=== PATIENT | male | born 1945 | race Caucasian/White ===

== ENCOUNTER 2023-04-03 08:21 | Outpatient (OUT) | payer OTHER, SELFPAY ==
--- NOTE | 2023-04-03 | PCN_ITS ---
CARDIAC STRESS TEST Requesting Physician:? Procedure Date:? 04/03/2023 Mr. Doyle performed an exercise stress test on Bubba protocol.? The resting heart rate was 62 beats per minute with a resting blood pressure of 188/82 mm/Hg, with a maximum heart rate achieved of 127 beats per minute, with a maximum blood pressure achieved of 206/88 mm/Hg.? He exercised up to 4 minutes and 1 second, reaching only stage 1, achieving 4.6 METS.? He did achieve 90% of the expected heart rate for his age.? Baseline showed evidence of sinus bradycardia with underlying right bundle branch block.? With increasing heart rate, no evidence of AV block was seen.? On recovery, patient did have a PVC, but no arrhythmias were noted. At 4 minutes into exercise at stage 2, very subtle [address] depression was noted on the inferolateral leads. IMPRESSION:? 1.? EKG portion suggestive of some early ST segment depression noted in the inferolateral leads concerning for ischemia. 2.? No evidence of any exercise induced VT or arrhythmia, except for PVC.? 3.? No evidence of chronotropic incompetence. MTDD
--- NOTE | 2023-04-03 08:30 | NM_ITS ---
Patient: IGNACIO AUGUSTINE Exam Date: 04/03/2023 : 1945 Gender:M Ordering : OVIDIO TOSCANO Admission #: [id number] Family : KAMI LANZA [facility] Order #: [id number] CLICK HERE TO VIEW EXAM RADIOLOGY REPORT PROCEDURE: NM TAYLOR PERF SPECT REST STR COMPARISON: None. INDICATIONS: CHEST PAIN TECHNIQUE: Exam Description: Stress/Rest one day protocol gated SPECT Rest Imagin.3 mCi Tc-99m Cardiolite IV on 04/03/2023 Stress Imaging 29.8 mCi Tc-99m Cardiolite IV on 04/03/2023 Exercise Protocol: Bubba Heart Rate (bpm): Rest: 52 Max: 127 PMHR: 90 Blood Pressure: Rest: 188/82 Max: 206/88 Exercise Time: Minutes: 4 Seconds: 01 Stage Reached: Stage: 2 Mets 4.6 Symptoms: Rest and peak stress ECG findings were abnormal and the exercise portion of the study was abnormal per attending physician Dr. Toscano due to blood pressure. For more details please see separate cardiac stress test report. FINDINGS: QUALITY OF STUDY: Good. PERFUSION DEFECT: LOCATION: Basal inferior. Mid-inferior. Apical inferior. SIZE: Medium (3-4 segments). SEVERITY: Moderate. TYPE: Persistent. WALL MOTION: Normal. LV SIZE: Normal. 63 mL. TID / TCD: None; 0.9 LVEF: Normal. Calculated EF 69%. SUMMARY: Myocardial perfusion imaging study has ABNORMAL findings. CONCLUSION: 1. 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 2. No reversible ischemia 3. Abnormal exercise test secondary to blood pressure Dictated by: Mohan Campo MD on 04/04/2023 at 12:58 Approved by: Mohan Campo MD on 04/04/2023 at 12:59
== END 2023-04-03 08:22 | disposition home or self-care (01) ==
PROVIDERS: PCP Nurse Practitioner Family; Visit Provider Internal Medicine Cardiovascular Disease
DX: R07.9 Chest pain, unspecified (principal)
CPT/HCPCS: 78452; 93017; A9500

== ENCOUNTER 2023-12-20 08:46 | Outpatient (OUT) | payer MEDICARE, SELFPAY ==
[2023-12-20 09:23] LABS: Basophils Absolute Auto 0.1 10^3/uL (0.0-0.1); Basophils Percent Auto 0.8 % (0.2-2.0); Eosinophils Absolute Auto 0.6 10^3/uL (0.0-0.7); Eosinophils Percent Auto 8.2 % (0.9-7.0); Hematocrit 40.3 % (42.0-54.0); Hemoglobin 13.3 g/dL (14.0-18.0); Immature Granulocytes Abs Auto 0.01 10^3/uL (0.00-0.03); Immature Granulocytes Pct Auto 0.1 % (0.0-0.5); Lymphocytes Absolute Auto 3.1 10^3/uL (1.2-3.8); Lymphocytes Percent Auto 39.9 % (20.5-60.0); Mean Corpuscular Hemoglobin 31.6 pg (25.9-34.0); Mean Corpuscular Volume 95.7 fL (80.0-94.0); Mean Platelet Volume 8.9 fL (9.5-13.5); Monocytes Absolute Auto 0.6 10^3/uL (0.3-0.8); Monocytes Percent Auto 7.2 % (1.7-12.0); Neutrophils Absolute Auto 3.4 10^3/uL (1.4-6.5); Neutrophils Percent Auto 43.8 % (43.0-75.0); Platelet Count 231 10^3/uL (150-450); Red Blood Count 4.21 10^6/uL (4.70-6.10); Red Cell Distribution Width 12.5 % (11.0-15.0); White Blood Count 7.8 10^3/uL (4.0-11.0)
[2023-12-20 09:51] LABS: Estimated Average Glucose 123 mg/dL; Glycohemoglobin A1C 5.9 % (4.5-6.2)
[2023-12-20 12:43] LABS: Alanine Aminotransferase 20 U/L (16-63); Albumin Globulin Ratio 1.2; Albumin Level 3.7 g/dL (3.4-5.0); Alkaline Phosphatase 68 U/L (46-116); Anion Gap 9.7; Aspartate Amino Transferase 19 U/L (15-37); BUN Creatinine Ratio 15.6; Bilirubin Total 0.5 mg/dL (0.2-1.0); Calcium 9.2 mg/dL (8.5-10.1); Carbon Dioxide 29.8 mmol/L (21.0-32.0); Chloride 104 mmol/L (98-107); Chol HDL Ratio 3.6; Cholesterol 189 mg/dL (<=200); Estimated GFR (African America >60 (>=60); Estimated GFR (Non-African Ame 54 (>=60); Glucose 110 mg/dL (74-106); HDL Cholesterol 52 mg/dL (40-60); LDL Cholesterol Calculated 118.4 mg/dL; Potassium 4.5 mmol/L (3.5-5.1); Sodium 139 mmol/L (136-145); Total Protein 6.7 g/dL (6.4-8.2); Triglycerides 93 mg/dL (<=150); VLDL CHOLESTEROL 18.6 mg/dL
[2023-12-21 04:08] LABS: PSA, Free 2.58 ng/mL; Prostate Specific Ag 11.5 ng/mL (0.0-4.0)
[2023-12-21 10:10] LABS: Insulin 5.9 uIU/mL (2.6-24.9)
== END 2023-12-20 08:47 | disposition home or self-care (01) ==
LOC: LAB 08:50
PROVIDERS: PCP Nurse Practitioner Family; Visit Provider Nurse Practitioner Family
DX: I10 Essential (primary) hypertension (principal)
CPT/HCPCS: 36415; 80053; 80061; 83036; 83525; 84153; 84154; 85025

== ENCOUNTER 2024-01-15 11:10 | Outpatient (OUT) | payer MEDICARE, SELFPAY ==
[2024-01-15 12:02] LABS: Bilirubin Urine NEGATIVE (NEGATIVE); Blood Urine MODERATE (NEGATIVE); Clarity Urine CLEAR (CLEAR); Color Urine YELLOW (YELLOW); Glucose Urine UA NEGATIVE (NEGATIVE); Ketones Urine NEGATIVE (NEGATIVE); Leukocyte Esterase Urine NEGATIVE (NEGATIVE); Nitrite Urine NEGATIVE (NEGATIVE); Protein Urine NEGATIVE (NEG/TRACE); Urobilinogen Urine 0.2 EU/dL (0.2-1.0)
[2024-01-15 12:13] LABS: Bacteria Urine NONE SEEN #/HPF (NONE SEEN); WBC Urine NONE SEEN #/HPF (NONE SEEN)
[2024-01-15 12:14] LABS: Mucus Urine NONE SEEN (NONE SEEN); Squamous Epithelial Cell Urine FEW #/LPF (NONE/RARE)
== END 2024-01-15 11:11 | disposition home or self-care (01) ==
LOC: LAB 11:12
PROVIDERS: PCP Nurse Practitioner Family; Visit Provider Nurse Practitioner Family
DX: D64.9 Anemia, unspecified (principal)
CPT/HCPCS: 36415; 81001; 83540

== ENCOUNTER 2024-01-16 14:01 | Outpatient (REF) | payer MEDICARE, SELFPAY ==
[2024-01-16 16:06] LABS: Internal Control Within Normal Limits; Occult Blood Negative
== END 2024-01-16 14:02 | disposition home or self-care (01) ==
LOC: LAB 14:01
PROVIDERS: PCP Nurse Practitioner Family; Visit Provider Nurse Practitioner Family
DX: D64.9 Anemia, unspecified (principal)
CPT/HCPCS: G0328

== ENCOUNTER 2024-03-12 10:10 | Outpatient (OUT) | payer MEDICARE, SELFPAY ==
--- NOTE | 2024-03-12 10:15 | ECG_ITS ---
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
--- NOTE | 2024-03-12 10:15 | XR_ITS ---
[address] [address] Patient Name: IGNACIO AUGUSTINE MRN: [id number] date: 1945 Sex: M Assigned Patient Location: [facility] Current Patient Location: Accession/Order Number: [id number] Exam Date: 03/12/2024 10:58 Report Date: 03/13/2024 07:45 At the request of: MERLYN SPARKS Procedure: XR chest 2V PROCEDURE: XR chest 2V DATE: 03/12/2024 9:58 AM CDT COMPARISONS: None. CLINICAL INDICATION: 78 years Male Preop exam FINDINGS: The cardiomediastinal silhouette and pulmonary vasculature are within normal limits. The lungs are clear. There is no evidence of pleural effusion or pneumothorax. XR/XR chest 2V IMPRESSION: Chest radiograph is within normal limits. Electronically authenticated by: ALEJANDRA RENEE Date: 03/13/2024 07:45
--- OUTSIDE RECORDS SUMMARY | 2024-03-12 10:29 | XMS_ITS | CCD ---
Author Organization [facility] Care Team Providers Care Customer Associate Name Role Phone KAMI LANZA Primary Care Physician [phone] KAMI LANZA Primary Care Unavailable HALEIGH ., DR SNELL Admitting Unavailable HALEIGH ., DR SNELL Attending Unavailable HALEIGH ., DR SNELL Consulting Unavailable LIBERTAD ., DR ABRAMS Consulting Unavailable NALINI CHIRINOS Consulting Unavailable MICHAEL PRADO Consulting Unavailable KAMI LANZA Admitting Unavailable KAMI LANZA Attending Unavailable KAMI LANZA Primary Care Unavailable KAMI LANZA Consulting Unavailable Ale Green Attending Unavailable ABBE HSU Attending Unavailable CYNDI CHAN Attending Unavailable CYNDI CHAN Attending Unavailable Allergies Allergy Classification Reported Allergen(s) Allergy Type Date of Onset Reaction(s) Facility (4 sources) Penicillins; 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: [penicillins] Drug allergy 3 Pharyngeal swelling (finding) [facility] (1 source) Penicillin Drug Allergy [facility] Medications Current Medications Medication Drug Class(es) Dates Sig (Normalized) Sig (Original) amLODIPine 5 mg oral tablet (1 source) Dihydropyridine Calcium Channel Elana Start: 03-17-2020 amLODIPine 5 mg Tab Refills(s) 0 Start Date: 03/17/20 Status: Ordered apixaban 5 mg oral tablet (1 source) Factor Xa Inhibitor Start: 02-27-2024 Eliquis 5 mg oral tablet 10 mg = 2 tab(s), Refills(s) 0 Start Date: 02/27/24 Status: Ordered aspirin 81 mg chewable tablet (1 source) Platelet Aggregation Inhibitor, Nonsteroidal Anti-inflammatory Drug Start: 08-27-2019 take 1 tablet by mouth once daily aspirin 81 mg Chew Tab 81 mg = 1 tab(s), Oral, Daily, # 30 tab(s), Refills(s) 0 Start Date: 08/27/19 Status: Ordered atorvastatin 40 mg oral tablet (1 source) HMG-CoA Reductase Inhibitor Start: 10-28-2020 take 1 tablet by mouth once daily atorvastatin 40 mg Tab 40 mg = 1 tab(s), Oral, Daily, Refills(s) 0 Start Date: 10/28/20 Status: Ordered ciprofloxacin 500 mg oral tablet (1 source) Quinolone Antimicrobial Start: 02-27-2024 End: 03-01-2024 take 1 tablet by mouth every twelve hours Cipro 500 mg Tab 500 mg = 1 tab(s), Oral, q12hr, Start day prior to procedure., X 3 day(s), # 6 tab(s), Refills(s) 0, Pharmacy: [facility]/pharmacy #[id number], 170, cm, 02/27/24 11:19:00 EDT, Height/Length Dosing, 64, kg, 02/27/24 11:19:00 EDT, Weight Dosing Start Date: 02/27/24 Stop Date: 03/01/24 Status: Ordered DilTIAZem (Eqv-Cardizem CD) 120 mg/24 hours oral capsule, extended release (1 source) Start: 02-27-2024 DilTIAZem (Eqv-Cardizem CD) 120 mg/24 hours oral capsule, extended release 120 mg = 1 cap(s), Refills(s) 0 Start Date: 02/27/24 Status: Ordered Garlic preparation (2 sources) Non-Standardized Food Allergenic Extract Start: 08-27-2019 take 1000 mg by mouth once daily garlic 1,000 mg, Oral, Daily, Refill(s) 0 Start Date: 08/27/19 Status: Ordered losartan potassium 100 mg oral tablet (1 source) Angiotensin 2 Receptor Elana Start: 02-27-2024 losartan 100 mg Tab 100 mg = 1 tab(s), Refills(s) 0 Start Date: 02/27/24 Status: Ordered Misc Medication (1 source) Start: 08-27-2019 Misc Medication Start Date: 08/27/19 Status: Ordered Multi Vitamin+ (1 source) Start: 08-27-2019 Multi Vitamin+ Oral, Daily, Refill(s) 0 Start Date: 08/27/19 Status: Ordered Multivitamin preparation (1 source) Start: 02-27-2024 multivitamin Refill(s) 0 Start Date: 02/27/24 Status: Ordered terazosin 5 mg oral capsule (2 sources) alpha-Adrenergic Elana Start: 08-27-2019 take 1 capsule by mouth once daily at bedtime terazosin 5 mg Cap 5 mg = 1 cap(s), Oral, Once a day (at bedtime), # 90 cap(s), Refills(s) 0 Start Date: 08/27/19 Status: Ordered Problems Problem Classification Problem Date Documented Date Episodic/Chronic Aortic; peripheral; and visceral artery aneurysms (2 sources) Abdominal aortic aneurysm 09-10-2019 Chronic Calculus of urinary tract (2 sources) History of calculus of kidney 12-18-2019 Episodic Cancer of prostate (3 sources) Malignant tumor of prostate; 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: [Malignant neoplasm of prostate] Onset: 02-27-2024 02-25-2020 Chronic Cancer of prostate (1 source) Personal history of malignant neoplasm of prostate; 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: [PERSONAL HX MALIG NEOPLASM PROSTATE] Onset: 10-26-2022 Episodic Cardiac dysrhythmias (3 sources) Unspecified atrial fibrillation; 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: [Atrial fibrillation] Onset: 10-26-2022 Chronic Cardiac dysrhythmias (3 sources) Palpitations; 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: [PALPITATIONS] Onset: 10-24-2022 Episodic Diseases of white blood cells (1 source) Elevated white blood cell count, unspecified; 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: [ELEVATED WHITE BLOOD CELL COUNT UNS] Onset: 10-26-2022 Chronic Disorders of lipid metabolism (1 source) Hyperlipidemia, unspecified; 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: [HYPERLIPIDEMIA UNSPECIFIED] Onset: 10-26-2022 Chronic Diverticulosis and diverticulitis (2 sources) Diverticulosis of sigmoid colon 03-30-2020 Chronic Essential hypertension (7 sources) Essential (primary) hypertension; 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: [Hypertensive disorder] Onset: 10-16-2022 Chronic Genitourinary symptoms and ill-defined conditions (13 sources) Radu hematuria; 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: [Incomplete emptying of bladder] Onset: 02-27-2024 10-16-2019 Episodic Hyperplasia of prostate (3 sources) Benign prostatic hypertrophy with outflow obstruction; 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: [Benign prostatic hyperplasia without lower urinary tract symptoms] Onset: 10-26-2022 02-25-2020 Chronic Other aftercare (1 source) retirement (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; 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: [USP 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 ASPIRIN] Onset: 10-26-2022 Episodic Other aftercare (1 source) Other [place] [facility] (current) drug therapy; 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: [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 DRUG THERAPY] Onset: 10-26-2022 Episodic Other aftercare (1 source) Long-term current use of anticoagulant; 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: [retirement (current) use of anticoagulants] Onset: 02-27-2024 Episodic Other and unspecified benign neoplasm (2 sources) Pseudopolyposis of colon 03-30-2020 Episodic Other lower respiratory disease (1 source) Other nonspecific abnormal finding of lung field; 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: [OTH NONSPECIFIC ABN FIND LNG FIELD] Onset: 10-26-2022 Episodic Other lower respiratory disease (1 source) Shortness of breath; 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: [SHORTNESS OF BREATH] Onset: 10-26-2022 Episodic Other screening for suspected conditions (not mental disorders or infectious disease) (6 sources) Magnetic resonance imaging of abdomen abnormal; 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: [Raised prostate specific antigen] Onset: 10-23-2022 03-30-2020 Episodic Peripheral and visceral atherosclerosis (1 source) Atherosclerosis of aorta; 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: [Atherosclerosis of aorta] Onset: 06-01-2022 Chronic Screening and history of mental health and substance abuse codes (2 sources) Ex-smoker 12-18-2019 Episodic Substance-related disorders (1 source) Nicotine dependence, chewing tobacco, uncomplicated; 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: [NICOTINE DEPEND CHEW TOBACCO UNCOMP] Onset: 10-26-2022 Chronic Unclassified (2 sources) Drug therapy finding 02-25-2020 Unclassified (1 source) ALCOHOL USE UNSPEC UNCOMPLICATED; 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: [ALCOHOL USE UNSPEC UNCOMPLICATED] Onset: 10-26-2022 Unclassified (1 source) CONTACT W/AND (SUSP) EXPOS COVID-19; 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: [CONTACT W/AND (SUSP) EXPOS COVID-19] Onset: 10-26-2022 Results Test Name Value Interpretation Reference Range Facility Office Visiton 02-26-2024 Follow-up visit [id number] Nick Doyle 1945 M Date Provider Department Center 02/26/2024 [facility] Family History Problem Relation Age of Onset Heart attack Father Heart attack Brother Family Status - Relation Status Age at Father Brother Level of Service:17881 [facility] OFFICE/OUTPATIENT ESTABLISHED MOD MDM 30 MIN Reason for Visit and Comments: Atrial Fibrillation [80] Hypertension [792293] Normal [facility] Office Visiton 08-07-2023 Follow-up visit [id number] Nick Doyle 1945 M Date Provider Department Center 08/07/2023 CYNDI ANTHONY Family History Problem Relation Age of Onset Heart attack Father Heart attack Brother Family Status - Relation Status Age at Father Brother Level of Service:40475 [place] OFFICE/OUTPATIENT ESTABLISHED LOW MDM 20 MIN Normal [facility] Office Visiton 05-07-2023 Follow-up visit [id number] Nick Doyle 1945 M Date Provider Department Center 05/07/2023 CYNDI ANTHONY Family History Problem Relation Age of Onset Heart attack Father Heart attack Brother Family Status - Relation Status Age at Father Brother Level of Service:60808 [place] OFFICE/OUTPATIENT ESTABLISHED LOW MDM 20-29 MIN Normal [facility] BNPon 10-24-2022 Natriuretic peptide B (Bld) [Mass/Vol] 368.0 pg/mL Normal <=1,800.0 [facility] Comment on above: Performed By: #### H STROPN, BMP, BNP #### [facility] [address] [place] [address] Dr. Alo Johnson CBC AUTO DIFFon 10-24-2022 BASO # 0.0 103/ul Normal 0.0-0.1 [facility] Comment on above: Performed By: #### C BC #### [facility] [address] [place] [address] Dr. Alo Johnson Basophils/100 WBC (Bld) 0.3 % Normal 0.2-2.0 [facility] Comment on above: Performed By: #### C BC #### [facility] [address] [place] [address] Dr. Alo Johnson EO # 0.7 103/ul Normal 0.0-0.7 [facility] Comment on above: Performed By: #### C BC #### [facility] [address] [address] [address] Alo Johnson Eosinophils/100 WBC (Bld) 6.3 % Normal 0.9-7.0 [facility] Comment on above: Performed By: #### C BC #### [facility] [address] [address] [address] Alo Johnson Erythrocyte distribution width (RBC) [Ratio] 12.4 % Normal 11.0-15.0 [facility] Comment on above: Performed By: #### C BC #### [facility] [address] [place] [address] Dr. Alo Johnson Hematocrit (Bld) [Volume fraction] 42.7 % Normal 42.0-54.0 [facility] Comment on above: Performed By: #### C BC #### [facility] [address] [place] [address] Dr. Alo Johnson Hemoglobin (Bld) [Mass/Vol] 14.5 g/dL Normal 14.0-18.0 [facility] Comment on above: Performed By: #### C BC #### [facility] [address] [place] [address] Dr. Alo Johnson IG # 0.03 10e3/ul Normal 0.00-0.03 [facility] Comment on above: Performed By: #### C BC #### [facility] [address] [place] [address] Dr. Alo Johnson IG % 0.3 % Normal 0.0-0.5 [facility] Comment on above: Performed By: #### C BC #### [facility] [address] [place] [address] Dr. Alo Johnson LYMPH # 4.8 103/ul Critically high 1.2-3.8 [facility] Comment on above: Performed By: #### C BC #### [facility] [address] [place] [address] Dr. Alo Johnson Lymphocytes/100 WBC (Bld) 41.8 % Normal 20.5-60.0 [facility] Comment on above: Performed By: #### C BC #### [facility] [address] [place] [address] Dr. Alo Johnson MANUAL DIFF REQ NO Normal [facility] Comment on above: Performed By: #### C BC #### [facility] [address] [place] [address] Dr. Alo Johnson MCH (RBC) [Entitic mass] 32.6 pg Normal 25.9-34.0 [facility] Comment on above: Performed By: #### C BC #### [facility] [address] [place] [address] Dr. Alo Johnson MCHC (RBC) [Mass/Vol] 34.0 g/dL Normal 29.9-35.2 [facility] Comment on above: Performed By: #### C BC #### [facility] [address] [place] [address] Dr. Alo Johnson MCV (RBC) [Entitic vol] 96.0 fL Critically high 80.0-94.0 [facility] Comment on above: Performed By: #### C BC #### [facility] [address] [place] [address] Dr. Alo Johnson MONO # 0.8 103/ul Normal 0.3-0.8 [facility] Comment on above: Performed By: #### C BC #### [facility] [address] [place] [address] Dr. Alo Johnson Monocytes/100 WBC (Bld) 7.1 % Normal 1.7-12.0 [facility] Comment on above: Performed By: #### C BC #### [facility] [address] [place] [address] Dr. Alo Johnson NEUT # 5.1 103/ul Normal 1.4-6.5 [facility] Comment on above: Performed By: #### C BC #### [facility] [address] [place] [address] Dr. Alo Johnson Neutrophils/100 WBC (Bld) 44.2 % Normal 43.0-75.0 [facility] Comment on above: Performed By: #### C BC #### [facility] [address] [place] [address] Dr. Alo Johnson Platelet mean volume (Bld) [Entitic vol] 8.7 fL Critically low 9.5-13.5 [facility] Comment on above: Performed By: #### C BC #### [facility] [address] [place] [address] Dr. Alo Johnson PLT 236 103/ul Normal 150-450 [facility] Comment on above: Performed By: #### C BC #### [facility] [address] [place] [address] Dr. Alo Johnson RBC 4.45 106/ul Critically low 4.70-6.10 [facility] Comment on above: Performed By: #### C BC #### [facility] [address] [place] [address] Dr. Alo Johnson WBC 11.5 103/ul Critically high 4.0-11.0 [facility] Comment on above: Performed By: #### C BC #### [facility] [address] [place] [address] Dr. Alo Johnson CULTURE BLOODon 10-24-2022 Microscopic examination of blood, culture Culture Observations: NO GROWTH AT 5 DAYS. Isolate 1 BC_BA_NA Normal [facility] Comment on above: Performed By: #### I NSULIN #### [facility] [address] [place] [address] Dr. Alo Johnson Microscopic examination of blood, culture Culture Observations: NO GROWTH AT 5 DAYS. Isolate 1 BC_BA_NA Normal [facility] Comment on above: Performed By: #### I NSULIN #### [facility] [address] [place] [address] Dr. Alo Johnson [facility]05 SARS-CoV-2 (COVID-19) RNA ANGELICA+probe Ql (Unsp spec) Not detected Normal NOT DETECTED [facility] Comment on above: Result Comment: When diagnostic testing is negative, the possibility of a false negative should be considered in the context of a patient's recent exposures and the presence of clinical signs and symptoms consistent with SARS-CoV-2. This test is not yet approved or cleared by the [place] FDA. When there are no FDA-approved or cleared tests available, and other criteria are met, FDA can make tests available under an emergency access mechanism called an Emergency Use Authorization (EUA). The EUA for this test is supported by the [place] of Health and Human Service's declaration that circumstances exist to justify the emergency use of in vitro diagnostics for the detection and/or diagnosis of the virus that causes COVID-19. This EUA will remain in effect for the duration of the COVID-19 declaration justifying emergency of IVDs, unless it is terminated or revoked by the FDA (after which the test may no longer be used). Performed By: #### I NSULIN #### [facility] [address] [place] [address] Dr. Alo Johnson ECHOCARDIO M/2D COMPLETEon 0 10-24-2022 ECHOCARDIO M/2D COMPLETE Patient: NICK DOYLE Exam Date: 10/24/2022 : 1945 Gender:M Ordering : MICHAEL PRADO Admission #: [id number] Family : DR ALIS RICARDO . Order #: [id number] CLICK HERE TO VIEW EXAM ECHOCARDIOGRAM REPORT PROCEDURE: CARDIO PULMONARY ECHOCARDIO M/2D COMP INDICATIONS: Chest pain, Shortness of breath COMPARISON: None. DESCRIPTION: COMPLETE ECHOCARDIOGRAM Real-time transthoracic echocardiography with 2D, M-mode, spectral and color flow Doppler performed. QUALITY: Technical quality was good. LEFT VENTRICLE: Normal chamber size. Borderline left ventricular hypertrophy. LV EF: Global left ventricular systolic function is normal. Visual estimation of left ventricular ejection fraction is 60-65% DIASTOLIC: Diastolic function is indeterminate. ATRIAL SEPTUM: Inadequately seen. LEFT ATRIUM: Normal chamber size. RIGHT ATRIUM: Normal chamber size. RIGHT VENTRICLE: Normal chamber size. Normal right ventricular systolic function. TRICUSPID VALVE: Normal mobility and thickness. No stenosis with mild regurgitation. Mild pulmonary hypertension. RVSP 36mmHg MITRAL VALVE: Normal mobility and thickness. No mitral valve prolapse. No evidence of mitral valve stenosis. Moderate mitral annular calcification. Mild mitral regurgitation. AORTIC VALVE: Normal trileaflet appearance. No visible sclerosis. Normal leaflet mobility. No evidence of aortic valve stenosis. Trivial aortic regurgitation. AORTIC ROOT: Normal diameter and appearance. PULMONIC VALVE: Normal thickness and mobility. No stenosis. Trivial regurgitation. PERICARDIUM: No evidence of pericardial effusion. IVC: Collapses with inspirations. Normal size. CONCLUSION: Global left ventricular systolic function is normal; visually estimated ejection fraction is 60 to 65%. No wall motion abnormalities. Diastolic function is indeterminate. Normal right ventricular size and function. Mild tricuspid regurgitation. Mildly elevated right-sided pressures. Mild mitral regurgitation. Adult Echocardiography Procedure Report Left Ventricle LVEDD (3.7 - 5.6 cm): 4.49 cm LVESD (2.2 - 4.0 cm): 2.70 cm LVIVS thickness (0.6 - 1.2 cm): 0.99 cm LVPW thickness (0.5 - 1.0 cm): 1.10 cm e': 0.07 m/s E - e': 13.39 LVOT Max Gradient: 4.59 mm[Hg] Peak Velocity (LVOT): 1.07 m/s Mean Velocity (LVOT): 0.72 m/s LVOT Diameter 1.90 cm Left Ventricular Ejection Fraction: 70.59 %, 70.59 % Left Atrium LA Volume Index (2D A2C): 48.18 ml, 48.18 ml Left Atrium Systolic Dimension: 3.15 cm Mitral Valve MV E to A Ratio: 0.87 Mitral Valve A-Wave Peak Velocity: 1.09 m/s Mitral Valve E-Wave Peak Velocity: 0.95 m/s Right Ventricle RV Internal Diastolic Dimension: 2.95 cm Aorta AO Root Diam: 2.95 cm Ascending Ao Diam: 3.08 cm Aortic Valve AoV Area (Peak Gianfranco): 2.45 cm2, 2.45 cm2 AoV Area (VTI): 2.56 cm2, 2.56 cm2 Peak Velocity(Antegrade Flow): 1.24 m/s Peak Gradient(Antegrade Flow): 6.18 mm[Hg] Mean Velocity(Antegrade Flow): 0.80 m/s Mean Gradient(Antegrade Flow): 3.02 mm[Hg] Velocity Time Integral: 29.12 cm Tricuspid Valve Peak Velocity (Regurgitant Flow): 2.88 m/s, 2.88 m/s, 2.83 m/s Peak Velocity: 0.48 m/s Pulmonic Valve Mean Gradient: 2.52 mm[Hg], 2.24 mm[Hg] Mean Velocity: 0.76 m/s, 0.71 m/s Peak Velocity: 0.99 m/s, 0.99 m/s Peak Gradient: 3.88 mm[Hg], 3.88 mm[Hg] Right Atrium Right Atrium Systolic Pressure: 34.43 ml, 34.43 ml Dictated by: Marcellus Mei M.D. on 10/24/2022 at 15:29 Approved by: Marcellus Mei M.D. on 10/24/2022 at 15:33 Normal [facility] ETHANOL (BLD ALC)on 10-25-19 23 ALC NOTE NOTE: 80 mg/dl is th e legal limit for a blood alcohol level Normal [facility] Comment on above: Performed By: #### I NSULIN #### [facility] [address] [place] [address] Dr. Alo Johnson Ethanol [Mass/Vol] mg/dL Normal [facility] Comment on above: Performed By: #### I NSULIN #### [facility] [address] [place] [address] Dr. Alo Johnson LACTATE/LACTIC ACIDon 2022 Lactate [Moles/Vol] 1.3 mmol/L Normal 0.4-2.0 [facility] Comment on above: Performed By: #### L ACT #### [facility] [address] [place] [address] Dr. Alo Johnson PROF CHEM 8 (BAS METB)on Anion gap [Moles/Vol] 14.9 mmol/L Normal [facility] Comment on above: Performed By: #### H STROPN, BMP, BNP #### [facility] [address] [place] [address] Dr. Alo Johnson Calcium [Mass/Vol] 10.0 mg/dL Normal 8.5-10.1 [facility] Comment on above: Performed By: #### H STROPN, BMP, BNP #### [facility] [address] [place] [address] Dr. Alo Johnson Chloride [Moles/Vol] 103 mmol/L Normal 98-107 [facility] Comment on above: Performed By: #### H STROPN, BMP, BNP #### [facility] [address] [address] [address] Alo Johnson CO2 [Moles/Vol] 26.2 mmol/L Normal 21.0-32.0 [facility] Comment on above: Performed By: #### H STROPN, BMP, BNP #### [facility] [address] [address] [address] Alo Johnson Creatinine [Mass/Vol] 1.10 mg/dL Normal 0.70-1.30 [facility] Comment on above: Performed By: #### H STROPN, BMP, BNP #### [facility] [address] [address] [address] Alo Johnson EGFR-AF UGANDAN >60 Normal >=60 [facility] Comment on above: Performed By: #### H STROPN, BMP, BNP #### [facility] [address] [address] [address] Alo Johnson EGFR-NON AF UGANDAN >60 Normal >=60 [facility] Comment on above: Performed By: #### H STROPN, BMP, BNP #### [facility] [address] [address] [address] Alo Johnson Glucose [Mass/Vol] 135 mg/dL Critically high 74-106 [facility] Comment on above: Performed By: #### H STROPN, BMP, BNP #### [facility] [address] [address] [address] Alo Johnson Potassium [Moles/Vol] 4.1 mmol/L Normal 3.5-5.1 [facility] Comment on above: Performed By: #### H STROPN, BMP, BNP #### [facility] [address] [address] [address] Alo Johnson Sodium [Moles/Vol] 140 mmol/L Normal 136-145 [facility] Comment on above: Performed By: #### H STROPN, BMP, BNP #### [facility] [address] [address] [address] Alo Johnson Urea nitrogen [Mass/Vol] 21.0 mg/dL Critically high 7.0-18.0 [facility] Comment on above: Performed By: #### H STROPN, BMP, BNP #### [facility] [address] [place], [place] [address] Dr. Alo Johnson Urea nitrogen/Creatinine [Mass ratio] 19.1 mg/mg Normal [facility] Comment on above: Performed By: #### H STROPN, BMP, BNP #### [facility] [address] [address] [address] Alo Johnson TROPONIN, HIGH SENSITIVITYon 10-24-2022 HSTROP 35.8 pg/mL Normal 4.0-76.1 [facility] Comment on above: Result Comment: CUT- OFF POINTS HAVE BEEN ESTABLISHED BASED ON THE FOURTH UNIVERSAL DEFINITIONS OF MYOCARDIAL INFARCTION. THE UPPER REFERENCE LIMIT (URL) OF TROPONIN, DEFINED THE 99TH PERCENTILE OF cTnI DISTRIBUTION IN A REFERENCE POPULATION, HAS BEEN CONFIRMED THE DECISION THRESHOLD FOR [place] DIAGNOSIS. Performed By: #### A 1C #### [facility] [address] [address] [address] Alo Johnson HSTROP 14.1 pg/mL Normal 4.0-76.1 [facility] Comment on above: Result Comment: CUT- OFF POINTS HAVE BEEN ESTABLISHED BASED ON THE FOURTH UNIVERSAL DEFINITIONS OF MYOCARDIAL INFARCTION. THE UPPER REFERENCE LIMIT (URL) OF TROPONIN, DEFINED THE 99TH PERCENTILE OF cTnI DISTRIBUTION IN A REFERENCE POPULATION, HAS BEEN CONFIRMED THE DECISION THRESHOLD FOR [place] DIAGNOSIS. Performed By: #### H STROPN, BMP, BNP #### [facility] [address] [id number] Alo Johnson TSHon 10-24-2022 TSH 3.366 uIU/mL Normal 0.358-3.740 [facility] Comment on above: Performed By: #### I NSULIN #### [facility] [address] [address] [address] Alo Johnson XR CHEST 1 Von 10-24-2022 XR CHEST 1 V CXR HISTORY: Chest heaviness. COMPARISON: None. TECHNIQUE: 1 view chest submitted for review. FINDINGS: Interstitial opacities in the lower lobes bilaterally. The lungs are adequately expanded without effusion. The cardiac silhouette measures within normal. Pulmonary vascularity is unremarkable. Osseous structures do not demonstrate any acute abnormality allowing for the changes of a one view chest. IMPRESSION: Interstitial opacities in the lower lobes bilaterally. Please correlate for pneumonia versus atelectasis. Electronically authenticated by: NALINI CHIRINOS Date: 2022-10-24 01:01 Normal [facility] INSULINon 10-17-2022 Insulin 9.5 uIU/mL Normal 2.6-24.9 [facility] Comment on above: Performed By: #### I NSULIN #### [facility] [address] [address] [address] Alo Johnson PSA, FREE AND TOTAL RATIOon 10-17-2022 % Free PSA 21.9 % Normal [facility] Comment on above: Result Comment: The table below lists the probability of prostate cancer for men with non-suspicious ISSAC results and total PSA between 4 and 10 ng/mL, by patient age (Daniel et al, LESA 1998, 279:1542). % Free PSA 50-64 yr 65-75 yr 0.00-10.00% 56% 55% 10.01-15.00% 24% 35% 15.01-20.00% 17% 23% 20.01-25.00% 10% 20% >25.00% 5% 9% Please note: Daniel et al did not make specific recommendations regarding the use of percent free PSA for any other population of men. Performed By: #### I NSULIN #### [facility] [address] [address] [address] Alo Johnson Prostate specific Ag [Mass/Vol] 10.6 ng/mL Critically high 0.0-4.0 [facility] Comment on above: Result Comment: [employer] PAULINO methodology. . According to the [employer], Serum PSA should decrease and remain at undetectable levels after radical prostatectomy. The AUA defines biochemical recurrence as an initial PSA value 0.2 ng/mL or greater followed by a subsequent confirmatory PSA value 0.2 ng/mL or greater. Values obtained with different assay methods or kits cannot be used interchangeably. Results cannot be interpreted as absolute evidence of the presence or absence of malignant disease. Performed By: #### I NSULIN #### [facility] [address] [address] [address] Alo Johnson PSA, Free 2.32 ng/mL Normal N/A [facility] Comment on above: Result Comment: [employer] PAULINO methodology. Performed By: #### I NSULIN #### [facility] [address] [place] [address] Dr. Alo Johnson CBC AUTO DIFFon 10-16-2022 BASO # 0.0 103/ul Normal 0.0-0.1 [facility] Comment on above: Performed By: #### I NSULIN #### [facility] [address] [place] [address] Dr. Alo Johnson Basophils/100 WBC (Bld) 0.4 % Normal 0.2-2.0 [facility] Comment on above: Performed By: #### I NSULIN #### [facility] [address] [place] [address] Dr. Alo Johnson EO # 0.6 103/ul Normal 0.0-0.7 [facility] Comment on above: Performed By: #### I NSULIN #### [facility] [address] [place] [address] Dr. Alo Johnson Eosinophils/100 WBC (Bld) 5.8 % Normal 0.9-7.0 [facility] Comment on above: Performed By: #### I NSULIN #### [facility] [address] [place] [address] Dr. Alo Johnson Erythrocyte distribution width (RBC) [Ratio] 12.6 % Normal 11.0-15.0 [facility] Comment on above: Performed By: #### I NSULIN #### [facility] [address] [place] [address] Dr. Alo Johnson Hematocrit (Bld) [Volume fraction] 42.8 % Normal 42.0-54.0 [facility] Comment on above: Performed By: #### I NSULIN #### [facility] [address] [place] [address] Dr. Alo Johnson Hemoglobin (Bld) [Mass/Vol] 15.1 g/dL Normal 14.0-18.0 [facility] Comment on above: Performed By: #### I NSULIN #### [facility] [address] [address] [address] Alo Johnson IG # 0.02 10e3/ul Normal 0.00-0.03 [facility] Comment on above: Performed By: #### I NSULIN #### [facility] [address] [place] [address] Dr. Alo Johnson IG % 0.2 % Normal 0.0-0.5 [facility] Comment on above: Performed By: #### I NSULIN #### [facility] [address] [place] [address] Dr. Alo Johnson LYMPH # 3.4 103/ul Normal 1.2-3.8 [facility] Comment on above: Performed By: #### I NSULIN #### [facility] [address] [place] [address] Dr. Alo Johnson Lymphocytes/100 WBC (Bld) 36.5 % Normal 20.5-60.0 [facility] Comment on above: Performed By: #### I NSULIN #### [facility] [address] [place] [address] Dr. Alo Johnson MANUAL DIFF REQ NO Normal [facility] Comment on above: Performed By: #### I NSULIN #### [facility] [address] [place] [address] Dr. Alo Johnson MCH (RBC) [Entitic mass] 33.3 pg Normal 25.9-34.0 [facility] Comment on above: Performed By: #### I NSULIN #### [facility] [address] [place] [address] Dr. Alo Johnson MCHC (RBC) [Mass/Vol] 35.3 g/dL Critically high 29.9-35.2 [facility] Comment on above: Performed By: #### I NSULIN #### [facility] [address] [place] [address] Dr. Alo Johnson MCV (RBC) [Entitic vol] 94.3 fL Critically high 80.0-94.0 [facility] Comment on above: Performed By: #### I NSULIN #### [facility] [address] [address] [address] Alo Johnson MONO # 0.6 103/ul Normal 0.3-0.8 [facility] Comment on above: Performed By: #### I NSULIN #### [facility] [address] [place] [address] Dr. Alo Johnson Monocytes/100 WBC (Bld) 5.9 % Normal 1.7-12.0 [facility] Comment on above: Performed By: #### I NSULIN #### [facility] [address] [place] [address] Dr. Alo Johnson NEUT # 4.8 103/ul Normal 1.4-6.5 [facility] Comment on above: Performed By: #### I NSULIN #### [facility] [address] [place] [address] Dr. Alo Johnson Neutrophils/100 WBC (Bld) 51.2 % Normal 43.0-75.0 [facility] Comment on above: Performed By: #### I NSULIN #### [facility] [address] [place] [address] Dr. Alo Johnson Platelet mean volume (Bld) [Entitic vol] 9.0 fL Critically low 9.5-13.5 [facility] Comment on above: Performed By: #### I NSULIN #### [facility] [address] [place] [address] Dr. Alo Johnson PLT 240 103/ul Normal 150-450 [facility] Comment on above: Performed By: #### I NSULIN #### [facility] [address] [place] [address] Dr. Alo Johnson RBC 4.54 106/ul Critically low 4.70-6.10 [facility] Comment on above: Performed By: #### I NSULIN #### [facility] [address] [place] [address] Dr. Alo Johnson WBC 9.4 103/ul Normal 4.0-11.0 [facility] Comment on above: Performed By: #### I NSULIN #### [facility] [address] [place] [address] Dr. Alo Johnson GLYCOHEMOGLOBIN A1Con 2022 ADA RECOMMENDATION SEE BELOW Normal [facility] Comment on above: Result Comment: ADA RECOMMENDED LIMIT 4.0 - 6.0 ADA THERAPEUTIC TARGET < 7.0 ACTION SUGGESTED > 7.0 Performed By: #### A 1C #### [facility] [address] [address] [address] Alo Johnson Glucose [Mass/Vol] 111 mg/dL Normal [facility] Comment on above: Performed By: #### A 1C #### [facility] [address] [address] [address] Aol Johnson HbA1c (Bld) [Mass fraction] 5.5 % Normal 4.5-6.2 [facility] Comment on above: Performed By: #### A 1C #### [facility] [address] [place] [address] Dr. Alo Johnson LIPID PROFILEon 10-16-2022 CHOL-HDL RATIO NORM SEE BELOW Normal [facility] Comment on above: Result Comment: 3.3 - 4.4 LOW RISK 4.4 - 7.1 AVERAGE RISK 7.1 - 11.0 MODERATE RISK >11.0 HIGH RISK Performed By: #### C MP, LIPID, URIC #### [facility] [address] [place] [address] Dr. Alo Johnosn Cholesterol [Mass/Vol] 229 mg/dL Critically high <=200 [facility] Comment on above: Performed By: #### C MP, LIPID, URIC #### [facility] [address] [place] [address] Dr. Alo Johnson Cholesterol in HDL [Mass/Vol] 48 mg/dL Normal 40-60 [facility] Comment on above: Performed By: #### C MP, LIPID, URIC #### [facility] [address] [place] [address] Dr. Alo Johnson Cholesterol in LDL [Mass/Vol] 152.8 mg/dL Normal [facility] Comment on above: Performed By: #### C MP, LIPID, URIC #### [facility] [address] [place] [address] Dr. Alo Johnson Cholesterol.total/Ch olesterol in HDL [Mass ratio] 4.8 {ratio} Normal [facility] Comment on above: Performed By: #### C MP, LIPID, URIC #### [facility] [address] [address] [address] Alo Johnson HDL NORMAL > or = 60 mg/dl - LO W CARDIOVASCULAR RISK <40 mg/dl - HIGH CARDIOVASCULAR RISK Normal [facility] Comment on above: Performed By: #### C MP, LIPID, URIC #### [facility] [address] [address] [address] Alo Johnson LDL CALC NORMAL SEE BELOW Normal [facility] Comment on above: Result Comment: <100 mg/dl OPTIMAL 100 - 129 mg/dl NEAR OR ABOVE OPTIMAL 130 - 159 mg/dl BORDERLINE HIGH 160 - 189 mg/dl HIGH >190 mg/dl VERY HIGH Performed By: #### C MP, LIPID, URIC #### [facility] [address] [address] [address] Alo Johnson Triglyceride [Mass/Vol] 141 mg/dL Normal <=150 [facility] Comment on above: Performed By: #### C MP, LIPID, URIC #### [facility] [address] [address] [address] Alo Johnson VLDL CALC 28.2 mg/dL Normal [facility] Comment on above: Performed By: #### C MP, LIPID, URIC #### [facility] [address] [address] [address] Alo Johnson PROF 14(COMP METB)on 023 Albumin [Mass/Vol] 4.0 g/dL Normal 3.4-5.0 [facility] Comment on above: Performed By: #### C MP, LIPID, URIC #### [facility] [address] [address] [address] Alo Johnson Albumin/Globulin [Mass ratio] 1.4 {ratio} Normal [facility] Comment on above: Performed By: #### C MP, LIPID, URIC #### [facility] [address] [address] [address] Alo Johnson ALP [Catalytic activity/Vol] 63 U/L Normal 46-116 [facility] Comment on above: Performed By: #### C MP, LIPID, URIC #### [facility] [address] [place] [address] Dr. Alo Johnson ALT [Catalytic activity/Vol] 21 U/L Normal 16-63 [facility] Comment on above: Performed By: #### C MP, LIPID, URIC #### [facility] [address] [place] [address] Dr. Alo Johnson Anion gap [Moles/Vol] 13.6 mmol/L Normal [facility] Comment on above: Performed By: #### C MP, LIPID, URIC #### [facility] [address] [place] [address] Dr. Alo Johnson AST [Catalytic activity/Vol] 22 U/L Normal 15-37 [facility] Comment on above: Performed By: #### C MP, LIPID, URIC #### [facility] [address] [place] [address] Dr. Alo Johnson Bilirubin [Mass/Vol] 0.7 mg/dL Normal 0.2-1.0 [facility] Comment on above: Performed By: #### C MP, LIPID, URIC #### [facility] [address] [place] [address] Dr. Alo Johnson Calcium [Mass/Vol] 9.4 mg/dL Normal 8.5-10.1 [facility] Comment on above: Performed By: #### C MP, LIPID, URIC #### [facility] [address] [place] [address] Dr. Alo Johnson Chloride [Moles/Vol] 104 mmol/L Normal 98-107 [facility] Comment on above: Performed By: #### C MP, LIPID, URIC #### [facility] [address] [place] [address] Dr. Alo Johnson CO2 [Moles/Vol] 25.4 mmol/L Normal 21.0-32.0 [facility] Comment on above: Performed By: #### C MP, LIPID, URIC #### [facility] [address] [place] [address] Dr. Alo Johnson Creatinine [Mass/Vol] 1.08 mg/dL Normal 0.70-1.30 [facility] Comment on above: Performed By: #### C MP, LIPID, URIC #### [facility] [address] [address] [address] Alo Johnson EGFR-AF UGANDAN >60 Normal >=60 [facility] Comment on above: Performed By: #### C MP, LIPID, URIC #### [facility] [address] [address] [address] Alo Johnson EGFR-NON AF UGANDAN >60 Normal >=60 [facility] Comment on above: Performed By: #### C MP, LIPID, URIC #### [facility] [address] [place] [address] Dr. Alo Johnson Globulin (S) [Mass/Vol] 2.9 g/dL Normal [facility] Comment on above: Performed By: #### C MP, LIPID, URIC #### [facility] [address] [address] [address] Alo Johnson Glucose [Mass/Vol] 106 mg/dL Normal 74-106 [facility] Comment on above: Performed By: #### C MP, LIPID, URIC #### [facility] [address] [address] [address] Alo Johnson Potassium [Moles/Vol] 4.0 mmol/L Normal 3.5-5.1 [facility] Comment on above: Performed By: #### C MP, LIPID, URIC #### [facility] [address] [place] [address] Dr. Alo Johnson Protein [Mass/Vol] 6.9 g/dL Normal 6.4-8.2 [facility] Comment on above: Performed By: #### C MP, LIPID, URIC #### [facility] [address] [address] [address] Alo Johnson Sodium [Moles/Vol] 139 mmol/L Normal 136-145 [facility] Comment on above: Performed By: #### C MP, LIPID, URIC #### [facility] [address] [address] [address] Alo Johnson Urea nitrogen [Mass/Vol] 16.0 mg/dL Normal 7.0-18.0 [facility] Comment on above: Performed By: #### C MP, LIPID, URIC #### [facility] [address] [place], [place] [address] Dr. Alo Johnson Urea nitrogen/Creatinine [Mass ratio] 14.8 mg/mg Normal [facility] Comment on above: Performed By: #### C MP, LIPID, URIC #### [facility] [address] [place], [place] [address] Dr. Alo Johnson URIC ACID SERUMon 10-16-2022 Urate [Mass/Vol] 6.5 mg/dL Normal 3.5-7.2 [facility] Comment on above: Performed By: #### C MP, LIPID, URIC #### [facility] [address] [place], [place] [address] Dr. Alo Johnson Vital Signs Date Time Vital Sign Value Performing Clinician Faci lity 02-27-2024 10:55-0400 Blood Pressure Location Ale Lue [facility] 02-27-2024 10:55-0400 Body temperature 98.6 [degF] Ale Lue [facility] 02-27-2024 10:55-0400 Diastolic blood pressure 65 mm[Hg] Ale Lue [facility] 02-27-2024 10:55-0400 Heart rate 56 /min Ale Lue [facility] 02-27-2024 10:55-0400 Respiratory rate 16 /min Ale Lue [facility] 02-27-2024 10:55-0400 Systolic blood pressure 127 mm[Hg] Ale Lue [facility] 06-01-2022 15:00-0400 Diastolic blood pressure 64 mm[Hg] Vianca Foxan [facility] 06-01-2022 15:00-0400 Mean blood pressure 99 mm[Hg] Vianca Cui [facility] 06-01-2022 15:00-0400 Systolic blood pressure 169 mm[Hg] Vianca See [facility] 06-01-2022 14:30-0400 Blood Pressure Location Vianca Cui [facility] 06-01-2022 14:30-0400 Diastolic blood pressure 70 mm[Hg] Vianca Foxan [facility] 06-01-2022 14:30-0400 Heart rate 86 /min Vianca Foxan [facility] 06-01-2022 14:30-0400 SaO2% (BldA) [Mass fraction] 97 % Vianca Cui [facility] 06-01-2022 14:30-0400 Systolic blood pressure 148 mm[Hg] Vianca Cui [facility] Encounters Encounter Date Encounter Type Care Provider Facility Start: 02-27-2024 ambulatory Ale Green Facility:[facility] Start: 02-27-2024 End: 02-27-2024 Patient encounter procedure Ale Green [facility] Start: 02-26-2024 End: 02-26-2024 ambulatory [facility] Start: 08-07-2023 End: 08-07-2023 ambulatory [facility] Start: 05-07-2023 End: 05-07-2023 ambulatory [facility] Start: 10-24-2022 End: 10-24-2022 ambulatory KAMI LANZA Facility:[facility] Start: 10-16-2022 End: 10-17-2022 ambulatory KAMI LANZA Facility:[facility] Start: 06-01-2022 End: 06-01-2022 Patient encounter procedure Vianca Cui [facility] Procedures Date Procedure Procedure Detail Performing Clinician Start: 10-16-2022 PSA screening KAMI LLOYD Comment on above: Performed By: #### I NSULIN #### [facility] [address] [place] [address] Dr. Alo Johnson Start: 03-24-2020 Colonoscopy Vianca helms Start: 06-30-2014 Transrectal biopsy o f prostate using ultrasound guidance Vianca Cui Comment on above: and Cysto Start: 08-06-1979 Repair of ankle Vianca Cui Comment on above: due to fx Decompression of med ghanshyam nerve Vianca Cui Tonsillectomy Vianca Cui Comment on above: as a child Payers Date Payer Category Payer Private Health Insurance [id number] 2020 Unknown [id number] 1945 Unknown [id number] 1945 Unknown [id number] 1945 Unknown [id number] Social History Date Type Detail Facility Start: 10-28-2020 End: 02-27-2024 Tobacco smoking status Ex-smoker (finding) [facility] Comment on above: pt quit smoking in 1 986 Sex Assigned At Male [facility] Functional Status Date Assessment Result Facility 02-27-2024 Functional Status N/A [facility] 06-01-2022 Functional Status No [facility] Clinical Notes 05-07-2023 to 02-27-2024 Note Date & Type Note Facility 02-27-2024 Hospital Discharge instructions Patient Education 02/27/2024 12:02:57 Transrectal Ultrasound-Guided Prostate Biopsy, Care After Transrectal Ultrasound-Guided Prostate Biopsy, Care After The following information offers guidance on how to care for yourself after your procedure. Your health care provider may also give you more specific instructions. If you have problems or questions, contact your health care provider. What can I expect after the procedure? After the procedure, it is common to have: Pain and discomfort near your rectum, especially while sitting. [place]-colored urine due to small amounts of blood in your urine. A burning feeling while urinating. Blood in your stool (feces) or bleeding from your rectum. Blood in your semen. Follow these instructions at home: Medicines Take jhcp-ren-xxxycaj and prescription medicines only as told by your health care provider. If you were given a sedative during your procedure, it can affect you for several hours. Do not drive or operate machinery until your health care provider says that it is safe. If you were prescribed an antibiotic medicine, take it as told by your health care provider. Do not stop using the antibiotic even if you start to feel better. Activity Return to your normal activities as told by your health care provider. Ask your health care provider what activities are safe for you. Ask your health care provider when it is okay for you to resume sexual activity. You may have to avoid lifting. Ask your health care provider how much you can safely lift. General instructions Drink enough fluid to keep your urine pale yellow. Watch your urine, stool, and semen for new or increased bleeding. Keep all follow-up visits. This is important. Contact a health care provider if: You have any of the following: ?Blood clots in your urine or stool. ?Blood in your urine more than 2 weeks after the procedure. ?Blood in your semen more than 2 months after the procedure. ?New or increased bleeding in your urine, stool, or semen. ?Severe pain in your abdomen. Your urine smells bad or unusual. You have trouble urinating. Your lower abdomen feels firm. You have problems getting an erection. You have nausea or you vomit. Get help right away if: You have a fever or chills. This could be a sign of infection. You have bright red urine. You have severe pain that does not get better with medicine. You cannot urinate. Summary After this procedure, it is common to have pain and discomfort around your rectum, especially while sitting. You may have blood in your urine and stool after the procedure. It is common to have blood in your semen after this procedure. Get help right away if you have a fever or chills. This could be a sign of infection. This information is not intended to replace advice given to you by your health care provider. Make sure you discuss any questions you have with your health care provider. Document Revised: 01/16/2022 Document Reviewed: 01/16/2022 [employer] Patient Education 2022 [employer]. 02/27/2024 12:02:56 Transrectal Ultrasound-Guided Prostate Biopsy Transrectal Ultrasound-Guided Prostate Biopsy A transrectal ultrasound-guided prostate biopsy is a procedure to remove samples of prostate tissue for testing. The prostate is a walnut-sized gland that is located below the bladder and in front of the rectum. During this procedure, a small device (probe) is lubricated and put inside the rectum. The probe sends out sound waves that make a picture of the prostate and surrounding tissues (transrectal ultrasound). The images are used to help guide the process of removing the samples. The samples are taken to a lab to be checked for prostate cancer. This procedure is usually done to evaluate the prostate gland of men who have raised (elevated) levels of prostate-specific antigen (PSA), which can be a sign of prostate cancer or prostate enlargement related to aging (benign prostatic hyperplasia, or BPH). Tell a health care provider about: Any allergies you have. All medicines you are taking, including vitamins, herbs, eye drops, creams, and tzej-cgy-ckwwleq medicines. Any problems you or family members have had with anesthetic medicines. Any bleeding problems you have. Any surgeries you have had. Any medical conditions you have. Any prostate infections you have had. What are the risks? Generally, this is a safe procedure. However, problems may occur, including: Prostate infection. Bleeding from the rectum. Blood in the urine. Allergic reactions to medicines. Damage to surrounding structures such as blood vessels, organs, or muscles. Difficulty passing urine. Nerve damage. This is usually temporary. What happens before the procedure? Medicines Ask your health care provider about: Changing or stopping your regular medicines. This is especially important if you are taking diabetes medicines or blood thinners. Taking medicines such as aspirin and ibuprofen. These medicines can thin your blood. Do not take these medicines unless your health care provider tells you to take them. Taking bhgf-sta-ninccda medicines, vitamins, herbs, and supplements. General instructions Follow instructions from your health care provider about eating and drinking. In most instances, you will not need to stop eating and drinking completely before the procedure. You will be given an enema. During an enema, a liquid is injected into your rectum to clear out waste. You may have a blood or urine sample taken. Ask your health care provider what steps will be taken to help prevent infection. These steps may include: ?Washing skin with a germ-killing soap. ?Taking antibiotic medicine. If you will be going home right after the procedure, plan to have a responsible adult: ?Take you home from the hospital or clinic. You will not be allowed to drive. ?Care for you for the time you are told. What happens during the procedure? An IV will be inserted into one of your veins. You will be given one or both of the following: ?A medicine to help you relax (sedative). ?A medicine to numb the area (local anesthetic). You will be placed on your left side, and your knees will be bent toward your chest. A probe with lubricated gel will be placed into your rectum, and images will be taken of your prostate and surrounding structures. Numbing medicine will be injected into your prostate. A biopsy needle will be inserted through your rectum or perineum and guided to your prostate using the ultrasound images. Prostate tissue samples will be removed, and the needle and probe will then be removed. The biopsy samples will be sent to a lab to be tested. The procedure may vary among health care providers and hospitals. What happens after the procedure? Your blood pressure, heart rate, breathing rate, and blood oxygen level will be monitored until you leave the hospital or clinic. You may have some discomfort in the rectal area. You will be given pain medicine as needed. If you were given a sedative during the procedure, it can affect you for several hours. Do not drive or operate machinery until your health care provider says that it is safe. It is up to you to get the results of your procedure. Ask your health care provider, or the department that is doing the procedure, when your results will be ready. Keep all follow-up visits. This is important. Summary A transrectal ultrasound-guided biopsy removes samples of tissue from your prostate using ultrasound-guided sound waves to help guide the process. This procedure is usually done to evaluate the prostate gland of men who have raised (elevated) levels of prostate-specific antigen (PSA), which can be a sign of prostate cancer or prostate enlargement related to aging. After your procedure, you may feel some discomfort in the rectal area. Plan to have a responsible adult take you home from the hospital or clinic, and follow up with your health care provider for your results. This information is not intended to replace advice given to you by your health care provider. Make sure you discuss any questions you have with your health care provider. Document Revised: 01/16/2022 Document Reviewed: 01/16/2022 [employer] Patient Education 2022 [employer]. 02/27/2024 11:47:00 Prostate Cancer Prostate Cancer The prostate is a small gland that produces fluid that makes up semen (seminal fluid). It is located below the bladder in men, in front of the rectum. Prostate cancer is the abnormal growth of cells in the prostate gland. What are the causes? The exact cause of this condition is not known. What increases the risk? You are more likely to develop this condition if: You are 65 years of age or older. You have a family history of prostate cancer. You have a family history of breast and ovarian cancer. You have genes that are passed from parent to child (inherited), such as BRCA1 and BRCA2. You have Black syndrome. men and men of descent are diagnosed with prostate cancer at higher rates than other men. The reasons for this are not well understood and are likely due to a combination of genetic and environmental factors. What are the signs or symptoms? Symptoms of this condition include: Problems with urination. This may include: ?A weak or interrupted flow of urine. ?Trouble starting or stopping urination. ?Trouble emptying the bladder all the way. ?The need to urinate more often, especially at night. Blood in urine or semen. Persistent pain or discomfort in the lower back, lower abdomen, or hips. Trouble getting an erection. Weakness or numbness in the legs or feet. How is this diagnosed? This condition can be diagnosed with: A digital rectal exam. For this exam, a health care provider inserts a gloved finger into the rectum to feel the prostate gland. A blood test called a prostate-specific antigen (PSA) test. A procedure in which a sample of tissue is taken from the prostate and checked under a microscope (prostate biopsy). An imaging test called transrectal ultrasonography. Once the condition is diagnosed, tests will be done to determine how far the cancer has spread. This is called staging the cancer. Staging may involve imaging tests, such as a bone scan, CT scan, PET scan, or MRI. Stages of prostate cancer The stages of prostate cancer are as follows: Stage 1 (I). At this stage, the cancer is found in the prostate only. The cancer is not visible on imaging tests, and it is usually found by accident, such as during prostate surgery. Stage 2 (II). At this stage, the cancer is more advanced than it is in stage 1, but the cancer has not spread outside the prostate. Stage 3 (III). At this stage, the cancer has spread beyond the outer layer of the prostate to nearby tissues. The cancer may be found in the seminal vesicles, which are near the bladder and the prostate. Stage 4 (IV). At this stage, the cancer has spread to other parts of the body, such as the lymph nodes, bones, bladder, rectum, liver, or lungs. Prostate cancer grading Prostate cancer is also graded according to how the cancer cells look under a microscope. This is called the Lenny score and the total score can range from 6 10, indicating how likely it is that the cancer will spread (metastasize) to other parts of the body. The higher the score, the greater the likelihood that the cancer will spread. [place] 6 or lower: This indicates that the cancer cells look similar to normal prostate cells (well differentiated). [place] 7: This indicates that the cancer cells look somewhat similar to normal prostate cells (moderately differentiated). [place] 8, 9, or 10: This indicates that the cancer cells look very different than normal prostate cells (poorly differentiated). How is this treated? Treatment for this condition depends on several factors, including the stage of the cancer, your age, personal preferences, and your overall health. Talk with your health care provider about treatment options that are recommended for you. Common treatments include: Observation for early stage prostate cancer (active surveillance). This involves having exams, blood tests, and in some cases, more biopsies. For some men, this is the only treatment needed. Surgery. Types of surgeries include: ?Open surgery (radical prostatectomy). In this surgery, a larger incision is made to remove the prostate. ?A laparoscopic radical prostatectomy. This is a surgery to remove the prostate and lymph nodes through several small incisions. It is often referred to as a minimally invasive surgery. ?A robotic radical prostatectomy. This is laparoscopic surgery to remove the prostate and lymph nodes with the help of robotic arms that are controlled by the surgeon. ?Cryoablation. This is surgery to freeze and destroy cancer cells. Radiation treatment. Types of radiation treatment include: ?External beam radiation. This type aims beams of radiation from outside the body at the prostate to destroy cancerous cells. ?Brachytherapy. This type uses radioactive needles, seeds, wires, or tubes that are implanted into the prostate gland. Like external beam radiation, brachytherapy destroys cancerous cells. An advantage is that this type of radiation limits the damage to surrounding tissue and has fewer side effects. Chemotherapy. This treatment kills cancer cells or stops them from multiplying. It kills both cancer cells and normal cells. Targeted therapy. This treatment uses medicines to kill cancer cells without damaging normal cells. Hormone treatment. This treatment involves taking medicines that act on testosterone, one of the male hormones, by: ?Stopping your body from producing testosterone. ?Blocking testosterone from reaching cancer cells. Follow these instructions at home: Lifestyle Do not use any products that contain nicotine or tobacco. These products include cigarettes, chewing tobacco, and vaping devices, such as e-cigarettes. If you need help quitting, ask your health care provider. Eat a healthy diet. To do this: ?Eat foods that are high in fiber. These include beans, whole grains, and fresh fruits and vegetables. ?Limit foods that are high in fat and sugar. These include fried or sweet foods. Treatment for prostate cancer may affect sexual function. If you have a partner, continue to have intimate moments. This may include touching, holding, hugging, and caressing your partner. Get plenty of sleep. Consider joining a support group for men who have prostate cancer. Meeting with a support group may help you learn to manage the stress of having cancer. General instructions Take lpoo-ehn-nudshnv and prescription medicines only as told by your health care provider. If you have to go to the hospital, notify your cancer specialist (oncologist). Keep all follow-up visits. This is important. Where to find more information [place] [employer]: www.cancer.org [place] [employer]: www.cancer.net [place] [employer] [place]: www.cancer.gov Contact a health care provider if: You have new or increasing trouble urinating. You have new or increasing blood in your urine. You have new or increasing pain in your hips, back, or chest. Get help right away if: You have weakness or numbness in your legs. You cannot control urination or your bowel movements (incontinence). You have chills or a fever. Summary The prostate is a small gland that is involved in the production of semen. It is located below a man's bladder, in front of the rectum. Prostate cancer is the abnormal growth of cells in the prostate gland. Treatment for this condition depends on the stage of the cancer, your age, personal preferences, and your overall health. Talk with your health care provider about treatment options that are recommended for you. Consider joining a support group for men who have prostate cancer. Meeting with a support group may help you learn to manage the stress of having cancer. This information is not intended to replace advice given to you by your health care provider. Make sure you discuss any questions you have with your health care provider. Document Revised: 10/19/2021 Document Reviewed: 10/19/2021 [employer] Patient Education 2022 [employer]. Follow Up Care 02/08/2024 12:41:54 With:Peter AMOR, RADHA Hagan, URO Address: When: Unknown [facility] 02-27-2024 Note Patient Education Oncology Transrectal Ultrasound-Guided Prostate Biopsy, Care After The following information offers guidance on how to care for yourself after your procedure. Your health care provider may also give you more specific instructions. If you have problems or questions, contact your health care provider. What can I expect after the procedure? After the procedure, it is common to have: ? Pain and discomfort near your rectum, especially while sitting. ? [place]-colored urine due to small amounts of blood in your urine. ? A burning feeling while urinating. ? Blood in your stool (feces) or bleeding from your rectum. ? Blood in your semen. Follow these instructions at home: Medicines ? Take yrbz-hxe-ufsccaa and prescription medicines only as told by your health care provider. ? If you were given a sedative during your procedure, it can affect you for several hours. Do not drive or operate machinery until your health care provider says that it is safe. ? If you were prescribed an antibiotic medicine, take it as told by your health care provider. Do not stop using the antibiotic even if you start to feel better. Activity ? Return to your normal activities as told by your health care provider. Ask your health care provider what activities are safe for you. ? Ask your health care provider when it is okay for you to resume sexual activity. ? You may have to avoid lifting. Ask your health care provider how much you can safely lift. General instructions ? Drink enough fluid to keep your urine pale yellow. ? Watch your urine, stool, and semen for new or increased bleeding. ? Keep all follow-up visits. This is important. Contact a health care provider if: ? You have any of the following: ? Blood clots in your urine or stool. ? Blood in your urine more than 2 weeks after the procedure. ? Blood in your semen more than 2 months after the procedure. ? New or increased bleeding in your urine, stool, or semen. ? Severe pain in your abdomen. ? Your urine smells bad or unusual. ? You have trouble urinating. ? Your lower abdomen feels firm. ? You have problems getting an erection. ? You have nausea or you vomit. Get help right away if: ? You have a fever or chills. This could be a sign of infection. ? You have bright red urine. ? You have severe pain that does not get better with medicine. ? You cannot urinate. Summary ? After this procedure, it is common to have pain and discomfort around your rectum, especially while sitting. ? You may have blood in your urine and stool after the procedure. ? It is common to have blood in your semen after this procedure. ? Get help right away if you have a fever or chills. This could be a sign of infection. This information is not intended to replace advice given to you by your health care provider. Make sure you discuss any questions you have with your health care provider. Document Revised: 01/16/2022 Document Reviewed: 01/16/2022 [employer] Patient Education ? 2022 [employer]. Transrectal Ultrasound-Guided Prostate Biopsy A transrectal ultrasound-guided prostate biopsy is a procedure to remove samples of prostate tissue for testing. The prostate is a walnut-sized gland that is located below the bladder and in front of the rectum. During this procedure, a small device (probe) is lubricated and put inside the rectum. The probe sends out sound waves that make a picture of the prostate and surrounding tissues (transrectal ultrasound). The images are used to help guide the process of removing the samples. The samples are taken to a lab to be checked for prostate cancer. This procedure is usually done to evaluate the prostate gland of men who have raised (elevated) levels of prostate-specific antigen (PSA), which can be a sign of prostate cancer or prostate enlargement related to aging (benign prostatic hyperplasia, or BPH). Tell a health care provider about: ? Any allergies you have. ? All medicines you are taking, including vitamins, herbs, eye drops, creams, and wycu-prk-wqumgrl medicines. ? Any problems you or family members have had with anesthetic medicines. ? Any bleeding problems you have. ? Any surgeries you have had. ? Any medical conditions you have. ? Any prostate infections you have had. What are the risks? Generally, this is a safe procedure. However, problems may occur, including: ? Prostate infection. ? Bleeding from the rectum. ? Blood in the urine. ? Allergic reactions to medicines. ? Damage to surrounding structures such as blood vessels, organs, or muscles. ? Difficulty passing urine. ? Nerve damage. This is usually temporary. What happens before the procedure? Medicines Ask your health care provider about: ? Changing or stopping your regular medicines. This is especially important if you are taking diabetes medicines or blood thinners. ? Taking medici (more content not included)... [facility] 02-26-2024 Note Cardi[facility] SUBJECTIVE Chief Complaint Patient presents with Atrial Fibrillation Hypertension Nick Doyle is a 78 y.o. male here for follow-up. His Chandrika accompanied him today. HPI PMHx: PAF, HTN 02/26/24 BP at home running 120-130s/80s. He is feeling well. Denies c/o CP, dyspnea, orthopnea, PND, LE edema, dizziness/LH, palpitations, syncope. 08/07/22: He is here for 3-month follow-up regarding A-fib states he has had no complaints of palpitations, chest pain or pressure, shortness of breath, MICHAEL, lightheadedness, palpitations he would like to remain conservative in management and for now would like to watch and wait to see if his A-fib will return 05/07/23: Patient here for 6-month follow-up He had a recent stress test done 04/03/23 which showed no reversible ischemia but he did have a fixed defect inferior wall RCA distribution Echocardiogram 10/24/2022 shows borderline LVH Discussed with patient with these findings likely we are limited to amiodarone for antiarrhythmic Discussed with patient and family they would like to wait on ablation and any consideration for antiarrhythmic medication. I provided them educational links regarding A-fib and ablation 01/[address] warren HPI: Nick Doyle is a 78 y.o. year old with past medical history of HTN Was recently admitted with complaints of palpitations and chest discomfort. patient reported that his symptoms which woke him from the middle of the night and since it did not subside she he was taken to the hospital. he was found to be in A-fib with rapid ventricular rate. cyst since then he has had work-up done which revealed a normal echocardiogram and subsequently referred for further evaluation. 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 EKG 10/24/2022 shows sinus rhythm with right bundle branch block and poor R wave progression 10/23/2022 shows what appears to be atrial flutter/atrial fibrillation with rapid ventricular rate with underlying right bundle branch block Patient Active Problem List Diagnosis Atrial fibrillation (CMS/HCC) Hypertension Coronary artery disease of [place] artery of [place] heart with stable angina pectoris (CMS/HCC) Past Medical History: Diagnosis Date Abnormal ECG Arrhythmia Atrial fibrillation (CMS/HCC) Hypertension Family History Problem Relation Name Age of Onset Heart attack Father Heart attack Brother Social History Tobacco Use Smoking status: Former Types: Cigarettes Smokeless tobacco: Current Substance Use Topics Alcohol use: Yes Comment: occasional Allergies Allergen Reactions Penicillins ROS HENT: Positive for hearing loss. Hematologic/Lymphatic: Bruises/bleeds easily. Neurological: Positive for light-headedness (when standing after bending over). All other systems reviewed and are negative. OBJECTIVE Visit Vitals BP 128/60 (BP Location: Right arm, Patient Position: Sitting) Pulse 67 Ht 1.676 m (5' 6 ) Wt 62.6 kg (138 lb) SpO2 97% BMI 22.27 kg/m??? Smoking Status Former BSA 1.71 m??? Medications: Current Outpatient Medications: dilTIAZem CD (Cardizem CD) 120 mg 24 hr capsule, TAKE 1 CAPSULE BY MOUTH ONCE A DAY*HOLD IF SYSTOLIC BLOOD PRESSURE IS <100,HEARTRATE<55, Disp: , Rfl: Eliquis 5 mg tablet, Take 5 mg by mouth in the morning and at bedtime., Disp: , Rfl: losartan (Cozaar) 100 mg tablet, Take 100 mg by mouth in the morning., Disp: , Rfl: terazosin (Hytrin) 5 mg capsule, TAKE 1 CAPSULE BY MOUTH EVERYDAY AT BEDTIME, Disp: , Rfl: garlic tablet, Take 1,000 mg by mouth in the morning., Disp: , Rfl: ginseng 100 mg capsule, Take 100 mg by mouth in the morning., Disp: , Rfl: multivitamin tablet, Take 1 tablet by mouth in the morning., Disp: , Rfl: Physical Exam Constitutional: Appearance: Normal appearance. He is normal weight. HENT: Head: Normocephalic and atraumatic. Right Ear: External ear normal. Left Ear: External ear normal. Eyes: Extraocular Movements: Extraocular movements intact. Pupils: Pupils are equal, round, and reactive to light. Neck: Vascular: No carotid bruit. Cardiovascular: Rate and Rhythm: Normal rate and regular rhythm. Pulses: Normal pulses. Heart sounds: Normal heart sounds. Pulmonary: Effort: Pulmonary effort is normal. Breath sounds: Normal breath sounds. Abdominal: General: Bowel sounds are normal. Palpations: Abdomen is soft. Musculoskeletal: General: Normal range of motion. Cervical back: Neck supple. Right lower leg: No edema. Left lower leg: No edema. Skin: General: Skin is warm and dry. Neurological: General: No focal deficit present. Mental Status: He is alert and oriented to person, place, and time. Psychiatric: Mood and Affect: Mood normal. Behavior: Behavior normal. Thought Content: Thought content normal. Judgment: Judgment normal. Labs: 12/20/2023 (more content not included)... [facility] 02-26-2024 Note Patient here for 6 m o follow up PAF, CAD, and hypertension. He had routine labs w/ lipid panel in December 2023. He denies chest pain, SOB, palpitations, and bleeding on Eliquis. Doing very well. Review of Systems HENT: Positive for hearing loss. Hematologic/Lymphatic: Bruises/bleeds easily. Neurological: Positive for light-headedness (when standing after bending over). All other systems reviewed and are negative. [facility] 08-07-2023 Note Patient here for 3 m o follow up afib and hypertension. Aspirin was stopped at last apt in May 2023. Denies chest pain, SOB, palpitations, and bleeding on Eliquis. Review of Systems Hematologic/Lymphatic: Bruises/bleeds easily. Neurological: Positive for light-headedness. All other systems reviewed and are negative. [facility] 08-07-2023 Note [facility] Consult Note Reason for visit: Afib 08/07/22: He is here for 3-month follow-up regarding A-fib states he has had no complaints of palpitations, chest pain or pressure, shortness of breath, MICHAEL, lightheadedness, palpitations he would like to remain conservative in management and for now would like to watch and wait to see if his A-fib will return 05/07/23: Patient here for 6-month follow-up He had a recent stress test done 04/03/23 which showed no reversible ischemia but he did have a fixed defect inferior wall RCA distribution Echocardiogram 10/24/2022 shows borderline LVH Discussed with patient with these findings likely we are limited to amiodarone for antiarrhythmic Discussed with patient and family they would like to wait on ablation and any consideration for antiarrhythmic medication. I provided them educational links regarding A-fib and ablation 01/[address] warren HPI: Nick Doyle is a 78 y.o. year old with past medical history of HTN Was recently admitted with complaints of palpitations and chest discomfort. patient reported that his symptoms which woke him from the middle of the night and since it did not subside she he was taken to the hospital. he was found to be in A-fib with rapid ventricular rate. cyst since then he has had work-up done which revealed a normal echocardiogram and subsequently referred for further evaluation. 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 EKG 10/24/2022 shows sinus rhythm with right bundle branch block and poor R wave progression 10/23/2022 shows what appears to be atrial flutter/atrial fibrillation with rapid ventricular rate with underlying right bundle branch block Echocardiogram performed on 10/24/2022 shows normal LV with normal atrial and right atrial chamber size with mild MR and no other significant valvular abnormalities PMH: Past Medical History: Diagnosis Date Abnormal ECG Arrhythmia Atrial fibrillation (CMS/HCC) Hypertension PSH: Past Surgical History: Procedure Laterality Date ANKLE SURGERY TONSILLECTOMY SH: Social Determinants of Health Tobacco Use: High Risk (05/07/2023) Patient History Smoking Tobacco Use: Former Smokeless Tobacco Use: Current Passive Exposure: Not on file Alcohol Use: Not on file Financial Resource Strain: Not on file Food Insecurity: Not on file Transportation Needs: Not on file Physical Activity: Not on file Stress: Not on file Social Connections: Not on file Intimate Partner Violence: Not on file Depression: Not on file Housing Stability: Not on file Allergies: Allergies Allergen Reactions Penicillins Weight: 66.2kg Visit Vitals BP 140/72 (BP Location: Left arm, Patient Position: Sitting) Pulse 69 Ht 1.676 m (5' 6 ) Wt 66.2 kg (146 lb) SpO2 97% BMI 23.57 kg/m??? Smoking Status Former BSA 1.76 m??? Meds: Current Outpatient Medications on File Prior to Visit Medication Sig Dispense Refill dilTIAZem CD (Cardizem CD) 120 mg 24 hr capsule TAKE 1 CAPSULE BY MOUTH ONCE A DAY*HOLD IF SYSTOLIC BLOOD PRESSURE IS <100,HEARTRATE<55 Eliquis 5 mg tablet Take 5 mg by mouth in the morning and at bedtime. losartan (Cozaar) 100 mg tablet Take 100 mg by mouth in the morning. terazosin (Hytrin) 5 mg capsule TAKE 1 CAPSULE BY MOUTH EVERYDAY AT BEDTIME aspirin 81 mg EC tablet Take 81 mg by mouth in the morning. diclofenac (Voltaren) 75 mg EC tablet Take 75 mg by mouth in the morning and at bedtime. No current facility-administered medications on file prior to visit. ROS: Review of Systems Hematologic/Lymphatic: Bruises/bleeds easily. Neurological: Positive for light-headedness. All other systems reviewed and are negative. Physical Exam: Constitutional General Appearance: well-nourished, well-developed, appears stated age Level of Distress: comfortable Psychiatric Mental Status: alert, normal affect Orientation: oriented to time, place, and person Insight: good judgement Eyes Lids and Conjunctivae: non-injected, no xanthelasma ENMT Ears: no lesions on external ear Nose: no lesions on external nose Oropharynx: no cyanosis, no pallor Neck Neck: supple, trachea midline Carotid Arteries: bilateral normal upstroke, no bruits Jugular Veins: normal jugular venous pressure Thyroid: not enlarged Lungs Respiratory Effort: unlabored Chest Exam: normal curvature, no thoracic deformity Auscultation: clear, no wheezing, no rales, no rhonchi Cardiovascular Rate And Rhythm: regular Heart Sounds: normal S1, normal s2, no gallop Systolic Murmur: not heard Diastolic Murmur: not heard Extremities: no cyanosis, no edema, no peripheral signs of emboli Peripheral Pulses Radial Pulse: normal Abdomen Inspection and Palpation: soft, non distended, no bruit, non tender Musculoskeletal Inspection: no joint swelling Neurologic Gait: normal gait Skin Inspection a (more content not included)... [facility] 05-07-2023 Note Patient here for 3 m o follow up PAF and hypertension. Had stress test 04/03/2023. Denies chest pain, SOB, palpitations, and bleeding on Eliquis. Review of Systems Hematologic/Lymphatic: Bruises/bleeds easily. Neurological: Positive for light-headedness. All other systems reviewed and are negative. [facility] 05-07-2023 Note [facility] Consult Note Reason for visit: Afib 05/07/23: Patient here for 6-month follow-up He had a recent stress test done 04/03/23 which showed no reversible ischemia but he did have a fixed defect inferior wall RCA distribution Echocardiogram 10/24/2022 shows borderline LVH Discussed with patient with these findings likely we are limited to amiodarone for antiarrhythmic Discussed with patient and family they would like to wait on ablation and any consideration for antiarrhythmic medication. I provided them educational links regarding A-fib and ablation 01/[address] warren HPI: Nick Doyle is a 78 y.o. year old with past medical history of HTN Was recently admitted with complaints of palpitations and chest discomfort. patient reported that his symptoms which woke him from the middle of the night and since it did not subside she he was taken to the hospital. he was found to be in A-fib with rapid ventricular rate. cyst since then he has had work-up done which revealed a normal echocardiogram and subsequently referred for further evaluation. 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 EKG 10/24/2022 shows sinus rhythm with right bundle branch block and poor R wave progression 10/23/2022 shows what appears to be atrial flutter/atrial fibrillation with rapid ventricular rate with underlying right bundle branch block Echocardiogram performed on 10/24/2022 shows normal LV with normal atrial and right atrial chamber size with mild MR and no other significant valvular abnormalities PMH: Past Medical History: Diagnosis Date Abnormal ECG Arrhythmia Atrial fibrillation (CMS/HCC) Hypertension PSH: Past Surgical History: Procedure Laterality Date ANKLE SURGERY TONSILLECTOMY SH: Social Determinants of Health Tobacco Use: High Risk (05/07/2023) Patient History Smoking Tobacco Use: Former Smokeless Tobacco Use: Current Passive Exposure: Not on file Alcohol Use: Not on file Financial Resource Strain: Not on file Food Insecurity: Not on file Transportation Needs: Not on file Physical Activity: Not on file Stress: Not on file Social Connections: Not on file Intimate Partner Violence: Not on file Depression: Not on file Housing Stability: Not on file Allergies: Allergies Allergen Reactions Penicillins Weight: 64.4kg Visit Vitals BP 149/66 (BP Location: Right arm, Patient Position: Sitting) Pulse 66 Ht 1.676 m (5' 6 ) Wt 64.4 kg (142 lb) SpO2 96% BMI 22.92 kg/m??? Smoking Status Former BSA 1.73 m??? Meds: Current Outpatient Medications on File Prior to Visit Medication Sig Dispense Refill aspirin 81 mg EC tablet Take 81 mg by mouth in the morning. diclofenac (Voltaren) 75 mg EC tablet Take 75 mg by mouth in the morning and at bedtime. dilTIAZem CD (Cardizem CD) 120 mg 24 hr capsule TAKE 1 CAPSULE BY MOUTH ONCE A DAY*HOLD IF SYSTOLIC BLOOD PRESSURE IS <100,HEARTRATE<55 Eliquis 5 mg tablet Take 5 mg by mouth in the morning and at bedtime. losartan (Cozaar) 100 mg tablet Take 100 mg by mouth in the morning. terazosin (Hytrin) 5 mg capsule TAKE 1 CAPSULE BY MOUTH EVERYDAY AT BEDTIME [DISCONTINUED] amLODIPine (Norvasc) 5 mg tablet Take 5 mg by mouth in the morning. No current facility-administered medications on file prior to visit. ROS: Review of Systems Hematologic/Lymphatic: Bruises/bleeds easily. Neurological: Positive for light-headedness. All other systems reviewed and are negative. Physical Exam: Constitutional General Appearance: well-nourished, well-developed, appears stated age Level of Distress: comfortable Psychiatric Mental Status: alert, normal affect Orientation: oriented to time, place, and person Insight: good judgement Eyes Lids and Conjunctivae: non-injected, no xanthelasma ENMT Ears: no lesions on external ear Nose: no lesions on external nose Oropharynx: no cyanosis, no pallor Neck Neck: supple, trachea midline Carotid Arteries: bilateral normal upstroke, no bruits Jugular Veins: normal jugular venous pressure Thyroid: not enlarged Lungs Respiratory Effort: unlabored Chest Exam: normal curvature, no thoracic deformity Auscultation: clear, no wheezing, no rales, no rhonchi Cardiovascular Rate And Rhythm: regular Heart Sounds: normal S1, normal s2, no gallop Systolic Murmur: not heard Diastolic Murmur: not heard Extremities: no cyanosis, no edema, no peripheral signs of emboli Peripheral Pulses Radial Pulse: normal Abdomen Inspection and Palpation: soft, non distended, no bruit, non tender Musculoskeletal Inspection: no joint swelling Neurologic Gait: normal gait Skin Inspection and Palpation: warm and dry Nails: no clubbing Labs: @LABRESULTS@ No results found for: CHOLESTEROL TOTAL, HDL, LDL CALC, LDL DIRECT, TRIGLYCERIDES, TSH, T3 TOTAL, T4 TOTAL, THYROID PEROXIDASE AB, BNP, BNP, BNP EKG: No re (more content not included)... [facility] Evaluation + Plan note No data available for this section [facility] Hospital Discharge instructions No data available for this section [facility] Progress note No data available for this section [facility] Summary Purpose Family History No Family History Records FoundNo Family History Records Found No data available for this section No Family History Records Found Advance Directives No Advanced Directives Records FoundNo Advanced Directives Records FoundNo Advanced Directives Records Found Additional Source Comments Patient Care team informatio n (unrecognized section and content) Personnel Name: KAMI LANZA CNP Address: Address: [address] [place] [address]- Personnel Name: KAMI LANZA CNP Address: Address: [address] [facility] [address]- (unrecognized sect ion and content) No Status Records FoundNo Status Records FoundNo Status Records Found INFORMATION SOURCE (unrecogn ized section and content) DATE CREATED AUTHOR 10/29/2022 [facility] DATE CREATED AUTHOR AUTHOR'S ORGANIZ ATION 02/27/2024 [facility] DATE CREATED AUTHOR AUTHOR'S ORGANIZ ATION 02/29/2024 [facility] FOR RECORDS PERTAINING TO PATIENTS WHO ARE OR HAVE BEEN ENROLLED IN A CHEMICAL DEPENDENCY/SUBSTANCEABUSE PROGRAM, SOME INFORMATION MAY BE OMITTED. This clinical summary was aggregated from multiple sources. Caution should be exercised in using it in the provision of clinical care. This summary normalizes information from multiple sources, and as a consequence, information in this document may materially change the coding, format and clinical context of patient data. In addition, data may be omitted in some cases. CLINICAL DECISIONS SHOULD BE BASED ON THE PRIMARY CLINICAL RECORDS. [facility] [employer] [facility]. provides no warranty or guarantee of the accuracy or completeness of information in this document.
[2024-03-12 11:04] LABS: Basophils Percent Auto 0.5 % (0.2-2.0); Eosinophils Absolute Auto 0.4 10^3/uL (0.0-0.7); Hematocrit 40.2 % (42.0-54.0); Hemoglobin 13.4 g/dL (14.0-18.0); Immature Granulocytes Abs Auto 0.01 10^3/uL (0.00-0.03); Immature Granulocytes Pct Auto 0.1 % (0.0-0.5); Lymphocytes Absolute Auto 2.3 10^3/uL (1.2-3.8); Lymphocytes Percent Auto 30.6 % (20.5-60.0); Mean Corpuscular HGB Conc 33.3 g/dL (29.9-35.2); Mean Corpuscular Hemoglobin 32.3 pg (25.9-34.0); Mean Corpuscular Volume 96.9 fL (80.0-94.0); Mean Platelet Volume 8.8 fL (9.5-13.5); Monocytes Absolute Auto 0.5 10^3/uL (0.3-0.8); Monocytes Percent Auto 7.3 % (1.7-12.0); Neutrophils Absolute Auto 4.1 10^3/uL (1.4-6.5); Neutrophils Percent Auto 55.5 % (43.0-75.0); Platelet Count 206 10^3/uL (150-450); Red Blood Count 4.15 10^6/uL (4.70-6.10); Red Cell Distribution Width 12.2 % (11.0-15.0); White Blood Count 7.4 10^3/uL (4.0-11.0)
[2024-03-12 11:13] LABS: Anion Gap 9.9; BUN Creatinine Ratio 16.4; Calcium 8.9 mg/dL (8.5-10.1); Chloride 105 mmol/L (98-107); Estimated GFR (African America >60 (>=60); Estimated GFR (Non-African Ame 57 (>=60); Glucose 147 mg/dL (74-106); Potassium 3.9 mmol/L (3.5-5.1); Sodium 140 mmol/L (136-145)
[2024-03-12 11:24] LABS: INR 1.04; Partial Thromboplastin Time 29.4 sec (22.3-36.2)
== END 2024-03-12 10:11 | disposition home or self-care (01) ==
PROVIDERS: PCP Nurse Practitioner Family; Visit Provider Urology
DX: Z01.810 Encounter for preprocedural cardiovascular examination (principal); Z01.812 Encounter for preprocedural laboratory examination; C61 Malignant neoplasm of prostate
CPT/HCPCS: 71046; 80048; 85025; 85610; 85730; 93005

== ENCOUNTER 2024-03-26 11:15 | Day surgery (SDC) | payer MEDICARE, SELFPAY ==
[2024-03-12 10:50] VITALS: BP 152/61; PULSE 62; TEMP 36.4; O2SAT 96; BMI 22.3
[2024-03-26 11:25] VITALS: BP 168/76; PULSE 68; TEMP 36.2; O2SAT 98; BMI 21.8
--- OUTSIDE RECORDS SUMMARY | 2024-03-26 11:39 | XMS_ITS | CCD ---
Author Organization [facility] Care Team Providers Care Stem Maker Name Role Phone TATIANA LANZA Primary Care Physician TATIANA LANZA Primary Care Unavailable HALEIGH ., DR SNELL Admitting Unavailable HALEIGH ., DR SNELL Attending Unavailable HALEIGH ., DR SNELL Consulting Unavailable HAY ., DR ABRAMS Consulting Unavailable NALINI CHIRINOS Consulting Unavailable MICHAEL PRADO Consulting Unavailable TATIANA LANZA Admitting Unavailable TATIANA LANZA Attending Unavailable TATIANA LNAZA Primary Care Unavailable TATIANA LANZA Consulting Unavailable Ale Green Attending Unavailable ABBE HSU Attending Unavailable CYNDI CHAN Attending Unavailable CYNDI CHAN Attending Unavailable MD Ale Green Attending Provider SCARLET Lanza Primary Care Provider [phone] Tatiana Lanza Primary Care Unavailable Ale Green Attending Unavailable Ale Green Admitting Unavailable Allergies Allergy Classification Reported Allergen(s) Allergy Type Date of Onset Reaction(s) Facility (4 sources) Penicillins; 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: [penicillins] Drug allergy 3 Pharyngeal swelling (finding) [facility] (1 source) Penicillin Drug Allergy [facility] Medications Current Medications Medication Drug Class(es) [...] day(s), # 6 tab(s), Refills(s) 0, Pharmacy: [facility]/pharmacy #[id number], 170, cm, 02/27/24 11:19:00 EDT, [...] of kidney 12-18-2019 Episodic Cancer of prostate (4 sources) Malignant tumor of prostate; 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: [Malignant [...] 10-26-2022 02-25-2020 Chronic Other aftercare (1 source) long term care administrator (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; 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: [CUSTODIAL 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 ASPIRIN] Onset: 10-26-2022 Episodic Other aftercare (1 source) Other intermodal dispatcher (current) drug therapy; 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: [OTH CUSTODIAL CURRENT DRUG THERAPY] Onset: 10-26-2022 Episodic Other aftercare (1 source) Long-term current use of anticoagulant; 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: [long term care administrator (current) use of anticoagulants] Onset: 02-27-2024 Episodic [...] Test Name Value Interpretation Reference Range Facility ISTAT Courtney CREjennifer 03-11-2024 ISTAT GFR 50.810 Normal [facility] Comment on above: Result Comment: PERF ORMED BY: [place] [address] PATHOLOGIST SPINNING LATHE OPERATOR HYDRAULIC ENA CASTRO M.D. Performed By: #### I SCRE #### [address] MR prostate wo/w conon 03-11 MR prostate wo/w con [facility] Main [place] [address] [place] [address] MRI Report Signed Patient: Nick Doyle MR#: [id number] : 1945 Acct:[id number] Age/Sex: 78 / M ADM Date: 03/11/24 Loc: MR Room: Type: [facility] Attending Dr: Ale Green MD Copies to: Ale Green MD Ordering Provider: Ale Green MD Date of Service: 03/11/24 MR/MR prostate wo/w con: C61 EXAMINATION: MR prostate wo/w con HISTORY: Elevated PSA. COMPARISON: NONE TECHNIQUE: Multiparametric imaging of the prostate gland was performed with IV contrast. FINDINGS: Prostate Dimensions: 5.8 x 5.2 x 7.5 cm Prostate Volume: 118 mL. Peripheral Zone: Heterogenous inT2 signal suggestive of prior prostatitis. No suspicious T2 or ADC map abnormality is identified to suggest prostate malignancy. Central/Transitional Zone: BPH changes. Seminal Vesicles: Unremarkable Neurovascular bundles: Unremarkable. Lymphadenopathy: Prominent left perirectal lymph node measuring 5 mm in short axis. Bladder: No focal lesion. Bowel: Diverticulosis. Peritoneal Cavity: Trace free fluid. Bones: No suspicious bony lesion. MR/MR prostate wo/w con IMPRESSION: No MRI evidence of clinically significant prostate cancer. Next BPH changes. Prominent left-sided perirectal lymph node. Finding is nonspecific. Correlation with colonoscopy is suggested. Impression dictated by: Stuart Diaz Jr., D.O.03/11/2024 11:34 AM Dictation Location: [place] [address] Transcribed By: [facility] 03/11/24 1134 Dictated By: Stuart Diaz Jr, DO 03/11/24 1126 Signed By: 03/11/24 1134 Normal [facility] No Panel InformationOrdered By: Ale Green on 03-11-2024 Bedside Estimated GFR (eGFR) 50.810 [facility] Whole blood creatinine measu rementOrdered By: Ale Green on 03-11-2024 Creatinine [Mass/Vol] 1.4 mg/dL High 0.6-1.3 [facility] Comment on above: ER/ESD physician is notified/shown all ISTAT results.Critical values may be confirmed by laboratory testing ifdeemed necessary by ER attending doctor. Result Comment: ER/E SD physician is notified/shown all ISTAT results. Critical values may be confirmed by laboratory testing if deemed necessary by ER attending doctor. Performed By: #### I SCRE #### [facility] [address] [place] [address] Office Visiton 02-26-2024 Follow-up visit [id number] Nick Doyle 1945 [facility] Provider Department Center 02/26/2024 ABBE CONTRERAS [facility] Family History Problem Relation Age of Onset Heart attack Father Heart attack Brother Family Status - Relation Status Age at Father Brother Level of Service:22352 NE OFFICE/OUTPATIENT ESTABLISHED MOD MDM 30 MIN Reason for Visit and Comments: Atrial Fibrillation [80] Hypertension [563505] Normal [facility] Office Visiton 08-07-2023 Follow-up visit [id number] Nick Doyle 1945 M [facility] Provider Department Center 08/07/2023 CYNDI ANTHONY Family History Problem Relation Age of Onset Heart attack Father Heart attack Brother Family Status - Relation Status Age at Father Brother Level of Service:88723 NE OFFICE/OUTPATIENT ESTABLISHED LOW MDM 20 MIN Normal [facility] Office Visiton 05-07-2023 Follow-up visit [id number] Nick Doyle 1945 Date Provider Department Center 05/07/2023 CYNDI ANTHONY Hos Family History Problem Relation Age of Onset Heart attack Father Heart attack Brother Family Status - Relation Status Age at Father Brother Level of Service:43619 NE OFFICE/OUTPATIENT ESTABLISHED LOW MDM 20-29 MIN Normal [facility] BNPon 10-24-2022 Natriuretic peptide B (Bld) [Mass/Vol] 368.0 pg/mL Normal <=1,800.0 [facility] Comment on above: Performed By: #### H STROPN, BMP, BNP #### [facility] [address] [place] [address] Dr. Alo Johnson CBC AUTO DIFFon 10-24-2022 BASO # 0.0 103/ul Normal 0.0-0.1 [facility] Comment on above: Performed By: #### C BC #### [facility] [address] [place] [address] Dr. Alo Johnson Basophils/100 WBC (Bld) 0.3 % Normal 0.2-2.0 [facility] Comment on above: Performed By: #### C BC #### [facility] [address] [place] [address] Dr. Alo Johnson EO # 0.7 103/ul Normal 0.0-0.7 [facility] Comment on above: Performed By: #### C BC #### [facility] [address] [address] [address] Alo Johnson Eosinophils/100 WBC (Bld) 6.3 % Normal 0.9-7.0 [facility] Comment on above: Performed By: #### C BC #### [facility] [address] [place] [address] Dr. Alo Johnson Erythrocyte distribution width (RBC) [Ratio] 12.4 % Normal 11.0-15.0 [facility] Comment on above: Performed By: #### C BC #### [facility] [address] [place] [address] Dr. Alo Johnson Hematocrit (Bld) [Volume fraction] 42.7 % Normal 42.0-54.0 [facility] Comment on above: Performed By: #### C BC #### [facility] [address] [place] [address] Dr. Alo Johnson Hemoglobin (Bld) [Mass/Vol] 14.5 g/dL Normal 14.0-18.0 [facility] Comment on above: Performed By: #### C BC #### [facility] [address] [place] [address] Dr. Alo Johnson IG # 0.03 10e3/ul Normal 0.00-0.03 [facility] Comment on above: Performed By: #### C BC #### [facility] [address] [place] [address] Dr. Alo Jhonson IG % 0.3 % Normal 0.0-0.5 [facility] Comment on above: Performed By: #### C BC #### [facility] [address] [place] [address] Dr. Alo Johnson LYMPH # 4.8 103/ul Critically high 1.2-3.8 [facility] Comment on above: Performed By: #### C BC #### [facility] [address] [place] [address] Dr. Alo Johnson Lymphocytes/100 WBC (Bld) 41.8 % Normal 20.5-60.0 [facility] Comment on above: Performed By: #### C BC #### [facility] [address] [place] [address] Dr. Alo Johnson MANUAL DIFF REQ NO Normal [facility] Comment on above: Performed By: #### C BC #### [facility] [address] [place] [address] Dr. Alo Johnson MCH (RBC) [Entitic mass] 32.6 pg Normal 25.9-34.0 [facility] Comment on above: Performed By: #### C BC #### [facility] [address] [place] [address] Dr. Alo Johnson MCHC (RBC) [Mass/Vol] 34.0 g/dL Normal 29.9-35.2 [facility] Comment on above: Performed By: #### C BC #### [facility] [address] [place] [address] Dr. Alo Johnson MCV (RBC) [Entitic vol] 96.0 fL Critically high 80.0-94.0 [facility] Comment on above: Performed By: #### C BC #### [facility] [address] [address] [address] Alo Johnson MONO # 0.8 103/ul Normal 0.3-0.8 [facility] Comment on above: Performed By: #### C BC #### [facility] [address] [address] [address] Alo Johnson Monocytes/100 WBC (Bld) 7.1 % Normal 1.7-12.0 [facility] Comment on above: Performed By: #### C BC #### [facility] [address] [address] [address] Alo Johnson NEUT # 5.1 103/ul Normal 1.4-6.5 [facility] Comment on above: Performed By: #### C BC #### [facility] [address] [address] [address] Alo Johnson Neutrophils/100 WBC (Bld) 44.2 % Normal 43.0-75.0 [facility] Comment on above: Performed By: #### C BC #### [facility] [address] [address] [address] Alo Johnson Platelet mean volume (Bld) [Entitic vol] 8.7 fL Critically low 9.5-13.5 [facility] Comment on above: Performed By: #### C BC #### [facility] [address] [address] [address] Alo Johnson PLT 236 103/ul Normal 150-450 [facility] Comment on above: Performed By: #### C BC #### [facility] [address] [address] [address] Alo Johnson RBC 4.45 106/ul Critically low 4.70-6.10 [facility] Comment on above: Performed By: #### C BC #### [facility] [address] [address] [address] Alo Johnson WBC 11.5 103/ul Critically high 4.0-11.0 [facility] Comment on above: Performed By: #### C BC #### [facility] [address] [address] [address] Alo Johnson CULTURE BLOODon 10-24-2022 Microscopic examination of blood, culture Culture Observations: NO GROWTH AT 5 DAYS. Isolate 1 BC_BA_NA Normal [facility] Comment on above: Performed By: #### I NSULIN #### [facility] [address] [place] [address] Dr. Alo Johnson Microscopic examination of blood, culture Culture Observations: NO GROWTH AT 5 DAYS. Isolate 1 BC_BA_NA Normal [facility] Comment on above: Performed By: #### I NSULIN #### [facility] [address] [place] [address] Dr. Alo Johnson Covid-19 PCR ([facility])on 10-05 SARS-CoV-2 (COVID-19) RNA ANGELICA+probe Ql (Unsp spec) Not detected Normal NOT DETECTED [facility] Comment on above: Result Comment: When diagnostic [...] for this test is supported by the [place] of [employer] and Human Service's declaration that [...] used). Performed By: #### I NSULIN #### [facility] [address] [place] [address] Dr. Alo Johnson ECHOCARDIO M/2D COMPLETEon 0 10-24-2022 ECHOCARDIO M/2D COMPLETE Patient: NICK DOYLE Exam Date: 10/24/2022 : 1945 Gender:M Ordering : MICHAEL PRADO Admission #: [id number] Family : DR ALIS RICARDO . Order #: [id number] CLICK HERE TO VIEW EXAM ECHOCARDIOGRAM REPORT [...] Mei M.D. on 10/24/2022 at 15:33 Normal [facility] ETHANOL (D ALC)on 10-25-19 23 ALC NOTE NOTE: 80 mg/dl is the legal limit for a blood alcohol level Normal [facility] Comment on above: Performed By: #### I NSULIN #### [facility] [address] [place] [address] Dr. Alo Johnson Ethanol [Mass/Vol] mg/dL Normal [facility] Comment on above: Performed By: #### I NSULIN #### [facility] [address] [address] [address] Alo Johnson LACTATE/LACTIC ACIDon 2022 Lactate [Moles/Vol] 1.3 mmol/L Normal 0.4-2.0 [facility] Comment on above: Performed By: #### L ACT #### [facility] [address] [place] [address] Dr. Alo Johnson PROF CHEM 8 (BAS METB)on Anion gap [Moles/Vol] 14.9 mmol/L Normal [facility] Comment on above: Performed By: #### H STROPN, BMP, BNP #### [facility] [address] [place] [address] Dr. Alo Johnson Calcium [Mass/Vol] 10.0 mg/dL Normal 8.5-10.1 [facility] Comment on above: Performed By: #### H STROPN, BMP, BNP #### [facility] [address] [place] [address] Dr. Alo Johnson Chloride [Moles/Vol] 103 mmol/L Normal 98-107 [facility] Comment on above: Performed By: #### H STROPN, BMP, BNP #### [facility] [address] [place] [address] Dr. Alo Johnson CO2 [Moles/Vol] 26.2 mmol/L Normal 21.0-32.0 [facility] Comment on above: Performed By: #### H STROPN, BMP, BNP #### [facility] [address] [place] [address] Dr. Alo Johnson Creatinine [Mass/Vol] 1.10 mg/dL Normal 0.70-1.30 [facility] Comment on above: Performed By: #### H STROPN, BMP, BNP #### [facility] [address] [place] [address] Dr. Alo Johnson EGFR-AF ETHIOPIAN >60 Normal >=60 [facility] Comment on above: Performed By: #### H STROPN, BMP, BNP #### [facility] [address] [place] [address] Dr. Alo Johnson EGFR-NON AF ETHIOPIAN >60 Normal >=60 [facility] Comment on above: Performed By: #### H STROPN, BMP, BNP #### [facility] [address] [address] [address] Alo Johnson Glucose [Mass/Vol] 135 mg/dL Critically high 74-106 [facility] Comment on above: Performed By: #### H STROPN, BMP, BNP #### [facility] [address] [place] [address] Dr. Alo Johnson Potassium [Moles/Vol] 4.1 mmol/L Normal 3.5-5.1 [facility] Comment on above: Performed By: #### H STROPN, BMP, BNP #### [facility] [address] [place] [address] Dr. Alo Johnson Sodium [Moles/Vol] 140 mmol/L Normal 136-145 [facility] Comment on above: Performed By: #### H STROPN, BMP, BNP #### [facility] [address] [place] [address] Dr. Alo Johnson Urea nitrogen [Mass/Vol] 21.0 mg/dL Critically high 7.0-18.0 [facility] Comment on above: Performed By: #### H STROPN, BMP, BNP #### [facility] [address] [place] [address] Dr. Alo Johnson Urea nitrogen/Creatinine [Mass ratio] 19.1 mg/mg Normal [facility] Comment on above: Performed By: #### H STROPN, BMP, BNP #### [facility] [address] [place] [address] Dr. Alo Johnson TROPONIN, HIGH SENSITIVITYon 10-24-2022 HSTROP 35.8 pg/mL Normal 4.0-76.1 [facility] Comment on above: Result Comment: CUT- OFF POINTS HAVE BEEN ESTABLISHED BASED ON THE FOURTH UNIVERSAL DEFINITIONS OF MYOCARDIAL INFARCTION. THE UPPER REFERENCE LIMIT (URL) OF TROPONIN, DEFINED THE 99TH PERCENTILE OF cTnI DISTRIBUTION IN A REFERENCE POPULATION, HAS BEEN CONFIRMED THE DECISION THRESHOLD FOR DC DIAGNOSIS. Performed By: #### A 1C #### [facility] [address] [place] [address] Dr. Alo Johnson HSTROP 14.1 pg/mL Normal 4.0-76.1 [facility] Comment on above: Result Comment: CUT- OFF POINTS HAVE BEEN ESTABLISHED BASED ON THE FOURTH UNIVERSAL DEFINITIONS OF MYOCARDIAL INFARCTION. THE UPPER REFERENCE LIMIT (URL) OF TROPONIN, DEFINED THE 99TH PERCENTILE OF cTnI DISTRIBUTION IN A REFERENCE POPULATION, HAS BEEN CONFIRMED THE DECISION THRESHOLD FOR DC DIAGNOSIS. Performed By: #### H STROPN, BMP, BNP #### [facility] [address] [address] [address] Alo Johnson TSHon 10-24-2022 TSH 3.366 uIU/mL Normal 0.358-3.740 [facility] Comment on above: Performed By: #### I NSULIN #### [facility] [address] [address] [address] Alo Johnson XR CHEST 1 Von [...] NALINI CHIRINOS Date: 2022-10-24 01:01 Normal [facility] INSULINon 10-17-2022 Insulin 9.5 uIU/mL Normal 2.6-24.9 [facility] Comment on above: Performed By: #### I NSULIN #### [facility] [address] [address] [address] Alo Johnson PSA, FREE AND TOTAL RATIOon 10-17-2022 % Free PSA 21.9 % Normal [facility] Comment on above: Result Comment: The table [...] men. Performed By: #### I NSULIN #### [facility] [address] [place] [address] Dr. Alo Johnson Prostate specific Ag [Mass/Vol] 10.6 ng/mL Critically high 0.0-4.0 [facility] Comment on above: Result Comment: [employer] MOHAMUDIA methodology. . According to the [place] [employer], Serum PSA should decrease and [...] disease. Performed By: #### I NSULIN #### [facility] [address] [place] [address] Dr. Alo Johnson PSA, Free 2.32 ng/mL Normal N/A [facility] Comment on above: Result Comment: [employer] PAULINO methodology. Performed By: #### I NSULIN #### [facility] [address] [place] [address] Dr. Alo Johnson CBC AUTO DIFFon 10-16-2022 BASO # 0.0 103/ul Normal 0.0-0.1 [facility] Comment on above: Performed By: #### I NSULIN #### [facility] [address] [place] [address] Dr. Alo Johnson Basophils/100 WBC (Bld) 0.4 % Normal 0.2-2.0 [facility] Comment on above: Performed By: #### I NSULIN #### [facility] [address] [place] [address] Dr. Alo Johnson EO # 0.6 103/ul Normal 0.0-0.7 [facility] Comment on above: Performed By: #### I NSULIN #### [facility] [address] [place] [address] Dr. Alo Johnson Eosinophils/100 WBC (Bld) 5.8 % Normal 0.9-7.0 [facility] Comment on above: Performed By: #### I NSULIN #### [facility] [address] [place] [address] Dr. Alo Johnson Erythrocyte distribution width (RBC) [Ratio] 12.6 % Normal 11.0-15.0 [facility] Comment on above: Performed By: #### I NSULIN #### [facility] [address] [place] [address] Dr. Alo Johnson Hematocrit (Bld) [Volume fraction] 42.8 % Normal 42.0-54.0 [facility] Comment on above: Performed By: #### I NSULIN #### [facility] [address] [place] [address] Dr. Alo Johnson Hemoglobin (Bld) [Mass/Vol] 15.1 g/dL Normal 14.0-18.0 [facility] Comment on above: Performed By: #### I NSULIN #### [facility] [address] [place] [address] Dr. Alo Johnson IG # 0.02 10e3/ul Normal 0.00-0.03 [facility] Comment on above: Performed By: #### I NSULIN #### [facility] [address] [place] [address] Dr. Alo Johnson IG % 0.2 % Normal 0.0-0.5 [facility] Comment on above: Performed By: #### I NSULIN #### [facility] [address] [place] [address] Dr. Alo Johnson LYMPH # 3.4 103/ul Normal 1.2-3.8 [facility] Comment on above: Performed By: #### I NSULIN #### [facility] [address] [place] [address] Dr. Alo Johnson Lymphocytes/100 WBC (Bld) 36.5 % Normal 20.5-60.0 [facility] Comment on above: Performed By: #### I NSULIN #### [facility] [address] [address] [address] Alo Johnson MANUAL DIFF REQ NO Normal [facility] Comment on above: Performed By: #### I NSULIN #### [facility] [address] [address] [address] Alo Johnson MCH (RBC) [Entitic mass] 33.3 pg Normal 25.9-34.0 [facility] Comment on above: Performed By: #### I NSULIN #### [facility] [address] [address] [address] Alo Johnson MCHC (RBC) [Mass/Vol] 35.3 g/dL Critically high 29.9-35.2 [facility] Comment on above: Performed By: #### I NSULIN #### [facility] [address] [place] [address] Dr. Alo Johnson MCV (RBC) [Entitic vol] 94.3 fL Critically high 80.0-94.0 [facility] Comment on above: Performed By: #### I NSULIN #### [facility] [address] [place] [address] Dr. Alo Johnson MONO # 0.6 103/ul Normal 0.3-0.8 [facility] Comment on above: Performed By: #### I NSULIN #### [facility] [address] [place] [address] Dr. Alo Johnson Monocytes/100 WBC (Bld) 5.9 % Normal 1.7-12.0 [facility] Comment on above: Performed By: #### I NSULIN #### [facility] [address] [place] [address] Dr. Alo Johnson NEUT # 4.8 103/ul Normal 1.4-6.5 [facility] Comment on above: Performed By: #### I NSULIN #### [facility] [address] [place] [address] Dr. Alo Johnson Neutrophils/100 WBC (Bld) 51.2 % Normal 43.0-75.0 [facility] Comment on above: Performed By: #### I NSULIN #### [facility] [address] [address] [address] Alo Johnson Platelet mean volume (Bld) [Entitic vol] 9.0 fL Critically low 9.5-13.5 [facility] Comment on above: Performed By: #### I NSULIN #### [facility] [address] [address] [address] Alo Johnson PLT 240 103/ul Normal 150-450 [facility] Comment on above: Performed By: #### I NSULIN #### [facility] [address] [address] [address] Alo Johnson RBC 4.54 106/ul Critically low 4.70-6.10 [facility] Comment on above: Performed By: #### I NSULIN #### [facility] [address] [address] [address] Alo Johnson WBC 9.4 103/ul Normal 4.0-11.0 [facility] Comment on above: Performed By: #### I NSULIN #### [facility] [address] [address] [address] Alo Johnson GLYCOHEMOGLOBIN A1Con 2022 ADA RECOMMENDATION SEE BELOW Normal [facility] Comment on above: Result Comment: ADA RECOMMENDED LIMIT 4.0 - 6.0 ADA THERAPEUTIC TARGET < 7.0 ACTION SUGGESTED > 7.0 Performed By: #### A 1C #### [facility] [address] [address] [address] Alo Johnson Glucose [Mass/Vol] 111 mg/dL Normal [facility] Comment on above: Performed By: #### A 1C #### [facility] [address] [address] [address] Alo Johnson HbA1c (Bld) [Mass fraction] 5.5 % Normal 4.5-6.2 [facility] Comment on above: Performed By: #### A 1C #### [facility] [address] [address] [address] Alo Johnson LIPID PROFILEon 10-16-2022 CHOL-HDL RATIO NORM SEE BELOW Normal [facility] Comment on above: Result Comment: 3.3 - 4.4 LOW RISK 4.4 - 7.1 AVERAGE RISK 7.1 - 11.0 MODERATE RISK >11.0 HIGH RISK Performed By: #### C MP, LIPID, URIC #### [facility] [address] [address] [address] Alo Johnson Cholesterol [Mass/Vol] 229 mg/dL Critically high <=200 [facility] Comment on above: Performed By: #### C MP, LIPID, URIC #### [facility] [address] [address] [address] Alo Johnson Cholesterol in HDL [Mass/Vol] 48 mg/dL Normal 40-60 [facility] Comment on above: Performed By: #### C MP, LIPID, URIC #### [facility] [address] [address] [address] Alo Johnson Cholesterol in LDL [Mass/Vol] 152.8 mg/dL Normal [facility] Comment on above: Performed By: #### C MP, LIPID, URIC #### [facility] [address] [address] [address] Alo Johnson Cholesterol.total/Chol esterol in HDL [Mass ratio] 4.8 {ratio} Normal [facility] Comment on above: Performed By: #### C MP, LIPID, URIC #### [facility] [address] [address] [address] Alo Johnson HDL NORMAL > or = 60 mg/dl - LOW CARDIOVASCULAR RISK <40 mg/dl - HIGH CARDIOVASCULAR RISK Normal [facility] Comment on above: Performed By: #### C MP, LIPID, URIC #### [facility] [address] [address] [address] Alo Johnson LDL CALC NORMAL SEE BELOW Normal [facility] Comment on above: Result Comment: <100 mg/dl OPTIMAL 100 - 129 mg/dl NEAR OR ABOVE OPTIMAL 130 - 159 mg/dl BORDERLINE HIGH 160 - 189 mg/dl HIGH >190 mg/dl VERY HIGH Performed By: #### C MP, LIPID, URIC #### [facility] [address] [address] [address] Alo Johnson Triglyceride [Mass/Vol] 141 mg/dL Normal <=150 [facility] Comment on above: Performed By: #### C MP, LIPID, URIC #### [facility] [address] [address] [address] Alo Johnson VLDL CALC 28.2 mg/dL Normal [facility] Comment on above: Performed By: #### C MP, LIPID, URIC #### [facility] [address] [place] [address] Dr. Alo Johnson PROF 14(COMP METB)on 023 Albumin [Mass/Vol] 4.0 g/dL Normal 3.4-5.0 [facility] Comment on above: Performed By: #### C MP, LIPID, URIC #### [facility] [address] [place] [address] Dr. Alo Johnson Albumin/Globulin [Mass ratio] 1.4 {ratio} Normal [facility] Comment on above: Performed By: #### C MP, LIPID, URIC #### [facility] [address] [place] [address] Dr. Alo Johnson ALP [Catalytic activity/Vol] 63 U/L Normal 46-116 [facility] Comment on above: Performed By: #### C MP, LIPID, URIC #### [facility] [address] [place] [address] Dr. Alo Johnson ALT [Catalytic activity/Vol] 21 U/L Normal 16-63 [facility] Comment on above: Performed By: #### C MP, LIPID, URIC #### [facility] [address] [place] [address] Dr. Alo Johnson Anion gap [Moles/Vol] 13.6 mmol/L Normal [facility] Comment on above: Performed By: #### C MP, LIPID, URIC #### [facility] [address] [place] [address] Dr. Alo Johnson AST [Catalytic activity/Vol] 22 U/L Normal 15-37 [facility] Comment on above: Performed By: #### C MP, LIPID, URIC #### [facility] [address] [address] [address] Alo Johnson Bilirubin [Mass/Vol] 0.7 mg/dL Normal 0.2-1.0 [facility] Comment on above: Performed By: #### C MP, LIPID, URIC #### [facility] [address] [place] [address] Dr. Alo Johnson Calcium [Mass/Vol] 9.4 mg/dL Normal 8.5-10.1 [facility] Comment on above: Performed By: #### C MP, LIPID, URIC #### [facility] [address] [place] [address] Dr. Alo Johnson Chloride [Moles/Vol] 104 mmol/L Normal 98-107 [facility] Comment on above: Performed By: #### C MP, LIPID, URIC #### [facility] [address] [place] [address] Dr. Alo Johnson CO2 [Moles/Vol] 25.4 mmol/L Normal 21.0-32.0 [facility] Comment on above: Performed By: #### C MP, LIPID, URIC #### [facility] [address] [place] [address] Dr. Alo Johnson Creatinine [Mass/Vol] 1.08 mg/dL Normal 0.70-1.30 [facility] Comment on above: Performed By: #### C MP, LIPID, URIC #### [facility] [address] [place] [address] Dr. Alo Johnson EGFR-AF ETHIOPIAN >60 Normal >=60 [facility] Comment on above: Performed By: #### C MP, LIPID, URIC #### [facility] [address] [place] [address] Dr. Alo Johnson EGFR-NON AF ETHIOPIAN >60 Normal >=60 [facility] Comment on above: Performed By: #### C MP, LIPID, URIC #### [facility] [address] [place] [address] Dr. Alo Johnson Globulin (S) [Mass/Vol] 2.9 g/dL Normal [facility] Comment on above: Performed By: #### C MP, LIPID, URIC #### [facility] [address] [address] [address] Alo Johnson Glucose [Mass/Vol] 106 mg/dL Normal 74-106 [facility] Comment on above: Performed By: #### C MP, LIPID, URIC #### [facility] [address] [address] [address] Alo Johnson Potassium [Moles/Vol] 4.0 mmol/L Normal 3.5-5.1 [facility] Comment on above: Performed By: #### C MP, LIPID, URIC #### [facility] [address] [address] [address] Alo Johnson Protein [Mass/Vol] 6.9 g/dL Normal 6.4-8.2 [facility] Comment on above: Performed By: #### C MP, LIPID, URIC #### [facility] [address] [place] [address] Dr. Alo Johnson Sodium [Moles/Vol] 139 mmol/L Normal 136-145 [facility] Comment on above: Performed By: #### C MP, LIPID, URIC #### [facility] [address] [address] [address] Alo Johnson Urea nitrogen [Mass/Vol] 16.0 mg/dL Normal 7.0-18.0 [facility] Comment on above: Performed By: #### C MP, LIPID, URIC #### [facility] [address] [address] [address] Alo Johnson Urea nitrogen/Creatinine [Mass ratio] 14.8 mg/mg Normal [facility] Comment on above: Performed By: #### C MP, LIPID, URIC #### [facility] [address] [address] [address] Alo Johnson URIC ACID SERUMon 10-16-2022 Urate [Mass/Vol] 6.5 mg/dL Normal 3.5-7.2 [facility] Comment on above: Performed By: #### C MP, LIPID, URIC #### [facility] [address] [place] [address] Dr. Alo Johnson Vital Signs Date Time Vital Sign Value Performing Clinician Faci lity 02-27-2024 10:55-0400 Blood Pressure Location Ael Lue [facility] 02-27-2024 10:55-0400 Body temperature 98.6 [degF] Ale Lue [facility] 02-27-2024 10:55-0400 Diastolic blood pressure 65 mm[Hg] Ale Lue [facility] 02-27-2024 10:55-0400 Heart rate 56 /min Ale Lue [facility] 02-27-2024 10:55-0400 Respiratory rate 16 /min Ale Lue [facility] 02-27-2024 10:55-0400 Systolic blood pressure 127 mm[Hg] Ale Lue [facility] 06-01-2022 15:00-0400 Diastolic blood pressure 64 mm[Hg] Vianca See [facility] 06-01-2022 15:00-0400 Mean blood pressure 99 mm[Hg] Vainca See [facility] 06-01-2022 15:00-0400 Systolic blood pressure 169 mm[Hg] Mohamed See [facility] 06-01-2022 14:30-0400 Blood Pressure Location Mohamed See [facility] 06-01-2022 14:30-0400 Diastolic blood pressure 70 mm[Hg] Mohhiram See [facility] 06-01-2022 14:30-0400 Heart rate 86 /min Vianca Cui [facility] 06-01-2022 14:30-0400 SaO2% (BldA) [Mass fraction] 97 % Vianca Cui [facility] 06-01-2022 14:30-0400 Systolic blood pressure 148 mm[Hg] Vianca Cui [facility] Encounters Encounter Date Encounter Type Care Provider Facility Start: 03-11-2024 End: 03-11-2024 Patient encounter procedure [employer]-C Tatiana Lanza Work Phone: [facility] Work Phone: Start: 03-11-2024 End: 03-11-2024 ambulatory [employer]-C Tatiana Lanza Work Phone: [facility] Work Phone: Start: 02-27-2024 ambulatory Ale Green Facility:[facility] Start: 02-27-2024 End: 02-27-2024 Patient encounter procedure [facility] Green [facility] Start: 02-26-2024 End: 02-26-2024 ambulatory [facility] Start: 08-07-2023 End: 08-07-2023 ambulatory [facility] Start: 05-07-2023 End: 05-07-2023 ambulatory [facility] Start: 10-24-2022 End: 10-24-2022 ambulatory TATIANA LANZA Facility:[facility] Start: 10-16-2022 End: 10-17-2022 ambulatory TATIANA LANZA Facility:[facility] Start: 06-01-2022 End: 06-01-2022 Patient encounter procedure Marcelinohiram LeanneAmbreen Cui [facility] Procedures Date Procedure Procedure Detail Performing Clinician Start: 03-11-2024 MR prostate wo/w con [employer] -[employer] Tatiana Lanza Work Phone: Start: 10-16-2022 PSA screening TATIANA LLOYD Comment on above: Performed By: #### I COURT #### [facility] [address] [address] [address] Alo Johnson Start: 03-24-2020 Colonoscopy Vianca helms Start: 06-30-2014 Transrectal biopsy o f prostate using ultrasound guidance Vianca Cui Comment on above: and Cysto Start: 08-06-1979 Repair of ankle Vianca Cui Comment on above: due to fx Decompression of med ghanshyam nerve Vianca Cui Tonsillectomy Vianca Cui Comment on above: as a child Payers Date Payer Category Payer Self-pay [id number] 2023 Private Health Insurance [id number] 2020 Unknown [id number] 1945 Unknown [id number] 1945 Unknown [id number] 1945 Unknown [id number] Medicare Medicare [id number] Private Health Insurance [facility] [id number] Unknown [id number] Social History Date Type Detail Facility Start: 10-28-2020 End: 02-27-2024 Tobacco smoking status Ex-smoker (finding) [facility] Comment on above: pt quit smoking in 1 986 Sex Assigned At Male [facility] Start: 1945 Sex Assigned At Male Leanne [facility] Functional Status Date Assessment Result Facility 02-27-2024 Functional Status N/A [facility] 06-01-[address] [facility] Clinical Notes 05-07-2023 to 02-27-2024 Note Date [...] discomfort near your rectum, especially while sitting. [place]-colored urine due to small amounts of blood in your urine. A burning feeling while urinating. Blood in your stool (feces) or bleeding from your rectum. Blood in your semen. Follow these instructions at home: Medicines Take loxc-koh-mjwxwpc and prescription medicines only as told by [...] provider. Document Revised: 01/16/2022 Document Reviewed: 01/16/2022 [employer] Patient Education 2022 [employer]. 02/27/2024 12:02:56 Transrectal Ultrasound-Guided Prostate Biopsy Transrectal [...] including vitamins, herbs, eye drops, creams, and clbh-hpn-xacbrlq medicines. Any problems you or family members [...] provider tells you to take them. Taking bage-sdj-unayfmw medicines, vitamins, herbs, and supplements. General instructions [...] provider. Document Revised: 01/16/2022 Document Reviewed: 01/16/2022 [employer] Patient Education 2022 [employer]. 02/27/2024 11:47:00 Prostate Cancer Prostate Cancer The [...] under a microscope. This is called the [place] score and the total score can range from 6 10, indicating how likely it is that the cancer will spread (metastasize) to other parts of the body. The higher the score, the greater the likelihood that the cancer will spread. Lenny 6 or lower: This indicates that the cancer cells look similar to normal prostate cells (well differentiated). Lenny 7: This indicates that the cancer cells look somewhat similar to normal prostate cells (moderately differentiated). [place] 8, 9, or 10: This indicates that [...] stress of having cancer. General instructions Take xnfu-kph-voatpla and prescription medicines only as told by your health care provider. If you have to go to the hospital, notify your cancer specialist (oncologist). Keep all follow-up visits. This is important. Where to find more information [place] [employer]: www.cancer.org [place] [employer] On[employer]: www.cancer.net National Cancer [place]: www.cancer.gov Contact a health care provider if: [...] provider. Document Revised: 10/19/2021 Document Reviewed: 10/19/2021 [employer] Patient Education 2022 [employer]plays. Follow Up Care 02/08/2024 12:41:54 With:Peter AMOR, RADHA Hagan, URO Address: When: Unknown [facility] 02-27-2024 Note Patient Education Oncology Transrectal Ultrasound-Guided [...] near your rectum, especially while sitting. ? [place]-colored urine due to small amounts of blood in your urine. ? A burning feeling while urinating. ? Blood in your stool (feces) or bleeding from your rectum. ? Blood in your semen. Follow these instructions at home: Medicines ? Take txbg-dog-vnkjvdc and prescription medicines only as told by [...] provider. Document Revised: 01/16/2022 Document Reviewed: 01/16/2022 [employer] Patient Education ? 2022 [employer] Displays. Transrectal Ultrasound-Guided Prostate Biopsy A transrectal ultrasound-guided [...] including vitamins, herbs, eye drops, creams, and hzfd-xif-wclimuy medicines. ? Any problems you or family [...] ? Taking medici (more content not included)... 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 EKG 10/24/2022 shows sinus rhythm with right bundle branch block and poor R wave progression 10/23/2022 shows what appears to be atrial flutter/atrial fibrillation with rapid ventricular rate with underlying right bundle branch block Patient Active Problem List Diagnosis Atrial fibrillation (CMS/HCC) Hypertension Coronary artery disease of [place] artery of [place] heart with stable angina pectoris (CMS/HCC) Past [...] normal. Labs: 12/20/2023 (more content not included)... [facility] 02-26-2024 Note Patient here for 6 [...] All other systems reviewed and are negative. [facility] 08-07-2023 Note Patient here for 3 m o follow up afib and hypertension. Aspirin was stopped at last apt in May 2023. Denies chest pain, SOB, palpitations, and bleeding on Eliquis. Review of Systems Hematologic/Lymphatic: Bruises/bleeds easily. Neurological: Positive for light-headedness. All other systems reviewed and are negative. 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 [facility] 05-07-2023 Note Patient here for 3 m o follow up PAF and hypertension. Had stress test 04/03/2023. Denies chest pain, SOB, palpitations, and bleeding on Eliquis. Review of Systems Hematologic/Lymphatic: Bruises/bleeds easily. Neurological: Positive for light-headedness. All other systems reviewed and are negative. 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 EKG 10/24/2022 shows sinus [...] EKG: No re (more content not included)... [facility] Evaluation + Plan note No data available for this section [facility] Evaluation note No assessment inform ation available [facility] Work Phone: Hospital Discharge instructions No data available for this section [facility] Progress note No data available for this section [facility] Summary Purpose Family History No Family History Records FoundNo Family History Records Found No data available for this section No Family History Records FoundNo Family History Records Found Advance Directives No Advanced Directives Records Found Advance Directive Response Recorded Date/ Time Advance Directives No March 03 2:02pm Chief Complaint and Reason for Visit Chief Complaint c61 Additional Source Comments Patient Care team informatio n (unrecognized section and content) Team Status: Active Member Role Status Dates SCARLET Grant Primary Care Provider Active Team Status: Inactive Member Role Status Dates Ale Green MD Attending Provider Active Start : March 11, 2024 End: March 11, 2024 SCARLET Grant Primary Care Provider Active Start: March 11, 2024 End: March 11, 2024 (unrecognized sect ion and content) No Status Records FoundNo Status Records FoundNo Status Records FoundNo Status Records Found INFORMATION SOURCE (unrecogn ized section and content) DATE CREATED AUTHOR 10/29/2022 [facility] DATE CREATED AUTHOR AUTHOR'S ORGANIZ ATION 02/27/2024 [facility] DATE CREATED AUTHOR AUTHOR'S ORGANIZ ATION 02/29/2024 [facility] DATE CREATED AUTHOR AUTHOR'S ORGANIZ ATION 03/18/2024 [facility] Goals (unrecognized section and content) Goals may be documented in a n alternate section FOR RECORDS PERTAINING TO PATIENTS WHO ARE [...] BE BASED ON THE PRIMARY CLINICAL RECORDS. [facility] [employer] [facility]. provides no warranty or guarantee of the accuracy or completeness of information in this document.
[2024-03-26] MEDS: LACTATED RINGER'S SOLUTION 1,000 ML 50 ML IV (11:50)
--- NOTE | 2024-03-26 12:38 | US_ITS ---
The [address] [address] Patient Name: IGNACIO AUGUSTINE MRN: [id number] date: 1945 Sex: M Assigned Patient Location: [facility] Current Patient Location: Accession/Order Number: [id number] Exam Date: 03/26/2024 12:40 Report Date: 03/28/2024 04:22 At the request of: MERLYN GREEN Procedure: US prostate EXAMINATION: US prostate HISTORY: surgery COMPARISON: No relevant comparison available. TECHNIQUE: Ultrasound exam for the prostate with an endorectal transducer was performed utilizing real-time and color duplex Doppler sonography. FINDINGS: Heterogeneous prostate with ultrasound-guided biopsy consisting of 12 samples of right side of prostate and 12 samples of left side of prostate. US/US prostate IMPRESSION: Prostate biopsy performed by Dr. Green under ultrasound guidance. Electronically authenticated by: JASON DRAKE Date: 03/28/2024 04:22
[2024-03-26] MEDS: GENTAMICIN SULFATE 80 MG in 0.9 % SODIUM CHLORIDE 100 ML 204 MG IV (12:47)
[2024-03-26] MEDS: LIDOCAINE 2% JELLY 10 ML UR (12:51)
[2024-03-26 13:11] VITALS: BP 123/61; PULSE 54; TEMP 36.4; O2SAT 94
--- NOTE | 2024-03-26 13:19 | P.URON_ITS ---
Urology Surgery Operative Note Operative Note Procedure Date: 03/26/24 Time Out Performed: yes Pre-op Diagnosis: Prostate cancer Post-op Diagnosis: same as pre-op Procedures performed: 1. Transrectal ultrasound guided prostate biopsy 2. Nerve block of prostate Anesthesia: MAC (Dr. Hewitt) Primary Surgeon: Ale Green Complications: none Estimated blood loss (mL): 1 Findings: Scattered prostate calcifications, small cyst in the right transition zone. Small hypoechoic areas within left transition zone, biopsied. ISSAC left lobe higher than right, no discrete firm nodules Specimens: 1. Left base lateral (2 cores) 2. Left base medial (2 cores) 3. Left mid lateral (2 cores) 4. Left mid medial (2 cores) 5. Left apex lateral (2 cores) 6. Left apex medial (2 cores) 7. Right base lateral (2 cores) 8. Right base medial (2 cores) 9. Right mid lateral (2 cores) 10. Right mid medial (2 cores) 11. Right apex lateral (2 cores) 12. Right apex medial (2 cores) Indications for Procedures: 78 year old healthy male with history of low grade prostate cancer, Grade group 1 in 3/12 cores on active surveillance since 09/2019 who has yet to undergo a confirmatory prostate biopsy. PSA 11.5 on 12/2023. MRI prostate 03/11/24 negative, volume 118 ml. After discussion of risks/benefits, patient elects to undergo confirmatory biopsy via transrectal approach to ensure no significant disease progression. Risks were discussed including but not limited to bleeding, pain, infection, damage to surrounding structures, sepsis, urinary retention and need for additional procedures. Detailed description of Procedure: After informed consent was obtained, the patient was brought to the operating suite and remained on the stretcher in supine position. Sequential compression devices were placed on bilateral lower extremities. He received the appropriate dose of preoperative PO and IV antibiotics and MAC was induced. He was positioned in the left lateral decubitus position. An operative timeout was performed confirming the patient's identity, procedure and safety checks. Lidocaine gel was inserted per rectum. A digital rectal exam was performed noting severely enlarged prostate, left higher than right without firm nodules. A well lubricated transrectal ultrasound probe was inserted into the rectum and the prostate was aligned. The gland was visualized fully in axial and sagittal views to allow for identification of anatomy and location of the urethra. Periprostatic local anesthetic of lidocaine 1% was delivered between the prost ate and SVs. Starting with the left lateral base, two biopsies were obtained in a systematic fashion from 12 regions of the prostate including the medial and lateral aspects of the base, mid and apex. The ultrasound probe was removed. The patient was awakened from anesthesia and sent to PACU in stable condition. Plan: Void prior to discharge home. Follow up in 1-2 weeks for pathology review. Other Provider present: No Post Operative care instructions: see discharge instructions
[2024-03-26 13:26] VITALS: BP 144/70; PULSE 50; O2SAT 98
[2024-03-26] MEDS: LIDOCAINE HCL 1% 200 MG/20 ML MDV 10 ML INJ (13:27)
[2024-03-26 13:40] VITALS: BP 159/76; PULSE 48; O2SAT 97
--- NOTE | 2024-03-26 13:41 | PC.NURSE ---
frustrated he has the urge to urinate but can't go as of yet.
[2024-03-26 13:56] VITALS: BP 171/72; PULSE 65; O2SAT 95
--- NOTE | 2024-03-26 13:59 | PC.NURSE ---
patient urinated blood tinged urine 100 cc states pressure feeling in bladder is better.
== END 2024-03-26 14:09 | disposition home or self-care (01) ==
PROVIDERS: PCP Nurse Practitioner Family; Visit Provider Urology
PROC: (CPT 55700; principal; 2024-03-26 12:30)
DX: C61 Malignant neoplasm of prostate (principal); I71.40 Abdominal aortic aneurysm, without rupture, unspecified; Z79.01 Long term (current) use of anticoagulants; R31.21 Asymptomatic microscopic hematuria; I25.10 Atherosclerotic heart disease of native coronary artery without angina pectoris; R97.20 Elevated prostate specific antigen [PSA]; Z87.891 Personal history of nicotine dependence; I10 Essential (primary) hypertension; I48.91 Unspecified atrial fibrillation; N40.1 Benign prostatic hyperplasia with lower urinary tract symptoms
CPT/HCPCS: 55700; 36415; 76872; 88305; 88344; J1580; J2704; J3010

== ENCOUNTER 2024-04-30 13:37 | Outpatient (OUT) | payer MEDICARE, SELFPAY ==
--- OUTSIDE RECORDS SUMMARY | 2024-04-30 13:46 | XMS_ITS | CCD ---
Author Organization [facility] Care Team Providers Care Glaze Grinder Name Role Phone TATIANA LANZA Primary Care Physician TATIANA LANZA Primary Care Unavailable HALEIGH ., DR SNELL Admitting Unavailable HALEIGH ., DR SNELL Attending Unavailable HALEIGH ., DR SNELL Consulting Unavailable HAY ., DR ABRAMS Consulting Unavailable NALINI CHIRINOS Consulting Unavailable MICHAEL PRADO Consulting Unavailable TATIANA LANZA Admitting Unavailable TATIANA LANZA Attending Unavailable TATIANA LANZA Primary Care Unavailable TATIANA LANZA Consulting Unavailable ABBE HSU Attending Unavailable CYNDI CHAN Attending Unavailable CYNDI CHAN Attending Unavailable MD Ale Green Attending Provider SCARLET Lanza Primary Care Provider Tatiana Lanza Primary Care Unavailable Ale Green Admitting Unavailable Ale Green Attending Unavailable Tatiana Lanza Primary Care Unavailable Ale Green Admitting Unavailable Ale Green Attending Unavailable Ale Green Attending Unavailable Ale Green Attending Unavailable Ale Green Attending Unavailable Allergies Allergy Classification Reported Allergen(s) Allergy Type Date of Onset Reaction(s) Facility (6 sources) Penicillins; 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: [penicillins] Drug allergy 3 Pharyngeal swelling (finding) [facility] (1 source) Penicillin Drug Allergy [facility] Repository Medications Current Medications Medication Drug Class(es) Dates Sig (Normalized) Sig (Original) amLODIPine 5 mg oral tablet (1 source) Dihydropyridine Calcium Channel Elana Start: 03-17-2020 amLODIPine 5 mg Tab Refills(s) 0 Start Date: 03/17/20 Status: Ordered apixaban 5 mg oral tablet (3 sources) Factor Xa Inhibitor Start: 02-27-2024 Eliquis 5 [...] day(s), # 6 tab(s), Refills(s) 0, Pharmacy: [facility]/pharmacy #[id number], 170, cm, 02/27/24 11:19:00 EDT, Height/Length Dosing, 64, kg, 02/27/24 11:19:00 EDT, Weight Dosing Start Date: 02/27/24 Stop Date: 03/01/24 Status: Ordered DilTIAZem (Eqv-Cardizem CD) 120 mg/24 hours oral capsule, extended release (3 sources) Start: 02-27-2024 DilTIAZem (Eqv-Cardizem CD) 120 mg/24 hours oral capsule, extended release 120 mg = 1 cap(s), Refills(s) 0 Start Date: 02/27/24 Status: Ordered Garlic preparation (4 sources) Non-Standardized Food Allergenic Extract Start: 08-27-2019 take 1000 mg by mouth once daily garlic 1,000 mg, Oral, Daily, Refill(s) 0 Start Date: 08/27/19 Status: Ordered losartan potassium 100 mg oral tablet (3 sources) Angiotensin 2 Receptor Elana Start: 02-27-2024 losartan 100 mg Tab 100 mg = 1 tab(s), Refills(s) 0 Start Date: 02/27/24 Status: Ordered Misc Medication (1 source) Start: 08-27-2019 Misc Medication Start Date: 08/27/19 Status: Ordered Multi Vitamin+ (1 source) Start: 08-27-2019 Multi Vitamin+ Oral, Daily, Refill(s) 0 Start Date: 08/27/19 Status: Ordered Multivitamin preparation (3 sources) Start: 02-27-2024 multivitamin Refill(s) 0 Start Date: 02/27/24 Status: Ordered terazosin 5 mg oral capsule (4 sources) alpha-Adrenergic Elana Start: 08-27-2019 take 1 capsule by mouth once daily at bedtime terazosin 5 mg Cap 5 mg = 1 cap(s), Oral, Once a day (at bedtime), # 90 cap(s), Refills(s) 0 Start Date: 08/27/19 Status: Ordered Problems Problem Classification Problem Date Documented Date Episodic/Chronic Aortic; peripheral; and visceral artery aneurysms (4 sources) Abdominal aortic aneurysm 09-10-2019 Chronic Calculus of urinary tract (4 sources) History of calculus of kidney 12-18-2019 Episodic Cancer of prostate (7 sources) Malignant tumor of prostate; 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: [Malignant [...] UNSPECIFIED] Onset: 10-26-2022 Chronic Diverticulosis and diverticulitis (4 sources) Diverticulosis of sigmoid colon 03-30-2020 Chronic Essential hypertension (7 sources) Essential (primary) hypertension; 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: [Hypertensive disorder] Onset: 10-16-2022 Chronic Genitourinary symptoms and ill-defined conditions (20 sources) Radu hematuria; 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: [Incomplete emptying of bladder] Onset: 02-27-2024 10-16-2019 Episodic Hyperplasia of prostate (5 sources) Benign prostatic hypertrophy with outflow obstruction; 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: [Benign prostatic hyperplasia without lower urinary tract symptoms] Onset: 10-26-2022 02-25-2020 Chronic Other aftercare (1 source) terminologist (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; 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: [PRICING COORDINATOR 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 ASPIRIN] Onset: 10-26-2022 Episodic Other aftercare (1 source) Other termite technician (current) drug therapy; 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: [OTH [facility] CURRENT DRUG THERAPY] Onset: 10-26-2022 Episodic Other aftercare (2 sources) Long-term current use of anticoagulant; 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: [custodial (current) use of anticoagulants] Onset: 02-27-2024 Episodic Other and unspecified benign neoplasm (4 sources) Pseudopolyposis of colon 03-30-2020 Episodic Other lower respiratory disease (1 source) Other nonspecific abnormal finding of lung field; 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: [OTH NONSPECIFIC ABN FIND LNG FIELD] Onset: 10-26-2022 Episodic Other lower respiratory disease (1 source) Shortness of breath; 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: [SHORTNESS OF BREATH] Onset: 10-26-2022 Episodic Other screening for suspected conditions (not mental disorders or infectious disease) (10 sources) Magnetic resonance imaging of abdomen abnormal; 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: [Raised prostate specific antigen] Onset: 10-23-2022 03-30-2020 Episodic Peripheral and visceral atherosclerosis (1 source) Atherosclerosis of aorta; 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: [Atherosclerosis of aorta] Onset: 06-01-2022 Chronic Screening and history of mental health and substance abuse codes (4 sources) Ex-smoker 12-18-2019 Episodic Substance-related disorders (1 source) Nicotine dependence, chewing tobacco, uncomplicated; 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: [NICOTINE DEPEND CHEW TOBACCO UNCOMP] Onset: 10-26-2022 Chronic Unclassified (4 sources) Drug therapy finding 02-25-2020 Unclassified (1 source) ALCOHOL USE UNSPEC UNCOMPLICATED; 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: [ALCOHOL USE UNSPEC UNCOMPLICATED] Onset: 10-26-2022 Unclassified (1 source) CONTACT W/AND (SUSP) EXPOS COVID-19; 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: [CONTACT W/AND (SUSP) EXPOS COVID-19] Onset: 10-26-2022 Unclassified (1 source) Asymptomatic microscopic hematuria 04-10-2024 Results Test Name Value Interpretation Reference Range Facility Ambulatory Visit Summaryon 0 04-10-2024 Ambulatory Visit Summary Ambulatory Visit Summary NICK DOYLE :1945 Visit Date:04/10/2024 Ambulatory Visit Instructions Your Diagnosis Prostate cancer Asymptomatic microscopic hematuria Anticoagulated Your Care Team Attending Physician - Ale Green MD Primary Care Physician - TATIANA LANZA CNP This Is Your Medications List Contact prescribing physician if questions or concerns apixaban (Eliquis 5 mg oral tablet) diltiazem (DilTIAZem (Eqv-Cardizem CD) 120 mg/24 hours oral capsule, extended release) garlic losartan (losartan 100 mg Tab) multivitamin terazosin (terazosin 5 mg Cap) Procedures Performed Colonoscopy (03/24/2020), Transrectal biopsy of prostate using ultrasound (US) guidance (06/30/2014), Repair of ankle (08/06/1979), Carpal tunnel release, Tonsillectomy. Discharge Vitals Heart Rate (Peripheral) 76 Blood Pressure 130/62 Height 170 cm Height 67 in Weight 64 kg Weight 140.8 lb BMI 22.15 What to do next You Need to Schedule the Following Appointments Follow Up with Peter AMOR, Ale [place], URL, URO When: Where: Medications What How Much When Instructions Unchanged apixaban (Eliquis 5 mg oral tablet) 2 Tablets Contact prescribing physician if questions or concerns Unchanged diltiazem (DilTIAZem (Eqv-Cardizem CD) 120 mg/ 24 hours oral capsule, extended release) 1 Capsules Contact prescribing physician if questions or concerns Unchanged garlic 1,000 Milligram By Mouth Every day Contact prescribing physician if questions or concerns Unchanged losartan (losartan 100 mg Tab) 1 Tablets Contact prescribing physician if questions or concerns Unchanged multivitamin Contact prescribing physician if questions or concerns Unchanged terazosin (terazosin 5 mg Cap) 1 Capsules By Mouth Once a day (at bedtime) Contact prescribing physician if questions or concerns Allergies penicillins (Swelling of throat) Problems Ongoing - Any problem that you are currently receiving treatment for. AAA (abdominal aortic aneurysm) Abnormal MRI of abdomen Anticoagulated Asymptomatic microscopic hematuria BPH with urinary obstruction Elevated PSA Former smoker Frequent urination Gross hematuria Hematuria, microscopic History of kidney stones Incomplete bladder emptying Inflammatory polyps of colon Nocturia Prostate cancer Sigmoid diverticulosis Urinary urgency Patient Survey You may receive a survey via text or e-mail asking about your office visit. Please share your experience with us by completing your survey. We appreciate your feedback and thank you for choosing us for your care. Education Materials Prostate Cancer The prostate is a small [...] more likely to develop this condition if: ? You are 65 years of age or older. ? You have a family history of prostate cancer. ? You have a family history of breast and ovarian cancer. ? You have genes that are passed from parent to child (inherited), such as BRCA1 and BRCA2. ? You have Black syndrome. men and men of descent are diagnosed with prostate cancer at higher rates than other men. The reasons for this are not well understood and are likely due to a combination of genetic and environmental factors. What are the signs or symptoms? Symptoms of this condition include: ? Problems with urination. This may include: ? A weak or interrupted flow of urine. ? Trouble starting or stopping urination. ? Trouble emptying the bladder all the way. ? The need to urinate more often, especially at night. ? Blood in urine or semen. ? Persistent pain or discomfort in the lower back, lower abdomen, or hips. ? Trouble getting an erection. ? Weakness or numbness in the legs or feet. How is this diagnosed? This condition can be diagnosed with: ? A digital rectal exam. For this exam, a health care provider inserts a gloved finger into the rectum to feel the prostate gland. ? A blood test called a prostate-specific antigen (PSA) test. ? A procedure in which a sample of tissue is taken from the prostate and checked under a microscope (prostate biopsy). ? An imaging test called transrectal ultrasonography. Once the condition is diagnosed, tests will be done to determine how far the cancer has spread. This is called staging the cancer. Staging may involve imaging tests, such as a bone scan, CT scan, PET scan, or MRI. Stages of prostate cancer The stages of prostate cancer are as follows: ? Stage 1 (I). At this stage, the cancer is found in the prostate only. The cancer is not visible on imaging tests, and it is us (more content not included)... Normal [facility] Reminderson 04-10-2024 Reminders Reminders - From: Johanna Salcido To: KIMBERLY Green; Sent: 04/10/2024 15:48:39 EDT Show up: 07/10/2024 14:48:00 EST Subject: Appointment Due Date/Time: 07/10/2024 14:48:00 EST Reminder Message If we have not heard from pt, his daughter or by July pt needs called to schedule follow up regarding prostate cancer. Pt is going to [place] and should be back after . Normal [facility] Urology Office/Clinic Noteon 04-10-2024 Urology Office/Clinic Note Urology Office/Clinic Note Chief Complaint path HPI Staff PO TRUS/bx done 03/26/24, here to review path report. Last seen IO 02/27/24. Dx: prostate cancer, AMH, anticoagulated. Last PSA 12/20/23 - 11.5 & 22.4% Negative prostate MRI done 03/11/24. Dysuria: no Incomplete bladder emptying: no Hematuria: no Frequency: q1.5-2 hrs Urgency: no Nocturia: 1x Stream: Leaking: not often Post void dripping:no Wearing pads/ Depends: will wear a depends if he goes out Urge incontinence: no Stress incontinence:no Incontinence without Sensory Awareness:no Abdominal pain: no Flank pain:no Sexual complaints: no History of Present Illness Tests reviewed: reviewed UA, MRI, and path. I have reviewed the previous health record information and history for this patient from Dr. Green. I have reviewed and verified the staff HPI to be accurate for this encounter. There have been no associated fever, chills, flank pain, or blood in the urine. Denies any urinary infections since last encounter. Review of Systems PHQ Score Initial Depression Screen Score: 0 SCORE ROS - Provider Constitutional: denies weight loss, denies hot flashes. Eyes: denies eye problems. Gastrointestinal: denies nausea, denies vomiting. Cardiovascular: denies chest pain or angina. Integumentary: no dryness Musculoskeletal: denies musculoskeletal symptoms. ENMT: denies otolaryngeal symptoms. Respiratory: no shortness of breath. Heme/Lymph: denies easy bleeding tendency, denies easy bruising tendency. Psychiatric: no confusion, no anxiety. Genitourinary: See HPI. Physical Exam Vitals & Measurements HR: 76(Peripheral) BP: 130/62 HT: 67 in HT: 170 cm WT: 64 kg WT: 140.8 lb BMI: 22.15 General Appearance: alert, no distress, well nourished, well developed male. Assessment/Plan 79 year old here to review path from recent prostate biopsy -upstaged to unfavorable intermediate risk prostate cancer while on active surveillance [place], does wear hearing aids. Pt is accompanied by his today who also serves as historian. ABBE 18 Portions of this record may have been created with voice recognition artificial intelligence software, specifically [employer], [employer] and or Snyppit. Substitutions may have occurred due to the inherent limitations of voice recognition and artificial intelligence software. 1. Prostate cancer (C61: Malignant neoplasm of prostate) PSA: 04/27/15 - 5.49 05/15/16 - 6.00 & 22% 06/07/17 - 6.83 & 23% 03/05/19 - 9.72 12/18/19 - 10.61 02/15/21 - 10.16 10/16/22 - 10.6 & 21.9% 12/20/23 - 11.5 & 22.4% PSAD 0.1 IPSS 4 (4) Last seen by Dr. James 02/25/2020. Active surveillance at that time however pt was unaware of this. Pt was apparently unaware that he has prostate ca. TRUS/bx 2013 - negative. Genomic test 09/30/19, insufficient carcinoma present TRUS/bx 09/30/19 - G6 (3 + 3) x 3 cores. Highest percentage of core involvement is 7%. All left-sided. Biopsy follow up, 10/16/19, pt decided to be on ACTIVE SURVELLIENCE Phone visit 01/01/20 - MRI of prostate done MRI 02/10/20 - 11 x 0.8 cm left posterior pelvic nodule. Prostate volume 99cc. No evidence of clinically significant disease. Follow up for MRI 02/25/[address] James - Axumin scan ordered, pt never obtained Pt called our office 02/05/24 requesting to be seen by a urologist for rising PSA. Pt never followed up with oncology. (See EMR message for further information). Pt states she does not remember her ever having a PET scan and they were never advised to f/u with an oncologist. MRI of prostate 03/11/24 [facility] - prostate volume 118 mL. Prominent left perirectal lymph node measuring 5 mm in short axis. Finding is nonspecific. Correlation with colonoscopy is suggested. No MRI evidence of clinically significant prostate cancer. BPH changes. S/p TRUS/bx 03/26/24. ISSAC ~severely enlarged prostate, left higher than right without firm nodules. ~Denies complications after surgery. 79 year-old gentleman here to discuss his prostate biopsy results on 03/26/24. He has cT1c disease, Lenny 7 (4+3), Grade group 3 prostate cancer in 2/24 cores, initial PSA of 11.5. I explained the D'Thomas criteria for risk stratification of prostate cancer which indicates that he has upstaged to unfavorable intermediate risk disease. I educated him on the national comprehensive cancer network guidelines on the treatment of prostate cancer which indicates his options include: Watchful waiting, active surveillance, surgery, and radiation therapy. I discussed the advantages of each of his options at length. Active surveillance involves monitoring the disease with the intention of curative intervention in the future if more concerning findings are seen. This involves PSAs every 6-12 months, rectal exams every 12 months, confirmatory prostate biopsy within 1-2 years of diagnosis if MRI used (6-12 months if no MRI prostate) and MP MRI pros (more content not included)... Normal [facility] Comment on above: Result Comment: Elec tronically Signed By: Ale Green MD\.br\Date and Time Signed: 04/10/24 16:54 EDT\.br\Electronically Co-Signed By: Johanna Salcido\.br\Date and Time Co-Signed: 04/10/24 15:46 EDT ISTAT XRay CREon 03-11-2024 ISTAT GFR 50.810 Normal [facility] Comment on above: Result Comment: PERF ORMED BY: [place] [address] PATHOLOGIST SERVICE STATION CASHIER ENA CASTRO M.D. Performed By: #### I SCRE #### [address] MR prostate wo/w conon 03-11 MR prostate wo/w con [facility] [place] [address] [place] [address] MRI Report Signed Patient: Nick Doyle MR#: [id number] : 1945 Acct:[id number] Age/Sex: 78 / M ADM Date: 03/11/24 Loc: MR Room: Type: [facility] Attending Dr: Ale Green MD Copies to: [...] Diaz Jr., D.O.03/11/2024 11:34 AM Dictation Location: [place] [address] Transcribed By: [facility] 03/11/24 1134 Dictated By: Stuart Diaz Jr, DO 03/11/24 1126 Signed By: 03/11/24 1134 Normal The Count Includes [facility] No Panel InformationOrdered By: Ale Green on 03-11-2024 Bedside Estimated GFR (eGFR) 50.810 [facility] Whole blood creatinine measu rementOrdered By: Ale Peter on 03-11-2024 Creatinine [Mass/Vol] 1.4 mg/dL High 0.6-1.3 Fir [facility] Comment on above: ER/ESD physician is notified/shown all ISTAT results.Critical values may be confirmed by laboratory testing ifdeemed necessary by ER attending doctor. Result Comment: ER/E SD physician is notified/shown all ISTAT results. Critical values may be confirmed by laboratory testing if deemed necessary by ER attending doctor. Performed By: #### I SCRE #### [address] Urology Office/Clinic Noteon 02-27-2024 Urology Office/Clinic Note Urology Office/Clinic Note Chief Complaint elevated PSA - prostate cancer HPI Staff 78 yo male here to re-establish care for prostate cancer & rising PSA. Last seen by Dr. James 02/25/2020. Active surveillance at that time. TRUS/bx 09/30/19. MRI of prostate 02/10/20 - 11 x 0.8 cm left posterior pelvic nodule. Follow up to MRI 02/25/[address] James - recommended colonoscopy and nuclear med scan ordered. PET scan denied 03/25/20, resent 05/25/20 but there are results to show that imaging was ever done. Pt called our office 02/05/24 requesting to be seen by a urologist for rising PSA. Pt never followed up with oncology. (See EMR message for further information). Pt states she does not remember her ever having a PET scan and they were never advised to f/u with an oncologist. PSA: 04/27/15 - 5.49 05/15/16 - 6.00 & 22% 06/07/17 - 6.83 & 23% 03/05/19 - 9.72 12/18/19 - 10.61 02/15/21 - 10.16 10/16/22 - 10.6 & 21.9% 12/20/23 - 11.5 & 22.4% Dysuria: no Incomplete bladder emptying: less than 1 in 5x per IPSS Hematuria: no Frequency: not at all Urgency: not at all Nocturia: 1x Stream: no straining but has intermittency less than 1 in 5x Leaking: rare Post void dripping: no Wearing pads/ Depends: sometimes he will wear a depends if they have to go away Urge incontinence: no Stress incontinence: no Incontinence without Sensory Awareness: no Abdominal pain: no Flank pain: no Sexual complaints: History of Present Illness Tests reviewed: reviewed UA, path reports, MRI, external labs and records I have reviewed the previous health record information and history for this patient from Dr. James and external providers I have reviewed and verified the staff HPI to be accurate for this encounter. Review of Systems PHQ Score Initial Depression Screen Score: 0 SCORE ROS - Provider Constitutional: denies weight loss, denies hot flashes. Eyes: denies eye problems. Gastrointestinal: denies nausea, denies vomiting. Cardiovascular: denies chest pain or angina. Integumentary: no dryness Musculoskeletal: denies musculoskeletal symptoms. ENMT: denies otolaryngeal symptoms. Respiratory: no shortness of breath. Heme/Lymph: denies easy bleeding tendency, denies easy bruising tendency. Psychiatric: no confusion, no anxiety. Genitourinary: See HPI. Physical Exam Vitals & Measurements T: 37 ?C(Temporal Artery) HR: 56(Peripheral) RR: 16 BP: 127/65 HT: 67 in HT: 170 cm WT: 64 kg WT: 140.8 lb BMI: 22.15 General Appearance: alert, no distress, well nourished, well developed male. Assessment/Plan Nick is a 78 year old re-establishing pt, here due to prostate ca. Pt is hard of hearing, does wear hearing aids. Pt is accompanied by his today who also serves as historian 1. Prostate cancer (C61: Malignant neoplasm of prostate) PSA: 04/27/15 - 5.49 05/15/16 - 6.00 & 22% 06/07/17 - 6.83 & 23% 03/05/19 - 9.72 12/18/19 - 10.61 02/15/21 - 10.16 10/16/22 - 10.6 & 21.9% 12/20/23 - 11.5 & 22.4% Last seen by Dr. James 02/25/2020. Active surveillance at that time however pt was unaware of this TRUS/bx 2013 - negative. Genomic test 09/30/19, insufficient carcinoma present TRUS/bx 09/30/19 - G6 (3 + 3) x 3 cores. Highest percentage of core involvement is 7%. All left-sided. Biopsy follow up, 10/16/19, pt decided to be on ACTIVE SURVELLIENCE Phone visit 01/01/20 - MRI of prostate done MRI 02/10/20 - 11 x 0.8 cm left posterior pelvic nodule. Prostate volume 99cc. No evidence of clinically significant disease. Follow up for MRI 02/25/[address] James - Axumin scan ordered, pt never obtained Pt called our office 02/05/24 requesting to be seen by a urologist for rising PSA. Pt never followed up with oncology. (See EMR message for further information). Pt states she does not remember her ever having a PET scan and they were never advised to f/u with an oncologist. IPSS 4. No urinary complaints. Good stream. Feels he empties completely. Pt was apparently unaware that he has prostate ca. Discussed pt's history, diagnosis and recommendation for re-staging if he desires to undergo treatment if clinically significant prostate cancer were to be found. Life expectancy discussed, pt healthy. Risk of progression since diagnosis discussed. Pt elects to proceed with MRI prostate and confirmatory biopsy. We discussed risks of MRI fusion prostate biopsy approaches including transrectal and transperineal. Risks of the procedure were discussed to include but not be limited to bleeding, pain, infection (higher, including sepsis with transrectal approach), difficulties with urination, injury to the urethra, prostate or bladder or surrounding tissues, injury from positioning on the table, swelling and bruising of the skin, and need for further procedures. Pt elects to proceed with TRUS bx with local anesthetic. -Schedule MRI of prostate at [facility]. -Will schedule TRUS (more content not included)... Normal [facility] Comment on above: Result Comment: Elec tronically Signed By: Ale Green MD\.br\Date and Time Signed: 02/27/24 16:48 EDT\.br\Electronically Co-Signed By: Papa Mazariegos\.br\Date and Time Co-Signed: 02/27/24 12:05 EDT Office Visiton 02-26-2024 Follow-up visit [id number] Nick Doyle 1945 M Date Provider Department Center 02/26/2024 [facility] Family History Problem Relation Age of Onset Heart attack Father Heart attack Brother Family Status - Relation Status Age at Father Brother Level of Service:13540 MS OFFICE/OUTPATIENT ESTABLISHED MOD MDM 30 MIN Reason for Visit and Comments: Atrial Fibrillation [80] Hypertension [[id number]] Normal [facility] Office Visiton 08-07-2023 Follow-up visit [id number] Nick Doyle 1945 M Date Provider Department Center 08/07/2023 CYNDI ANTHONY Family History Problem Relation Age of Onset Heart attack Father Heart attack Brother Family Status - Relation Status Age at Father Brother Level of Service:37531 MS OFFICE/OUTPATIENT ESTABLISHED LOW MDM 20 MIN Normal [facility] Office Visiton 05-07-2023 Follow-up visit [id number] Nick Doyle 1945 M Date Provider Department Center 05/07/2023 CYNDI ANTHONY Family History Problem Relation Age of Onset Heart attack Father Heart attack Brother Family Status - Relation Status Age at Father Brother Level of Service:09597 [place] OFFICE/OUTPATIENT ESTABLISHED LOW MDM 20-29 MIN Normal [facility] BNPon 10-24-2022 Natriuretic peptide B (Bld) [Mass/Vol] 368.0 pg/mL Normal <=1,800.0 [facility] Comment on above: Performed By: #### H STROPN, BMP, BNP #### [facility] [address] [address] [address] Alo Johnson CBC AUTO DIFFon 10-24-2022 BASO # 0.0 103/ul Normal 0.0-0.1 [facility] Comment on above: Performed By: #### C BC #### [facility] [address] [address] [address] Alo Johnson Basophils/100 WBC (Bld) 0.3 % Normal 0.2-2.0 [facility] Comment on above: Performed By: #### C BC #### [facility] [address] [place] [address] Dr. Alo Johnson EO # 0.7 103/ul Normal 0.0-0.7 [facility] Comment on above: Performed By: #### C BC #### [facility] [address] [place] [address] Dr. Alo Johnson Eosinophils/100 WBC (Bld) 6.3 % Normal 0.9-7.0 [facility] Comment on above: Performed By: #### C BC #### [facility] [address] [place] [address] Dr. Alo Johnson Erythrocyte distribution width (RBC) [Ratio] 12.4 % Normal 11.0-15.0 [facility] Comment on above: Performed By: #### C BC #### [facility] [address] [place] [address] Dr. Alo Johnson Hematocrit (Bld) [Volume fraction] 42.7 % Normal 42.0-54.0 [facility] Comment on above: Performed By: #### C BC #### [facility] [address] [place] [address] Dr. Alo Johnson Hemoglobin (Bld) [Mass/Vol] 14.5 g/dL Normal 14.0-18.0 [facility] Comment on above: Performed By: #### C BC #### [facility] [address] [place] [address] Dr. Alo Johnson IG # 0.03 10e3/ul Normal 0.00-0.03 [facility] Comment on above: Performed By: #### C BC #### [facility] [address] [place] [address] Dr. Alo Johnson IG % 0.3 % Normal 0.0-0.5 [facility] Comment on above: Performed By: #### C BC #### [facility] [address] [place] [address] Dr. Alo Johnson LYMPH # 4.8 103/ul Critically high 1.2-3.8 [place] Comment on above: Performed By: #### C BC #### [facility] [address] [place] [address] Dr. Alo Johnson Lymphocytes/100 WBC (Bld) 41.8 % Normal 20.5-60.0 [facility] Comment on above: Performed By: #### C BC #### [facility] [address] [place] [address] Dr. Alo Johnson MANUAL DIFF REQ NO Normal [place] Comment on above: Performed By: #### C BC #### [facility] [address] [place] [address] Dr. Alo Johnson MCH (RBC) [Entitic mass] 32.6 pg Normal 25.9-34.0 [facility] Comment on above: Performed By: #### C BC #### [facility] [address] [place] [address] Dr. Alo Johnson MCHC (RBC) [Mass/Vol] 34.0 g/dL Normal 29.9-35.2 [facility] Comment on above: Performed By: #### C BC #### [facility] [address] [place] [address] Dr. Alo Johnson MCV (RBC) [Entitic vol] 96.0 fL Critically high 80.0-94.0 [facility] Comment on above: Performed By: #### C BC #### [facility] [address] [place] [address] Dr. Alo Johnson MONO # 0.8 103/ul Normal 0.3-0.8 [facility] Comment on above: Performed By: #### C BC #### [facility] [address] [place] [address] Dr. Alo Johnson Monocytes/100 WBC (Bld) 7.1 % Normal 1.7-12.0 [facility] Comment on above: Performed By: #### C BC #### [facility] [address] [place] [address] Dr. Alo Johnson NEUT # 5.1 103/ul Normal 1.4-6.5 [facility] Comment on above: Performed By: #### C BC #### [facility] [address] [address] [address] Alo Johnson Neutrophils/100 WBC (Bld) 44.2 % Normal 43.0-75.0 [facility] Comment on above: Performed By: #### C BC #### [facility] [address] [address] [address] Alo Johnson Platelet mean volume (Bld) [Entitic vol] 8.7 fL Critically low 9.5-13.5 [facility] Comment on above: Performed By: #### C BC #### [facility] [address] [address] [address] Alo Johnson PLT 236 103/ul Normal 150-450 [facility] Comment on above: Performed By: #### C BC #### [facility] [address] [place] [address] Dr. Alo Johnson RBC 4.45 106/ul Critically low 4.70-6.10 [place] Comment on above: Performed By: #### C BC #### [facility] [address] [address] [address] Alo Johnson WBC 11.5 103/ul Critically high 4.0-11.0 [facility] Comment on above: Performed By: #### C BC #### [facility] [address] [place] [address] Dr. Alo Johnson CULTURE BLOODon 10-24-2022 Microscopic examination of blood, culture Culture Observations: NO GROWTH AT 5 DAYS. Isolate 1 BC_BA_NA Normal [facility] Comment on above: Performed By: #### I NSULIN #### [facility] [address] [address] [address] Alo Johnson Microscopic examination of blood, culture Culture Observations: NO GROWTH AT 5 DAYS. Isolate 1 BC_BA_NA Normal [facility] Comment on above: Performed By: #### I NSULIN #### [facility] [address] [address] [address] Alo Johnson Covid-19 PCR ([facility])on 10-05 SARS-CoV-2 (COVID-19) RNA ANGELICA+probe Ql (Unsp spec) Not detected Normal NOT DETECTED [facility] Comment on above: Result Comment: [...] for this test is supported by the [employer] of [employer] and Human Service's declaration that [...] used). Performed By: #### I NSULIN #### [facility] [address] [address] [address] Alo Johnson ECHOCARDIO M/2D COMPLETEon 0 10-24-2022 ECHOCARDIO M/2D COMPLETE Patient: NICK DOYLE Exam Date: 10/24/2022 : 1945 Gender:M Ordering : MICHAEL PRADO Admission #: [id number] Family : DR ALIS RICARDO . Order #: [id number] CLICK HERE TO VIEW EXAM ECHOCARDIOGRAM REPORT [...] Mei M.D. on 10/24/2022 at 15:33 Normal [facility] ETHANOL (D ALC)on 10-25-19 23 ALC NOTE NOTE: 80 mg/dl is the legal limit for a blood alcohol level Normal [facility] Comment on above: Performed By: #### I NSULIN #### [facility] [address] [place] [address] Dr. Alo Johnson Ethanol [Mass/Vol] mg/dL Normal [facility] Comment on above: Performed By: #### I NSULIN #### [facility] [address] [place] [address] Dr. Alo Johnson LACTATE/LACTIC ACIDon 2022 Lactate [Moles/Vol] 1.3 mmol/L Normal 0.4-2.0 [facility] Comment on above: Performed By: #### L ACT #### [facility] [address] [address] [address] Alo Johnson PROF CHEM 8 (BAS METB)on Anion gap [Moles/Vol] 14.9 mmol/L Normal [facility] Comment on above: Performed By: #### H STROPN, BMP, BNP #### [facility] [address] [place] [address] Dr. Alo Johnson Calcium [Mass/Vol] 10.0 mg/dL Normal 8.5-10.1 [facility] Comment on above: Performed By: #### H STROPN, BMP, BNP #### [facility] [address] [address] [address] Alo Johnson Chloride [Moles/Vol] 103 mmol/L Normal 98-107 [facility] Comment on above: Performed By: #### H STROPN, BMP, BNP #### [facility] [address] [address] [address] Alo Johnson CO2 [Moles/Vol] 26.2 mmol/L Normal 21.0-32.0 [facility] Comment on above: Performed By: #### H STROPN, BMP, BNP #### [facility] [address] [place] [address] Dr. Alo Johnson Creatinine [Mass/Vol] 1.10 mg/dL Normal 0.70-1.30 [facility] Comment on above: Performed By: #### H STROPN, BMP, BNP #### [facility] [address] [place] [address] Dr. Alo Johnson EGFR-AF SWEDISH >60 Normal >=60 [facility] Comment on above: Performed By: #### H STROPN, BMP, BNP #### [facility] [address] [place] [address] Dr. Alo Johnson EGFR-NON AF SWEDISH >60 Normal >=60 [facility] Comment on above: Performed By: #### H STROPN, BMP, BNP #### [facility] [address] [place] [address] Dr. Alo Johnson Glucose [Mass/Vol] 135 mg/dL Critically high 74-106 [facility] Comment on above: Performed By: #### H STROPN, BMP, BNP #### [facility] [address] [place] [address] Dr. Alo Johnson Potassium [Moles/Vol] 4.1 mmol/L Normal 3.5-5.1 [facility] Comment on above: Performed By: #### H STROPN, BMP, BNP #### [facility] [address] [place] [address] Dr. Alo Johnson Sodium [Moles/Vol] 140 mmol/L Normal 136-145 [facility] Comment on above: Performed By: #### H STROPN, BMP, BNP #### [facility] [address] [address] [address] Alo Johnson Urea nitrogen [Mass/Vol] 21.0 mg/dL Critically high 7.0-18.0 [facility] Comment on above: Performed By: #### H STROPN, BMP, BNP #### [facility] [address] [address] [address] Alo Johnson Urea nitrogen/Creatinine [Mass ratio] 19.1 mg/mg Normal [facility] Comment on above: Performed By: #### H STROPN, BMP, BNP #### [facility] [address] [place] [address] Dr. Alo Johnson TROPONIN, HIGH SENSITIVITYon 10-24-2022 HSTROP 35.8 pg/mL Normal 4.0-76.1 [facility] Comment on above: Result Comment: CUT- OFF POINTS HAVE BEEN ESTABLISHED BASED ON THE FOURTH UNIVERSAL DEFINITIONS OF MYOCARDIAL INFARCTION. THE UPPER REFERENCE LIMIT (URL) OF TROPONIN, DEFINED THE 99TH PERCENTILE OF cTnI DISTRIBUTION IN A REFERENCE POPULATION, HAS BEEN CONFIRMED THE DECISION THRESHOLD FOR TX DIAGNOSIS. Performed By: #### A 1C #### [facility] [address] [place] [address] Dr. Alo Johnson HSTROP 14.1 pg/mL Normal 4.0-76.1 [facility] Comment on above: Result Comment: CUT- OFF POINTS HAVE BEEN ESTABLISHED BASED ON THE FOURTH UNIVERSAL DEFINITIONS OF MYOCARDIAL INFARCTION. THE UPPER REFERENCE LIMIT (URL) OF TROPONIN, DEFINED THE 99TH PERCENTILE OF cTnI DISTRIBUTION IN A REFERENCE POPULATION, HAS BEEN CONFIRMED THE DECISION THRESHOLD FOR TX DIAGNOSIS. Performed By: #### H STROPN, BMP, BNP #### [facility] [address] [place] [address] Dr. Alo Johnson TSHon 10-24-2022 TSH 3.366 uIU/mL Normal 0.358-3.740 [facility] Comment on above: Performed By: #### I NSULIN #### [facility] [address] [place], [place] [address] Dr. Alo Johnson XR CHEST 1 Von [...] NALINI CHIRINOS Date: 2022-10-24 01:01 Normal [facility] INSULINon 10-17-2022 Insulin 9.5 uIU/mL Normal 2.6-24.9 [facility] Comment on above: Performed By: #### I NSULIN #### [facility] [address] [place] [address] Dr. Alo Johnson PSA, FREE AND TOTAL RATIOon 10-17-2022 % Free PSA 21.9 % Normal [facility] Comment on above: Result Comment: The table [...] men. Performed By: #### I NSULIN #### [facility] [address] [address] [address] Alo Johnson Prostate specific Ag [Mass/Vol] 10.6 ng/mL Critically high 0.0-4.0 [facility] Comment on above: Result Comment: [employer] ECLIA methodology. . According to the [employer] [employer], Serum PSA should decrease and [...] disease. Performed By: #### I NSULIN #### [facility] [address] [place] [address] Dr. Alo Johnson PSA, Free 2.32 ng/mL Normal N/A [facility] Comment on above: Result Comment: [employer] ECLIA methodology. Performed By: #### I NSULIN #### [facility] [address] [place] [address] Dr. Alo Johnson CBC AUTO DIFFon 10-16-2022 BASO # 0.0 103/ul Normal 0.0-0.1 [facility] Comment on above: Performed By: #### I NSULIN #### [facility] [address] [place] [address] Dr. Alo Johnson Basophils/100 WBC (Bld) 0.4 % Normal 0.2-2.0 [facility] Comment on above: Performed By: #### I NSULIN #### [facility] [address] [place] [address] Dr. Alo Johnson EO # 0.6 103/ul Normal 0.0-0.7 [facility] Comment on above: Performed By: #### I NSULIN #### [facility] [address] [place] [address] Dr. Alo Johnson Eosinophils/100 WBC (Bld) 5.8 % Normal 0.9-7.0 [facility] Comment on above: Performed By: #### I NSULIN #### [facility] [address] [place] [address] Dr. Alo Johnson Erythrocyte distribution width (RBC) [Ratio] 12.6 % Normal 11.0-15.0 [facility] Comment on above: Performed By: #### I NSULIN #### [facility] [address] [place] [address] Dr. Alo Johnson Hematocrit (Bld) [Volume fraction] 42.8 % Normal 42.0-54.0 [facility] Comment on above: Performed By: #### I NSULIN #### [facility] [address] [address] [address] Alo Johnson Hemoglobin (Bld) [Mass/Vol] 15.1 g/dL Normal 14.0-18.0 [facility] Comment on above: Performed By: #### I NSULIN #### [facility] [address] [address] [address] Alo Johnson IG # 0.02 10e3/ul Normal 0.00-0.03 [facility] Comment on above: Performed By: #### I NSULIN #### [facility] [address] [address] [address] Alo Johnson IG % 0.2 % Normal 0.0-0.5 [facility] Comment on above: Performed By: #### I NSULIN #### [facility] [address] [address] [address] Alo Johnson LYMPH # 3.4 103/ul Normal 1.2-3.8 [facility] Comment on above: Performed By: #### I NSULIN #### [facility] [address] [address] [address] Alo Johnson Lymphocytes/100 WBC (Bld) 36.5 % Normal 20.5-60.0 [facility] Comment on above: Performed By: #### I NSULIN #### [facility] [address] [address] [address] Alo Johnson MANUAL DIFF REQ NO Normal [place] Comment on above: Performed By: #### I NSULIN #### [facility] [address] [address] [address] Alo Johnson MCH (RBC) [Entitic mass] 33.3 pg Normal 25.9-34.0 [facility] Comment on above: Performed By: #### I NSULIN #### [facility] [address] [address] [address] Alo Johnson MCHC (RBC) [Mass/Vol] 35.3 g/dL Critically high 29.9-35.2 [facility] Comment on above: Performed By: #### I NSULIN #### [facility] [address] [address] [address] Alo Johnson MCV (RBC) [Entitic vol] 94.3 fL Critically high 80.0-94.0 [facility] Comment on above: Performed By: #### I NSULIN #### [facility] [address] [address] [address] Alo Johnson MONO # 0.6 103/ul Normal 0.3-0.8 [facility] Comment on above: Performed By: #### I NSULIN #### [facility] [address] [address] [address] Alo Johnson Monocytes/100 WBC (Bld) 5.9 % Normal 1.7-12.0 [facility] Comment on above: Performed By: #### I NSULIN #### [facility] [address] [address] [address] Alo Johnson NEUT # 4.8 103/ul Normal 1.4-6.5 [facility] Comment on above: Performed By: #### I NSULIN #### [facility] [address] [address] [address] Alo Johnson Neutrophils/100 WBC (Bld) 51.2 % Normal 43.0-75.0 [facility] Comment on above: Performed By: #### I NSULIN #### [facility] [address] [address] [address] Alo Johnson Platelet mean volume (Bld) [Entitic vol] 9.0 fL Critically low 9.5-13.5 [facility] Comment on above: Performed By: #### I NSULIN #### [facility] [address] [address] [address] Alo Johnson PLT 240 103/ul Normal 150-450 [facility] Comment on above: Performed By: #### I NSULIN #### [facility] [address] [address] [address] Alo Johnson RBC 4.54 106/ul Critically low 4.70-6.10 [place] Comment on above: Performed By: #### I NSULIN #### [facility] [address] [address] [address] Alo Johnson WBC 9.4 103/ul Normal 4.0-11.0 [facility] Comment on above: Performed By: #### I NSULIN #### [facility] [address] [address] [address] Alo Johnson GLYCOHEMOGLOBIN A1Con 2022 ADA RECOMMENDATION SEE BELOW Normal [facility] Comment on above: Result Comment: ADA RECOMMENDED LIMIT 4.0 - 6.0 ADA THERAPEUTIC TARGET < 7.0 ACTION SUGGESTED > 7.0 Performed By: #### A 1C #### [facility] [address] [place] [address] Dr. Alo Johnson Glucose [Mass/Vol] 111 mg/dL Normal [facility] Comment on above: Performed By: #### A 1C #### [facility] [address] [place] [address] Dr. Alo Johnson HbA1c (Bld) [Mass fraction] 5.5 % Normal 4.5-6.2 [facility] Comment on above: Performed By: #### A 1C #### [facility] [address] [place] [address] Dr. Alo Johnson LIPID PROFILEon 10-16-2022 CHOL-HDL RATIO NORM SEE BELOW Normal [facility] Comment on above: Result Comment: 3.3 - 4.4 LOW RISK 4.4 - 7.1 AVERAGE RISK 7.1 - 11.0 MODERATE RISK >11.0 HIGH RISK Performed By: #### C MP, LIPID, URIC #### [facility] [address] [place] [address] Dr. Alo Johnson Cholesterol [Mass/Vol] 229 mg/dL Critically high <=200 [facility] Comment on above: Performed By: #### C MP, LIPID, URIC #### [facility] [address] [place] [address] Dr. Alo Johnson Cholesterol in HDL [Mass/Vol] 48 mg/dL Normal 40-60 [facility] Comment on above: Performed By: #### C MP, LIPID, URIC #### [facility] [address] [address] [address] Alo Johnson Cholesterol in LDL [Mass/Vol] 152.8 mg/dL Normal [facility] Comment on above: Performed By: #### C MP, LIPID, URIC #### [facility] [address] [address] [address] Alo Johnson Cholesterol.total/Chol esterol in HDL [Mass ratio] 4.8 {ratio} Normal [facility] Comment on above: Performed By: #### C MP, LIPID, URIC #### [facility] [address] [address] [address] Alo Johnson HDL NORMAL > or = 60 mg/dl - LOW CARDIOVASCULAR RISK <40 mg/dl - HIGH CARDIOVASCULAR RISK Normal [facility] Comment on above: Performed By: #### C MP, LIPID, URIC #### [facility] [address] [address] [address] Alo Johnson LDL CALC NORMAL SEE BELOW Normal [place] Comment on above: Result Comment: <100 mg/dl OPTIMAL 100 - 129 mg/dl NEAR OR ABOVE OPTIMAL 130 - 159 mg/dl BORDERLINE HIGH 160 - 189 mg/dl HIGH >190 mg/dl VERY HIGH Performed By: #### C MP, LIPID, URIC #### [facility] [address] [address] [address] Alo Johnson Triglyceride [Mass/Vol] 141 mg/dL Normal <=150 [facility] Comment on above: Performed By: #### C MP, LIPID, URIC #### [facility] [address] [address] [address] Alo Johnson VLDL CALC 28.2 mg/dL Normal [facility] Comment on above: Performed By: #### C MP, LIPID, URIC #### [facility] [address] [address] [address] Alo Johnson PROF 14(COMP METB)on 023 Albumin [Mass/Vol] 4.0 g/dL Normal 3.4-5.0 [facility] Comment on above: Performed By: #### C MP, LIPID, URIC #### [facility] [address] [address] [address] Alo Johnson Albumin/Globulin [Mass ratio] 1.4 {ratio} Normal [facility] Comment on above: Performed By: #### C MP, LIPID, URIC #### [facility] [address] [address] [address] Alo Johnson ALP [Catalytic activity/Vol] 63 U/L Normal 46-116 [facility] Comment on above: Performed By: #### C MP, LIPID, URIC #### [facility] [address] [address] [address] Alo Johnson ALT [Catalytic activity/Vol] 21 U/L Normal 16-63 [facility] Comment on above: Performed By: #### C MP, LIPID, URIC #### [facility] [address] [address] [address] Alo Johnson Anion gap [Moles/Vol] 13.6 mmol/L Normal [facility] Comment on above: Performed By: #### C MP, LIPID, URIC #### [facility] [address] [address] [address] Alo Johnson AST [Catalytic activity/Vol] 22 U/L Normal 15-37 [facility] Comment on above: Performed By: #### C MP, LIPID, URIC #### [facility] [address] [address] [address] Alo Johnson Bilirubin [Mass/Vol] 0.7 mg/dL Normal 0.2-1.0 [facility] Comment on above: Performed By: #### C MP, LIPID, URIC #### [facility] [address] [address] [address] Alo Johnson Calcium [Mass/Vol] 9.4 mg/dL Normal 8.5-10.1 [facility] Comment on above: Performed By: #### C MP, LIPID, URIC #### [facility] [address] [address] [address] Alo Johnson Chloride [Moles/Vol] 104 mmol/L Normal 98-107 [facility] Comment on above: Performed By: #### C MP, LIPID, URIC #### [facility] [address] [address] [address] Alo Johnson CO2 [Moles/Vol] 25.4 mmol/L Normal 21.0-32.0 [facility] Comment on above: Performed By: #### C MP, LIPID, URIC #### [facility] [address] [address] [address] Alo Johnson Creatinine [Mass/Vol] 1.08 mg/dL Normal 0.70-1.30 [facility] Comment on above: Performed By: #### C MP, LIPID, URIC #### [facility] [address] [address] [address] Alo Johnson EGFR-AF SWEDISH >60 Normal >=60 [facility] Comment on above: Performed By: #### C MP, LIPID, URIC #### [facility] [address] [place] [address] Dr. Alo Johnson EGFR-NON AF SWEDISH >60 Normal >=60 [facility] Comment on above: Performed By: #### C MP, LIPID, URIC #### [facility] [address] [address] [address] Alo Johnson Globulin (S) [Mass/Vol] 2.9 g/dL Normal [facility] Comment on above: Performed By: #### C MP, LIPID, URIC #### [facility] [address] [address] [address] Alo Johnson Glucose [Mass/Vol] 106 mg/dL Normal 74-106 [facility] Comment on above: Performed By: #### C MP, LIPID, URIC #### [facility] [address] [address] [address] Alo Johnson Potassium [Moles/Vol] 4.0 mmol/L Normal 3.5-5.1 [facility] Comment on above: Performed By: #### C MP, LIPID, URIC #### [facility] [address] [address] [address] Alo Johnson Protein [Mass/Vol] 6.9 g/dL Normal 6.4-8.2 [facility] Comment on above: Performed By: #### C MP, LIPID, URIC #### [facility] [address] [address] [address] Alo Johnson Sodium [Moles/Vol] 139 mmol/L Normal 136-145 [facility] Comment on above: Performed By: #### C MP, LIPID, URIC #### [facility] [address] [address] [address] Alo Johnson Urea nitrogen [Mass/Vol] 16.0 mg/dL Normal 7.0-18.0 [facility] [facility] Comment on above: Performed By: #### C MP, LIPID, URIC #### [facility] [address] [address] [address] Alo Johnson Urea nitrogen/Creatinine [Mass ratio] 14.8 mg/mg Normal [facility] Comment on above: Performed By: #### C MP, LIPID, URIC #### [facility] [address] [address] [address] Alo Johnson URIC ACID SERUMon 10-16-2022 Urate [Mass/Vol] 6.5 mg/dL Normal 3.5-7.2 [facility] Comment on above: Performed By: #### C MP, LIPID, URIC #### [facility] [id number] Alo Johnson Vital Signs Date Time Vital Sign Value Performing Clinician Luis Migueli kobi 04-10-2024 15:15-0400 Blood Pressure Location Alepadmini Green [facility] 04-10-2024 15:15-0400 Diastolic blood pressure 62 mm[Hg] Ale Lue [facility] 04-10-2024 15:15-0400 Heart rate 76 /min Ale Lue [facility] 04-10-2024 15:15-0400 Systolic blood pressure 130 mm[Hg] Ale Lue [facility] 02-27-2024 10:55-0400 Blood Pressure Location Ale Lue [facility] 02-27-2024 10:55-0400 Body temperature 98.6 [degF] Ale Lue [facility] 02-27-2024 10:55-0400 Diastolic blood pressure 65 mm[Hg] Ale Lue [facility] 02-27-2024 10:55-0400 Heart rate 56 /min Ale Lue [facility] 02-27-2024 10:55-0400 Respiratory rate 16 /min Ale Lue [facility] 02-27-2024 10:55-0400 Systolic blood pressure 127 mm[Hg] Ale Lue [facility] 06-01-2022 15:00-0400 Diastolic blood pressure 64 mm[Hg] Mohamed See [facility] 06-01-2022 15:00-0400 Mean blood pressure 99 mm[Hg] Mohamed See [facility] 06-01-2022 15:00-0400 Systolic blood pressure 169 mm[Hg] Mohamed See [facility] 06-01-2022 14:30-0400 Blood Pressure Location Mohamed See [facility] 06-01-2022 14:30-0400 Diastolic blood pressure 70 mm[Hg] Mohamed See [facility] 06-01-2022 14:30-0400 Heart rate 86 /min Mohamed See [facility] 06-01-2022 14:30-0400 SaO2% (BldA) [Mass fraction] 97 % Vianca Cui [facility] 06-01-2022 14:30-0400 Systolic blood pressure 148 mm[Hg] Vianca Cui [facility] Encounters Encounter Date Encounter Type Care Provider Facility Start: 04-10-2024 End: 04-10-2024 ambulatory Ale Green Facility:[facility] Start: 04-10-2024 End: 04-10-2024 Patient encounter procedure Ale Green [facility] Start: 03-26-2024 End: 03-26-2024 ambulatory SO[facility]AYER-C Tatiana Lanza Work Phone: [facility] Work Phone: Start: 03-26-2024 End: 03-26-2024 Departed Referred SOLE LAYER-C Tatiana Lanza Work Phone: [facility] Start: 03-26-2024 End: 03-26-2024 ambulatory Ale Green Facility:[facility] Start: 03-26-2024 End: 03-26-2024 Off-Site Ale Green [facility] Start: 03-11-2024 End: 03-11-2024 Patient encounter procedure SOLE LAYER-C Tatiana Lanza Work Phone: [facility] [place] Work Phone: Start: 03-11-2024 End: 03-11-2024 ambulatory SOLE LAYER-C Tatiana Lanza Work Phone: [facility] Work Phone: Start: 02-27-2024 End: 02-27-2024 ambulatory Ale Green Facility:[facility] Start: 02-27-2024 End: 02-27-2024 Patient encounter procedure Ale Green [facility] Start: 02-26-2024 End: 02-26-2024 ambulatory [facility] Start: 08-07-2023 End: 08-07-2023 ambulatory [facility] Start: 05-07-2023 End: 05-07-2023 ambulatory [facility] Start: 10-24-2022 End: 10-24-2022 ambulatory TATIANA LANZA Facility: Start: 10-16-2022 End: 10-17-2022 ambulatory TATIANA LANZA Facility:[facility] Start: 06-01-2022 End: 06-01-2022 Patient encounter procedure Vianca Cui [facility] Procedures Date Procedure Procedure Detail Performing Clinician Start: 03-11-2024 MR prostate wo/w con SOLE LAYER -C Tatiana Lanza Work Phone: Start: 10-16-2022 PSA screening TATIANA LLOYD Comment on above: Performed By: #### I NSULIN #### [facility] [address] [place] [address] Dr. Alo Johnson Start: 03-24-2020 Colonoscopy Vianca Os scooter Start: 06-30-2014 Transrectal biopsy o f prostate using ultrasound guidance Vianca Cui Comment on above: and Cysto Start: 08-06-1979 Repair of ankle Vianca Cui Comment on above: due to fx Decompression of med ghanshyam nerve Vianca Cui Tonsillectomy Vianca Cui Comment on above: as a child Payers Date Payer Category Payer Self-pay [id number] 2023 Medicare [id number] 2020 Unknown [id number] 1945 Unknown [id number] 1945 Unknown [id number] 1945 Unknown [id number] 1945 Unknown [id number] 1945 Unknown [id number] Medicare Medicare [id number] Private Health Insurance [facility] [id number] Unknown [id number] Unknown [id number] Social History Date Type Detail Facility Start: 10-28-2020 End: 04-10-2024 Tobacco smoking status Ex-smoker (finding) [facility] Comment on above: pt quit smoking in 1 986 Sex Assigned At Male [facility] Start: 1945 Sex Assigned At Male [facility] Tobacco smoking status Never [facility] Comment on above: pt quit smoking in 1 986 Functional Status Date Assessment Result Facility 04-10-2024 Functional Status N/A [facility] 02-27-2024 Functional Status N/A [facility] 06-01-2022 Functional Status No [facility] Clinical Notes 05-07-2023 to 04-10-2024 Note Date & Type Note Facility 04-10-2024 Hospital Discharge instructions Patient Education 04/10/2024 15:41:35 Prostate Cancer Prostate Cancer The prostate is [...] under a microscope. This is called the Welcome score and the total score can range from 6 10, indicating how likely it is that the cancer will spread (metastasize) to other parts of the body. The higher the score, the greater the likelihood that the cancer will spread. Welcome 6 or lower: This indicates that the cancer cells look similar to normal prostate cells (well differentiated). Welcome 7: This indicates that the cancer cells look somewhat similar to normal prostate cells (moderately differentiated). Welcome 8, 9, or 10: This indicates that [...] stress of having cancer. General instructions Take kedw-ger-qpnphgm and prescription medicines only as told by your health care provider. If you have to go to the hospital, notify your cancer specialist (oncologist). Keep all follow-up visits. This is important. Where to find more information [place] [employer]: www.cancer.org [place] [employer] Clinical Oncology: www.cancer.net National Cancer [place]: www.cancer.gov Contact a health care provider if: [...] provider. Document Revised: 10/19/2021 Document Reviewed: 10/19/2021 [employer] Patient Education 2023 [employer]. Follow Up Care 03/31/2024 09:20:27 With:Peter AMOR, RADHA Hagan, URO Address: When: Unknown [facility] 04-10-2024 Note Patient Education Oncology Prostate Cancer The prostate is a small [...] more likely to develop this condition if: ? You are 65 years of age or older. ? You have a family history of prostate cancer. ? You have a family history of breast and ovarian cancer. ? You have genes that are passed from parent to child (inherited), such as BRCA1 and BRCA2. ? You have Black syndrome. men and men of descent are diagnosed with prostate cancer at higher rates than other men. The reasons for this are not well understood and are likely due to a combination of genetic and environmental factors. What are the signs or symptoms? Symptoms of this condition include: ? Problems with urination. This may include: ? A weak or interrupted flow of urine. ? Trouble starting or stopping urination. ? Trouble emptying the bladder all the way. ? The need to urinate more often, especially at night. ? Blood in urine or semen. ? Persistent pain or discomfort in the lower back, lower abdomen, or hips. ? Trouble getting an erection. ? Weakness or numbness in the legs or feet. How is this diagnosed? This condition can be diagnosed with: ? A digital rectal exam. For this exam, a health care provider inserts a gloved finger into the rectum to feel the prostate gland. ? A blood test called a prostate-specific antigen (PSA) test. ? A procedure in which a sample of tissue is taken from the prostate and checked under a microscope (prostate biopsy). ? An imaging test called transrectal ultrasonography. Once the condition is diagnosed, tests will be done to determine how far the cancer has spread. This is called staging the cancer. Staging may involve imaging tests, such as a bone scan, CT scan, PET scan, or MRI. Stages of prostate cancer The stages of prostate cancer are as follows: ? Stage 1 (I). At this stage, the cancer is found in the prostate only. The cancer is not visible on imaging tests, and it is usually found by accident, such as during prostate surgery. ? Stage 2 (II). At this stage, the cancer is more advanced than it is in stage 1, but the cancer has not spread outside the prostate. ? Stage 3 (III). At this stage, the cancer has spread beyond the outer layer of the prostate to nearby tissues. The cancer may be found in the seminal vesicles, which are near the bladder and the prostate. ? Stage 4 (IV). At this stage, the cancer has spread to other parts of the body, such as the lymph nodes, bones, bladder, rectum, liver, or lungs. Prostate cancer grading Prostate cancer is also graded according to how the cancer cells look under a microscope. This is called the Lenny score and the total score can range from 6?10, indicating how likely it is that the cancer will spread (metastasize) to other parts of the body. The higher the score, the greater the likelihood that the cancer will spread. ? Welcome 6 or lower: This indicates that the cancer cells look similar to normal prostate cells (well differentiated). ? Lenny 7: This indicates that the cancer cells look somewhat similar to normal prostate cells (moderately differentiated). ? Welcome 8, 9, or 10: This indicates that the cancer cells look very different than normal prostate cells (poorly differentiated). How is this treated? Treatment for this condition depends on several factors, including the stage of the cancer, your age, personal preferences, and your overall health. Talk with your health care provider about treatment options that are recommended for you. Common treatments include: ? Observation for early stage prostate cancer (active surveillance). This involves having exams, blood tests, and in some cases, more biopsies. For some men, this is the only treatment needed. ? Surgery. Types of surgeries include: ? Open surgery (radical prostatectomy). In this surgery, a larger incision is made to remove the prostate. ? A laparoscopic radical prostatectomy. This is a surgery to remove the prostate and lymph nodes through several small incisions. It is often referred to as a minimally invasive surgery. ? A robotic radical prostatectomy. This is laparoscopic surgery to remove the prostate and lymph nodes with the help of robotic arms that are controlled by the surgeon. ? Cryoablation. This is surgery to freeze and destroy cancer cells. ? Radiation treatment. Types of radiation treatment include: ? External beam radiation. This type aims beams of radiation from outside the body at the prostate to destroy cancerous cells. ? Brachytherapy. This type uses radioactive needles, seeds, wires, or tubes that are implanted into the prostate gla (more content not included)... [facility] 02-27-2024 Hospital Discharge instructions Patient Education 02/27/2024 [...] discomfort near your rectum, especially while sitting. [place]-colored urine due to small amounts of blood in your urine. A burning feeling while urinating. Blood in your stool (feces) or bleeding from your rectum. Blood in your semen. Follow these instructions at home: Medicines Take ftvq-ohp-ronvzpi and prescription medicines only as told by [...] provider. Document Revised: 01/16/2022 Document Reviewed: 01/16/2022 [employer] Patient Education 2022 [employer]. 02/27/2024 12:02:56 Transrectal Ultrasound-Guided Prostate Biopsy Transrectal [...] including vitamins, herbs, eye drops, creams, and hnrx-hil-aajvpnf medicines. Any problems you or family members [...] provider tells you to take them. Taking nfwy-oky-zupgysj medicines, vitamins, herbs, and supplements. General instructions [...] provider. Document Revised: 01/16/2022 Document Reviewed: 01/16/2022 [employer] Patient Education 2022 [employer]. 02/27/2024 11:47:00 Prostate Cancer Prostate Cancer The [...] under a microscope. This is called the Welcome score and the total score can range from 6 10, indicating how likely it is that the cancer will spread (metastasize) to other parts of the body. The higher the score, the greater the likelihood that the cancer will spread. Lenny 6 or lower: This indicates that the cancer cells look similar to normal prostate cells (well differentiated). Welcome 7: This indicates that the cancer cells look somewhat similar to normal prostate cells (moderately differentiated). Welcome 8, 9, or 10: This indicates that [...] stress of having cancer. General instructions Take nuzm-agz-vcjhevh and prescription medicines only as told by your health care provider. If you have to go to the hospital, notify your cancer specialist (oncologist). Keep all follow-up visits. This is important. Where to find more information [place] [employer]: www.cancer.org [place] [employer] of Clinical Oncology: www.cancer.net National Cancer [place]: www.cancer.gov Contact a health care provider if: [...] provider. Document Revised: 10/19/2021 Document Reviewed: 10/19/2021 [employer] Patient Education 2022 [employer]. Follow Up Care 02/08/2024 12:41:54 With:Peter AMOR, RADHA Hagan, URO Address: When: Unknown [facility] 02-27-2024 Note Patient Education Oncology Transrectal Ultrasound-Guided [...] near your rectum, especially while sitting. ? [place]-colored urine due to small amounts of blood in your urine. ? A burning feeling while urinating. ? Blood in your stool (feces) or bleeding from your rectum. ? Blood in your semen. Follow these instructions at home: Medicines ? Take uqzc-uju-ubaqbbp and prescription medicines only as told by [...] provider. Document Revised: 01/16/2022 Document Reviewed: 01/16/2022 [employer] Patient Education ? 2022 [employer]. Transrectal Ultrasound-Guided Prostate Biopsy A transrectal ultrasound-guided [...] including vitamins, herbs, eye drops, creams, and kfve-zvz-ybkbtgi medicines. ? Any problems you or family [...] ? Taking medici (more content not included)... 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 EKG 10/24/2022 shows sinus rhythm with right bundle branch block and poor R wave progression 10/23/2022 shows what appears to be atrial flutter/atrial fibrillation with rapid ventricular rate with underlying right bundle branch block Patient Active Problem List Diagnosis Atrial fibrillation (CMS/HCC) Hypertension Coronary artery disease of [place] artery of [place] heart with stable angina pectoris (CMS/HCC) Past [...] normal. Labs: 12/20/2023 (more content not included)... [facility] 02-26-2024 Note Patient here for 6 [...] All other systems reviewed and are negative. [facility] 08-07-2023 Note Patient here for 3 m o follow up afib and hypertension. Aspirin was stopped at last apt in May 2023. Denies chest pain, SOB, palpitations, and bleeding on Eliquis. Review of Systems Hematologic/Lymphatic: Bruises/bleeds easily. Neurological: Positive for light-headedness. All other systems reviewed and are negative. 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 [facility] 05-07-2023 Note Patient here for 3 m o follow up PAF and hypertension. Had stress test 04/03/2023. Denies chest pain, SOB, palpitations, and bleeding on Eliquis. Review of Systems Hematologic/Lymphatic: Bruises/bleeds easily. Neurological: Positive for light-headedness. All other systems reviewed and are negative. 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 EKG 10/24/2022 shows sinus [...] EKG: No re (more content not included)... [facility] Evaluation + Plan note No data available for this section [facility] Evaluation note No assessment inform ation available [facility] Work Phone: Hospital Discharge instructions No data available for this section [facility] Progress note No data available for this section [facility] Summary Purpose Family History No Family History Records Found No data available for this section No Family History Records Found No data available for this section No Family History Records FoundNo Family History Records Found No data available for this section Advance Directives Advance Directive Response Recorded Date/ Time Advance Directives No March 03 2:02pm Chief Complaint and Reason for Visit Chief Complaint c61 Chief Complaint c61 Unknown Additional Source Comments Patient Care team informatio n (unrecognized section and content) Personnel Name: TATIANA LANZA CNP Address: Address: [facility] [facility], [address] Team Status: Active Member Role Status Dates SCARLET Grant Primary Care Provider Active Team Status: Inactive Member Role Status Dates Ale Green MD Attending Provider Active Start : March 11, 2024 End: March 11, 2024 SCARLET Grant Primary Care Provider Active Start: March 11, 2024 End: March 11, 2024 Team Status: Inactive Member Role Status Dates SCARLET Grant Primary Care Provider Active Start: March 26, 2024 End: March 26, 2024 Ale Green MD Attending Provider Active Start : March 26, 2024 End: March 26, 2024 (unrecognized sect ion and content) No Status Records FoundNo Status Records FoundNo Status Records FoundNo Status Records Found INFORMATION SOURCE (unrecogn ized section and content) DATE CREATED AUTHOR 10/29/2022 [facility] DATE CREATED AUTHOR AUTHOR'S ORGANIZ ATION 02/29/2024 [facility] DATE CREATED AUTHOR AUTHOR'S ORGANIZ ATION 03/29/2024 [facility] DATE CREATED AUTHOR AUTHOR'S ORGANIZ ATION 04/11/2024 [facility] Goals (unrecognized section and content) Goals may [...] BE BASED ON THE PRIMARY CLINICAL RECORDS. [employer] provides no warranty or guarantee of the accuracy or completeness of information in this document.
[2024-04-30 14:15] LABS: Basophils Absolute Auto 0.1 10^3/uL (0.0-0.1); Basophils Percent Auto 0.6 % (0.2-2.0); Eosinophils Absolute Auto 0.6 10^3/uL (0.0-0.7); Eosinophils Percent Auto 5.6 % (0.9-7.0); Hematocrit 41.8 % (42.0-54.0); Hemoglobin 14.2 g/dL (14.0-18.0); Immature Granulocytes Abs Auto 0.03 10^3/uL (0.00-0.03); Immature Granulocytes Pct Auto 0.3 % (0.0-0.5); Lymphocytes Absolute Auto 3.6 10^3/uL (1.2-3.8); Lymphocytes Percent Auto 36.4 % (20.5-60.0); Mean Corpuscular Hemoglobin 32.2 pg (25.9-34.0); Mean Corpuscular Volume 94.8 fL (80.0-94.0); Mean Platelet Volume 8.8 fL (9.5-13.5); Monocytes Absolute Auto 0.7 10^3/uL (0.3-0.8); Monocytes Percent Auto 7.2 % (1.7-12.0); Neutrophils Percent Auto 49.9 % (43.0-75.0); Platelet Count 214 10^3/uL (150-450); Red Blood Count 4.41 10^6/uL (4.70-6.10); Red Cell Distribution Width 12.2 % (11.0-15.0); White Blood Count 9.9 10^3/uL (4.0-11.0)
[2024-04-30 14:44] LABS: Alanine Aminotransferase 16 U/L (16-63); Albumin Globulin Ratio 1.3; Albumin Level 3.8 g/dL (3.4-5.0); Alkaline Phosphatase 68 U/L (46-116); Aspartate Amino Transferase 14 U/L (15-37); BUN Creatinine Ratio 13.9; Bilirubin Total 0.5 mg/dL (0.2-1.0); Carbon Dioxide 30.5 mmol/L (21.0-32.0); Chloride 101 mmol/L (98-107); Estimated GFR (African America >60 (>=60); Estimated GFR (Non-African Ame 57 (>=60); Free T3 2.31 pg/mL (2.18-3.98); Globulin 2.9 g/dL; Glucose 93 mg/dL (74-106); Potassium 4.5 mmol/L (3.5-5.1); Sodium 135 mmol/L (136-145); Thyroid Stimulating Hormone 2.852 uIU/mL (0.358-3.740); Total Protein 6.7 g/dL (6.4-8.2)
== END 2024-04-30 13:38 | disposition home or self-care (01) ==
LOC: LAB 13:42
PROVIDERS: PCP Nurse Practitioner Family; Visit Provider Nurse Practitioner Family
DX: R42 Dizziness and giddiness (principal)
CPT/HCPCS: 36415; 80053; 83540; 84436; 84443; 84481; 85025

== ENCOUNTER 2024-05-01 12:50 | Outpatient (RCR) | payer MEDICARE, SELFPAY | END 2024-05-08 08:37 | disposition home or self-care (01) | LOC: PT 12:50 | PROVIDERS: PCP Nurse Practitioner Family; Visit Provider Nurse Practitioner Family | DX: R42 Dizziness and giddiness (principal) | CPT/HCPCS: 95992; 97110; 97161 ==

== ENCOUNTER 2024-05-26 11:52 | Outpatient (OUT) | payer MEDICARE, SELFPAY ==
--- OUTSIDE RECORDS SUMMARY | 2024-05-26 12:00 | XMS_ITS | CCD ---
Author Organization [facility] Care Team Providers Care Hinging Machine Operator Name Role Phone TATIANA LANZA Primary Care Physician TATIANA LANZA Primary Care Unavailable HALEIGH ., DR SNELL Admitting Unavailable HOFaisal ., DR SNELL Attending Unavailable HALEIGH ., [...] Provider SCARLET Lanza Primary Care Provider 1( [phone] Ale Green. Attending Unavailable Ale Green. Attending Unavailable Ale Green. Attending Unavailable Ale Green Admitting Unavailable Tatiana Lanza Primary Care Unavailable Ale Green Attending Unavailable Ale Green Attending Unavailable lAe Green Admitting Unavailable Tatiana Lanza Primary Care Unavailable Ale Green Admitting Unavailable Tatiana Lanza Primary Care Unavailable Ale Green Attending Unavailable Allergies Allergy Classification Reported Allergen(s) Allergy Type Date of Onset Reaction(s) Facility (6 sources) Penicillins; 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: [penicillins] Drug allergy 3 Pharyngeal swelling (finding) [facility] (1 source) Penicillin Drug Allergy [facility] Repository Medications Current Medications Medication [...] day(s), # 6 tab(s), Refills(s) 0, Pharmacy: [facility]/pharmacy #[id number], 170, cm, 02/27/24 11:19:00 EDT, [...] 10-26-2022 02-25-2020 Chronic Other aftercare (1 source) oysterman (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; 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: [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 ASPIRIN] Onset: 10-26-2022 Episodic Other aftercare (1 source) Other longterm (current) drug therapy; 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: [OTH 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 CURRENT DRUG THERAPY] Onset: 10-26-2022 Episodic Other aftercare (2 sources) Long-term current use of anticoagulant; 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: [oysterman (current) use of anticoagulants] Onset: 02-27-2024 Episodic [...] Test Name Value Interpretation Reference Range Facility PET psma initial tx sb-mton 05-12-2024 PET psma initial tx sb-mt [facility] Main [place] [address] [place] [address] Nuclear Medicine Report Signed Patient: Nick Doyle MR#: [id number] : 1945 Acct:[id number] Age/Sex: 79 / M ADM Date: 05/12/24 Loc: Room: Type: [facility] [address] Attending Dr: Ale Green MD Copies to: Stuart Diaz Jr, DO Kathy M Lue, MD Ordering Provider: Ale Green MD Date of Service: 05/12/24 PET/PET psma initial tx sb-mt: C61 PET/CT FUSION IMAGING PSMA (POSLUMA) CLINICAL INFORMATION: Prostate cancer. COMPARISON : Prostate MRI 03/11/2024 TECHNIQUE: Noncontrasted CT scan from the base of the skull to the upper thigh followed by PET imaging. Multiplanar PET/CT fusion images. The F-18 POSLUMA amount : 8.59mCi. FINDINGS: Neck: No abnormal activity. Chest:No abnormal activity. Abdomen/pelvis: No abnormal activity is identified within the abdomen. A focal areas of abnormal activity are identified within the prostate gland consistent with the history. No abnormal lymph nodes are noted. Soft tissue/bones: No abnormal activity is noted. CT findings: No pneumothorax. No pericardial or pleural effusions. No free air or free fluid. PET/PET psma initial tx sb-mt IMPRESSION: Abnormal activity involving the prostate gland consistent with the history. No evidence of local or distant metastatic disease. Impression dictated by: Stuart Diaz Jr., D.O.05/12/2024 3:00 PM Dictation [facility] Transcribed By: [facility] 05/12/24 1500 Dictated By: Stuart Diaz Jr, DO 05/12/24 1447 Signed By: 05/12/24 1500 Normal [facility] Ambulatory Visit Summaryon 0 04-10-2024 Ambulatory Visit Summary Ambulatory Visit Summary NICK DOYLE :1945 Visit Date:04/10/2024 Ambulatory Visit Instructions Your Diagnosis Prostate cancer Asymptomatic microscopic hematuria Anticoagulated Your Care Team Attending Physician - Peter AMOR, Ale Patterson Primary Care Physician - TATIANA LANZA CNP [...] is us (more content not included)... Normal [facility] Reminderson 04-10-2024 Reminders Reminders - From: Johanna Salcido To: KIMBERLY Green; Sent: 04/10/2024 15:48:39 EDT Show up: 07/10/2024 14:48:00 EST Subject: Appointment Due Date/Time: 07/10/2024 14:48:00 EST Reminder Message If we have not heard from pt, his daughter or by July pt needs called to schedule follow up regarding prostate cancer. Pt is going to [place] and should be back after . Normal [facility] Urology Office/Clinic Noteon 04-10-2024 Urology Office/Clinic [...] risk prostate cancer while on active surveillance VENETIE, does wear hearing aids. Pt is accompanied by his today who also serves as historian. ABBE 18 Portions of this record may have been created with voice recognition artificial intelligence software, specifically [employer] and or [employer]. Substitutions may have occurred due to the [...] with an oncologist. MRI of prostate 03/11/24 [facility] - prostate volume 118 mL. Prominent left [...] results on 03/26/24. He has cT1c disease, Woodleaf 7 (4+3), Grade group 3 prostate cancer [...] MRI pros (more content not included)... Normal [facility] Comment on above: Result Comment: Elec tronically Signed By: Ale Green MD\.br\Date and Time Signed: 04/10/24 16:54 EDT\.br\Electronically Co-Signed By: Johanna Salcido\.br\Date and Time Co-Signed: 04/10/24 15:46 EDT Jonathan 03-26-2024 L Specimen: [id number] Received: 03/28/24 Status: OLIMPIA [facility] Num: [id number] Spec Type: Surgical Subm Dr: Ale Green MD Tissues: A Prostate - Needle Biopsy (LEFT BASE LATERAL) B Prostate - Needle Biopsy (LEFT BASE MEDIAL) C Prostate - Needle Biopsy (LEFT MID LATERAL) D Prostate - Needle Biopsy (LEFT MID MEDIAL) E Prostate - Needle Biopsy (LEFT LATERAL APEX) F Prostate - Needle Biopsy (LEFT APEX MEDIAL) G Prostate - Needle Biopsy (RIGHT BASE LATERAL) H Prostate - Needle Biopsy (RIGHT BASE MEDIAL) I Prostate - Needle Biopsy (RIGHT MID LATERAL) J Prostate - Needle Biopsy (RIGHT MID MEDIAL) K Prostate - Needle Biopsy (RIGHT LATERAL APEX) L Prostate - Needle Biopsy (RIGHT APEX MEDIAL) Procedures: HE/24, Gross/Micro L4/12, PIN Cocktail/6 Age/ Patient Sex Location Account Attending Physician Nick Doyle 78/M LABELL [id number] Ale Green MD SPEC NUM: [id number] RECD: 03/28/24 STATUS: OLIMPIA MANZANARES NUM: [id number] DOMINIC: 03/26/[address] [facility] [address]: Ale Green MD ENTERED: 03/28/24 [facility] DR: Margarita Aguilar SPEC TYPE: Surgical DEPT: ANGELITA COUCH ENTERED BY: [id number] RECV BY: [id number] ORDERED: HE/24, Gross/Micro L4/12, PIN Cocktail/6 ORDERED: HE/24, Gross/Micro L4/12, PIN Cocktail/6, USS/18 Pathological Diagnosis Prostate Case Summary Result Summary Cores Involved Lenny Group Woodleaf Score Perineural Invasion (PNI) Extraprostatic Extension (EPE) Malignant at least 2 of 26 G3 4+3 not identified not identified Positive Core Summary Woodleaf Group Number of Cores Specimen: [id number] Received: 03/28/24 Status: OLIMPIA [facility] Num: [id number] Spec Type: Surgical Subm Dr: Ale Green MD Tissues: A Prostate - Needle Biopsy (LEFT BASE LATERAL) B Prostate - Needle Biopsy (LEFT BASE MEDIAL) C Prostate - Needle Biopsy (LEFT MID LATERAL) D Prostate - Needle Biopsy (LEFT MID MEDIAL) E Prostate - Needle Biopsy (LEFT LATERAL APEX) F Prostate - Needle Biopsy (LEFT APEX MEDIAL) G Prostate - Needle Biopsy (RIGHT BASE LATERAL) H Prostate - Needle Biopsy (RIGHT BASE MEDIAL) I Prostate - Needle Biopsy (RIGHT MID LATERAL) J Prostate - Needle Biopsy (RIGHT MID MEDIAL) K Prostate - Needle Biopsy (RIGHT LATERAL APEX) L Prostate - Needle Biopsy (RIGHT APEX MEDIAL) Procedures: /, Gross/Micro L4/12, PIN /6 Patient: Nick Doyle [id number] (Continued) Specimen: [id number] Received: 03/28/24 (Continued) Pathological Diagnosis (Continued) Signed (signature on file) Jack Johnson MD 04/03/242005 Specimen: [id number] Received: 03/28/24 Status: OLIMPIA [facility] Num: [id number] Spec Type: Surgical Subm Dr: Ale Green MD Tissues: A Prostate - Needle Biopsy (LEFT BASE LATERAL) B Prostate - Needle Biopsy (LEFT BASE MEDIAL) C Prostate - Needle Biopsy (LEFT MID LATERAL) D Prostate - Needle Biopsy (LEFT MID MEDIAL) E Prostate - Needle Biopsy (LEFT LATERAL APEX) F Prostate - Needle Biopsy (LEFT APEX MEDIAL) G Prostate - Needle Biopsy (RIGHT BASE LATERAL) H Prostate - Needle Biopsy (RIGHT BASE MEDIAL) I Prostate - Needle Biopsy (RIGHT MID LATERAL) J Prostate - Needle Biopsy (RIGHT MID MEDIAL) K Prostate - Needle Biopsy (RIGHT LATERAL APEX) L Prostate - Needle Biopsy (RIGHT APEX MEDIAL) Procedures: , Gross/Micro L4, PIN / Patient: Vivek,Nick Johns [id number] (Continued) Specimen: [id number] Received: 03/28/24 (Continued) Pathological Diagnosis (Continued) I 0 of II of III of IV 0 of V 0 A, prostate biopsy, left base lateral -Benign prostatic tissue with moderate atrophic change B, prostate biopsy, left base medial -Benign prostate tissue with severe atrophic change without viable tumor noticeable C, prostate biopsy, left mid lateral -Benign prostate tissue with patchy and overall moderate atrophic change, and minor associated chronic inflammation D, prostate biopsy, left mid medial -Benign prostate tissue with partial atrophy pattern E, prostate biopsy, left apex lateral -Prostate adenocarcinoma in 1 of 2 cores, occupying 2 mm and 7% of both cores combined -Woodleaf score 4+3=7, pattern 4 is 60%, prognostic grade group is G3, perineural invasion Specimen: [id number] (more content not included)... Normal [facility] ISTAT XRay CREon 03-11-2024 ISTAT GFR 50.810 Normal [facility] Comment on above: Result Comment: PERF ORMED BY: [place] [address] PATHOLOGIST TISSUE INSERTER ENA CASTRO M.D. Performed By: #### I SCRE #### [address] MR prostate wo/w conon 03-11 MR prostate wo/w con [facility] Main [place] [address] [place] [address] MRI Report Signed Patient: Nick Doyle MR#: [id number] : 1945 Acct:[id number] Age/Sex: 78 / M ADM Date: 03/11/24 Loc: Room: Type: [facility] Attending Dr: Ale Green MD Copies to: [...] suggested. Impression dictated by: Stuart Diaz Jr., DAmbreenOAmbreen03/11/2024 11:34 AM Dictation Location: [facility] Transcribed By: [facility] 03/11/24 1134 Dictated By: Stuart Diaz Jr, DO 03/11/24 1126 Signed By: 03/11/24 1134 Normal [facility] No Panel InformationOrdered By: Ale Green on 03-11-2024 Bedside Estimated GFR (eGFR) 50.810 [facility] Whole blood creatinine measu rementOrdered By: Ale Green on 03-11-2024 Creatinine [Mass/Vol] 1.4 mg/dL High 0.6-1.3 [place] Comment on above: ER/ESD physician is notified/shown all ISTAT results.Critical values may be confirmed by laboratory testing ifdeemed necessary by ER attending doctor. Result Comment: ER/E SD physician is notified/shown all ISTAT results. Critical values may be confirmed by laboratory testing if deemed necessary by ER attending doctor. Performed By: #### I SCRE #### [facility] [address] [place] [address] Urology Office/Clinic Noteon 02-27-2024 Urology Office/Clinic Note [...] local anesthetic. -Schedule MRI of prostate at [facility]. -Will schedule TRUS (more content not included)... Normal [facility] Comment on above: Result Comment: Elec tronically Signed By: Ale Green MD\.br\Date and Time Signed: 02/27/24 16:48 EDT\.br\Electronically Co-Signed By: Papa Mazariegos\.br\Date and Time Co-Signed: 02/27/24 12:05 EDT Office Visiton 02-26-2024 Follow-up visit [id number] Nick Doyle 1945 M Date Provider Department Center 02/26/2024 ABBE CONTRERAS Family History Problem Relation Age of Onset Heart attack Father Heart attack Brother Family Status - Relation Status Age at Father Brother Level of Service:07262 [place] OFFICE/OUTPATIENT ESTABLISHED MOD MDM 30 MIN Reason for Visit and Comments: Atrial Fibrillation [80] Hypertension [103364] Normal [facility] Office Visiton 08-07-2023 Follow-up visit [id number] Nick Doyle 1945 M Date Provider Department Center 08/07/2023 CYNDI ANTHONY Family History Problem Relation Age of Onset Heart attack Father Heart attack Brother Family Status - Relation Status Age at Father Brother Level of Service:46210 [place] OFFICE/OUTPATIENT ESTABLISHED LOW MDM 20 MIN Normal [facility] Office Visiton 05-07-2023 Follow-up visit [id number] Nick Doyle 1945 M Date Provider Department Center 05/07/2023 CYNDI ANTHONY Family History Problem Relation Age of Onset Heart attack Father Heart attack Brother Family Status - Relation Status Age at Father Brother Level of Service:83216 [place] OFFICE/OUTPATIENT ESTABLISHED LOW MDM 20-29 MIN Normal [facility] BNPon 10-24-2022 Natriuretic peptide B (Bld) [Mass/Vol] 368.0 pg/mL Normal <=1,800.0 [facility] Comment on above: Performed By: #### H STROPN, BMP, BNP #### [facility] [address] [place] [address] Dr. Alo Johnson CBC AUTO DIFFon 10-24-2022 BASO # 0.0 103/ul Normal 0.0-0.1 [facility] Comment on above: Performed By: #### C BC #### [facility] [address] [place] [address] Dr. Alo Johnson Basophils/100 WBC (Bld) 0.3 % Normal 0.2-2.0 [facility] Comment on above: Performed By: #### C BC #### [facility] [address] [place] [address] Dr. Alo Johnson EO # 0.7 103/ul Normal 0.0-0.7 [facility] Comment on above: Performed By: #### C BC #### [facility] [address] [place] [address] Dr. Alo Johnson Eosinophils/100 WBC (Bld) 6.3 % Normal 0.9-7.0 [facility] Comment on above: Performed By: #### C BC #### [facility] [address] [place] [address] Dr. Alo Johnson Erythrocyte distribution width (RBC) [Ratio] 12.4 % Normal 11.0-15.0 [facility] Comment on above: Performed By: #### C BC #### [facility] [address] [place] [address] Dr. Alo Johnson Hematocrit (Bld) [Volume fraction] 42.7 % Normal 42.0-54.0 [facility] Comment on above: Performed By: #### C BC #### [facility] [address] [place] [address] Dr. Alo Johnson Hemoglobin (Bld) [Mass/Vol] 14.5 g/dL Normal 14.0-18.0 [facility] Comment on above: Performed By: #### C BC #### [facility] [address] [place] [address] Dr. Alo Johnson IG # 0.03 10e3/ul Normal 0.00-0.03 [facility] Comment on above: Performed By: #### C BC #### [facility] [address] [place] [address] Dr. Alo Johnson IG % 0.3 % Normal 0.0-0.5 [facility] Comment on above: Performed By: #### C BC #### [facility] [address] [place] [address] Dr. Alo Johnson LYMPH # 4.8 103/ul Critically high 1.2-3.8 [facility] Comment on above: Performed By: #### C BC #### [facility] [address] [place] [address] Dr. Alo Johnson Lymphocytes/100 WBC (Bld) 41.8 % Normal 20.5-60.0 [facility] Comment on above: Performed By: #### C BC #### [facility] [address] [place] [address] Dr. Alo Johnson MANUAL DIFF REQ NO Normal [facility] Comment on above: Performed By: #### C BC #### [facility] [address] [place] [address] Dr. Alo Johnson MCH (RBC) [Entitic mass] 32.6 pg Normal 25.9-34.0 [facility] Comment on above: Performed By: #### C BC #### [facility] [address] [place] [address] Dr. Alo Johnson MCHC (RBC) [Mass/Vol] 34.0 g/dL Normal 29.9-35.2 [facility] Comment on above: Performed By: #### C BC #### [facility] [address] [place] [address] Dr. Alo Johnson MCV (RBC) [Entitic vol] 96.0 fL Critically high 80.0-94.0 [facility] Comment on above: Performed By: #### C BC #### [facility] [address] [address] [address] Alo Johnson MONO # 0.8 103/ul Normal 0.3-0.8 [facility] Comment on above: Performed By: #### C BC #### [facility] [address] [address] [address] Alo Johnson Monocytes/100 WBC (Bld) 7.1 % Normal 1.7-12.0 [facility] Comment on above: Performed By: #### C BC #### [facility] [address] [address] [address] Alo Johnson NEUT # 5.1 103/ul Normal 1.4-6.5 [facility] Comment on above: Performed By: #### C BC #### [facility] [address] [place] [address] Dr. Alo Johnson Neutrophils/100 WBC (Bld) 44.2 % Normal 43.0-75.0 [facility] Comment on above: Performed By: #### C BC #### [facility] [address] [place] [address] Dr. Alo Johnson Platelet mean volume (Bld) [Entitic vol] 8.7 fL Critically low 9.5-13.5 [facility] Comment on above: Performed By: #### C BC #### [facility] [address] [place] [address] Dr. Alo Johnson PLT 236 103/ul Normal 150-450 [facility] Comment on above: Performed By: #### C BC #### [facility] [address] [place] [address] Dr. Alo Johnson RBC 4.45 106/ul Critically low 4.70-6.10 [facility] Comment on above: Performed By: #### C BC #### [facility] [address] [place] [address] Dr. Alo Johnson WBC 11.5 103/ul Critically high 4.0-11.0 [facility] Comment on above: Performed By: #### C BC #### [facility] [address] [place] [address] Dr. Alo Johnson CULTURE BLOODon 10-24-2022 Microscopic examination of blood, culture Culture Observations: NO GROWTH AT 5 DAYS. Isolate 1 BC_BA_NA Normal [facility] Comment on above: Performed By: #### I NSULIN #### [facility] [address] [address] [address] Alo Johnson Microscopic examination of blood, culture Culture Observations: NO GROWTH AT 5 DAYS. Isolate 1 BC_BA_NA Normal [facility] Comment on above: Performed By: #### I NSULIN #### [facility] [address] [address] [address] Alo Johnson Covid-19 PCR ([facility])on 10-05 SARS-CoV-2 (COVID-19) RNA ANGELICA+probe Ql (Unsp spec) Not detected Normal NOT DETECTED [facility] Comment on above: Result Comment: [...] for this test is supported by the [place] of Health and Human Service's declaration that [...] used). Performed By: #### I NSULIN #### [facility] [address] [address] [address] Alo Johnson ECHOCARDIO M/2D COMPLETEon 0 10-24-2022 ECHOCARDIO M/2D COMPLETE Patient: NICK DOYLE Exam Date: 10/24/2022 : 1945 Gender:M Ordering : MICHAEL PRADO Admission #: [id number] Family : DR ALIS RICARDO . Order #: [id number] CLICK HERE TO VIEW EXAM ECHOCARDIOGRAM REPORT [...] Mei M.D. on 10/24/2022 at 15:33 Normal [facility] ETHANOL (D ALC)on 10-25-19 23 ALC NOTE NOTE: 80 mg/dl is the legal limit for a blood alcohol level Normal [facility] Comment on above: Performed By: #### I NSULIN #### [facility] [address] [place] [address] Dr. Alo Johnson Ethanol [Mass/Vol] mg/dL Normal [facility] Comment on above: Performed By: #### I NSULIN #### [facility] [address] [place] [address] Dr. Alo Johnson LACTATE/LACTIC ACIDon 2022 Lactate [Moles/Vol] 1.3 mmol/L Normal 0.4-2.0 [facility] Comment on above: Performed By: #### L ACT #### [facility] [address] [address] [address] Alo Johnson PROF CHEM 8 (BAS METB)on Anion gap [Moles/Vol] 14.9 mmol/L Normal [facility] Comment on above: Performed By: #### H STROPN, BMP, BNP #### [facility] [address] [place] [address] Dr. Alo Johnson Calcium [Mass/Vol] 10.0 mg/dL Normal 8.5-10.1 [facility] Comment on above: Performed By: #### H STROPN, BMP, BNP #### [facility] [address] [place] [address] Dr. Alo Johnson Chloride [Moles/Vol] 103 mmol/L Normal 98-107 [facility] Comment on above: Performed By: #### H STROPN, BMP, BNP #### [facility] [address] [place] [address] Dr. Alo Johnson CO2 [Moles/Vol] 26.2 mmol/L Normal 21.0-32.0 [facility] Comment on above: Performed By: #### H STROPN, BMP, BNP #### [facility] [address] [place] [address] Dr. Alo Johnson Creatinine [Mass/Vol] 1.10 mg/dL Normal 0.70-1.30 [facility] Comment on above: Performed By: #### H STROPN, BMP, BNP #### [facility] [address] [place] [address] Dr. Alo Johnson EGFR-AF PUERTO RICAN >60 Normal >=60 [facility] Comment on above: Performed By: #### H STROPN, BMP, BNP #### [facility] [address] [place] [address] Dr. Alo Johnson EGFR-NON AF PUERTO RICAN >60 Normal >=60 [facility] Comment on above: Performed By: #### H STROPN, BMP, BNP #### [facility] [address] [address] [address] Alo Johnson Glucose [Mass/Vol] 135 mg/dL Critically high 74-106 [facility] Comment on above: Performed By: #### H STROPN, BMP, BNP #### [facility] [address] [address] [address] Alo Johnson Potassium [Moles/Vol] 4.1 mmol/L Normal 3.5-5.1 [facility] Comment on above: Performed By: #### H STROPN, BMP, BNP #### [facility] [address] [address] [address] Alo Johnson Sodium [Moles/Vol] 140 mmol/L Normal 136-145 [facility] Comment on above: Performed By: #### H STROPN, BMP, BNP #### [facility] [address] [place] [address] Dr. Alo Johnson Urea nitrogen [Mass/Vol] 21.0 mg/dL Critically high 7.0-18.0 [facility] Comment on above: Performed By: #### H STROPN, BMP, BNP #### [facility] [address] [place] [address] Dr. Alo Johnson Urea nitrogen/Creatinine [Mass ratio] 19.1 mg/mg Normal [facility] Comment on above: Performed By: #### H STROPN, BMP, BNP #### [facility] [address] [place] [address] Dr. Alo Johnson TROPONIN, HIGH SENSITIVITYon 10-24-2022 HSTROP 35.8 pg/mL Normal 4.0-76.1 [facility] Comment on above: Result Comment: CUT- OFF POINTS HAVE BEEN ESTABLISHED BASED ON THE FOURTH UNIVERSAL DEFINITIONS OF MYOCARDIAL INFARCTION. THE UPPER REFERENCE LIMIT (URL) OF TROPONIN, DEFINED THE 99TH PERCENTILE OF cTnI DISTRIBUTION IN A REFERENCE POPULATION, HAS BEEN CONFIRMED THE DECISION THRESHOLD FOR VA DIAGNOSIS. Performed By: #### A 1C #### [facility] [address] [place] [address] Dr. Alo Johnson HSTROP 14.1 pg/mL Normal 4.0-76.1 [facility] Comment on above: Result Comment: CUT- OFF POINTS HAVE BEEN ESTABLISHED BASED ON THE FOURTH UNIVERSAL DEFINITIONS OF MYOCARDIAL INFARCTION. THE UPPER REFERENCE LIMIT (URL) OF TROPONIN, DEFINED THE 99TH PERCENTILE OF cTnI DISTRIBUTION IN A REFERENCE POPULATION, HAS BEEN CONFIRMED THE DECISION THRESHOLD FOR VA DIAGNOSIS. Performed By: #### H STROPN, BMP, BNP #### [facility] [address] [place], [place] [address] Dr. Alo Johnson TSHon 10-24-2022 TSH 3.366 uIU/mL Normal 0.358-3.740 [facility] Comment on above: Performed By: #### I NSULIN #### [facility] [address] [address] [address] Alo Johnson XR CHEST 1 Von [...] NALINI CHIRINOS Date: 2022-10-24 01:01 Normal [facility] INSULINon 10-17-2022 Insulin 9.5 uIU/mL Normal 2.6-24.9 [facility] Comment on above: Performed By: #### I NSULIN #### [facility] [address] [address] [address] Alo Johnson PSA, FREE AND TOTAL RATIOon 10-17-2022 % Free PSA 21.9 % Normal [facility] Comment on above: Result Comment: The table [...] men. Performed By: #### I NSULIN #### [facility] [address] [place] [address] Dr. Alo Johnson Prostate specific Ag [Mass/Vol] 10.6 ng/mL Critically high 0.0-4.0 [facility] Comment on above: Result Comment: [employer] PAULINO methodology. . According to the [employer], Serum PSA should decrease and [...] disease. Performed By: #### I NSULIN #### [facility] [address] [place] [address] Dr. Alo Johnson PSA, Free 2.32 ng/mL Normal N/A [facility] Comment on above: Result Comment: [employer] PAULINO methodology. Performed By: #### I NSULIN #### [facility] [address] [place] [address] Dr. Alo Johnson CBC AUTO DIFFon 10-16-2022 BASO # 0.0 103/ul Normal 0.0-0.1 [facility] Comment on above: Performed By: #### I NSULIN #### [facility] [address] [place] [address] Dr. Alo Johnson Basophils/100 WBC (Bld) 0.4 % Normal 0.2-2.0 [facility] Comment on above: Performed By: #### I NSULIN #### [facility] [address] [place] [address] Dr. Alo Johnson EO # 0.6 103/ul Normal 0.0-0.7 [facility] Comment on above: Performed By: #### I NSULIN #### [facility] [address] [place] [address] Dr. Alo Johnson Eosinophils/100 WBC (Bld) 5.8 % Normal 0.9-7.0 [facility] Comment on above: Performed By: #### I NSULIN #### [facility] [address] [place] [address] Dr. Alo Johnson Erythrocyte distribution width (RBC) [Ratio] 12.6 % Normal 11.0-15.0 [facility] Comment on above: Performed By: #### I NSULIN #### [facility] [address] [place] [address] Dr. Alo Johnson Hematocrit (Bld) [Volume fraction] 42.8 % Normal 42.0-54.0 [facility] Comment on above: Performed By: #### I NSULIN #### [facility] [address] [place] [address] Dr. Alo Johnson Hemoglobin (Bld) [Mass/Vol] 15.1 g/dL Normal 14.0-18.0 [facility] Comment on above: Performed By: #### I NSULIN #### [facility] [address] [place] [address] Dr. Alo Johnson IG # 0.02 10e3/ul Normal 0.00-0.03 [facility] Comment on above: Performed By: #### I NSULIN #### [facility] [address] [place] [address] Dr. Alo Johnson IG % 0.2 % Normal 0.0-0.5 [facility] Comment on above: Performed By: #### I NSULIN #### [facility] [address] [place] [address] Dr. Alo Johnson LYMPH # 3.4 103/ul Normal 1.2-3.8 [facility] Comment on above: Performed By: #### I NSULIN #### [facility] [address] [place] [address] Dr. Alo Johnson Lymphocytes/100 WBC (Bld) 36.5 % Normal 20.5-60.0 [facility] Comment on above: Performed By: #### I NSULIN #### [facility] [address] [address] [address] Alo Johnson MANUAL DIFF REQ NO Normal [facility] Comment on above: Performed By: #### I NSULIN #### [facility] [address] [address] [address] Alo Johnson MCH (RBC) [Entitic mass] 33.3 pg Normal 25.9-34.0 [facility] Comment on above: Performed By: #### I NSULIN #### [facility] [address] [place] [address] Dr. Alo Johnson MCHC (RBC) [Mass/Vol] 35.3 g/dL Critically high 29.9-35.2 [facility] Comment on above: Performed By: #### I NSULIN #### [facility] [address] [place] [address] Dr. Alo Johnson MCV (RBC) [Entitic vol] 94.3 fL Critically high 80.0-94.0 [facility] Comment on above: Performed By: #### I NSULIN #### [facility] [address] [place] [address] Dr. Alo Johnson MONO # 0.6 103/ul Normal 0.3-0.8 [facility] Comment on above: Performed By: #### I NSULIN #### [facility] [address] [place] [address] Dr. Alo Johnson Monocytes/100 WBC (Bld) 5.9 % Normal 1.7-12.0 [facility] Comment on above: Performed By: #### I NSULIN #### [facility] [address] [place] [address] Dr. Alo Johnson NEUT # 4.8 103/ul Normal 1.4-6.5 [facility] Comment on above: Performed By: #### I NSULIN #### [facility] [address] [place] [address] Dr. Alo Johnson Neutrophils/100 WBC (Bld) 51.2 % Normal 43.0-75.0 [facility] Comment on above: Performed By: #### I NSULIN #### [facility] [address] [address] [address] Alo Johnson Platelet mean volume (Bld) [Entitic vol] 9.0 fL Critically low 9.5-13.5 [facility] Comment on above: Performed By: #### I NSULIN #### [facility] [address] [address] [address] Alo Johnson PLT 240 103/ul Normal 150-450 [facility] Comment on above: Performed By: #### I NSULIN #### [facility] [address] [address] [address] Alo Johnson RBC 4.54 106/ul Critically low 4.70-6.10 [facility] Comment on above: Performed By: #### I NSULIN #### [facility] [address] [place] [address] Dr. Alo Johnson WBC 9.4 103/ul Normal 4.0-11.0 [facility] Comment on above: Performed By: #### I NSULIN #### [facility] [address] [address] [address] Alo Johnson GLYCOHEMOGLOBIN A1Con 2022 ADA RECOMMENDATION SEE BELOW Normal [facility] Comment on above: Result Comment: ADA RECOMMENDED LIMIT 4.0 - 6.0 ADA THERAPEUTIC TARGET < 7.0 ACTION SUGGESTED > 7.0 Performed By: #### A 1C #### [facility] [address] [address] [address] Alo Johnson Glucose [Mass/Vol] 111 mg/dL Normal [facility] Comment on above: Performed By: #### A 1C #### [facility] [address] [address] [address] Alo Johnson HbA1c (Bld) [Mass fraction] 5.5 % Normal 4.5-6.2 [facility] Comment on above: Performed By: #### A 1C #### [facility] [address] [place] [address] Dr. Alo Johnson LIPID PROFILEon 10-16-2022 CHOL-HDL RATIO NORM SEE BELOW Normal [facility] Comment on above: Result Comment: 3.3 - 4.4 LOW RISK 4.4 - 7.1 AVERAGE RISK 7.1 - 11.0 MODERATE RISK >11.0 HIGH RISK Performed By: #### C MP, LIPID, URIC #### [facility] [address] [address] [address] Alo Johnson Cholesterol [Mass/Vol] 229 mg/dL Critically high <=200 [facility] Comment on above: Performed By: #### C MP, LIPID, URIC #### [facility] [address] [address] [address] Alo Johnson Cholesterol in HDL [Mass/Vol] 48 mg/dL Normal 40-60 [facility] Comment on above: Performed By: #### C MP, LIPID, URIC #### [facility] [address] [address] [address] Alo Johnson Cholesterol in LDL [Mass/Vol] 152.8 mg/dL Normal [facility] Comment on above: Performed By: #### C MP, LIPID, URIC #### [facility] [address] [place] [address] Dr. Alo Johnson Cholesterol.total/Chol esterol in HDL [Mass ratio] 4.8 {ratio} Normal [facility] Comment on above: Performed By: #### C MP, LIPID, URIC #### [facility] [address] [place] [address] Dr. Alo Johnson HDL NORMAL > or = 60 mg/dl - LOW CARDIOVASCULAR RISK <40 mg/dl - HIGH CARDIOVASCULAR RISK Normal [facility] Comment on above: Performed By: #### C MP, LIPID, URIC #### [facility] [address] [place] [address] Dr. Alo Johnson LDL CALC NORMAL SEE BELOW Normal [facility] Comment on above: Result Comment: <100 mg/dl OPTIMAL 100 - 129 mg/dl NEAR OR ABOVE OPTIMAL 130 - 159 mg/dl BORDERLINE HIGH 160 - 189 mg/dl HIGH >190 mg/dl VERY HIGH Performed By: #### C MP, LIPID, URIC #### [facility] [address] [address] [address] Alo Johnson Triglyceride [Mass/Vol] 141 mg/dL Normal <=150 [facility] Comment on above: Performed By: #### C MP, LIPID, URIC #### [facility] [address] [place] [address] Dr. Alo Johnson VLDL CALC 28.2 mg/dL Normal [facility] Comment on above: Performed By: #### C MP, LIPID, URIC #### [facility] [address] [place] [address] Dr. Alo Johnson PROF 14(COMP METB)on 023 Albumin [Mass/Vol] 4.0 g/dL Normal 3.4-5.0 [facility] Comment on above: Performed By: #### C MP, LIPID, URIC #### [facility] [address] [place] [address] Dr. Alo Johnson Albumin/Globulin [Mass ratio] 1.4 {ratio} Normal [facility] Comment on above: Performed By: #### C MP, LIPID, URIC #### [facility] [address] [place] [address] Dr. Alo Johnson ALP [Catalytic activity/Vol] 63 U/L Normal 46-116 [facility] Comment on above: Performed By: #### C MP, LIPID, URIC #### [facility] [address] [place] [address] Dr. Alo Johnson ALT [Catalytic activity/Vol] 21 U/L Normal 16-63 [facility] Comment on above: Performed By: #### C MP, LIPID, URIC #### [facility] [address] [place] [address] Dr. Alo Johnson Anion gap [Moles/Vol] 13.6 mmol/L Normal [facility] Comment on above: Performed By: #### C MP, LIPID, URIC #### [facility] [address] [place] [address] Dr. Alo Johnson AST [Catalytic activity/Vol] 22 U/L Normal 15-37 [facility] Comment on above: Performed By: #### C MP, LIPID, URIC #### [facility] [address] [place] [address] Dr. Alo Johnson Bilirubin [Mass/Vol] 0.7 mg/dL Normal 0.2-1.0 [facility] Comment on above: Performed By: #### C MP, LIPID, URIC #### [facility] [address] [place] [address] Dr. Alo Johsnon Calcium [Mass/Vol] 9.4 mg/dL Normal 8.5-10.1 [facility] Comment on above: Performed By: #### C MP, LIPID, URIC #### [facility] [address] [place] [address] Dr. Alo Johnson Chloride [Moles/Vol] 104 mmol/L Normal 98-107 [facility] Comment on above: Performed By: #### C MP, LIPID, URIC #### [facility] [address] [place] [address] Dr. Alo Johnson CO2 [Moles/Vol] 25.4 mmol/L Normal 21.0-32.0 [facility] Comment on above: Performed By: #### C MP, LIPID, URIC #### [facility] [address] [place] [address] Dr. Alo Johnson Creatinine [Mass/Vol] 1.08 mg/dL Normal 0.70-1.30 [facility] Comment on above: Performed By: #### C MP, LIPID, URIC #### [facility] [address] [place] [address] Dr. Alo Johnson EGFR-AF PUERTO RICAN >60 Normal >=60 [facility] Comment on above: Performed By: #### C MP, LIPID, URIC #### [facility] [address] [place] [address] Dr. Alo Johnson EGFR-NON AF PUERTO RICAN >60 Normal >=60 [facility] Comment on above: Performed By: #### C MP, LIPID, URIC #### [facility] [address] [place] [address] Dr. Alo Johnson Globulin (S) [Mass/Vol] 2.9 g/dL Normal [facility] Comment on above: Performed By: #### C MP, LIPID, URIC #### [facility] [address] [place] [address] Dr. Alo Johnson Glucose [Mass/Vol] 106 mg/dL Normal 74-106 [facility] Comment on above: Performed By: #### C MP, LIPID, URIC #### [facility] [address] [place] [address] Dr. Alo Johnson Potassium [Moles/Vol] 4.0 mmol/L Normal 3.5-5.1 [facility] Comment on above: Performed By: #### C MP, LIPID, URIC #### [facility] [address] [place] [address] Dr. Alo Johnson Protein [Mass/Vol] 6.9 g/dL Normal 6.4-8.2 [facility] Comment on above: Performed By: #### C MP, LIPID, URIC #### [facility] [address] [place] [address] Dr. Alo Johnson Sodium [Moles/Vol] 139 mmol/L Normal 136-145 [facility] Comment on above: Performed By: #### C MP, LIPID, URIC #### [facility] [address] [place] [address] Dr. Alo Johnson Urea nitrogen [Mass/Vol] 16.0 mg/dL Normal 7.0-18.0 [facility] Comment on above: Performed By: #### C MP, LIPID, URIC #### [facility] [address] [place] [address] Dr. Alo Johnson Urea nitrogen/Creatinine [Mass ratio] 14.8 mg/mg Normal [facility] Comment on above: Performed By: #### C MP, LIPID, URIC #### [facility] [address] [place] [address] Dr. Alo Johnson URIC ACID SERUMon 10-16-2022 Urate [Mass/Vol] 6.5 mg/dL Normal 3.5-7.2 [facility] Comment on above: Performed By: #### C MP, LIPID, URIC #### [facility] [address] [place] [address] Dr. Alo Johnson Vital Signs Date Time Vital Sign Value Performing Clinician Luis Migueli lity 04-10-2024 15:15-0400 Blood Pressure Location Ale Lue [facility] 04-10-2024 15:15-0400 Diastolic blood pressure 62 mm[Hg] Ale Lue [facility] 04-10-2024 15:15-0400 Heart rate 76 /min Ale Lue [facility] 04-10-2024 15:15-0400 Systolic blood pressure 130 mm[Hg] Ale Lue [facility] 02-27-2024 10:55-0400 Blood Pressure Location Ale Lue [facility] 02-27-2024 10:55-0400 Body temperature 98.6 [degF] Ale Lue [facility] 02-27-2024 10:55-0400 Diastolic blood pressure 65 mm[Hg] Ale Lue [facility] 02-27-2024 10:55-0400 Heart rate 56 /min Ale Lue [facility] 02-27-2024 10:55-0400 Respiratory rate 16 /min Ale Lue [facility] 02-27-2024 10:55-0400 Systolic blood pressure 127 mm[Hg] Ale Lue [facility] 06-01-2022 15:00-0400 Diastolic blood pressure 64 mm[Hg] Vianca Cui [facility] 06-01-2022 15:00-0400 Mean blood pressure 99 mm[Hg] Vianca Cui [facility] 06-01-2022 15:00-0400 Systolic blood pressure 169 mm[Hg] Vianca Cui [facility] 06-01-2022 14:30-0400 Blood Pressure Location Vianca Cui [facility] 06-01-2022 14:30-0400 Diastolic blood pressure 70 mm[Hg] Vianca Cui [facility] 06-01-2022 14:30-0400 Heart rate 86 /min Vianca Cui [facility] 06-01-2022 14:30-0400 SaO2% (BldA) [Mass fraction] 97 % Vianca Cui [facility] 06-01-2022 14:30-0400 Systolic blood pressure 148 mm[Hg] Vianca Cui [facility] Encounters Encounter Date Encounter Type Care Provider Facility Start: 05-12-2024 End: 05-12-2024 Patient encounter procedure RISK PROFESSIONAL-C Tatiana Lanza Work Phone: [facility] Work Phone: Start: 05-12-2024 End: 05-12-2024 ambulatory Ale M Lue Facility:[facility] Start: 04-10-2024 End: 04-10-2024 ambulatory Ale M. Lue Facility:[facility] Start: 04-10-2024 End: 04-10-2024 Patient encounter procedure Ale M. Lue [facility] Start: 03-26-2024 End: 03-26-2024 ambulatory RISK PROFESSIONAL-C Tatiana Lanza Work Phone: [facility] Work Phone: Start: 03-26-2024 End: 03-26-2024 Departed Referred RISK PROFESSIONAL-C Tatiana Lanza Work Phone: [facility] Start: 03-26-2024 End: 03-26-2024 ambulatory Ale Green Facility:[facility] Start: 03-26-2024 End: 03-26-2024 Off-Site Ale Green [facility] Start: 03-12-2024 Non-patient / Non-visit RISK PROFESSIONAL-C Jenny Lanza Work Phone: [facility] Work Phone: Start: 03-11-2024 End: 03-11-2024 Patient encounter procedure RISK PROFESSIONAL-C Tatiana Lanza Work Phone: [facility] [place] Work Phone: Start: 03-11-2024 End: 03-11-2024 ambulatory RISK PROFESSIONAL-C Tatiana Lanza Work Phone: [facility] Work Phone: Start: 02-27-2024 End: 02-27-2024 ambulatory Ale Green Facility:[facility] Start: 02-27-2024 End: 02-27-2024 Patient encounter procedure Ale Green [facility] Start: 02-26-2024 End: 02-26-2024 ambulatory [facility] Start: 08-07-2023 End: 08-07-2023 ambulatory [facility] Start: 05-07-2023 End: 05-07-2023 ambulatory [facility] Start: 10-24-2022 End: 10-24-2022 ambulatory TATIANA LANZA Facility:[facility] Start: 10-16-2022 End: 10-17-2022 ambulatory TATIANA LANZA Facility:[facility] Start: 06-01-2022 End: 06-01-2022 Patient encounter procedure Vianca Cui [facility] Procedures Date Procedure Procedure Detail Performing Clinician Start: 05-12-2024 Positron emission tomography RISK PROFESSIONAL-C Tatiana Lanza Work Phone: Start: 03-11-2024 MR prostate wo/w con RISK PROFESSIONAL -C Tatiana Lanza Work Phone: Start: 10-16-2022 PSA screening TATIANA LLOYD Comment on above: Performed By: #### I NSULIN #### [facility] [address] [place] [address] Dr. Alo Johnson Start: 03-24-2020 Colonoscopy Vianca helms Start: 06-30-2014 Transrectal biopsy o f prostate using ultrasound guidance Vianca Cui Comment on above: and Cysto Start: 08-06-1979 Repair of ankle Vianca Cui Comment on above: due to fx Decompression of med ghanshyam nerve Vianca Cui Tonsillectomy Vianca Cui Comment on above: as a child Payers Date Payer Category Payer Self-pay [id number] 2023 Medicare [id number] 2020 Unknown [id number] 1945 Unknown [id number] 1945 Unknown [id number] 1945 Unknown [id number] 1945 Unknown [id number] 1945 Unknown [id number] Medicare Medicare [id number] Private Health Insurance [facility] [id number] Unknown [id number] Unknown [id number] Unknown [id number] Social History Date Type Detail Facility Start: 10-28-2020 End: 04-10-2024 Tobacco smoking status Ex-smoker (finding) [facility] Comment on above: pt quit smoking in 1 986 Sex Assigned At Male [facility] Start: 1945 Sex Assigned At Male [facility] Tobacco smoking status Never [facility] Comment on above: pt quit smoking in 1 986 Functional Status Date Assessment Result Facility 04-10-2024 Functional Status N/A [facility] 02-27-2024 Functional Status N/A [facility] 06-01-2022 Functional Status No [facility] Clinical Notes 05-07-2023 to 04-10-2024 Note Date [...] under a microscope. This is called the Woodleaf score and the total score can range from 6 10, indicating how likely it is that the cancer will spread (metastasize) to other parts of the body. The higher the score, the greater the likelihood that the cancer will spread. Lenny 6 or lower: This indicates that the cancer cells look similar to normal prostate cells (well differentiated). Woodleaf 7: This indicates that the cancer cells look somewhat similar to normal prostate cells (moderately differentiated). Lenny 8, 9, or 10: This indicates that [...] stress of having cancer. General instructions Take aqqt-ptt-iawsiwn and prescription medicines only as told by your health care provider. If you have to go to the hospital, notify your cancer specialist (oncologist). Keep all follow-up visits. This is important. Where to find more information [employer]: www.cancer.org [place] [employer]: www.cancer.net National [employer] H[employer]: www.cancer.gov Contact a health care provider if: [...] provider. Document Revised: 10/19/2021 Document Reviewed: 10/19/2021 Elsevier Patient Education 2023 [employer]. Follow Up Care 03/31/2024 09:20:27 With:Peter AMOR, RADHA Hagan, URO Address: When: Unknown [facility] 04-10-2024 Note Patient Education Oncology Prostate Cancer [...] likelihood that the cancer will spread. ? Woodleaf 6 or lower: This indicates that the cancer cells look similar to normal prostate cells (well differentiated). ? Woodleaf 7: This indicates that the cancer cells look somewhat similar to normal prostate cells (moderately differentiated). ? Woodleaf 8, 9, or 10: This indicates that [...] the prostate gla (more content not included)... [facility] 02-27-2024 Hospital Discharge instructions Patient Education [...] discomfort near your rectum, especially while sitting. [place]-colored urine due to small amounts of blood in your urine. A burning feeling while urinating. Blood in your stool (feces) or bleeding from your rectum. Blood in your semen. Follow these instructions at home: Medicines Take mjqg-jau-ssegjaw and prescription medicines only as told by [...] provider. Document Revised: 01/16/2022 Document Reviewed: 01/16/2022 [employer] Patient Education 2022 [employer] [employer]. 02/27/2024 12:02:56 Transrectal Ultrasound-Guided Prostate Biopsy Transrectal [...] including vitamins, herbs, eye drops, creams, and lxzf-uqa-rquwsyi medicines. Any problems you or family members [...] provider tells you to take them. Taking helr-pck-wglpcgu medicines, vitamins, herbs, and supplements. General instructions [...] provider. Document Revised: 01/16/2022 Document Reviewed: 01/16/2022 [employer] Patient Education 2022 [employer]. 02/27/2024 11:47:00 Prostate Cancer Prostate Cancer The [...] under a microscope. This is called the Woodleaf score and the total score can range from 6 10, indicating how likely it is that the cancer will spread (metastasize) to other parts of the body. The higher the score, the greater the likelihood that the cancer will spread. Woodleaf 6 or lower: This indicates that the cancer cells look similar to normal prostate cells (well differentiated). Lenny 7: This indicates that the cancer cells look somewhat similar to normal prostate cells (moderately differentiated). Woodleaf 8, 9, or 10: This indicates that [...] stress of having cancer. General instructions Take iyrb-zpz-fmgyegw and prescription medicines only as told by your health care provider. If you have to go to the hospital, notify your cancer specialist (oncologist). Keep all follow-up visits. This is important. Where to find more information [employer]: www.cancer.org [place] [employer] Oncology: www.cancer.net National Cancer Hustle: www.cancer.gov Contact a health care provider if: [...] provider. Document Revised: 10/19/2021 Document Reviewed: 10/19/2021 [employer] Patient Education 2022 [employer] [employer]. Follow Up Care 02/08/2024 12:41:54 With:Peter AMOR, RADHA Hagan, URO Address: When: Unknown [facility] 02-27-2024 Note Patient Education Oncology Transrectal Ultrasound-Guided [...] near your rectum, especially while sitting. ? [place]-colored urine due to small amounts of blood in your urine. ? A burning feeling while urinating. ? Blood in your stool (feces) or bleeding from your rectum. ? Blood in your semen. Follow these instructions at home: Medicines ? Take [id number] and prescription medicines only as told by [...] provider. Document Revised: 01/16/2022 Document Reviewed: 01/16/2022 [employer] Patient Education ? 2022 [employer]. Transrectal Ultrasound-Guided Prostate Biopsy A transrectal ultrasound-guided [...] including vitamins, herbs, eye drops, creams, and lbge-yqc-ilwlmzy medicines. ? Any problems you or family [...] ? Taking medici (more content not included)... 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 EKG 10/24/2022 shows sinus rhythm with right bundle branch block and poor R wave progression 10/23/2022 shows what appears to be atrial flutter/atrial fibrillation with rapid ventricular rate with underlying right bundle branch block Patient Active Problem List Diagnosis Atrial fibrillation (CMS/HCC) Hypertension Coronary artery disease of [place] artery of [place] heart with stable angina pectoris (CMS/HCC) Past [...] normal. Labs: 12/20/2023 (more content not included)... [facility] 02-26-2024 Note Patient here for 6 [...] All other systems reviewed and are negative. [facility] 08-07-2023 Note Patient here for 3 m o follow up afib and hypertension. Aspirin was stopped at last apt in May 2023. Denies chest pain, SOB, palpitations, and bleeding on Eliquis. Review of Systems Hematologic/Lymphatic: Bruises/bleeds easily. Neurological: Positive for light-headedness. All other systems reviewed and are negative. 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 [facility] 05-07-2023 Note Patient here for 3 m o follow up PAF and hypertension. Had stress test 04/03/2023. Denies chest pain, SOB, palpitations, and bleeding on Eliquis. Review of Systems Hematologic/Lymphatic: Bruises/bleeds easily. Neurological: Positive for light-headedness. All other systems reviewed and are negative. 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 EKG 10/24/2022 shows sinus [...] EKG: No re (more content not included)... [facility] Evaluation + Plan note No data available for this section [facility] Evaluation note No assessment inform ation available [facility] Work Phone: Hospital Discharge instructions No data available for this section [facility] Progress note No data available for this section [facility] Summary Purpose Family History No Family History Records Found No data available for this section No Family History Records Found No data available for this section No Family History Records Found No data available for this section No Family History Records Found Advance Directives Advance Directive Response Recorded Date/ Time Advance Directives No March 03 2:02pm Chief Complaint and Reason for Visit Chief Complaint c61 Chief Complaint c61 Unknown Chief Complaint c61 Unknown Prostate Cancer Additional Source Comments Patient Care team informatio n (unrecognized section and content) Team Status: Active Member Role Status Dates Tatiana Lanza NP-Nat Primary Care Provider Active Team Status: Inactive [...] March 26, 2024 End: March 26, 2024 Team Status: Active Member Role Status Dates SCARLTE Grant Primary Care Provider Active Start: March 12, 2024 Jonny Jefferson DO Attending Provider Active Sta rt: March 12, 2024 Team Status: Inactive Member Role Status Dates Tatiana Lanza NP-Nat Primary Care Provider Active Start: May 12, 2024 End: May 12, 2024 Ale Green MD Attending Provider Active Start : May 12, 2024 End: May 12, 2024 (unrecognized sect ion and content) No Status Records FoundNo Status Records FoundNo Status Records FoundNo Status Records Found INFORMATION SOURCE (unrecogn ized section and content) DATE CREATED AUTHOR 10/29/2022 Jorge Luis mejia DATE CREATED AUTHOR AUTHOR'S ORGANIZ ATION 02/29/2024 [facility] DATE CREATED AUTHOR AUTHOR'S ORGANIZ ATION 04/11/2024 [facility] DATE CREATED AUTHOR AUTHOR'S ORGANIZ ATION 05/13/2024 [facility] Goals (unrecognized section and content) [...] BE BASED ON THE PRIMARY CLINICAL RECORDS. [facility] [employer] [facility]. provides no warranty or guarantee of the accuracy or completeness of information in this document.
[2024-05-26 12:43] LABS: Alanine Aminotransferase 17 U/L (16-63); Albumin Globulin Ratio 1.2; Albumin Level 3.5 g/dL (3.4-5.0); Alkaline Phosphatase 70 U/L (46-116); Anion Gap 11.6; Aspartate Amino Transferase 16 U/L (15-37); BUN Creatinine Ratio 15.4; Bilirubin Total 0.5 mg/dL (0.2-1.0); Calcium 9.3 mg/dL (8.5-10.1); Carbon Dioxide 27.8 mmol/L (21.0-32.0); Chloride 107 mmol/L (98-107); Estimated GFR (African America >60 (>=60 mL/min/1.73m^2); Estimated GFR (Non-African Ame 53 (>=60 mL/min/1.73m^2); Glucose 106 mg/dL (74-106); Potassium 4.4 mmol/L (3.5-5.1); Sodium 142 mmol/L (136-145); Total Protein 6.5 g/dL (6.4-8.2)
== END 2024-05-26 11:53 | disposition home or self-care (01) ==
LOC: LAB 11:54
PROVIDERS: PCP Nurse Practitioner Family; Visit Provider Nurse Practitioner Family
DX: E87.1 Hypo-osmolality and hyponatremia (principal)
CPT/HCPCS: 36415; 80053

== ENCOUNTER 2024-12-02 18:18 | Observation (INO) | payer MEDICARE, SELFPAY ==
[2024-12-02] VITALS (35 sets, daily range): BP systolic 113–117; BP diastolic 53–54; PULSE 49–74; TEMP 36.6; O2SAT 88–98; BMI 23.1
--- NOTE | 2024-12-02 19:27 | ED_ITS ---
HPI - Chest Pain General Chief Complaint: Chest Pain Stated Complaint: CHEST PAIN, SOB, DIZZY Time Seen by Provider: 12/02/24 19:16 Source: patient Mode of arrival: Wheelchair Limitations: no limitations History of Present Illness HPI narrative: past history of A. Fib and HTN. Presents with 2 day history of recurrent sensation of off balance. States he has to hold on or sit down or he will fall. Episodes come and go but can last 5-15 minutes. More episodes today than yesterday. Past history of vertigo over 10 years ago. States then his head was swimmy . This time he feels dizzy. This evening also experienced pressure sensation of his chest. While waiting in the waiting room he had pain radiate down the right arm. Currently asymptomatic. States the episodes of off balance occur abruptly without warning. No ear pain or headache. No weakness of his extremities Related Data Home Medications ?Medication ?Instructions ?Recorded ?Confirmed apixaban 5 mg tablet (Eliquis) 5 mg PO Q12H 03/12/24 0 12/02/24 diltiazem HCl 120 mg 120 mg PO Q24H 03/12/2411/05 capsule,extended release 24 hr ferrous sulfate 325 mg (65 mg 325 mg PO .every other d ay 03/12/24 12/02/24 iron) tablet garlic 1,000 mg capsule 1,000 mg PO .every other day 03/12/24 12/02/24 ginseng 100 mg capsule 100 mg PO .every other day 0 03/12/24 12/02/24 losartan 100 mg tablet 100 mg PO DAILY 03/12/24 multivitamin (Daily Multi-Vitamin 1 tab PO DAILY 03/1212/02/24 tablet) terazosin 5 mg capsule 5 mg PO DAILY 03/12/2412/02 Allergies Allergy/AdvReac Type Severity Reaction Status Date / Time Penicillins Allergy Rash Verified 12/02/24 19:02 Review of Systems ROS Status of ROS 10 or more systems reviewed and unremark able except as noted in history and below [facility] Medical History (Updated 12/02/24 @ 22:32 by Alexey Montero MD) Arthritis ?M19.90 - Unspecified osteoarthritis, unspecified site (ICD-10) Anemia ?D64.9 - Anemia, unspecified (ICD-10) CAD (coronary artery disease) ?I25.10 - Atherosclerotic heart disease of [place] coronary artery without angina pectoris (ICD-10) Atrial fibrillation ?I48.91 - Unspecified atrial fibrillation (ICD-10) Hypertension ?I10 - Essential (primary) hypertension (ICD-10) Urinary urgency ?R39.15 - Urgency of urination (ICD-10) Sigmoid diverticulosis ?K57.30 - Diverticulosis of large intestine without perforation or abscess without bleeding (ICD-10) Nocturia ?R35.1 - Nocturia (ICD-10) Inflammatory polyps of colon ?K51.40 - Inflammatory polyps of colon without complications (ICD-10) Incomplete bladder emptying ?R33.9 - Retention of urine, unspecified (ICD-10) Kidney stones ?N20.0 - Calculus of kidney (ICD-10) Gross hematuria ?R31.0 - Gross hematuria (ICD-10) Frequency of urination ?R35.0 - Frequency of micturition (ICD-10) Elevated PSA ?R97.20 - Elevated prostate specific antigen [PSA] (ICD-10) Prostate cancer ?C61 - Malignant neoplasm of prostate (ICD-10) BPH with obstruction/lower urinary tract symptoms ?N40.1 - Benign prostatic hyperplasia with lower urinary tract symptoms (ICD- 10) ?N13.8 - Other obstructive and reflux uropathy (ICD-10) Anticoagulated ?Z79.01 - longterm (current) use of anticoagulants (ICD-10) AAA (abdominal aortic aneurysm) ?I71.40 - Abdominal aortic aneurysm, without rupture, unspecified (ICD-10) Surgical History (Updated 03/12/24 @ 10:20 by Jing Mccullough NP) Hx of tonsillectomy ?Z90.89 - Acquired absence of other organs (ICD-10) History of carpal tunnel release ?Z98.890 - Other specified postprocedural states (ICD-10) History of ankle surgery ?Z98.890 - Other specified postprocedural states (ICD-10) H/O prostate biopsy ?Z98.890 - Other specified postprocedural states (ICD-10) H/O colonoscopy ?Z98.890 - Other specified postprocedural states (ICD-10) Family History (Updated 03/12/24 @ 10:42 by Jing Mccullough NP) Other Black lung disease Family history of myocardial infarction Family history of stroke Goiter Heart disease Social History (Updated 03/26/24 @ 11:35 by Ranjana Park) Within the past year, how often did you have a drink containing alcohol: never Score interpretation: A score less than 4 is consistent with normal alcohol consumption. Smoking status: Former smoker Do you use any of these nicotine containing products: smokeless tobacco Smokeless tobacco user: chewing tobacco Non-prescribed substance use: denies use Previous occupational history: RETIRED Highest level of school completed/degree received: 9th grade Little interest or pleasure in doing things: not at all Feeling down, depressed, or hopeless: not at all Exam Constitutional Vital Signs, click to edit/add: Last Vital Signs Temp 97.9 F 12/02/24 18:57 Pulse 51 L 12/02/24 21:48 Resp 10 L 12/02/24 21:00 BP 117/54 12/02/24 21:48 Pulse Ox 97 12/02/24 21:48 O2 Del Method Room Air 12/02/24 18:57 Common normals: no apparent distress, average body habitus, oriented x3, no limitations, healthy appearing, alert and well nourished [facility] Common normals: normocephalic and head/scalp atraumatic Eye Common normals: EOMs intact bilaterally Respiratory Common normals: normal respiratory effort, no retractions, no use of accessory muscles and clear to auscultation bilaterally Cardio Common normals: regular rate, regular rhythm, S1 normal heart sound and S2 normal heart sound GI Common normals: Normal to inspection, nondistended, normoactive bowel sounds present, soft to palpation and non-tender Extremity Common normals: normal to inspection and full ROM Neuro Common normals: oriented x3, CN's II-XII intact bilaterally, moves all extremities and no focal motor deficits Psych Appearance: grossly normal Course Vital Signs Vital signs: Vital Signs Pulse Oximetry 97 12/02/24 18:53 Temperature 97.9 F 12/02/24 18:57 Pulse Rate 51 L 12/02/24 21:48 Respiratory Rate 10 L 12/02/24 21:00 Blood Pressure 117/54 12/02/24 21:48 Pulse Oximetry 97 12/02/24 21:48 Oxygen Delivery Method Room Air 12/02/24 18:57 MDM - Chest Pain MDM Narrative Medical decision making narrative: patient presents with recurrent episodes of dizziness. comes on abruptly. Denies room spinning. Clinically I suspect he has vertigo but TIA in differential. CT brain neg. He also experienced chest pain today. EKG with incomplete RBBB and low voltage. Consulted with Stroke Neurologist who feels patient can be admitted here and Tele Neurology can consult tomorrow. Discussed with the hospitalist and patient accepted for admission Lab Data Labs: Lab Results 12/02/24 Range/Units 19:45 WBC 5.5 (4.0-11.0) 10^3/uL RBC 3.96 L (4.70-6.10) 10^6/uL Hgb 12.6 L (14.0-18.0) g/dL Hct 37.9 L (42.0-54.0) % MCV 95.7 H (80.0-94.0) fL MCH 31.8 (25.9-34.0) pg MCHC 33.2 (29.9-35.2) g/dL RDW 11.9 (11.0-15.0) % Plt Count 176 (150-450) 10^3/uL MPV 9.1 L (9.5-13.5) fL Neut % (Auto) 21.7 L (43.0-75.0) % Lymph % (Auto) 63.9 H (20.5-60.0) % Hill % (Auto) 11.2 (1.7-12.0) % Eos % (Auto) 2.6 (0.9-7.0) % Baso % (Auto) 0.4 (0.2-2.0) % Neut # (Auto) 1.2 L (1.4-6.5) 10^3/uL Lymph # (Auto) 3.5 (1.2-3.8) 10^3/uL Hill # (Auto) 0.6 (0.3-0.8) 10^3/uL Eos # (Auto) 0.1 (0.0-0.7) 10^3/uL Baso # (Auto) 0.0 (0.0-0.1) 10^3/uL Abs Immat Gran (auto) 0.01 (0.00-0.03) 10^3/uL Imm/Tot Granulo (auto) 0.2 (0.0-0.5) % D-Dimer 0.27 (<=0.59) mg/L FEU Sodium 137 (136-145) mmol/L Potassium 4.8 (3.5-5.1) mmol/L Chloride 102 (98-107) mmol/L Carbon Dioxide 29.4 (21.0-32.0) mmol/L Anion Gap 10.4 BUN 28.0 H (7.0-18.0) mg/dL Creatinine 1.72 H (0.70-1.30) mg/dL Est GFR ( Amer) 47 L (>=60 mL/min/1.73m^2) Est GFR (Non-Af Amer) 38 L (>=60 mL/min/1.73m^2) BUN/Creatinine Ratio 16.3 Glucose 89 (74-106) mg/dL Calcium 8.7 (8.5-10.1) mg/dL Troponin I High Sens 16.3 (4.0-76.1) pg/mL Discharge Plan Discharge Chief Complaint: Chest Pain Clinical Impression: Chest pain, Dizziness Patient Disposition: Admitted as Observation
--- NOTE | 2024-12-02 19:57 | PC.NURSE ---
Patient states he has been dizzy today with some mild chest tightness. states she thinks he may be a little congested. Patient does have hx of vertigo.
[2024-12-02 20:43] LABS: Basophils Percent Auto 0.4 % (0.2-2.0); Eosinophils Absolute Auto 0.1 10^3/uL (0.0-0.7); Eosinophils Percent Auto 2.6 % (0.9-7.0); Hematocrit 37.9 % (42.0-54.0); Hemoglobin 12.6 g/dL (14.0-18.0); Immature Granulocytes Abs Auto 0.01 10^3/uL (0.00-0.03); Immature Granulocytes Pct Auto 0.2 % (0.0-0.5); Lymphocytes Absolute Auto 3.5 10^3/uL (1.2-3.8); Lymphocytes Percent Auto 63.9 % (20.5-60.0); Mean Corpuscular HGB Conc 33.2 g/dL (29.9-35.2); Mean Corpuscular Hemoglobin 31.8 pg (25.9-34.0); Mean Corpuscular Volume 95.7 fL (80.0-94.0); Mean Platelet Volume 9.1 fL (9.5-13.5); Monocytes Absolute Auto 0.6 10^3/uL (0.3-0.8); Monocytes Percent Auto 11.2 % (1.7-12.0); Neutrophils Absolute Auto 1.2 10^3/uL (1.4-6.5); Neutrophils Percent Auto 21.7 % (43.0-75.0); Platelet Count 176 10^3/uL (150-450); Red Blood Count 3.96 10^6/uL (4.70-6.10); Red Cell Distribution Width 11.9 % (11.0-15.0); White Blood Count 5.5 10^3/uL (4.0-11.0)
[2024-12-02 20:50] LABS: D Dimer 0.27 mg/L FEU (<=0.59)
--- NOTE | 2024-12-02 20:50 | ECG_ITS ---
[facility] Test Date: 2024-12-02 Pat Name: IGNACIO AUGUSTINE Department: Room: - Gender: Male Ems Director: : 1945 Requested By: [id number] Order Number: [id number] Tanja MD: TRISTAN MONZON M.D. Measurements Intervals [place] Rate: 61 P: 90 [place]: 162 QRS: -66 QRSD: 106 T: 52 QT: 424 QTc: 426 Interpretive Statements 1100 Sinus rhythm 2440 Incomplete right bundle branch block 7200 Abnormal left axis deviation 9130 borderline ECG Compared to ECG 03/12/2024 10:49:41 Incomplete right bundle-branch block now present Left-axis deviation now present QRS duration has decreased Electronically Signed On 12-03-2024 21:04:27 EDT by TRISTAN MNOZON M.D.
[2024-12-02 20:57] LABS: Anion Gap 10.4; BUN Creatinine Ratio 16.3; Calcium 8.7 mg/dL (8.5-10.1); Carbon Dioxide 29.4 mmol/L (21.0-32.0); Chloride 102 mmol/L (98-107); Estimated GFR (African America 47 (>=60 mL/min/1.73m^2); Estimated GFR (Non-African Ame 38 (>=60 mL/min/1.73m^2); Glucose 89 mg/dL (74-106); Potassium 4.8 mmol/L (3.5-5.1); Sodium 137 mmol/L (136-145); Troponin I High Sensitivity 16.3 pg/mL (4.0-76.1)
[2024-12-02 23:38] LABS: Troponin I High Sensitivity 15.8 pg/mL (4.0-76.1)
[2024-12-03] VITALS (13 sets, daily range): BP systolic 159–167; BP diastolic 68–85; PULSE 51–63; TEMP 36.3–36.5; O2SAT 94–96; BMI 22.1
[2024-12-03] MEDS: 0.9 % SODIUM CHLORIDE 1,000 ML 75 ML IV (02:06)
[2024-12-03 05:25] LABS: Hematocrit 38.6 % (42.0-54.0); Hemoglobin 13.2 g/dL (14.0-18.0); Mean Corpuscular HGB Conc 34.2 g/dL (29.9-35.2); Mean Corpuscular Hemoglobin 32.6 pg (25.9-34.0); Mean Corpuscular Volume 95.3 fL (80.0-94.0); Mean Platelet Volume 8.9 fL (9.5-13.5); Platelet Count 163 10^3/uL (150-450); Red Blood Count 4.05 10^6/uL (4.70-6.10); Red Cell Distribution Width 11.9 % (11.0-15.0); White Blood Count 5.3 10^3/uL (4.0-11.0)
[2024-12-03 05:37] LABS: Anion Gap 10.4; BUN Creatinine Ratio 18.1; Calcium 8.5 mg/dL (8.5-10.1); Carbon Dioxide 30.4 mmol/L (21.0-32.0); Chloride 102 mmol/L (98-107); Estimated GFR (African America 60 (>=60 mL/min/1.73m^2); Estimated GFR (Non-African Ame 49 (>=60 mL/min/1.73m^2); Glucose 83 mg/dL (74-106); Potassium 4.8 mmol/L (3.5-5.1); Sodium 138 mmol/L (136-145)
[2024-12-03 05:42] LABS: Estimated Average Glucose 123 mg/dL; Glycohemoglobin A1C 5.9 % (4.5-6.2)
[2024-12-03 05:47] LABS: Troponin I High Sensitivity 16.6 pg/mL (4.0-76.1)
[2024-12-03 05:53] LABS: Chol HDL Ratio 3.3; Cholesterol 144 mg/dL (<=200); HDL Cholesterol 44 mg/dL (40-60); LDL Cholesterol Calculated 82.2 mg/dL; Magnesium 2.1 mg/dL (1.8-2.4); Triglycerides 89 mg/dL (<=150); VLDL CHOLESTEROL 17.8 mg/dL
--- NOTE | 2024-12-03 06:00 | ECG_ITS ---
[facility] Test Date: 2024-12-03 Pat Name: IGNACIO DAVIDE Department: Room: 2131 Gender: Male [employer] Supervisor: : 1945 Requested By: [id number] Order Number: [id number] Reading MD: TRISTAN MONZON M.D. Measurements Intervals [place] Rate: 55 P: -27 PA: 158 QRS: -85 QRSD: 121 T: 58 QT: 431 QTc: 415 Interpretive Statements SINUS BRADYCARDIA WITH OCCASIONAL SUPRAVENTRICULAR PREMATURE COMPLEXES MARKED LEFT AXIS DEVIATION [QRS AXIS < -30] RIGHT BUNDLE BRANCH BLOCK [120+ ms QRS DURATION, UPRIGHT V1, 40+ ms S IN I/aVL/V4/V5/V6] Abnormal ECG Compared to ECG 12/02/2024 18:55:58 QRS duration has increased Electronically Signed On 12-03-2024 21:05:44 EDT by TRISTAN MONZON M.D.
--- NOTE | 2024-12-03 07:13 | CA_ITS ---
Patient Name: IGNACIO AUGUSTINE MR#: [id number] : 1945 Exam Date: 12/03/2024 Ordering Doctor: DR ALIS RICARDO . ECHOCARDIOGRAM REPORT PROCEDURE: CA ECHO DOPPLER COMPLETE INDICATIONS: Dyspnea, CAD, hypertension COMPARISON: None. DESCRIPTION: COMPLETE ECHOCARDIOGRAM Real-time transthoracic echocardiography with 2D, M-mode, spectral and color flow Doppler performed. QUALITY: Technical quality was fair. LEFT VENTRICLE: Normal chamber size. Normal left ventricular wall thickness. Normal systolic function. LV EF: Normal left ventricular ejection fraction, (>55%). DIASTOLIC: Diastolic function is indeterminate. ATRIAL SEPTUM: LEFT ATRIUM: Normal chamber size. RIGHT ATRIUM: Normal chamber size. RIGHT VENTRICLE: Normal chamber size. Normal systolic function. TRICUSPID VALVE: Normal mobility and thickness. No stenosis with no regurgitation. Unable to assess right-sided pressures due to lack of measurable tricuspid regurgitation. MITRAL VALVE: Normal mobility and thickness. Moderate mitral annular calcification. No mitral regurgitation. AORTIC VALVE: Not well visualized. No evidence of aortic valve stenosis. No aortic regurgitation. AORTIC ROOT: Not well-visualized. PULMONIC VALVE: Not well visualized. PERICARDIUM: No evidence of pericardial effusion. IVC: IVC is normal in size, does not fully collapse. PLEURA: CONCLUSION: 1. Technically difficult study with poor sound transmission. 2. Normal left ventricular size and systolic function. Estimated LVEF is 65 to 70%. 3. Normal right ventricular size and systolic function. 4. No evidence of valvular dysfunction. 5. No pericardial effusion. 6. Unable to assess right-sided pressures due to lack of measurable tricuspid regurgitation. Adult Echocardiography Procedure Report Left Ventricle LVEDD (3.7 - 5.6 cm): 3.65 cm LVESD (2.2 - 4.0 cm): 2.20 cm LVIVS thickness (0.6 - 1.2 cm): 0.77 cm LVPW thickness (0.5 - 1.0 cm): 0.91 cm e': 0.05 m/s E - e': 17.71 LVOT Max Gradient: 2.95 mm[Hg] LVOT Area (cm2): 0.86 m/s Peak Velocity (LVOT): 0.86 m/s Mean Velocity (LVOT): 0.57 m/s Left Atrium LA Volume Index (2D A2C): 18.10 ml/m2 Left Atrium Systolic Dimension: 2.80 cm Mitral Valve MV E to A Ratio: 0.75 Mitral Valve A-Wave Peak Velocity: 1.11 m/s Mitral Valve E-Wave Peak Velocity: 0.83 m/s Right Ventricle Aorta Aortic Valve Peak Velocity(Antegrade Flow): 1.07 m/s Peak Gradient(Antegrade Flow): 4.57 mm[Hg] Mean Velocity(Antegrade Flow): 0.71 m/s Mean Gradient(Antegrade Flow): 2.39 mm[Hg] Velocity Time Integral: 22.40 cm Tricuspid Valve Pulmonic Valve Right Atrium Right Atrium Systolic Pressure: 35.66 ml, 35.66 ml Dictated by: Levi Galarza M.D. on 12/03/2024 at 18:33 Approved by: Levi Galarza M.D. on 12/03/2024 at 18:35
--- NOTE | 2024-12-03 08:07 | P.HP_ITS ---
HPI H&P: HPI History of Present Illness Chief complaint: CHEST PAIN, SOB, DIZZY Narrative: Patient presented to the emergency room with episode of chest pain, pain went into his right arm, this has been progressive with less activity causing the chest pain, also describes vertigo. TIA was a concern and patient was evaluated by telestroke team who felt patient could remain here. Patient has a history of atrial fibrillation already anticoagulated I saw patient up in the medical surgical floor, he says he feels great, no chest pain he was up and ambulating to get to the bathroom overnight without any difficulties and denies dizziness currently Opioid HPI Opioid Management Most Recent Pain and Opioid Data: Last Pain Assessment Today, 02:00 Last ORT Total Score 0 Today, 01:02 Last ORT Risk Category Low Risk Today, 01:02 Review of Systems ROS Status of ROS 10 or more systems reviewed and unremark able except as noted in history and below [facility] Medical History Arthritis ?M19.90 - Unspecified osteoarthritis, unspecified site (ICD-10) Anemia ?D64.9 - Anemia, unspecified (ICD-10) CAD (coronary artery disease) ?I25.10 - Atherosclerotic heart disease of [place] coronary artery without angina pectoris (ICD-10) Atrial fibrillation ?I48.91 - Unspecified atrial fibrillation (ICD-10) Hypertension ?I10 - Essential (primary) hypertension (ICD-10) Urinary urgency ?R39.15 - Urgency of urination (ICD-10) Sigmoid diverticulosis ?K57.30 - Diverticulosis of large intestine without perforation or abscess without bleeding (ICD-10) Nocturia ?R35.1 - Nocturia (ICD-10) Inflammatory polyps of colon ?K51.40 - Inflammatory polyps of colon without complications (ICD-10) Incomplete bladder emptying ?R33.9 - Retention of urine, unspecified (ICD-10) Kidney stones ?N20.0 - Calculus of kidney (ICD-10) Gross hematuria ?R31.0 - Gross hematuria (ICD-10) Frequency of urination ?R35.0 - Frequency of micturition (ICD-10) Elevated PSA ?R97.20 - Elevated prostate specific antigen [PSA] (ICD-10) Prostate cancer ?C61 - Malignant neoplasm of prostate (ICD-10) BPH with obstruction/lower urinary tract symptoms ?N40.1 - Benign prostatic hyperplasia with lower urinary tract symptoms (ICD- 10) ?N13.8 - Other obstructive and reflux uropathy (ICD-10) Anticoagulated ?Z79.01 - termination clerk (current) use of anticoagulants (ICD-10) AAA (abdominal aortic aneurysm) ?I71.40 - Abdominal aortic aneurysm, without rupture, unspecified (ICD-10) Surgical History Hx of tonsillectomy ?Z90.89 - Acquired absence of other organs (ICD-10) History of carpal tunnel release ?Z98.890 - Other specified postprocedural states (ICD-10) History of ankle surgery ?Z98.890 - Other specified postprocedural states (ICD-10) H/O prostate biopsy ?Z98.890 - Other specified postprocedural states (ICD-10) H/O colonoscopy ?Z98.890 - Other specified postprocedural states (ICD-10) Family History Other Black lung disease Family history of myocardial infarction Family history of stroke Goiter Heart disease Social History (Updated 03/26/24 @ 11:35 by Ranjana Park) Within the past year, how often did you have a drink containing alcohol: never Score interpretation: A score less than 4 is consistent with normal alcohol co nsumption. Smoking status: Former smoker Do you use any of these nicotine containing products: smokeless tobacco Smokeless tobacco user: chewing tobacco Non-prescribed substance use: denies use Previous occupational history: RETIRED Highest level of school completed/degree received: 9th grade Little interest or pleasure in doing things: not at all Feeling down, depressed, or hopeless: not at all Meds Home Medications and Allergies Home Medications ?Medication ?Instructions ?Recorded ?Confirmed ?Type apixaban 5 mg tablet (Eliquis) 5 mg PO Q12H 03/12/24 0 12/02/24 History ferrous sulfate 325 mg (65 mg 325 mg PO .every other d ay 03/12/24 12/02/24 History iron) tablet garlic 1,000 mg capsule 1,000 mg PO .every other day 03/12/24 12/02/24 History ginseng 100 mg capsule 100 mg PO .every other day 0 03/12/24 12/02/24 History losartan 100 mg tablet 100 mg PO DAILY 03/12/24 History multivitamin (Daily Multi-Vitamin 1 tab PO DAILY 03/1212/02/24 History tablet) terazosin 5 mg capsule 5 mg PO DAILY 03/12/2412/02 History carvedilol 6.25 mg tablet 6.25 mg PO BID #30 tabs 11/06 Rx isosorbide mononitrate 30 mg 30 mg PO QD #30 tabs 11/06 Rx tablet,extended release 24 hr meclizine 12.5 mg tablet 25 mg (2 x 12.5 mg) PO TID P RN 12/03/24 Rx vertigo #20 tabs Allergies Allergy/AdvReac Type Severity Reaction Status Date / Time Penicillins Allergy Rash Verified 12/02/24 19:02 Exam Constitutional Vital Signs, click to edit/add: Last Vital Signs Temp 97.7 F 12/03/24 06:58 Pulse 63 12/03/24 06:58 Resp 18 12/03/24 07:54 BP 166/79 H 12/03/24 06:58 Pulse Ox 94 L 12/03/24 06:58 O2 Del Method Room Air 12/03/24 06:58 Documenting provider has reviewed patient's vital signs: yes Common normals: no apparent distress Chest Common normals: inspection of chest normal Respiratory Common normals: normal respiratory effort, no retractions and clear to auscultat ion bilaterally Cardio Common normals: regular rate, regular rhythm and no murmurs GI Common normals: Normal to inspection, nondistended, normoactive bowel sounds present Extremity Common normals: normal to inspection Neuro Common normals: oriented x3, CN's II-XII intact bilaterally and moves all extremities Results Labs Labs: Short CBC 12/02/24 12/03/24 Range/Units 19:45 05:08 WBC 5.5 5.3 (4.0-11.0) 10^3/uL Hgb 12.6 L 13.2 L (14.0-18.0) g/dL Hct 37.9 L 38.6 L (42.0-54.0) % Plt Count 176 163 (150-450) 10^3/uL BMP 12/02/24 12/03/24 19:45 05:08 Sodium 137 138 Potassium 4.8 4.8 Chloride 102 102 Carbon Dioxide 29.4 30.4 BUN 28.0 H 25.0 H Creatinine 1.72 H 1.38 H Glucose 89 83 Calcium 8.7 8.5 Assessment and Plan Assessment and Plan (1) Dizziness: (2) Chest pain: (3) Anemia: (4) CAD (coronary artery disease): (5) Atrial fibrillation: (6) Hypertension: Plan Admission findings: Bradycardia, uncontrolled hypertension, acute elevation in creatinine at 141% above baseline resulting in vertigo and chest pain Chest pain-story consistent with accelerating angina-no further chest pain today even with ambulation, will check echocardiogram if that is normal he can be discharged to home and set up for stress test as an outpatient Bradycardia-change patient from Cardizem to carvedilol, adding Imdur for the chest pain as outlined above Vertigo-meclizine seemed to help, maintain that as needed at home Uncontrolled hypertension-monitor blood pressure with change in blood pressure medications Iron deficiency anemia-monitor as an outpatient 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
[2024-12-03] MEDS: FERROUS SULFATE 325 MG TABLET PO (09:57)
[2024-12-03] MEDS: APIXABAN 5 MG TABLET PO (09:58)
[2024-12-03] MEDS: MULTIVITAMIN TABLET 1 TAB PO (09:58)
[2024-12-03] MEDS: CARVEDILOL 6.25 MG TABLET PO (09:58)
[2024-12-03] MEDS: TERAZOSIN HCL 5 MG CAPSULE PO (09:58)
[2024-12-03] MEDS: ISOSORBIDE MONONITRATE 30 MG TAB.ER.24H PO (09:58)
--- NOTE | 2024-12-03 11:36 | CM.NOTE ---
Medicare Outpatient Observation Notice discussed with pt, pt verbalizes understanding and signs paper. Original given to pt and copy placed on pt's chart.
--- NOTE | 2024-12-03 13:35 | SWNOTE1 ---
SW reviewed therapy notes, no needs at this time.
--- NOTE | 2024-12-04 14:25 | CM.DCFOLLOWU ---
1st attempt 12/04/24, no answer
--- NOTE | 2024-12-05 15:29 | CM.DCFOLLOWU ---
2nd attempt 12/05/24, no answer
--- NOTE | 2024-12-08 14:53 | CM.DCFOLLOWU ---
3rd attempt 12/08/24, no answer
== END 2024-12-03 14:05 | disposition home or self-care (01) ==
LOC: ER 22:32 → MS 12-03 00:47
PROVIDERS: Registered Nurse; Admitting Provider Family Medicine; Emergency Provider Internal Medicine; PCP Nurse Practitioner Family; Visit Provider Family Medicine
DX: R07.9 Chest pain, unspecified (principal); R42 Dizziness and giddiness; R06.02 Shortness of breath; I48.91 Unspecified atrial fibrillation; F17.220 Nicotine dependence, chewing tobacco, uncomplicated; R00.1 Bradycardia, unspecified; D50.9 Iron deficiency anemia, unspecified; N18.2 Chronic kidney disease, stage 2 (mild); I12.9 Hypertensive chronic kidney disease with stage 1 through stage 4 chronic kidney disease, or unspecified chronic kidney disease; I25.119 Atherosclerotic heart disease of native coronary artery with unspecified angina pectoris; Z79.899 Other long term (current) drug therapy; Z79.01 Long term (current) use of anticoagulants
CPT/HCPCS: 36415; 70450; 71045; 80048; 80061; 81001; 83036; 83735; 83880; 84443; 84484; 85025; 85027; 85378; 87086; 93005; 93246; 93306; 94761; 96360; 96361; 97161; 97165; 97530; 99285; G0378

== ENCOUNTER 2024-12-19 09:20 | Outpatient (OUT) | payer MEDICARE, SELFPAY ==
--- OUTSIDE RECORDS SUMMARY | 2024-12-19 09:38 | XMS_ITS | CCD ---
Author Organization [facility] Care Team Providers Care Director Workforce Management Name Role Phone TATIANA LANZA Primary Care Physician TATIANA LANZA Primary Care Unavailable HALEIGH ., DR SNELL Admitting Unavailable HALEIGH ., DR SNELL Attending Unavailable HALEIGH ., DR SNELL Consulting Unavailable HAY ., DR ABRAMS Consulting Unavailable NALINI CHIRINOS Consulting Unavailable MICHAEL PRADO Consulting Unavailable TATIAAN LANZA Admitting Unavailable TATIANA LANZA Attending Unavailable TATIANA LANZA Primary Care Unavailable TATIANA LANZA Consulting Unavailable MD Ale Green Attending Provider SCARLET Lanza Primary Care Provider Ale Green Admitting Unavailable Tatiana Lanza Primary Care Unavailable Ale Green Attending Unavailable Ale Green Attending Unavailable Ale Green Admitting Unavailable Tatiana Lanza Primary Care Unavailable Ale Green Admitting Unavailable Tatiana Lanza Alice Primary Care Unavailable Ale Green Attending Unavailable SUBHA WHITTINGTON Attending Unavailable ABBE HSU Attending Unavailable Ale Green. Attending Unavailable Ale Green. Attending Unavailable Ale Green. Attending Unavailable Ale Green. Attending Unavailable Allergies Allergy Classification Reported Allergen(s) Allergy Type Date of Onset Reaction(s) Facility (6 sources) Penicillins; 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: [penicillins] Drug allergy 3 Pharyngeal swelling (finding) [facility] (1 source) Penicillin Drug Allergy [facility] Medications Current Medications Medication Drug [...] day(s), # 6 tab(s), Refills(s) 0, Pharmacy: [facility]/pharmacy #[id number], 170, cm, 02/27/24 11:19:00 EDT, [...] sources) Palpitations; 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: [PALPITATIONS] Onset: 10-24-2022 Episodic Coronary atherosclerosis and other heart disease (2 sources) Coronary arteriosclerosis; 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: [Coronary Artery Disease] Onset: 09-05-2024 Chronic Diseases of white blood cells (1 source) [...] 10-26-2022 02-25-2020 Chronic Other aftercare (1 source) ep tech (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; 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: [[facility] 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 ASPIRIN] Onset: 10-26-2022 Episodic Other aftercare (1 source) 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 Dx: Prostate cancer, asymptomatic microhematuria and anticoagulated pt states he has no c/o urinary issues. pt was in ER for chest pain, is feeling fine now. Pt did a heart monitor for a few days and needs to mail it in for results. History of Present Illness Tests reviewed: reviewed UA, PSMA PET scan I have reviewed the previous health record [...] HPI. Physical Exam Vitals & Measurements T: 36.7 ???C(Oral) HR: 52(Peripheral) RR: 18 BP: 122/62 HT: 170 cm HT: 67 in WT: 137.568 lb WT: 62.4 kg BMI: 21.59 General Appearance: alert, no distress, well nourished, well developed male. Assessment/Plan 79 year old here to review PET scan after recent upstage to unfavorable intermediate risk prostate cancer while on active surveillance [place], does wear hearing aids. Pt is accompanied by his , who also serves as historian, and daughter today. ABBE 19 (18) 1. Prostate cancer (C61: Malignant neoplasm of prostate) PSA: 04/27/15 - 5.49 05/15/16 - 6.00 & 22% 06/07/17 - 6.83 & 23% 03/05/19 - 9.72 12/18/19 - 10.61 02/15/21 - 10.16 10/16/22 - 10.6 & 21.9% 12/20/23 - 11.5 & 22.4% PSAD 0.[address] James 02/25/2020. Active [...] MRI of prostate done MRI 02/10/20 - No evidence of clinically significant disease. 11 x 0.8 cm left posterior pelvic nodule. Prostate volume 99cc. Follow up for MRI 02/25/[address] [...] advised to f/u with an oncologist. MRI prostate 03/11/24 [facility] - prostate volume 118 mL. No MRI evidence of clinically significant prostate cancer. BPH changes. Prominent left perirectal lymph node measuring 5 mm in short axis. Finding is nonspecific. Correlation with colonoscopy is suggested. S/p TRUS/bx 03/26/24 - cT1c disease, Vickery 7 (4+3), Grade group 3 prostate cancer in 2/24 cores, initial PSA of 11.5. Upstaged to unfavorable intermediate risk disease. ISSAC ~severely enlarged prostate, left higher than right without firm nodules. [facility] nomogram which estimates his risk of organ confined disease to be 48%, extraprostatic extension 49%, lymph node metastasis 6%, and seminal vesical invasion 4%. PSMA PET scan 05/12/24 [facility] - Neg for mets. Disease localized to prostate Reviewed imaging results. Again discussed risks/benefits of continuing active surveillance vs proceeding with treatment including EBRT, SBRT, or brachytherapy vs watchful waiting due to life expectancy. Also discussed referral to rad/onc to discuss options. Offered to have pathologic tissue sent for further evaluation of disease risk. Pt wishes to have this done and will proceed with decision after results are obtained. -Pathology to be sent for Decipher testing. Will call pt w results. They will determine next steps based on this. Appears they are leaning toward watchful waiting 2. BPH with urinary obstruction (N40.1: Benign prostatic hyperplasia with lower urinary tract symptoms) PVR 09/10/19 - 120cc IPSS 10 (4). Taking Terazosin 5mg qd. Feels he empties. -Cont meds without changes per pt 3. Asymptomatic microscopic hematuria (R31.21: Asymptomatic microscopic hematuria) Hematuria workup 2019 negative. UA today shows trace-lysed blood (large on prior UA s/p TRUS/bx). Denies gross hematuria. -Cont annual routine UA screening 4. Anticoagulated (Z79.01: long-term (current) use of anticoagulants) Eliquis. hx of afib. Elevated risk of periop complications. [1] Follow-up With When Contact Information Ale Green MD, URL, [facility] [address], [place] [address] [phone] Add (more content not included)... Normal [facility] Comment on above: Result Comment: Elec tronically Signed By: Ale Green MD\.br\Date and Time Signed: 12/10/24 14:10 EDT\.br\Electronically Co-Signed By: Ryanne Mei\.br\Date and Time Co-Signed: 12/10/24 13:56 EDT [facility] Patient Letter [facility] November 05, 2024 NICK DOYLE [address] [place] [address] : 1945 Dear Vivek, I am corresponding with you by certified mail because you have a medical condition known as History of Prostate Cancer. This requires routine follow up appointments. My office has tried contacting you to get this scheduled with no response. Please contact my office at your earliest convenience and we will schedule you an appointment so I can closely monitor your condition. I cannot be responsible for your urologic care if you do not follow up as recommended. Non compliance may result in dismissal from the practice. Office Sincerely, Dr. Ale Green MD [facility] [address] [facility] [place] [address] [facility] Provider Letteron 09-11-2024 Provider Letter Provider Letter September 11, 2024 NICK DOYLE [address] [place] [address] : 1945 Dear Mr. Doyle , We have been trying to reach you with no success. It is important that you return our call regarding your diagnosis from our office upon receiving this letter. Also, at the time of your call, please provide us with your current information. Thank you for your prompt attention to this matter. Sincerely, [facility] [address] [place] [address], [address] [place] [address] [facility] Office Visiton 09-05-2024 Follow-up visit [id number] Nick Doyle 1945 M Date Provider Department Center 09/05/2024 48156-ARTEARSUBHA WHITTINGTON [facility] Family History Problem Relation Age of Onset Heart attack Father Heart attack Brother Family Status - Relation Status Age at Father Brother Level of Service:93842 CO OFFICE/OUTPATIENT ESTABLISHED LOW MDM 20 MIN Reason for Visit and Comments: Atrial Fibrillation [80] - Denies palpitations, lightheadedness/sync ope, and bleeding on Eliquis. Coronary Artery Disease [187] - Denies chest pain and SOB Doing very well. Hypertension [612462] Normal [facility] PET psma initial tx sb-mton 05-12-2024 PET psma initial tx sb-mt [facility] [address] [place] [address] Nuclear Medicine Report Signed Patient: Nick Doyle MR#: [id number] : 1945 Acct:[id number] Age/Sex: 79 / M ADM Date: 05/12/24 Loc: Room: Type: [facility] Attending Dr: Ale Green MD Copies to: [...] Diaz Jr., D.O.05/12/2024 3:00 PM Dictation Location: [place] [address] Transcribed By: [facility] 05/12/24 1500 Dictated By: Stuart Diaz Jr, DO 05/12/24 1447 Signed By: 05/12/24 1500 Normal [facility] Ambulatory Visit Summaryon 0 04-10-2024 [...] Following Appointments Follow Up with Peter AMOR, RADHA Hagan, [facility] When: Where: Medications What How Much [...] is us (more content not included)... Normal [facility] Urology Office/Clinic Noteon 04-10-2024 Urology Office/Clinic Note [...] risk prostate cancer while on active surveillance [place], does wear hearing aids. Pt is accompanied by his today who also serves as historian. ABBE 18 Portions of this record may have been created with voice recognition artificial intelligence software, specifically PenBlade, IsoPlexis and or [email or web address]. Substitutions may have occurred due to the inherent limitations of voice recognition and artificial intelligence software. 1. Prostate cancer (C61: Malignant neoplasm of prostate) PSA: 15 - 5.49 05/15/16 - 6.00 & 22% [...] with an oncologist. MRI of prostate 03/11/24 [facility] - prostate volume 118 [...] MRI pros (more content not included)... Normal [facility] Comment on above: Result Comment: Elec tronically Signed By: Peter AMOR, Ale Patterson\.br\Date and Time Signed: 04/10/24 16:54 EDT\.br\Electronically Co-Signed By: Johanna Salcido\.br\Date and Time Co-Signed: 04/10/24 15:46 EDT Jonathan 03-26-2024 L Specimen: [id number] Received: 03/28/24 Status: OLIMPIA Manzanares Num: [id number] Spec Type: Surgical Subm Dr: Ale Green [...] Account Attending Physician Nick Doyle 78/M LABELL [id number] Ale Green MD SPEC NUM: [id number] RECD: 03/28/24 STATUS: OLIMPIA MANZANARES NUM: [id number] DOMINIC: 03/26/[address]: Ale Green MD ENTERED: 03/28/24 [facility] DR: Margarita Aguilar SPEC TYPE: Surgical DEPT: ANGELITA COUCH ENTERED BY: [id number] RECV BY: [id number] ORDERED: HE/24, Gross/Micro L4/12, PIN Cocktail/6 ORDERED: HE/24, Gross/Micro L4/12, PIN Cocktail/6, USS/18 Pathological Diagnosis Prostate Case Summary Result Summary Cores Involved Vickery Group Lenny Score Perineural Invasion (PNI) Extraprostatic Extension (EPE) Malignant at least 2 of 26 G3 4+3 not identified not identified Positive Core Summary Lenny Group Number of Cores Specimen: [id number] Received: 03/28/24 Status: OLIMPIA Manzanares Num: [id number] Spec Type: Surgical Subm Dr: Ale Green [...] MEDIAL) Procedures: HE/24, Gross/Micro L4/12, PIN Cocktail/6 Patient: Nick Doyle [id number] (Continued) Specimen: [id number] Received: 03/28/24 (Continued) Pathological Diagnosis (Continued) Signed (signature on file) Jack Johnson MD 04/03/242005 Specimen: [id number] Received: 03/28/24 Status: OLIMPIA Manzanares Num: [id number] Spec Type: Surgical Subm Dr: Ale Green [...] Biopsy (RIGHT APEX MEDIAL) Procedures: , Gross/Micro L4/12, PIN Cocktail/6 Patient: Nick Doyle [id number] (Continued) Specimen: [id number] Received: 03/28/24 (Continued) Pathological Diagnosis (Continued) I 0 of II 1 of III of IV 0 of V [...] mm and 7% of both cores combined -Vickery score 4+3=7, pattern 4 is 60%, prognostic grade group is G3, perineural invasion Specimen: [id number] (more content not included)... Normal [facility] ISTAT XRay CREon 03-11-2024 ISTAT GFR 50.810 Normal [facility] Comment on above: Result Comment: PERF ORMED BY: [facility] [address] [facility] [place] [address] PATHOLOGIST CONCRETE PAVEMENT INSTALLER ENA CASTRO M.D. Performed By: #### I SCRE #### [facility] [address] MR prostate wo/w conon 03-11 MR prostate wo/w con [facility] [address] [place] [address] MRI Report Signed Patient: Nick Doyle MR#: [id number] : 1945 Acct:[id number] Age/Sex: 78 / M ADM Date: 03/11/24 Loc: MR Room: Type: [facility] Attending Dr: Ale Green MD Copies to: [...] Diaz Jr., D.O.03/11/2024 11:34 AM Dictation Location: [place] [address] Transcribed By: [facility] 03/11/24 1134 Dictated By: Stuart Diaz Jr, DO 03/11/24 1126 Signed By: 03/11/24 1134 Normal [facility] No Panel InformationOrdered By: Ale Green on 03-11-2024 Bedside Estimated GFR (eGFR) 50.810 [facility] Whole blood creatinine measu rementOrdered By: Ale Green on 03-11-2024 Creatinine [Mass/Vol] 1.4 mg/dL High 0.6-1.3 [facility] Comment on above: ER/ESD physician is notified/shown all ISTAT results.Critical values may be confirmed by laboratory testing ifdeemed necessary by ER attending doctor. Result Comment: ER/E SD physician is notified/shown all ISTAT results. Critical values may be confirmed by laboratory testing if deemed necessary by ER attending doctor. Performed By: #### I SCRE #### [facility] [address] Urology Office/Clinic Noteon 02-27-2024 Urology Office/Clinic [...] for MRI 02/25/[address] James - Navin scan ordered, pt never obtained Pt called [...] local anesthetic. -Schedule MRI of prostate at [facility]. -Will schedule TRUS (more content not included)... Normal [facility] Comment on above: Result Comment: Elec tronically Signed By: Ale Green MD\.br\Date and Time Signed: 02/27/24 16:48 EDT\.br\Electronically Co-Signed By: Papa Mazariegos\.br\Date and Time Co-Signed: 02/27/24 12:05 EDT Office Visiton 02-26-2024 Follow-up visit [id number] Nick Doyle 1945 M Date Provider Department Center 02/26/2024 166-ABBE HSU [facility] Family History Problem Relation Age of Onset Heart attack Father Heart attack Brother Family Status - Relation Status Age at Father Brother Level of Service:84062 CO OFFICE/OUTPATIENT ESTABLISHED MOD MDM 30 MIN Reason for Visit and Comments: Atrial Fibrillation [80] Hypertension [663681] Normal [facility] BNPon 10-24-2022 Natriuretic peptide B (Bld) [Mass/Vol] 368.0 pg/mL Normal <=1,800.0 [facility] Comment on above: Performed By: #### H STROPN, BMP, BNP #### [facility] [address] [place] [address] Dr. Alo Johnson CBC AUTO DIFFon 10-24-2022 BASO # 0.0 103/ul Normal 0.0-0.1 [facility] Comment on above: Performed By: #### C BC #### [facility] [address] [place] [address] Dr. Alo Johnson Basophils/100 WBC (Bld) 0.3 % Normal 0.2-2.0 [facility] Comment on above: Performed By: #### C BC #### [facility] [address] [place] [address] Dr. Alo Johnson EO # 0.7 103/ul Normal 0.0-0.7 [facility] Comment on above: Performed By: #### C BC #### [facility] [address] [place] [address] Dr. Alo Johnson Eosinophils/100 WBC (Bld) 6.3 % Normal 0.9-7.0 [facility] Comment on above: Performed By: #### C BC #### [facility] [address] [place] [address] Dr. Alo Johnson Erythrocyte distribution width (RBC) [Ratio] 12.4 % Normal 11.0-15.0 [facility] Comment on above: Performed By: #### C BC #### [facility] [address] [place] [address] Dr. Alo Johnson Hematocrit (Bld) [Volume fraction] 42.7 % Normal 42.0-54.0 [facility] Comment on above: Performed By: #### C BC #### [facility] [address] [place] [address] Dr. Alo Johnson Hemoglobin (Bld) [Mass/Vol] 14.5 g/dL Normal 14.0-18.0 [facility] Comment on above: Performed By: #### C BC #### [facility] [address] [place] [address] Dr. Alo Johnson IG # 0.03 10e3/ul Normal 0.00-0.03 [facility] Comment on above: Performed By: #### C BC #### [facility] [address] [place] [address] Dr. Alo Johnson IG % 0.3 % Normal 0.0-0.5 [facility] Comment on above: Performed By: #### C BC #### [facility] [address] [place] [address] Dr. Alo Johnson LYMPH # 4.8 103/ul Critically high 1.2-3.8 [facility] Comment on above: Performed By: #### C BC #### [facility] [address] [place] [address] Dr. Alo Johnson Lymphocytes/100 WBC (Bld) 41.8 % Normal 20.5-60.0 [facility] Comment on above: Performed By: #### C BC #### [facility] [address] [place] [address] Dr. Alo Johnson MANUAL DIFF REQ NO Normal [facility] Comment on above: Performed By: #### C BC #### [facility] [address] [place] [address] Dr. Alo Johnson MCH (RBC) [Entitic mass] 32.6 pg Normal 25.9-34.0 [facility] Comment on above: Performed By: #### C BC #### [facility] [address] [place] [address] Dr. Alo Johnson MCHC (RBC) [Mass/Vol] 34.0 g/dL Normal 29.9-35.2 [facility] Comment on above: Performed By: #### C BC #### [facility] [address] [place] [address] Dr. Alo Johnson MCV (RBC) [Entitic vol] 96.0 fL Critically high 80.0-94.0 [facility] Comment on above: Performed By: #### C BC #### [facility] [address] [place] [address] [address] Alo Johnson MONO # 0.8 103/ul Normal 0.3-0.8 [facility] Comment on above: Performed By: #### C BC #### [facility] [address] [place] [address] [address] Alo Johnson Monocytes/100 WBC (Bld) 7.1 % Normal 1.7-12.0 [facility] Comment on above: Performed By: #### C BC #### [facility] [address] [place] [address] [address] Alo Johnson NEUT # 5.1 103/ul Normal 1.4-6.5 [facility] Comment on above: Performed By: #### C BC #### [facility] [address] [place] [address] Dr. Alo Johnson Neutrophils/100 WBC (Bld) 44.2 % Normal 43.0-75.0 [facility] Comment on above: Performed By: #### C BC #### [facility] [address] [place] [address] [address] Alo Johnson Platelet mean volume (Bld) [Entitic vol] 8.7 fL Critically low 9.5-13.5 [facility] Comment on above: Performed By: #### C BC #### [facility] [address] [place] [address] Dr. Alo Johnson PLT 236 103/ul Normal 150-450 [facility] Comment on above: Performed By: #### C BC #### [facility] [address] [place] [address] [address] Alo Johnson RBC 4.45 106/ul Critically low 4.70-6.10 [facility] Comment on above: Performed By: #### C BC #### [facility] [address] [place] [address] [address] Alo Johnson WBC 11.5 103/ul Critically high 4.0-11.0 [facility] Comment on above: Performed By: #### C BC #### [facility] [address] [place] [address] [address] Alo Johnson CULTURE BLOODon 10-24-2022 Microscopic examination of blood, culture Culture Observations: NO GROWTH AT 5 DAYS. Isolate 1 BC_BA_NA Normal [facility] Comment on above: Performed By: #### I NSULIN #### [facility] [address] [place] [address] [address] Alo Johnson Microscopic examination of blood, culture Culture Observations: NO GROWTH AT 5 DAYS. Isolate 1 BC_BA_NA Normal [facility] Comment on above: Performed By: #### I NSULIN #### [facility] [address] [place] [address] [address] Alo Johnson Covid-19 PCR ([facility])on 10-05 SARS-CoV-2 (COVID-19) RNA ANGELICA+probe Ql (Unsp spec) Not detected Normal NOT DETECTED [facility] Comment on above: Result Comment: When [...] for this test is supported by the [employer] of [employer] and Human Service's declaration that [...] used). Performed By: #### I NSULIN #### [facility] [address] [place] [address] Dr. Alo Johnson ECHOCARDIO M/2D COMPLETEon 0 10-24-2022 ECHOCARDIO M/2D COMPLETE Patient: NICK DOYLE Exam Date: 10/24/2022 : 1945 Gender:M Ordering : MICHAEL PRADO Admission #: [id number] Family : ALIS RICARDO . Order #: [id number] CLICK HERE TO VIEW EXAM ECHOCARDIOGRAM REPORT [...] Mei M.D. on 10/24/2022 at 15:33 Normal [facility] ETHANOL (D ALC)on 10-25-19 23 ALC NOTE NOTE: 80 mg/dl is the legal limit for a blood alcohol level Normal [facility] Comment on above: Performed By: #### I NSULIN #### [facility] [address] [place] [address] [address] Alo Johnson Ethanol [Mass/Vol] mg/dL Normal [facility] Comment on above: Performed By: #### I NSULIN #### [facility] [address] [place] [address] Dr. Alo Johnson LACTATE/LACTIC ACIDon 2022 Lactate [Moles/Vol] 1.3 mmol/L Normal 0.4-2.0 [facility] Comment on above: Performed By: #### L ACT #### [facility] [address] [place] [address] Dr. Alo Johnson PROF CHEM 8 (BAS METB)on Anion gap [Moles/Vol] 14.9 mmol/L Normal [facility] Comment on above: Performed By: #### H STROPN, BMP, BNP #### [facility] [address] [place] [address] Dr. Alo Johnson Calcium [Mass/Vol] 10.0 mg/dL Normal 8.5-10.1 [facility] Comment on above: Performed By: #### H STROPN, BMP, BNP #### [facility] [address] [place] [address] Dr. Alo Johnson Chloride [Moles/Vol] 103 mmol/L Normal 98-107 [facility] Comment on above: Performed By: #### H STROPN, BMP, BNP #### [facility] [address] [place] [address] Dr. Alo Johnson CO2 [Moles/Vol] 26.2 mmol/L Normal 21.0-32.0 [facility] Comment on above: Performed By: #### H STROPN, BMP, BNP #### [facility] [address] [place] [address] Dr. Alo Johnson Creatinine [Mass/Vol] 1.10 mg/dL Normal 0.70-1.30 [facility] Comment on above: Performed By: #### H STROPN, BMP, BNP #### [facility] [address] [place] [address] Dr. Alo Johnson EGFR-AF PORTUGUESE >60 Normal >=60 [facility] Comment on above: Performed By: #### H STROPN, BMP, BNP #### [facility] [address] [place] [address] Dr. Alo Johnson EGFR-NON AF PORTUGUESE >60 Normal >=60 [facility] Comment on above: Performed By: #### H STROPN, BMP, BNP #### [facility] [address] [place] [address] [address] Aol Johnson Glucose [Mass/Vol] 135 mg/dL Critically high 74-106 T [facility] Comment on above: Performed By: #### H STROPN, BMP, BNP #### [facility] [address] [place] [address] [address] Alo Johnson Potassium [Moles/Vol] 4.1 mmol/L Normal 3.5-5.1 [facility] Comment on above: Performed By: #### H STROPN, BMP, BNP #### [facility] [address] [place] [address] Dr. Alo Johnson Sodium [Moles/Vol] 140 mmol/L Normal 136-145 [facility] Comment on above: Performed By: #### H STROPN, BMP, BNP #### [facility] [address] [place] [address] [address] Alo Johnson Urea nitrogen [Mass/Vol] 21.0 mg/dL Critically high 7.0-18.0 [facility] Comment on above: Performed By: #### H STROPN, BMP, BNP #### [facility] [address] [place] [address] Dr. Alo Johnson Urea nitrogen/Creatinine [Mass ratio] 19.1 mg/mg Normal [facility] Comment on above: Performed By: #### H STROPN, BMP, BNP #### [facility] [address] [place] [address] Dr. Alo Johnson TROPONIN, HIGH SENSITIVITYon 10-24-2022 HSTROP 35.8 pg/mL Normal 4.0-76.1 [facility] Comment on above: Result Comment: CUT- OFF POINTS HAVE BEEN ESTABLISHED BASED ON THE FOURTH UNIVERSAL DEFINITIONS OF MYOCARDIAL INFARCTION. THE UPPER REFERENCE LIMIT (URL) OF TROPONIN, DEFINED THE 99TH PERCENTILE OF cTnI DISTRIBUTION IN A REFERENCE POPULATION, HAS BEEN CONFIRMED THE DECISION THRESHOLD FOR SC DIAGNOSIS. Performed By: #### A 1C #### [facility] [address] [address] [address] Alo Johnson HSTROP 14.1 pg/mL Normal 4.0-76.1 [facility] Comment on above: Result Comment: CUT- OFF POINTS HAVE BEEN ESTABLISHED BASED ON THE FOURTH UNIVERSAL DEFINITIONS OF MYOCARDIAL INFARCTION. THE UPPER REFERENCE LIMIT (URL) OF TROPONIN, DEFINED THE 99TH PERCENTILE OF cTnI DISTRIBUTION IN A REFERENCE POPULATION, HAS BEEN CONFIRMED THE DECISION THRESHOLD FOR SC DIAGNOSIS. Performed By: #### H STROPN, BMP, BNP #### [facility] [address] [place], [place] [address] Dr. Alo Johnson TSHon 10-24-2022 TSH 3.366 uIU/mL Normal 0.358-3.740 [facility] Comment on above: Performed By: #### I NSULIN #### [facility] [address] [address] [address] Alo Johnson XR CHEST 1 Von [...] NALINI CHIRINOS Date: 2022-10-24 01:01 Normal [facility] INSULINon 10-17-2022 Insulin 9.5 uIU/mL Normal 2.6-24.9 [facility] Comment on above: Performed By: #### I NSULIN #### [facility] [address] [address] [address] Alo Johnson PSA, FREE AND TOTAL RATIOon 10-17-2022 % Free PSA 21.9 % Normal [facility] Comment on above: Result Comment: The table [...] men. Performed By: #### I NSULIN #### [facility] [address] [place] [address] Dr. Alo Johnson Prostate specific Ag [Mass/Vol] 10.6 ng/mL Critically high 0.0-4.0 [facility] Comment on above: Result Comment: [place] ECLIA methodology. . According to the [place] [employer], Serum PSA should decrease and [...] disease. Performed By: #### I NSULIN #### [facility] [address] [place] [address] Dr. Alo Johnson PSA, Free 2.32 ng/mL Normal N/A [facility] Comment on above: Result Comment: [place]os[place] schrader ECLIA methodology. Performed By: #### I NSULIN #### [facility] [address] [place] [address] Dr. Alo Johnson CBC AUTO DIFFon 10-16-2022 BASO # 0.0 103/ul Normal 0.0-0.1 [facility] Comment on above: Performed By: #### I NSULIN #### [facility] [address] [place] [address] Dr. Alo Johnson Basophils/100 WBC (Bld) 0.4 % Normal 0.2-2.0 [facility] Comment on above: Performed By: #### I NSULIN #### [facility] [address] [place] [address] Dr. Alo Johnson EO # 0.6 103/ul Normal 0.0-0.7 [facility] Comment on above: Performed By: #### I NSULIN #### [facility] [address] [place] [address] Dr. Alo Johnson Eosinophils/100 WBC (Bld) 5.8 % Normal 0.9-7.0 [facility] Comment on above: Performed By: #### I NSULIN #### [facility] [address] [place] [address] Dr. Alo Johnson Erythrocyte distribution width (RBC) [Ratio] 12.6 % Normal 11.0-15.0 [facility] Comment on above: Performed By: #### I NSULIN #### [facility] [address] [place] [address] Dr. Alo Johnson Hematocrit (Bld) [Volume fraction] 42.8 % Normal 42.0-54.0 [facility] Comment on above: Performed By: #### I NSULIN #### [facility] [address] [place] [address] Dr. Alo Johnson Hemoglobin (Bld) [Mass/Vol] 15.1 g/dL Normal 14.0-18.0 [facility] Comment on above: Performed By: #### I NSULIN #### [facility] [address] [place] [address] Dr. Alo Johnson IG # 0.02 10e3/ul Normal 0.00-0.03 [facility] Comment on above: Performed By: #### I NSULIN #### [facility] [address] [place] [address] Dr. Alo Johnson IG % 0.2 % Normal 0.0-0.5 [facility] Comment on above: Performed By: #### I NSULIN #### [facility] [address] [place] [address] Dr. Alo Johnson LYMPH # 3.4 103/ul Normal 1.2-3.8 [facility] Comment on above: Performed By: #### I NSULIN #### [facility] [address] [place] [address] Dr. Alo Johnson Lymphocytes/100 WBC (Bld) 36.5 % Normal 20.5-60.0 [facility] Comment on above: Performed By: #### I NSULIN #### [facility] [address] [address] [address] Alo Johnson MANUAL DIFF REQ NO Normal [facility] Comment on above: Performed By: #### I NSULIN #### [facility] [address] [place] [address] Dr. Alo Johnson MCH (RBC) [Entitic mass] 33.3 pg Normal 25.9-34.0 [facility] Comment on above: Performed By: #### I NSULIN #### [facility] [address] [place] [address] Dr. Alo Johnson MCHC (RBC) [Mass/Vol] 35.3 g/dL Critically high 29.9-35.2 [facility] Comment on above: Performed By: #### I NSULIN #### [facility] [address] [place] [address] Dr. Alo Johnson MCV (RBC) [Entitic vol] 94.3 fL Critically high 80.0-94.0 [facility] Comment on above: Performed By: #### I NSULIN #### [facility] [address] [place] [address] Dr. Alo Johnson MONO # 0.6 103/ul Normal 0.3-0.8 [facility] Comment on above: Performed By: #### I NSULIN #### [facility] [address] [place] [address] Dr. Alo Johnson Monocytes/100 WBC (Bld) 5.9 % Normal 1.7-12.0 [facility] Comment on above: Performed By: #### I NSULIN #### [facility] [address] [place] [address] Dr. Alo Johnson NEUT # 4.8 103/ul Normal 1.4-6.5 [facility] Comment on above: Performed By: #### I NSULIN #### [facility] [address] [place] [address] Dr. Alo Johnson Neutrophils/100 WBC (Bld) 51.2 % Normal 43.0-75.0 [facility] Comment on above: Performed By: #### I NSULIN #### [facility] [address] [address] [address] Alo Johnson Platelet mean volume (Bld) [Entitic vol] 9.0 fL Critically low 9.5-13.5 [facility] Comment on above: Performed By: #### I NSULIN #### [facility] [address] [address] [address] Alo Johnson PLT 240 103/ul Normal 150-450 [facility] Comment on above: Performed By: #### I NSULIN #### [facility] [address] [address] [address] Alo Johnson RBC 4.54 106/ul Critically low 4.70-6.10 [facility] Comment on above: Performed By: #### I NSULIN #### [facility] [address] [address] [address] Alo Johnson WBC 9.4 103/ul Normal 4.0-11.0 [facility] Comment on above: Performed By: #### I NSULIN #### [facility] [address] [address] [address] Alo Johnsno GLYCOHEMOGLOBIN A1Con 2022 ADA RECOMMENDATION SEE BELOW Normal [facility] Comment on above: Result Comment: ADA RECOMMENDED LIMIT 4.0 - 6.0 ADA THERAPEUTIC TARGET < 7.0 ACTION SUGGESTED > 7.0 Performed By: #### A 1C #### [facility] [address] [address] [address] Alo Johnson Glucose [Mass/Vol] 111 mg/dL Normal [facility] Comment on above: Performed By: #### A 1C #### [facility] [address] [address] [address] Alo Johnson HbA1c (Bld) [Mass fraction] 5.5 % Normal 4.5-6.2 [facility] Comment on above: Performed By: #### A 1C #### [facility] [address] [address] [address] Alo Johnson LIPID PROFILEon 10-16-2022 CHOL-HDL RATIO NORM SEE BELOW Normal [facility] Comment on above: Result Comment: 3.3 - 4.4 LOW RISK 4.4 - 7.1 AVERAGE RISK 7.1 - 11.0 MODERATE RISK >11.0 HIGH RISK Performed By: #### C MP, LIPID, URIC #### [facility] [address] [address] [address] Alo Johnson Cholesterol [Mass/Vol] 229 mg/dL Critically high <=200 [facility] Comment on above: Performed By: #### C MP, LIPID, URIC #### [facility] [address] [address] [address] Alo Johnson Cholesterol in HDL [Mass/Vol] 48 mg/dL Normal 40-60 [facility] Comment on above: Performed By: #### C MP, LIPID, URIC #### [facility] [address] [address] [address] Alo Johnson Cholesterol in LDL [Mass/Vol] 152.8 mg/dL Normal [facility] Comment on above: Performed By: #### C MP, LIPID, URIC #### [facility] [address] [address] [address] Alo Johnson Cholesterol.total/Chol esterol in HDL [Mass ratio] 4.8 {ratio} Normal [facility] Comment on above: Performed By: #### C MP, LIPID, URIC #### [facility] [address] [address] [address] Alo Johnson HDL NORMAL > or = 60 mg/dl - LOW CARDIOVASCULAR RISK <40 mg/dl - HIGH CARDIOVASCULAR RISK Normal [facility] Comment on above: Performed By: #### C MP, LIPID, URIC #### [facility] [address] [address] [address] Alo Johnson LDL CALC NORMAL SEE BELOW Normal [facility] Comment on above: Result Comment: <100 mg/dl OPTIMAL 100 - 129 mg/dl NEAR OR ABOVE OPTIMAL 130 - 159 mg/dl BORDERLINE HIGH 160 - 189 mg/dl HIGH >190 mg/dl VERY HIGH Performed By: #### C MP, LIPID, URIC #### [facility] [address] [address] [address] Alo Johnson Triglyceride [Mass/Vol] 141 mg/dL Normal <=150 [facility] Comment on above: Performed By: #### C MP, LIPID, URIC #### [facility] [address] [place] [address] Dr. Alo Johnson VLDL CALC 28.2 mg/dL Normal [facility] Comment on above: Performed By: #### C MP, LIPID, URIC #### [facility] [address] [address] [address] Alo Johnson PROF 14(COMP METB)on 023 Albumin [Mass/Vol] 4.0 g/dL Normal 3.4-5.0 [facility] Comment on above: Performed By: #### C MP, LIPID, URIC #### [facility] [address] [place] [address] Dr. Alo Johnson Albumin/Globulin [Mass ratio] 1.4 {ratio} Normal [facility] Comment on above: Performed By: #### C MP, LIPID, URIC #### [facility] [address] [place] [address] Dr. Alo Johnson ALP [Catalytic activity/Vol] 63 U/L Normal 46-116 [facility] Comment on above: Performed By: #### C MP, LIPID, URIC #### [facility] [address] [place] [address] Dr. Alo Johnson ALT [Catalytic activity/Vol] 21 U/L Normal 16-63 [facility] Comment on above: Performed By: #### C MP, LIPID, URIC #### [facility] [address] [place] [address] Dr. Alo Johnson Anion gap [Moles/Vol] 13.6 mmol/L Normal [facility] Comment on above: Performed By: #### C MP, LIPID, URIC #### [facility] [address] [place] [address] Dr. Alo Johnson AST [Catalytic activity/Vol] 22 U/L Normal 15-37 [facility] Comment on above: Performed By: #### C MP, LIPID, URIC #### [facility] [address] [address] [address] Alo Johnson Bilirubin [Mass/Vol] 0.7 mg/dL Normal 0.2-1.0 [facility] Comment on above: Performed By: #### C MP, LIPID, URIC #### [facility] [address] [address] [address] Alo Johnson Calcium [Mass/Vol] 9.4 mg/dL Normal 8.5-10.1 [facility] Comment on above: Performed By: #### C MP, LIPID, URIC #### [facility] [address] [address] [address] Alo Johnson Chloride [Moles/Vol] 104 mmol/L Normal 98-107 [facility] Comment on above: Performed By: #### C MP, LIPID, URIC #### [facility] [address] [place] [address] Dr. Alo Johnson CO2 [Moles/Vol] 25.4 mmol/L Normal 21.0-32.0 [facility] Comment on above: Performed By: #### C MP, LIPID, URIC #### [facility] [address] [place] [address] Dr. Alo Johnson Creatinine [Mass/Vol] 1.08 mg/dL Normal 0.70-1.30 [facility] Comment on above: Performed By: #### C MP, LIPID, URIC #### [facility] [address] [place] [address] Dr. Alo Johnson EGFR-AF PORTUGUESE >60 Normal >=60 [facility] Comment on above: Performed By: #### C MP, LIPID, URIC #### [facility] [address] [place] [address] Dr. Alo Johnson EGFR-NON AF PORTUGUESE >60 Normal >=60 [facility] Comment on above: Performed By: #### C MP, LIPID, URIC #### [facility] [address] [place] [address] Dr. Alo Johnson Globulin (S) [Mass/Vol] 2.9 g/dL Normal [facility] Comment on above: Performed By: #### C MP, LIPID, URIC #### [facility] [address] [address] [address] Alo Johnson Glucose [Mass/Vol] 106 mg/dL Normal 74-106 [facility] Comment on above: Performed By: #### C MP, LIPID, URIC #### [facility] [address] [address] [address] Alo Johnson Potassium [Moles/Vol] 4.0 mmol/L Normal 3.5-5.1 [facility] Comment on above: Performed By: #### C MP, LIPID, URIC #### [facility] [address] [place] [address] Dr. Alo Johnson Protein [Mass/Vol] 6.9 g/dL Normal 6.4-8.2 [facility] Comment on above: Performed By: #### C MP, LIPID, URIC #### [facility] [address] [place] [address] Dr. Alo Johnson Sodium [Moles/Vol] 139 mmol/L Normal 136-145 [facility] Comment on above: Performed By: #### C MP, LIPID, URIC #### [facility] [address] [place] [address] Dr. Alo Johnson Urea nitrogen [Mass/Vol] 16.0 mg/dL Normal 7.0-18.0 [facility] Comment on above: Performed By: #### C MP, LIPID, URIC #### [facility] [address] [place] [address] Dr. Alo Johnson Urea nitrogen/Creatinine [Mass ratio] 14.8 mg/mg Normal [facility] Comment on above: Performed By: #### C MP, LIPID, URIC #### [facility] [address] [place] [address] Dr. Alo Johnson URIC ACID SERUMon 10-16-2022 Urate [Mass/Vol] 6.5 mg/dL Normal 3.5-7.2 [facility] Comment on above: Performed By: #### C MP, LIPID, URIC #### [facility] [address] [place] [address] Dr. Alo Johnson Vital Signs Date Time Vital Sign Value Performing Clinician Tierney peace 04-10-2024 15:15-0400 Blood Pressure Location Ale Lue [facility] 04-10-2024 15:15-0400 Diastolic blood pressure 62 mm[Hg] Ale Lue [facility] 04-10-2024 15:15-0400 Heart rate 76 /min Ale Lue [facility] 04-10-2024 15:15-0400 Systolic blood pressure 130 mm[Hg] Ale Lue [facility] 02-27-2024 10:55-0400 Blood Pressure Location Ale Lue [facility] 02-27-2024 10:55-0400 Body temperature 98.6 [degF] Ale Lue [facility] 02-27-2024 10:55-0400 Diastolic blood pressure 65 mm[Hg] Ale Lue [facility] 02-27-2024 10:55-0400 Heart rate 56 /min Ale Lue [facility] 02-27-2024 10:55-0400 Respiratory rate 16 /min Ale Lue [facility] 02-27-2024 10:55-0400 Systolic blood pressure 127 mm[Hg] Ale Lue [facility] 06-01-2022 15:00-0400 Diastolic blood pressure 64 mm[Hg] Vianca Cui [facility] 06-01-2022 15:00-0400 Mean blood pressure 99 mm[Hg] Vianca Cui [facility] 06-01-2022 15:00-0400 Systolic blood pressure 169 mm[Hg] Vianca Cui [facility] 06-01-2022 14:30-0400 Blood Pressure Location Vianca Cui [facility] 06-01-2022 14:30-0400 Diastolic blood pressure 70 mm[Hg] Vianca Cui [facility] 06-01-2022 14:30-0400 Heart rate 86 /min Vianca Cui [facility] 06-01-2022 14:30-0400 SaO2% (BldA) [Mass fraction] 97 % Vianca Cui [facility] 06-01-2022 14:30-0400 Systolic blood pressure 148 mm[Hg] [facility] Encounters Encounter Date Encounter Type Care Provider Facility Start: 12-10-2024 End: 12-10-2024 ambulatory Ale M. Lue Facility:[facility] Start: 12-02-2024 End: 12-04-2024 Emergency department patient visit [facility] Start: 09-05-2024 End: 09-05-2024 ambulatory [facility] Start: 05-12-2024 End: 05-12-2024 Patient encounter procedure INFORMATION SECURITY CONSULTANT-C Tatiana Lanza Work Phone: [facility] Work Phone: Start: 05-12-2024 End: 05-12-2024 ambulatory Ale M Lue Facility:[facility] Start: 04-10-2024 End: 04-10-2024 ambulatory Ale M. Lue Facility: [facility] Start: 04-10-2024 End: 04-10-2024 Patient encounter procedure Ale Green [facility] Start: 03-26-2024 End: 03-26-2024 ambulatory Ale Green Facility: [place] Start: 03-26-2024 End: 03-26-2024 ambulatory INFORMATION SECURITY CONSULTANT-C Tatiana Lanza Work Phone: [facility] Work Phone: Start: 03-26-2024 End: 03-26-2024 Departed Referred INFORMATION SECURITY CONSULTANT-C Tatiana Lanza Work Phone: [facility] Path [facility] Start: 03-26-2024 End: 03-26-2024 Off-Site Ale Green [facility] Start: 03-12-2024 Non-patient / Non-visit INFORMATION SECURITY CONSULTANT-C P joseph Lanza Work Phone: [facility] Work Phone: Start: 03-11-2024 End: 03-11-2024 Patient encounter procedure INFORMATION SECURITY CONSULTANT-C Tatiana Lanza Work Phone: [facility] [place] Work Phone: Start: 03-11-2024 End: 03-11-2024 ambulatory INFORMATION SECURITY CONSULTANT-C Tatiana Alice Donn Work Phone: [facility] Work Phone: Start: 02-27-2024 End: 02-27-2024 ambulatory Ale Green [facility] Start: 02-27-2024 End: 02-27-2024 Patient encounter procedure Ale Green [facility] Start: 02-26-2024 End: 02-26-2024 ambulatory [facility] Start: 10-24-2022 End: 10-24-2022 ambulatory TATIANA LANZA Facility:[facility] Start: 10-16-2022 End: 10-17-2022 ambulatory TATIANA LANZA Facility:[facility] Start: 06-01-2022 End: 06-01-2022 Patient encounter procedure Vianca Cui [facility] Procedures Date Procedure Procedure Detail Performing Clinician Start: 05-12-2024 Positron emission tomography INFORMATION SECURITY CONSULTANT-C Tatiana Donn Work Phone: Start: 03-11-2024 MR prostate wo/w con INFORMATION SECURITY CONSULTANT -C Tatiana Donn Work Phone: Start: 10-16-2022 PSA screening TATIANA LLOYD Comment on above: Performed By: #### I NSULIN #### [facility] [address] [place] [address] Dr. Alo Johnson Start: 03-24-2020 Colonoscopy Vianca helms Start: 06-30-2014 Transrectal biopsy o f prostate using ultrasound guidance Vianca Cui Comment on above: and Cysto Start: 08-06-1979 Repair of ankle Vianca Cui Comment on above: due to fx Decompression of med ghanshyam nerve Vianca Cui Tonsillectomy Vianca Cui Comment on above: as a child Payers Date Payer Category Payer Self-pay [id number] 2023 Private Health Insurance [id number] 2020 Unknown [id number] 1945 Unknown [id number] 1943 Unknown [id number] 1943 Unknown [id number] 1943 Unknown [id number] 1943 Unknown [id number] 1943 Unknown [id number] 727 1943 Unknown [id number] 727 Medicare Medicare [id number] Private Health Insurance [facility] [id number] Unknown [id number] 531 Unknown [id number] 531 Unknown [id number] 531 Social History Date Type Detail Facility Start: 10-28-2020 End: 04-10-2024 Tobacco smoking status Ex-smoker (finding) [facility] Comment on above: pt quit smoking in 1 986 Sex Assigned At Male [facility] Start: 1945 Sex Assigned At Male [facility] Tobacco smoking status Never [facility] Comment on above: pt quit smoking in 1 986 Functional Status Date Assessment Result Facility 04-10-2024 Functional Status N/A [facility] 02-27-2024 Functional Status N/A [facility] 06-01-2022 Functional Status No [facility] Clinical Notes 02-26-2024 to 12-10-2024 Note Date & Type Note Facility 12-10-2024 Note Patient Education Oncology Prostate Cancer Screening Prostate cancer screening is testing that is done to check for the presence of prostate cancer in men. The prostate gland is a walnut-sized gland that is located below the bladder and in front of the rectum in males. The function of the prostate is to add fluid to semen during ejaculation. Prostate cancer is one of the most common types of cancer in men. Who should have prostate cancer screening? Screening recommendations vary based on age and other risk factors, as well as between the professional organizations who make the recommendations. In general, screening is recommended if: ??? You are age 50 to 70 and have an average risk for prostate cancer. You should talk with your health care provider about your need for screening and how often screening should be done. Because most prostate cancers are slow growing and will not cause , screening in this age group is generally reserved for men who have a 10- to 15-year life expectancy. ??? You are younger than age 50, and you have these risk factors: ? Having a father, brother, or uncle who has been diagnosed with prostate cancer. The risk is higher if your family member's cancer occurred at an early age or if you have multiple family members with prostate cancer at an early age. ? Being a male who is Black or is of [place] or sub-Saharan descent. In general, screening is not recommended if: ??? You are younger than age 40. ??? You are between the ages of 40 and 49 and you have no risk factors. ??? You are 70 years of age or older. At this age, the risks that screening can cause are greater than the benefits that it may provide. If you are at high risk for prostate cancer, your health care provider may recommend that you have screenings more often or that you start screening at a younger age. How is screening for prostate cancer done? The recommended prostate cancer screening test is a blood test called the prostate-specific antigen (PSA) test. PSA is a protein that is made in the prostate. As you age, your prostate naturally produces more PSA. Abnormally high PSA levels may be caused by: ??? Prostate cancer. ??? An enlarged prostate that is not caused by cancer (benign prostatic hyperplasia, or BPH). This condition is very common in older men. ??? A prostate gland infection (prostatitis) or urinary tract infection. ??? Certain medicines such as male hormones (like testosterone) or other medicines that raise testosterone levels. A rectal exam may be done as part of prostate cancer screening to help provide information about the size of your prostate gland. When a rectal exam is performed, it should be done after the PSA level is drawn to avoid any effect on the results. Depending on the PSA results, you may need more tests, such as: ??? A physical exam to check the size of your prostate gland, if not done as part of screening. ??? Blood and imaging tests. ??? A procedure to remove tissue samples from your prostate gland for testing (biopsy). This is the only way to know for certain if you have prostate cancer. What are the benefits of prostate cancer screening? Screening can help to identify cancer at an early stage, before symptoms start and when the cancer can be treated more easily. ??? There is a small chance that screening may lower your risk of dying from prostate cancer. The chance is small because prostate cancer is a slow-growing cancer, and most men with prostate cancer from a different cause. What are the risks of prostate cancer screening? The main risk of prostate cancer screening is diagnosing and treating prostate cancer that would never have caused any symptoms or problems. This is called overdiagnosisand overtreatment. PSA screening cannot tell you if your PSA is high due to cancer or a different cause. A prostate biopsy is the only procedure to diagnose prostate cancer. Even the results of a biopsy may not tell you if your cancer needs to be treated. Slow-growing prostate cancer may not need any treatment other than monitoring, so diagnosing and treating it may cause unnecessary stress or other side effects. Questions to ask your health care provider ??? When should I start prostate cancer screening? What is my risk for prostate cancer? How often do I need screening? What type of screening tests do I need? How do I get my test results? What do my results mean? Do I need treatment? Where to find more information ??? The [place] [employer]: www.cancer.org ??? [place] [employer]: www.auanet.org Contact a health care provider if: ??? You have difficulty urinating. ??? You have pain when you urinate or ejaculate. ??? You have blood in your urine or semen. ??? You have pain in your back or in the area of your prostate. Summary ??? Prostate cancer is a common type of cancer in men. The prostate gland (more content not included)... [facility] 09-05-2024 Note [place] [facility] - [facility] Subjective Nick Doyle is a 79 y.o. 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 He denies any chest pain or shortness of breath at rest or with exertion. He denies orthopnea or paroxysmal Dyspnea. He denies any palpitations. He admits occasional dizziness when he stands up. He denies syncope or near syncope. Denies legs edema or leg discomfort on exertion He used to be a smoker but he quit 1985. He still chews tobacco at time. He reports compliance with medications. He denies any signs of bleeding. ROS All systems were reviewed and they were negative except for the positive findings noted above in the history Past Medical History: Diagnosis Date Abnormal ECG Arrhythmia Atrial fibrillation (CMS/HCC) Hypertension Past Surgical History: Procedure Laterality Date ANKLE SURGERY TONSILLECTOMY Family History Problem Relation Name Age of Onset Heart attack Father Heart attack Brother Social History Tobacco Use Smoking status: Former Types: Cigarettes Smokeless tobacco: Current Substance Use Topics Alcohol use: Yes Comment: occasional Allergies Allergies Allergen Reactions Penicillins Medications Current Outpatient Medications: dilTIAZem CD (Cardizem CD) 120 mg 24 hr capsule, TAKE 1 CAPSULE BY MOUTH ONCE A DAY*HOLD IF SYSTOLIC BLOOD PRESSURE IS <100,HEARTRATE<55, Disp: , Rfl: Eliquis 5 mg tablet, Take 5 mg by mouth in the morning and at bedtime., Disp: , Rfl: ferrous sulfate 325 (65 Fe) MG tablet, Take by mouth with breakfast., Disp: , Rfl: garlic tablet, Take 1,000 mg by mouth in the morning., Disp: , Rfl: ginseng 100 mg capsule, Take 100 mg by mouth 2 (two) times a week., Disp: , Rfl: losartan (Cozaar) 100 mg tablet, Take 100 mg by mouth in the morning., Disp: , Rfl: multivitamin tablet, Take 1 tablet by mouth in the morning., Disp: , Rfl: terazosin (Hytrin) 5 mg capsule, TAKE 1 CAPSULE BY MOUTH EVERYDAY AT BEDTIME, Disp: , Rfl: Objective Visit Vitals BP 138/70 (BP Location: Right arm, Patient Position: Sitting) Pulse 75 Ht 1.676 m (5' 6 ) Wt 63.5 kg (140 lb) SpO2 96% BMI 22.60 kg/m??? Smoking Status Former BSA 1.72 m??? Physical exam: GENERAL: alert and oriented x3, well developed, in no acute distress. HEAD: atraumatic, normocephalic. EYES: ANNETTA, EOMI. NECK: trachea midline, no JVD present, no carotid bruits present. CARDIAC: S1, S2 present. RRR. No murmur, rubs, or gallops. RESPIRATORY: CTAB, no increased effort of breathing, no rales, rhonchi, or wheezing. ABDOMEN: soft, nontender, nondistended. EXTREMITIES: no lower extremity edema. No rash/skin discoloration present. NEURO: strength/sensation equal and symmetric in bilateral upper and lower extremities. PSYCH: appropriate mood, affect, and judgement. Recent Labs 04/30/2024 White blood count 9.9, hemoglobin 14, hematocrit 42, platelets 214 Sodium 135, potassium 4.5, BUN 17, creatinine 1.22 GFR above 60 glucose 93, calcium 10 Total bilirubin 0.5, AST 14, ALT 16, alk phos 68, total protein 6.7, albumin 1.3 TSH 2.85, free T45.9, free T32.3 12/20/2023 HbA1c 5.9% Triglyceride 93, cholesterol 189, LDL 118, HDL 52 Imaging and other tests EK03/12/2024 showed sinus bradycardia, heart rate 57 bpm, left axis deviation and right bundle branch block, no T or ST changes Echo: 10/24/2022 Lexiscan nuclear stress test: 04/04/2023 Nuclear portion EKG portion Assessment/Plan Paroxysmal atrial fibrillation On Cardizem for rate control and Eliquis for anticoagulation Hypertension, on Cardizem, losartan and also Hytrin helps with that. Blood pressure is well-controlled Mild hyperlipidemia, LDL 118 December 2023 Nicotine dependence: He used to smoke cigarettes but he quit in 1985. Currently he chews tobacco at times Plan: Continue current medications including Eliquis, Cardizem, Hytrin, and losartan. Lipids management per PCP Patient was advised regarding the importance of stopping nicotine consumption even in the chewing formula. He reports that he does it very infrequently and he is working on stopping. Follow-up in 1 year or sooner if needed Subha Whittington MD,[facility] 04-10-2024 Hospital Discharge instructions Patient Education 04/10/2024 [...] stress of having cancer. General instructions Take aofa-fto-jwtfowx and prescription medicines only as told by your health care provider. If you have to go to the hospital, notify your cancer specialist (oncologist). Keep all follow-up visits. This is important. Where to find more information [place] [employer]: www.cancer.org [place] [employer] Clinical Oncology: www.cancer.net National Cancer [place]: www.cancer.gov Contact a health care provider if: [...] provider. Document Revised: 10/19/2021 Document Reviewed: 10/19/2021 [employer] Patient Education 2023 [employer]. Follow Up Care 03/31/2024 09:20:27 With:Peter AMOR, RADHA Hagan, URO Address: When: Unknown [facility] 04-10-2024 Note Patient Education Oncology Prostate Cancer [...] under a microscope. This is called the Vickery score and the total score can range from 6?10, indicating how likely it is that the cancer will spread (metastasize) to other parts of the body. The higher the score, the greater the likelihood that the cancer will spread. ? Vickery 6 or lower: This indicates that the cancer cells look similar to normal prostate cells (well differentiated). ? Vickery 7: This indicates that the cancer cells look somewhat similar to normal prostate cells (moderately differentiated). ? Vickery 8, 9, or 10: This indicates that [...] the prostate gla (more content not included)... [facility] 02-27-2024 Hospital Discharge instructions Patient Education 02/27/2024 [...] discomfort near your rectum, especially while sitting. [place]-colored urine due to small amounts of blood in your urine. A burning feeling while urinating. Blood in your stool (feces) or bleeding from your rectum. Blood in your semen. Follow these instructions at home: Medicines Take mcrz-sxu-qzszgix and prescription medicines only as told by [...] provider. Document Revised: 01/16/2022 Document Reviewed: 01/16/2022 [employer] Patient Education 2022 [employer]. 02/27/2024 12:02:56 Transrectal Ultrasound-Guided Prostate Biopsy Transrectal [...] including vitamins, herbs, eye drops, creams, and fphq-pgu-puncaoq medicines. Any problems you or family members [...] provider tells you to take them. Taking uvrl-qwg-mwunxgz medicines, vitamins, herbs, and supplements. General instructions [...] provider. Document Revised: 01/16/2022 Document Reviewed: 01/16/2022 [employer] Patient Education 2022 [employer]. 02/27/2024 11:47:00 Prostate Cancer Prostate Cancer The [...] similar to normal prostate cells (moderately differentiated). Vickery 8, 9, or 10: This indicates that [...] stress of having cancer. General instructions Take rgbc-rct-dsmcgyw and prescription medicines only as told by your health care provider. If you have to go to the hospital, notify your cancer specialist (oncologist). Keep all follow-up visits. This is important. Where to find more information [place] [employer]: www.cancer.org [place] [employer] of Clinical Oncology: www.cancer.net National Cancer [place]: www.cancer.gov Contact a health care provider if: [...] provider. Document Revised: 10/19/2021 Document Reviewed: 10/19/2021 [employer] Patient Education 2022 [employer]. Follow Up Care 02/08/2024 12:41:54 With:Peter AMOR, RADHA Hagan, URO Address: When: Unknown [facility] Note Patient Education Oncology Transrectal Ultrasound-Guided [...] near your rectum, especially while sitting. ? [place]-colored urine due to small amounts of blood in your urine. ? A burning feeling while urinating. ? Blood in your stool (feces) or bleeding from your rectum. ? Blood in your semen. Follow these instructions at home: Medicines ? Take xqfl-gfq-blvakkz and prescription medicines only as told by [...] provider. Document Revised: 01/16/2022 Document Reviewed: 01/16/2022 [employer] Patient Education ? 2022 [employer] Transrectal Ultrasound-Guided Prostate Biopsy A transrectal ultrasound-guided [...] including vitamins, herbs, eye drops, creams, and ybko-hos-zuifzun medicines. ? Any problems you or family [...] ? Taking medici (more content not included)... 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 Labs: 12/20/2023 (more content not included)... [facility] 02-26-2024 Note Patient here for 6 [...] All other systems reviewed and are negative. [facility] Evaluation + Plan note No data available for this section [facility] Evaluation note No assessment inform ation available [facility] Work Phone: Hospital Discharge instructions No data available for this section [facility] Progress note No data available for this section [facility] Summary Purpose Family History No Family History Records Found No data available for this section No data available for this section No data available for this section No Family History Records FoundNo Family History Records FoundNo Family History Records FoundNo Family History Records [...] Team Status: Inactive Member Role Status Dates Tatinaa Lanza NP-Nat Primary Care Provider Active Start: May 12, 2024 End: May 12, 2024 Ale Green MD Attending Provider Active Start : May 12, 2024 End: May 12, 2024 (unrecognized sect ion and content) No Status Records FoundNo Status Records FoundNo Status Records FoundNo Status Records FoundNo Status Records Found INFORMATION SOURCE (unrecogn ized section and content) DATE CREATED AUTHOR 10/29/2022 [facility] DATE CREATED AUTHOR AUTHOR'S ORGANIZ ATION 05/13/2024 [facility] DATE CREATED AUTHOR AUTHOR'S ORGANIZ ATION 09/08/2024 [facility] DATE CREATED AUTHOR AUTHOR'S ORGANIZ ATION 12/09/2024 [facility] DATE CREATED AUTHOR AUTHOR'S ORGANIZ ATION 12/13/2024 [facility] Goals (unrecognized section and content) Goals [...] BE BASED ON THE PRIMARY CLINICAL RECORDS. [facility] provides no warranty or guarantee of the accuracy or completeness of information in this document.
[2024-12-19 10:02] LABS: Basophils Percent Auto 0.5 % (0.2-2.0); Eosinophils Absolute Auto 0.4 10^3/uL (0.0-0.7); Eosinophils Percent Auto 4.6 % (0.9-7.0); Hematocrit 39.1 % (42.0-54.0); Hemoglobin 13.1 g/dL (14.0-18.0); Immature Granulocytes Abs Auto 0.01 10^3/uL (0.00-0.03); Immature Granulocytes Pct Auto 0.1 % (0.0-0.5); Lymphocytes Absolute Auto 2.7 10^3/uL (1.2-3.8); Lymphocytes Percent Auto 33.5 % (20.5-60.0); Mean Corpuscular HGB Conc 33.5 g/dL (29.9-35.2); Mean Corpuscular Hemoglobin 32.3 pg (25.9-34.0); Mean Corpuscular Volume 96.3 fL (80.0-94.0); Monocytes Absolute Auto 0.6 10^3/uL (0.3-0.8); Monocytes Percent Auto 7.9 % (1.7-12.0); Neutrophils Absolute Auto 4.3 10^3/uL (1.4-6.5); Neutrophils Percent Auto 53.4 % (43.0-75.0); Platelet Count 241 10^3/uL (150-450); Red Blood Count 4.06 10^6/uL (4.70-6.10)
[2024-12-19 10:08] LABS: Estimated Average Glucose 128 mg/dL; Glycohemoglobin A1C 6.1 % (4.5-6.2)
[2024-12-19 10:34] LABS: Prostate Specific Antigen Scrn 14.08 ng/mL (<=4.00)
[2024-12-19 10:49] LABS: Alanine Aminotransferase 14 U/L (16-63); Albumin Globulin Ratio 1.1; Albumin Level 3.5 g/dL (3.4-5.0); Alkaline Phosphatase 64 U/L (46-116); Anion Gap 7.3; Aspartate Amino Transferase 12 U/L (15-37); BUN Creatinine Ratio 14.3; Bilirubin Total 0.6 mg/dL (0.2-1.0); Calcium 9.3 mg/dL (8.5-10.1); Carbon Dioxide 32.6 mmol/L (21.0-32.0); Chloride 106 mmol/L (98-107); Chol HDL Ratio 3.6; Cholesterol 180 mg/dL (<=200); Estimated GFR (African America >60 (>=60 mL/min/1.73m^2); Estimated GFR (Non-African Ame 55 (>=60 mL/min/1.73m^2); Free T3 2.59 pg/mL (2.18-3.98); Globulin 3.1 g/dL; Glucose 101 mg/dL (74-106); HDL Cholesterol 50 mg/dL (40-60); LDL Cholesterol Calculated 110.4 mg/dL; Potassium 4.9 mmol/L (3.5-5.1); Sodium 141 mmol/L (136-145); Thyroid Stimulating Hormone 2.702 uIU/mL (0.358-3.740); Total Protein 6.6 g/dL (6.4-8.2); Triglycerides 98 mg/dL (<=150); Uric Acid 6.3 mg/dL (3.5-7.2); VLDL CHOLESTEROL 19.6 mg/dL
[2024-12-20 06:08] LABS: Insulin 3.8 uIU/mL (2.6-24.9)
== END 2024-12-19 09:21 | disposition home or self-care (01) ==
LOC: LAB 09:20
PROVIDERS: PCP Nurse Practitioner Family; Visit Provider Nurse Practitioner Family
DX: R73.09 Other abnormal glucose (principal); D64.9 Anemia, unspecified; I10 Essential (primary) hypertension; Z12.5 Encounter for screening for malignant neoplasm of prostate
CPT/HCPCS: 36415; 80053; 80061; 83036; 83525; 84436; 84443; 84481; 84550; 85025; G0103

== ENCOUNTER 2025-01-01 07:55 | Outpatient (OUT) | payer MEDICARE, SELFPAY ==
--- NOTE | 2025-01-01 | NM_ITS ---
Patient Name: IGNACIO AUGUSTINE MR#: [id number] : 1945 Exam Date: 01/01/2025 Ordering Doctor: ABBE HSU CNP RADIOLOGY REPORT PROCEDURE: NM TAYLOR PERF SPECT REST STR COMPARISON: None. INDICATIONS: CHEST PAIN TECHNIQUE: Exam Description: Stress/Rest one day protocol gated SPECT Rest Imagin.5 mCi Tc-99m Cardiolite IV on 01/01/2025 Stress Imaging 30.3 mCi Tc-99m Cardiolite IV on 01/01/2025 Exercise Protocol: Bubba Heart Rate (bpm): Rest: 48 Max: 122 PMHR: 87 Blood Pressure: Rest: 166/84 Max: 188/88 Exercise Time: Minutes: 5 Seconds: 46 Stage Reached: Stage: 2 Mets 7.0 Symptoms: Rest and peak stress ECG findings were pending, and the exercise portion of the study was pending per attending physician [facility]. For more details, please see separate cardiac stress test report. FINDINGS: QUALITY OF STUDY: PERFUSION DEFECT: Good LOCATION: N/A SIZE: N/A SEVERITY: N/A TYPE: N/A WALL MOTION: Normal wall motion LV SIZE: 71 mL. TID / TCD: 0.9 LVEF: Calculated EF 74%. SUMMARY: Myocardial perfusion imaging study is normal CONCLUSION: 1. Myocardial perfusion is normal with diaphragmatic attenuation 2. Global left ventricular systolic function is hyperdynamic 3. No evidence of transient ischemic dilatation Dictated by: Marcellus Mei M.D. on 01/05/2025 at 12:11 Approved by: Marcellus Mei M.D. on 01/05/2025 at 12:14
--- OUTSIDE RECORDS SUMMARY | 2025-01-01 08:00 | XMS_ITS | CCD ---
Author Organization [facility] Care Team Providers Care Tanker Serviceman Name Role Phone TATIANA LANZA Primary Care [...] Consulting Unavailable MD Ale Green Attending Provider [phone] SCARLET Lanza Primary Care Provider Ale Green Admitting Unavailable Tatiana Lanza Primary Care Unavailable Ale rGeen Attending Unavailable Ale Green Attending Unavailable Ale Green Admitting Unavailable Tatiana Lanza Primary Care Unavailable Peter Ale M Admitting Unavailable Tatiana Lanza Alice Primary Care Unavailable Ale Green Attending Unavailable Ale Green. Attending Unavailable Ale Green. Attending Unavailable Ale Green. Attending Unavailable Ale Green. Attending Unavailable ABBE HSU Attending Unavailable SUBHA WHITTINGTON Attending Unavailable ABBE HSU Attending Unavailable Allergies Allergy Classification Reported Allergen(s) Allergy Type Date of Onset Reaction(s) Facility (6 sources) Penicillins; 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: [penicillins] Drug allergy 3 Pharyngeal swelling (finding) [facility] (1 source) Penicillin Drug Allergy [facility] Medications Current Medications Medication Drug [...] day(s), # 6 tab(s), Refills(s) 0, Pharmacy: [facility]/pharmacy #[id number], 170, cm, 02/27/24 11:19:00 [...] 10-26-2022 02-25-2020 Chronic Other aftercare (1 source) watermaster (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; 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: [SENIOR CARE 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 ASPIRIN] Onset: 10-26-2022 Episodic Other aftercare (1 source) Other terminal manager (current) drug therapy; 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: [OTH SENIOR CARE CURRENT DRUG THERAPY] Onset: 10-26-2022 Episodic Other aftercare (2 sources) Long-term current use of anticoagulant; 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: [watermaster (current) use of anticoagulants] Onset: 02-27-2024 Episodic [...] Value Interpretation Reference Range Facility Office Visiton 12-23-2024 Follow-up visit [id number] [place] 1945 M Date Provider Department Center 12/23/2024 ABBE CONTRERAS CARD [facility] Family History Problem Relation Age of Onset Heart attack Father Heart attack Brother Family Status - Relation Status Age at Mother Father Brother Level of Service:72771 [place] OFFICE/OUTPATIENT ESTABLISHED MOD MDM 30 MIN Reason for Visit and Comments: Atrial Fibrillation [80] Hypertension [906267] Normal [facility] Urology Office/Clinic Noteon 12-10-2024 Urology Office/Clinic Note [...] risk prostate cancer while on active surveillance DOUGLAS, does wear hearing aids. Pt is accompanied [...] f/u with an oncologist. MRI prostate 03/11/24 [facility] [place] prostate volume 118 mL. No MRI evidence of clinically significant prostate cancer. BPH changes. Prominent left perirectal lymph node measuring 5 mm in short axis. Finding is nonspecific. Correlation with colonoscopy is suggested. S/p TRUS/bx 03/26/24 - cT1c disease, Justice 7 (4+3), Grade group 3 prostate cancer in 2/24 cores, initial PSA of 11.5. Upstaged to unfavorable intermediate risk disease. ISSAC ~severely enlarged prostate, left higher than right without firm nodules. [facility] nomogram which estimates his risk of organ confined disease to be 48%, extraprostatic extension 49%, lymph node metastasis 6%, and seminal vesical invasion 4%. PSMA PET scan 05/12/24 [facility] [place] - Neg for mets. Disease localized to [...] annual routine UA screening 4. Anticoagulated (Z79.01: senior living (current) use of anticoagulants) Eliquis. hx of afib. Elevated risk of periop complications. [1] Follow-up With When Contact Information Ale Green MD, URL, [facility] [address], [place] [address]- [phone] Add (more content not included)... Normal [facility] Comment on above: Result Comment: Elec tronically Signed By: Ale Green MD\.br\Date and Time Signed: 12/10/24 14:10 EDT\.br\Electronically Co-Signed By: Ryanne Mei\.br\Date and Time Co-Signed: 12/10/24 13:56 EDT Patient Letter FTMCon 2024 Patient Letter FT Patient Letter FT November 05, [address] [id number] : 1945 Dear Mr. Doyle, I am corresponding with you by certified [...] Sincerely, Dr. Ale Green MD [facility] [address] [place], [place] [address] [facility] Provider Letteron 09-11-2024 Provider Letter Provider Letter September 11, [address] [phone] : 1945 Dear Mr. Doyle , We have been trying to reach you with no success. It is important that you return our call regarding your diagnosis from our office upon receiving this letter. Also, at the time of your call, please provide us with your current information. Thank you for your prompt attention to this matter. Sincerely, [facility] [address] [place] [address], [address] [place] [address] [facility] Office Visiton 09-05-2024 Follow-up visit [id number] Suleiman Doylewilla Johns 1945 M Date Provider Department Center 09/05/2024 SUBHA PARADA [facility] Family History Problem Relation Age of Onset Heart attack Father Heart attack Brother Family Status - Relation Status Age at Father Brother Level of Service:50840 [place] OFFICE/OUTPATIENT ESTABLISHED LOW MDM 20 MIN Reason for Visit and Comments: Atrial Fibrillation [80] - Denies palpitations, lightheadedness/sync ope, and bleeding on Eliquis. Coronary Artery Disease [187] - Denies chest pain and SOB Doing very well. Hypertension [431868] Normal [facility] PET psma initial tx sb-mton 05-12-2024 PET psma initial tx sb-mt [facility] [address] [place] [address] Nuclear Medicine Report Signed Patient: Nick Doyle MR#: [id number] : 1945 Acct:[id number] Age/Sex: 79 / M ADM Date: 05/12/24 Loc: Room: Type: [facility] Attending Dr: Ale Green MD Copies to: [...] Diaz Jr., D.O.05/12/2024 3:00 PM Dictation Location: [facility]12 Transcribed By: TRICIA 05/12/24 1500 Dictated By: Stuart Diaz Jr, DO 05/12/24 1447 Signed By: 05/12/24 1500 Normal [facility] Ambulatory Visit Summaryon 0 04-10-2024 [...] is us (more content not included)... Normal [facility] Urology Office/Clinic Noteon 04-10-2024 Urology Office/Clinic [...] risk prostate cancer while on active surveillance DOUGLAS, does wear hearing aids. Pt is accompanied by his today who also serves as historian. ABBE 18 Portions of this record may have been created with voice recognition artificial intelligence software, specifically Mobile [employer], [employer] and or [employer]. Substitutions may have occurred due to the [...] with an oncologist. MRI of prostate 03/11/24 [facility] [place] - prostate volume 118 mL. Prominent left [...] MRI pros (more content not included)... Normal [facility] Comment on above: Result Comment: Elec tronically Signed By: Peter AMOR, Ale Patterson\.br\Date and Time Signed: 04/10/24 16:54 EDT\.br\Electronically Co-Signed By: Johanna Salcido\.br\Date and Time Co-Signed: 04/10/24 15:46 EDT Jonathan 03-26-2024 L Specimen: [id number] Received: 03/28/24 Status: [facility] Num: [id number] Spec Type: Surgical Subm Dr: Ale Green [...] [employer]) Procedures: /, Gross/Micro L4/12, PIN Cocktail/6 Age/ Patient Sex Location Account Attending Physician Nick Doyle 78/M LABELL [id number] Ale Green MD SPEC NUM: [id number] RECD: 03/28/24 STATUS: OLIMPIA MANZANARES NUM: [id number] DOMINIC: 03/26/24-[address] [facility] [address]: Ale Green MD ENTERED: 03/28/[address] [facility] [address]: Margarita Aguilar SPEC TYPE: Surgical DEPT: ANGELITA COUCH ENTERED BY: [id number] RECV BY: [id number] ORDERED: HE/24, Gross/Micro L4/12, PIN Cocktail/6 ORDERED: HE/24, Gross/Micro L4/12, PIN Cocktail/6, USS/18 Pathological Diagnosis Prostate Case Summary Result Summary Cores Involved Justice Group Justice Score Perineural Invasion (PNI) Extraprostatic Extension (EPE) Malignant at least 2 of 26 G3 4+3 not identified not identified Positive Core Summary Lenny Group Number of Cores Specimen: [id number] Received: 03/28/24 Status: OLIMPIA Manzanares Num: [id number] Spec Type: Surgical Subm Dr: Ale Green [...] Gross/Micro L4/12, PIN Cocktail/6 Patient: Nick Doyle [id number] (Continued) Specimen: [id number] Received: 03/28/24 (Continued) Pathological Diagnosis (Continued) Signed (signature on file) Jack Johnson MD 04/03/242005 Specimen: [id number] Received: 03/28/24 Status: OLIMPIA Manzanares Num: [id number] Spec Type: Surgical Subm Dr: Ale Green [...] Gross/Micro L4/12, PIN Cocktail/6 Patient: Nick Doyle [id number] (Continued) Specimen: [id number] Received: 03/28/24 (Continued) Pathological Diagnosis (Continued) I 0 II III IV 0 V A, prostate biopsy, left base lateral -Benign [...] mm and 7% of both cores combined -Justice score 4+3=7, pattern 4 is 60%, prognostic grade group is G3, perineural invasion Specimen: [id number] (more content not included)... Normal [facility] ISTAT XRay CREon 03-11-2024 ISTAT GFR 50.810 Normal [facility] Comment on above: Result Comment: PERF ORMED BY: [place] [address] PATHOLOGIST MANUFACTURING TECHNOLOGY ANALYST ENA CASTRO M.D. Performed By: #### I SCRE #### [address] MR prostate wo/w conon 03-11 MR prostate wo/w con [facility] [address] [place] [address] MRI Report Signed Patient: Nick Doyle MR#: [id number] : 1945 Acct:[id number] Age/Sex: 78 / M ADM Date: 03/11/24 Loc: Room: Type: [facility] Attending Dr: Ale Green MD Copies to: [...] is suggested. Impression dictated by: Stuart Diaz Jr. DGia03/11/2024 11:34 AM Dictation Location: [place] [address] Transcribed By: TRICIA 03/11/24 1134 Dictated By: Stuart Diaz Jr, DO 03/11/24 1126 Signed By: 03/11/24 1134 Normal [facility] No Panel InformationOrdered By: Alepadmini Green on 03-11-2024 Bedside Estimated GFR (eGFR) 50.810 [facility] Whole blood creatinine measu rementOrdered By: Ale Green on 03-11-2024 Creatinine [Mass/Vol] 1.4 mg/dL High 0.6-1.3 [facility] Comment on above: ER/ESD physician is notified/shown all ISTAT results.Critical values may be confirmed by laboratory testing ifdeemed necessary by ER attending doctor. Result Comment: ER/E SD physician is notified/shown all ISTAT results. Critical values may be confirmed by laboratory testing if deemed necessary by ER attending doctor. Performed By: #### I SCRE #### [address] Urology Office/Clinic Noteon 02-27-2024 Urology Office/Clinic [...] local anesthetic. -Schedule MRI of prostate at [facility]. -Will schedule TRUS (more content not included)... Normal [facility] Comment on above: Result Comment: Elec tronically Signed By: Peter AMOR, Ale Patterson\.joyce\Date and Time Signed: 02/27/24 16:48 EDT\.br\Electronically Co-Signed By: Papa Mazariegos\.br\Date and Time Co-Signed: 02/27/24 12:05 EDT Office Visiton 02-26-2024 Follow-up visit [id number] Nick Doyle 1945 M Date Provider Department Center 02/26/2024 EmmaABBE HSU CARD [facility] Family History Problem Relation Age of Onset Heart attack Father Heart attack Brother Family Status - Relation Status Age at Father Brother Level of Service:77630 [place] OFFICE/OUTPATIENT ESTABLISHED MOD MDM 30 MIN Reason for Visit and Comments: Atrial Fibrillation [80] Hypertension [886822] Normal [facility] BNPon 10-24-2022 Natriuretic peptide B (Bld) [Mass/Vol] 368.0 pg/mL Normal <=1,800.0 [facility] Comment on above: Performed By: #### H STROPN, BMP, BNP #### [facility] [address] [place] [address] Dr. Alo Johnson CBC AUTO DIFFon 10-24-2022 BASO # 0.0 103/ul Normal 0.0-0.1 [facility] Comment on above: Performed By: #### C BC #### [facility] [address] [place] [address] Dr. Alo Johnson Basophils/100 WBC (Bld) 0.3 % Normal 0.2-2.0 [facility] Comment on above: Performed By: #### C BC #### [facility] [address] [place] [address] Dr. Alo Johnson EO # 0.7 103/ul Normal 0.0-0.7 [facility] Comment on above: Performed By: #### C BC #### [facility] [address] [place] [address] Dr. Alo Johnson Eosinophils/100 WBC (Bld) 6.3 % Normal 0.9-7.0 [facility] Comment on above: Performed By: #### C BC #### [facility] [address] [place] [address] Dr. Alo Johnson Erythrocyte distribution width (RBC) [Ratio] 12.4 % Normal 11.0-15.0 [facility] Comment on above: Performed By: #### C BC #### [facility] [address] [place] [address] Dr. Alo Johnson Hematocrit (Bld) [Volume fraction] 42.7 % Normal 42.0-54.0 [facility] Comment on above: Performed By: #### C BC #### [facility] [address] [place] [address] Dr. Alo Johnson Hemoglobin (Bld) [Mass/Vol] 14.5 g/dL Normal 14.0-18.0 [facility] Comment on above: Performed By: #### C BC #### [facility] [address] [place] [address] Dr. Alo Johnson IG # 0.03 10e3/ul Normal 0.00-0.03 [facility] Comment on above: Performed By: #### C BC #### [facility] [address] [place] [address] Dr. Alo Johnson IG % 0.3 % Normal 0.0-0.5 [facility] Comment on above: Performed By: #### C BC #### [facility] [address] [place] [address] Dr. Alo Johnson LYMPH # 4.8 103/ul Critically high 1.2-3.8 [facility] Comment on above: Performed By: #### C BC #### [facility] [address] [place] [address] Dr. Alo Johnson Lymphocytes/100 WBC (Bld) 41.8 % Normal 20.5-60.0 [facility] Comment on above: Performed By: #### C BC #### [facility] [address] [place] [address] Dr. Alo Johnson MANUAL DIFF REQ NO Normal [facility] Comment on above: Performed By: #### C BC #### [facility] [address] [place] [address] Dr. Alo Johnson MCH (RBC) [Entitic mass] 32.6 pg Normal 25.9-34.0 [facility] Comment on above: Performed By: #### C BC #### [facility] [address] [place] [address] Dr. Alo Johnson MCHC (RBC) [Mass/Vol] 34.0 g/dL Normal 29.9-35.2 [facility] Comment on above: Performed By: #### C BC #### [facility] [address] [place] [address] Dr. Alo Johnson MCV (RBC) [Entitic vol] 96.0 fL Critically high 80.0-94.0 [facility] Comment on above: Performed By: #### C BC #### [facility] [address] [place] [address] Dr. Alo Johnson MONO # 0.8 103/ul Normal 0.3-0.8 [facility] Comment on above: Performed By: #### C BC #### [facility] [address] [place] [address] Dr. Alo Johnson Monocytes/100 WBC (Bld) 7.1 % Normal 1.7-12.0 [facility] Comment on above: Performed By: #### C BC #### [facility] [address] [place] [address] Dr. Alo Johnson NEUT # 5.1 103/ul Normal 1.4-6.5 [facility] Comment on above: Performed By: #### C BC #### [facility] [address] [place] [address] Dr. Alo Johnson Neutrophils/100 WBC (Bld) 44.2 % Normal 43.0-75.0 [facility] Comment on above: Performed By: #### C BC #### [facility] [address] [place] [address] Dr. Alo Johnson Platelet mean volume (Bld) [Entitic vol] 8.7 fL Critically low 9.5-13.5 [facility] Comment on above: Performed By: #### C BC #### [facility] [address] [place] [address] Dr. Alo Johnson PLT 236 103/ul Normal 150-450 [facility] Comment on above: Performed By: #### C BC #### [facility] [address] [place] [address] [address] Alo Johnson RBC 4.45 106/ul Critically low 4.70-6.10 [facility] Comment on above: Performed By: #### C BC #### [facility] [address] [place] [address] Dr. Alo Johnson WBC 11.5 103/ul Critically high 4.0-11.0 [facility] Comment on above: Performed By: #### C BC #### [facility] [address] [place] [address] [address] Alo Johnson CULTURE BLOODon 10-24-2022 Microscopic examination of blood, culture Culture Observations: NO GROWTH AT 5 DAYS. Isolate 1 BC_BA_NA Normal [facility] Comment on above: Performed By: #### I NSULIN #### [facility] [address] [place] [address] Dr. Alo Johnson Microscopic examination of blood, culture Culture Observations: NO GROWTH AT 5 DAYS. Isolate 1 BC_BA_NA Normal [facility] Comment on above: Performed By: #### I NSULIN #### [facility] [address] [place] [address] Dr. Alo Johnson [facility]05 SARS-CoV-2 (COVID-19) RNA ANGELICA+probe Ql (Unsp spec) Not detected Normal NOT DETECTED [facility] Comment on above: Result Comment: When [...] for this test is supported by the [place] [employer] and [employer] Service's declaration that [...] longer be used). Performed By: #### I COURT #### [facility] [address] [place] [address] [address] Alo Johnson ECHOCARDIO M/2D COMPLETEon 0 10-24-2022 ECHOCARDIO M/2D COMPLETE Patient: NICK DOYLE Exam Date: 10/24/2022 : 1945 Gender:M Ordering : MICHAEL ROMEJESUSITA Admission #: [id number] Family : DR ALIS RICARDO . Order #: [id number] CLICK HERE TO VIEW EXAM ECHOCARDIOGRAM REPORT [...] Mei M.D. on 10/24/2022 at 15:[address] [facility] ETHANOL (BLD ALC)on 10-25-19 ALC NOTE NOTE: 80 mg/dl is the legal limit for a blood alcohol level Normal [facility] Comment on above: Performed By: #### I NSULIN #### [facility] [address] [place] [address] Dr. Alo Johnson Ethanol [Mass/Vol] mg/dL Normal [facility] Comment on above: Performed By: #### I NSULIN #### [facility] [address] [place] [address] [address] Alo Johnson LACTATE/LACTIC ACIDon 2022 Lactate [Moles/Vol] 1.3 mmol/L Normal 0.4-2.0 [facility] Comment on above: Performed By: #### L ACT #### [facility] [address] [place] [address] Dr. Alo Johnson PROF CHEM 8 (BAS METB)on Anion gap [Moles/Vol] 14.9 mmol/L Normal [facility] Comment on above: Performed By: #### H STROPN, BMP, BNP #### [facility] [address] [place] [address] Dr. Alo Johnson Calcium [Mass/Vol] 10.0 mg/dL Normal 8.5-10.1 [facility] Comment on above: Performed By: #### H STROPN, BMP, BNP #### [facility] [address] [place] [address] Dr. Alo Johnson Chloride [Moles/Vol] 103 mmol/L Normal 98-107 [facility] Comment on above: Performed By: #### H STROPN, BMP, BNP #### [facility] [address] [place] [address] Dr. Alo Johnson CO2 [Moles/Vol] 26.2 mmol/L Normal 21.0-32.0 [facility] Comment on above: Performed By: #### H STROPN, BMP, BNP #### [facility] [address] [place] [address] Dr. Alo Johnson Creatinine [Mass/Vol] 1.10 mg/dL Normal 0.70-1.30 [facility] Comment on above: Performed By: #### H STROPN, BMP, BNP #### [facility] [address] [place] [address] [address] Alo Johnson EGFR-AF SALVADOREAN >60 Normal >=60 [facility] Comment on above: Performed By: #### H STROPN, BMP, BNP #### [facility] [address] [place] [address] [address] Alo Johnson EGFR-NON AF SALVADOREAN >60 Normal >=60 [facility] Comment on above: Performed By: #### H STROPN, BMP, BNP #### [facility] [address] [place] [address] [address] Alo Johnson Glucose [Mass/Vol] 135 mg/dL Critically high 74-106 [facility] Comment on above: Performed By: #### H STROPN, BMP, BNP #### [facility] [address] [place] [address] [address] Alo Johnson Potassium [Moles/Vol] 4.1 mmol/L Normal 3.5-5.1 [facility] Comment on above: Performed By: #### H STROPN, BMP, BNP #### [facility] [address] [place] [address] [address] Alo Johnson Sodium [Moles/Vol] 140 mmol/L Normal 136-145 [facility] Comment on above: Performed By: #### H STROPN, BMP, BNP #### [facility] [address] [place] [address] [address] Alo Johnson Urea nitrogen [Mass/Vol] 21.0 mg/dL Critically high 7.0-18.0 [facility] Comment on above: Performed By: #### H STROPN, BMP, BNP #### [facility] [address] [place] [address] [address] Alo Johnson Urea nitrogen/Creatinine [Mass ratio] 19.1 mg/mg Normal [facility] Comment on above: Performed By: #### H STROPN, BMP, BNP #### [facility] [address] [place] [address] [address] Alo Johnson TROPONIN, HIGH SENSITIVITYon 10-24-2022 HSTROP 35.8 pg/mL Normal 4.0-76.1 [facility] Comment on above: Result Comment: CUT- OFF POINTS HAVE BEEN ESTABLISHED BASED ON THE FOURTH UNIVERSAL DEFINITIONS OF MYOCARDIAL INFARCTION. THE UPPER REFERENCE LIMIT (URL) OF TROPONIN, DEFINED THE 99TH PERCENTILE OF cTnI DISTRIBUTION IN A REFERENCE POPULATION, HAS BEEN CONFIRMED THE DECISION THRESHOLD FOR [place] DIAGNOSIS. Performed By: #### A 1C #### [facility] [address] [address] [address] Alo Johnson HSTROP 14.1 pg/mL Normal 4.0-76.1 [facility] Comment on above: Result Comment: CUT- OFF POINTS HAVE BEEN ESTABLISHED BASED ON THE FOURTH UNIVERSAL DEFINITIONS OF MYOCARDIAL INFARCTION. THE UPPER REFERENCE LIMIT (URL) OF TROPONIN, DEFINED THE 99TH PERCENTILE OF cTnI DISTRIBUTION IN A REFERENCE POPULATION, HAS BEEN CONFIRMED THE DECISION THRESHOLD FOR FL DIAGNOSIS. Performed By: #### H STROPN, BMP, BNP #### [facility] [address] [place] [address] [address] Alo Johnson TSHon 10-24-2022 TSH 3.366 uIU/mL Normal 0.358-3.740 [facility] Comment on above: Performed By: #### I NSULIN #### [facility] [address] [place], [place] [address] Dr. Alo Johnson XR CHEST 1 Von [...] NALINI CHIRINOS Date: 2022-10-24 01:01 Normal [facility] INSULINon 10-17-2022 Insulin 9.5 uIU/mL Normal 2.6-24.9 [facility] Comment on above: Performed By: #### I NSULIN #### [facility] [address] [place], [place] [address] Dr. Alo Johnson PSA, FREE AND TOTAL RATIOon 10-17-2022 % Free PSA 21.9 % Normal [facility] Comment on above: Result Comment: The [...] men. Performed By: #### I NSULIN #### [facility] [address] [place] [address] [address] Alo Johnson Prostate specific Ag [Mass/Vol] 10.6 ng/mL Critically high 0.0-4.0 [facility] Comment on above: Result Comment: Roch macrina ECLIA methodology. . According to the [place] [employer], Serum PSA should decrease and [...] disease. Performed By: #### I NSULIN #### [facility] [address] [place], [place] [address] Dr. Alo Johnson PSA, Free 2.32 ng/mL Normal N/A [facility] Comment on above: Result Comment: Roch e ECLIA methodology. Performed By: #### I NSULIN #### [facility] [address] [place], [place] [address] Dr. Alo Johnson CBC AUTO DIFFon 10-16-2022 BASO # 0.0 103/ul Normal 0.0-0.1 [facility] Comment on above: Performed By: #### I NSULIN #### [facility] [address] [place] [address] Dr. Alo Johnson Basophils/100 WBC (Bld) 0.4 % Normal 0.2-2.0 [facility] Comment on above: Performed By: #### I NSULIN #### [facility] [address] [place] [address] Dr. Alo Johnson EO # 0.6 103/ul Normal 0.0-0.7 [facility] Comment on above: Performed By: #### I NSULIN #### [facility] [address] [place] [address] Dr. Alo Johnson Eosinophils/100 WBC (Bld) 5.8 % Normal 0.9-7.0 [facility] Comment on above: Performed By: #### I NSULIN #### [facility] [address] [place] [address] Dr. Alo Johnson Erythrocyte distribution width (RBC) [Ratio] 12.6 % Normal 11.0-15.0 [facility] Comment on above: Performed By: #### I NSULIN #### [facility] [address] [place] [address] Dr. Alo Johnson Hematocrit (Bld) [Volume fraction] 42.8 % Normal 42.0-54.0 [facility] Comment on above: Performed By: #### I NSULIN #### [facility] [address] [place] [address] Dr. Alo Johnson Hemoglobin (Bld) [Mass/Vol] 15.1 g/dL Normal 14.0-18.0 [facility] Comment on above: Performed By: #### I NSULIN #### [facility] [address] [place] [address] Dr. Alo Johnson IG # 0.02 10e3/ul Normal 0.00-0.03 [facility] Comment on above: Performed By: #### I NSULIN #### [facility] [address] [place] [address] Dr. Alo Johnson IG % 0.2 % Normal 0.0-0.5 [facility] Comment on above: Performed By: #### I NSULIN #### [facility] [address] [place] [address] Dr. Alo Johnson LYMPH # 3.4 103/ul Normal 1.2-3.8 [facility] Comment on above: Performed By: #### I NSULIN #### [facility] [address] [place] [address] Dr. Alo Johnson Lymphocytes/100 WBC (Bld) 36.5 % Normal 20.5-60.0 [facility] Comment on above: Performed By: #### I NSULIN #### [facility] [address] [place] [address] Dr. Alo Johnson MANUAL DIFF REQ NO Normal [facility] Comment on above: Performed By: #### I NSULIN #### [facility] [address] [place] [address] Dr. Alo Johnson MCH (RBC) [Entitic mass] 33.3 pg Normal 25.9-34.0 [facility] Comment on above: Performed By: #### I NSULIN #### [facility] [address] [place] [address] Dr. Alo Johnson MCHC (RBC) [Mass/Vol] 35.3 g/dL Critically high 29.9-35.2 [facility] Comment on above: Performed By: #### I NSULIN #### [facility] [address] [place] [address] Dr. Alo Johnson MCV (RBC) [Entitic vol] 94.3 fL Critically high 80.0-94.0 [facility] Comment on above: Performed By: #### I NSULIN #### [facility] [address] [place] [address] Dr. Alo Johnson MONO # 0.6 103/ul Normal 0.3-0.8 [facility] Comment on above: Performed By: #### I NSULIN #### [facility] [address] [place] [address] Dr. Alo Johnson Monocytes/100 WBC (Bld) 5.9 % Normal 1.7-12.0 [facility] Comment on above: Performed By: #### I NSULIN #### [facility] [address] [place] [address] Dr. Alo Johnson NEUT # 4.8 103/ul Normal 1.4-6.5 [facility] Comment on above: Performed By: #### I NSULIN #### [facility] [address] [place] [address] Dr. Alo Johnson Neutrophils/100 WBC (Bld) 51.2 % Normal 43.0-75.0 [facility] Comment on above: Performed By: #### I NSULIN #### [facility] [address] [place] [address] Dr. lAo Johnson Platelet mean volume (Bld) [Entitic vol] 9.0 fL Critically low 9.5-13.5 [facility] Comment on above: Performed By: #### I NSULIN #### [facility] [address] [place] [address] Dr. Alo Johnson PLT 240 103/ul Normal 150-450 [facility] Comment on above: Performed By: #### I NSULIN #### [facility] [address] [place] [address] Dr. Alo Johnson RBC 4.54 106/ul Critically low 4.70-6.10 [facility] Comment on above: Performed By: #### I NSULIN #### [facility] [address] [place] [address] Dr. Alo Johnson WBC 9.4 103/ul Normal 4.0-11.0 [facility] Comment on above: Performed By: #### I NSULIN #### [facility] [address] [place] [address] Dr. Alo Johnson GLYCOHEMOGLOBIN A1Con 2022 ADA RECOMMENDATION SEE BELOW Normal [facility] Comment on above: Result Comment: ADA RECOMMENDED LIMIT 4.0 - 6.0 ADA THERAPEUTIC TARGET < 7.0 ACTION SUGGESTED > 7.0 Performed By: #### A 1C #### [facility] [address] [place] [address] Dr. Alo Johnson Glucose [Mass/Vol] 111 mg/dL Normal [facility] Comment on above: Performed By: #### A 1C #### [facility] [address] [address] [address] Alo Johnsno HbA1c (Bld) [Mass fraction] 5.5 % Normal 4.5-6.2 [facility] Comment on above: Performed By: #### A 1C #### [facility] [address] [address] [address] Alo Johnson LIPID PROFILEon 10-16-2022 CHOL-HDL RATIO NORM SEE BELOW Normal [facility] Comment on above: Result Comment: 3.3 - 4.4 LOW RISK 4.4 - 7.1 AVERAGE RISK 7.1 - 11.0 MODERATE RISK >11.0 HIGH RISK Performed By: #### C MP, LIPID, URIC #### [facility] [address] [address] [address] Alo Johnson Cholesterol [Mass/Vol] 229 mg/dL Critically high <=200 [facility] Comment on above: Performed By: #### C MP, LIPID, URIC #### [facility] [address] [address] [address] Alo Johnson Cholesterol in HDL [Mass/Vol] 48 mg/dL Normal 40-60 [facility] Comment on above: Performed By: #### C MP, LIPID, URIC #### [facility] [address] [address] [address] Alo Johnson Cholesterol in LDL [Mass/Vol] 152.8 mg/dL Normal [facility] Comment on above: Performed By: #### C MP, LIPID, URIC #### [facility] [address] [address] [address] Alo Johnson Cholesterol.total/Chol esterol in HDL [Mass ratio] 4.8 {ratio} Normal [facility] Comment on above: Performed By: #### C MP, LIPID, URIC #### [facility] [address] [address] [address] Alo Johnson HDL NORMAL > or = 60 mg/dl - LOW CARDIOVASCULAR RISK <40 mg/dl - HIGH CARDIOVASCULAR RISK Normal [facility] Comment on above: Performed By: #### C MP, LIPID, URIC #### [facility] [address] [address] [address] Alo Johnson LDL CALC NORMAL SEE BELOW Normal [facility] Comment on above: Result Comment: <100 mg/dl OPTIMAL 100 - 129 mg/dl NEAR OR ABOVE OPTIMAL 130 - 159 mg/dl BORDERLINE HIGH 160 - 189 mg/dl HIGH >190 mg/dl VERY HIGH Performed By: #### C MP, LIPID, URIC #### [facility] [address] [address] [address] Alo Johnson Triglyceride [Mass/Vol] 141 mg/dL Normal <=150 [facility] Comment on above: Performed By: #### C MP, LIPID, URIC #### [facility] [address] [place] [address] Dr. Alo Johnson VLDL CALC 28.2 mg/dL Normal [facility] Comment on above: Performed By: #### C MP, LIPID, URIC #### [facility] [address] [address] [address] Alo Johnson PROF 14(COMP METB)on 023 Albumin [Mass/Vol] 4.0 g/dL Normal 3.4-5.0 [facility] Comment on above: Performed By: #### C MP, LIPID, URIC #### [facility] [address] [place] [address] Dr. Alo Johnson Albumin/Globulin [Mass ratio] 1.4 {ratio} Normal [facility] Comment on above: Performed By: #### C MP, LIPID, URIC #### [facility] [address] [address] [address] Alo Johnson ALP [Catalytic activity/Vol] 63 U/L Normal 46-116 [facility] Comment on above: Performed By: #### C MP, LIPID, URIC #### [facility] [address] [address] [address] Alo Johnson ALT [Catalytic activity/Vol] 21 U/L Normal 16-63 [facility] Comment on above: Performed By: #### C MP, LIPID, URIC #### [facility] [address] [address] [address] Alo Johnson Anion gap [Moles/Vol] 13.6 mmol/L Normal [facility] Comment on above: Performed By: #### C MP, LIPID, URIC #### [facility] [address] [address] [address] Alo Johnson AST [Catalytic activity/Vol] 22 U/L Normal 15-37 [facility] Comment on above: Performed By: #### C MP, LIPID, URIC #### [facility] [address] [address] [address] Alo Johnson Bilirubin [Mass/Vol] 0.7 mg/dL Normal 0.2-1.0 [facility] Comment on above: Performed By: #### C MP, LIPID, URIC #### [facility] [address] [address] [address] Alo Johnson Calcium [Mass/Vol] 9.4 mg/dL Normal 8.5-10.1 [facility] Comment on above: Performed By: #### C MP, LIPID, URIC #### [facility] [address] [address] [address] Alo Johnson Chloride [Moles/Vol] 104 mmol/L Normal 98-107 [facility] Comment on above: Performed By: #### C MP, LIPID, URIC #### [facility] [address] [address] [address] Alo Johnson CO2 [Moles/Vol] 25.4 mmol/L Normal 21.0-32.0 [facility] Comment on above: Performed By: #### C MP, LIPID, URIC #### [facility] [address] [address] [address] Alo Johnson Creatinine [Mass/Vol] 1.08 mg/dL Normal 0.70-1.30 [facility] Comment on above: Performed By: #### C MP, LIPID, URIC #### [facility] [address] [address] [address] Alo Johnson EGFR-AF SALVADOREAN >60 Normal >=60 [facility] Comment on above: Performed By: #### C MP, LIPID, URIC #### [facility] [address] [address] [address] Alo Johnson EGFR-NON AF SALVADOREAN >60 Normal >=60 [facility] Comment on above: Performed By: #### C MP, LIPID, URIC #### [facility] [address] [address] [address] Alo Johnson Globulin (S) [Mass/Vol] 2.9 g/dL Normal [facility] Comment on above: Performed By: #### C MP, LIPID, URIC #### [facility] [address] [address] [address] Alo Johnson Glucose [Mass/Vol] 106 mg/dL Normal 74-106 [facility] Comment on above: Performed By: #### C MP, LIPID, URIC #### [facility] [address] [address] [address] Alo Johnson Potassium [Moles/Vol] 4.0 mmol/L Normal 3.5-5.1 [facility] Comment on above: Performed By: #### C MP, LIPID, URIC #### [facility] [address] [address] [address] Alo Johnson Protein [Mass/Vol] 6.9 g/dL Normal 6.4-8.2 [facility] Comment on above: Performed By: #### C MP, LIPID, URIC #### [facility] [address] [address] [address] Alo Johnson Sodium [Moles/Vol] 139 mmol/L Normal 136-145 [facility] Comment on above: Performed By: #### C MP, LIPID, URIC #### [facility] [address] [address] [address] Alo Johnson Urea nitrogen [Mass/Vol] 16.0 mg/dL Normal 7.0-18.0 [facility] Comment on above: Performed By: #### C MP, LIPID, URIC #### [facility] [address] [address] [address] Alo Johnson Urea nitrogen/Creatinine [Mass ratio] 14.8 mg/mg Normal [facility] Comment on above: Performed By: #### C MP, LIPID, URIC #### [facility] [address] [place], [place] [address] Dr. Alo Johnson URIC ACID SERUMon 10-16-2022 Urate [Mass/Vol] 6.5 mg/dL Normal 3.5-7.2 [facility] Comment on above: Performed By: #### C MP, LIPID, URIC #### [facility] [address] [place], [place] [address] Dr. Alo Johnson Vital Signs Date Time Vital Sign Value Performing Clinician Faci lity 04-10-2024 15:15-0400 Blood Pressure Location Ale Lue [facility] 04-10-2024 15:15-0400 Diastolic blood pressure 62 mm[Hg] Ale Lue [facility] 04-10-2024 15:15-0400 Heart rate 76 /min Ale Lue [facility] 04-10-2024 15:15-0400 Systolic blood pressure 130 mm[Hg] Ale Lue [facility] 02-27-2024 10:55-0400 Blood Pressure Location Ale Lue [facility] 02-27-2024 10:55-0400 Body temperature 98.6 [degF] Ale Lue [facility] 02-27-2024 10:55-0400 Diastolic blood pressure 65 mm[Hg] Ale Lue [facility] 02-27-2024 10:55-0400 Heart rate 56 /min Ale Lue [facility] 02-27-2024 10:55-0400 Respiratory rate 16 /min Ale Peter [facility] 02-27-2024 10:55-0400 Systolic blood pressure 127 mm[Hg] Ale Lue [facility] 06-01-2022 15:00-0400 Diastolic blood pressure 64 mm[Hg] Vianca See [facility] 06-01-2022 15:00-0400 Mean blood pressure 99 mm[Hg] Vianca See [facility] 06-01-2022 15:00-0400 Systolic blood pressure 169 mm[Hg] Vianca See [facility] 06-01-2022 14:30-0400 Blood Pressure Location Mohhiram See [facility] 06-01-2022 14:30-0400 Diastolic blood pressure 70 mm[Hg] Vianca See [facility] 06-01-2022 14:30-0400 Heart rate 86 /min Vianca See [facility] 06-01-2022 14:30-0400 SaO2% (BldA) [Mass fraction] 97 % Vianca See [facility] 06-01-2022 14:30-0400 Systolic blood pressure 148 mm[Hg] [facility] Encounters Encounter Date Encounter Type Care Provider Facility Start: 12-23-2024 End: 12-23-2024 ambulatory [facility] Start: 12-10-2024 End: 12-10-2024 ambulatory Ale Green Facility:[facility] Start: 12-02-2024 End: 12-04-2024 Emergency department patient visit [facility] Start: 09-05-2024 End: 09-05-2024 ambulatory [facility] Start: 05-12-2024 End: 05-12-2024 Patient encounter procedure PROMOTIONS REPRESENTATIVE-C Tatiana Lanza Work Phone: [facility] Work Phone: Start: 05-12-2024 End: 05-12-2024 ambulatory Ale M Lue [facility] Start: 04-10-2024 End: 04-10-2024 ambulatory Ale M. Lue Facility:[facility] Start: 04-10-2024 End: 04-10-2024 Patient encounter procedure Ale Green [facility] Start: 03-26-2024 End: 03-26-2024 ambulatory Ale MAmbreen Lue Facility: [facility] Start: 03-26-2024 End: 03-26-2024 ambulatory PROMOTIONS REPRESENTATIVE-C Tatiana Lanza Work Phone: [facility] Work Phone: Start: 03-26-2024 End: 03-26-2024 Departed Referred PROMOTIONS REPRESENTATIVE-C Tatiana Lanza Work Phone: [facility] Path [facility] Start: 03-26-2024 End: 03-26-2024 Off-Site Ale Green [facility] Start: 03-12-2024 Non-patient / Non-visit PROMOTIONS REPRESENTATIVE-C Jenny Lanza Work Phone: [facility] Work Phone: Start: 03-11-2024 End: 03-11-2024 Patient encounter procedure PROMOTIONS REPRESENTATIVE-C Tatiana Lanza Work Phone: [facility] [place] Work Phone: Start: 03-11-2024 End: 03-11-2024 ambulatory PROMOTIONS REPRESENTATIVE-C Tatianapanda Jenkins Donn Work Phone: [facility] [place] Work Phone: Start: 02-27-2024 End: 02-27-2024 ambulatory Ale TamAmbreen Peter Facility:[facility] Start: 02-27-2024 End: 02-27-2024 Patient encounter procedure Ale TamAmbreen Peter [facility] Start: 02-26-2024 End: 02-26-2024 ambulatory [facility] Start: 10-24-2022 End: 10-24-2022 ambulatory TATIANA LANZA Facility:[facility] Start: 10-16-2022 End: 10-17-2022 ambulatory TATIANA LANZA Facility: Start: 06-01-2022 End: 06-01-2022 Patient encounter procedure Vianca PerdomoAmbreen See [facility] Procedures Date Procedure Procedure Detail Performing Clinician Start: 05-12-2024 Positron emission tomography PROMOTIONS REPRESENTATIVE-C Tatiana Lanza Work Phone: Start: 03-11-2024 MR prostate wo/w con PROMOTIONS REPRESENTATIVE -C Tatiana Lanza Work Phone: Start: 10-16-2022 PSA screening TATIANA LLOYD Comment on above: Performed By: #### I NSULIN #### [facility] [address] [place] [address] Dr. Alo Johnson Start: 03-24-2020 Colonoscopy Marcelinohiram Os scooter Start: 06-30-2014 Transrectal biopsy o f prostate using ultrasound guidance Vianca Cui Comment on above: and Cysto Start: 08-06-1979 Repair of ankle Marcelinohiram See Comment on above: due to fx Decompression of med ghanshyam nerve Vianca Cui Tonsillectomy Vianca Cui Comment on above: as a child Payers Date Payer Category Payer Self-pay [id number] 2023 Private Health Insurance 101 [id number] 2020 Unknown [id number] 1945 Unknown [id number] 1943 Unknown [id number] 1943 Unknown [id number] 1943 Unknown [id number] 727 1943 Unknown [id number] 727 1943 Unknown [id number] 727 1943 Unknown [id number] 727 Medicare Medicare [id number] Private Health Insurance [facility] [id number] Unknown [id number] 531 Unknown [id number] 531 Unknown [id number] 531 Social History Date Type Detail Facility Start: 10-28-2020 End: 04-10-2024 Tobacco smoking status Ex-smoker (finding) [facility] Comment on above: pt quit smoking in 1 986 Sex Assigned At Male [facility] Start: 1945 Sex Assigned At Male [facility] Tobacco smoking status Never [facility] [place] [facility] Comment on above: pt quit smoking in 1 986 Functional Status Date Assessment Result Facility 04-10-2024 Functional Status N/A [facility] [place] [facility] 02-27-2024 Functional Status N/A [facility] 06-01-2022 Functional Status No [facility] Clinical Notes 02-26-2024 to 12-23-2024 Note Date & Type Note Facility 12-23-2024 Note Cardiovascular Medic [facility] SUBJECTIVE Chief Complaint Patient presents with Atrial Fibrillation Hypertension Nick Doyle is a 79 y.o. male here for follow-up. Pt is DOUGLAS. His Chandrika accompanied him today. HPI PMHx: PAF, HTN, former smoker 12/23/2024 Since last seen he was recently at [facility] for c/o chest pain. He notes the chest pain started when he woke up. Was midsternal/left sided. [place] like a weight on his chest. He felt like his heart was beating slower. Dneied any dyspnea, palpitations, dizziness, nausea. His troponin, EKG, ECHO were unremarkable. He also had a head CT that was negative for any acute findings. He was discharged home the next day. He wore a 1 week heart monitor and he has since sent it back. Today he states he feels well. No further episodes of chest pain. Denies c/o dyspnea, orthopnea, PND, LE edema, dizziness/LH, palpitations, syncope. 02/26/24 BP at home running 120-130s/80s. 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 Smoking Status Former BSA 1.71 m??? Medications: Current Outpatient Medications: carvedilol (Coreg) 6.25 mg tablet, Take 1 tablet by mouth Twice daily at 6am and 6pm., Disp: , Rfl: Eliquis 5 mg tablet, [...] (two) times a week., Disp: , Rfl: isosorbide mononitrate ER (Imdur) 30 mg 24 hr tablet, Take 1 tablet by mouth in the morning., Disp: , Rfl: losartan (Cozaar) 100 mg tablet, Take 100 mg by mouth in the morning., Disp: , Rfl: multivitamin tablet, Take 1 tablet by mouth in the morning., Disp: , Rfl: terazosin (Hytrin) 5 mg capsule, TAKE 1 CAPSULE BY MOUTH EVERYDAY AT BEDTIME, Disp: , Rfl: Physical Exam Constitutional: Appearance: Normal appearance. He is normal weight. HENT: Head: Normocephalic and atraumatic. Right Ear: External ear normal. Left Ear: External ear normal. Eyes: Extraocular Movements: Extraocular movements intact. Pupils: Pupils are equal, round, and reactive to light. Neck: Vascular: No carotid bruit. Cardiovascular: Rate and Rhythm: Regular rhythm. Bradycardia p (more content not included)... [facility] 12-23-2024 Note Patient is here [facility] for a follow up hospital admission at [facility]. Patient states he was admitted to the hospital for chest heaviness. Wore a monitor for a week after discharge. Patient states he is feeling really good, he's mowed, planted his garden. Patient denies any symptoms when he is outside working he has no symptoms he just takes a break and sits down for 10 minutes then continues working. Patient denies any cardiac symptoms at this time. Review of Systems Constitutional: Negative. [facility] 12-10-2024 Note Patient Education Oncology Prostate Cancer [...] Where to find more information ??? The [place] [employer] Society: www.cancer.org ??? [place] [employer] Association: www.auanet.org Contact a health care [...] The prostate gland (more content not included)... [facility] 09-05-2024 Note [place] [facility] - [facility] Subjective Nick Doyle is a 79 y.o. 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 04-10-2024 Hospital Discharge instructions Patient Education [...] under a microscope. This is called the Justice score and the total score can range from 6 10, indicating how likely it is that the cancer will spread (metastasize) to other parts of the body. The higher the score, the greater the likelihood that the cancer will spread. Lenny 6 or lower: This indicates that the cancer cells look similar to normal prostate cells (well differentiated). Justice 7: This indicates that the cancer cells look somewhat similar to normal prostate cells (moderately differentiated). Justice 8, 9, or 10: This indicates that [...] stress of having cancer. General instructions Take [id number] and prescription medicines only as told by your health care provider. If you have to go to the hospital, notify your cancer specialist (oncologist). Keep all follow-up visits. This is important. Where to find more information [place] [employer]: www.cancer.org [place] Society of Clinical Oncology: www.cancer.net National Cancer [place]: www.cancer.gov Contact a health care provider if: [...] provider. Document Revised: 10/19/2021 Document Reviewed: 10/19/2021 [employer] Patient Education 2023 [employer]. Follow Up Care 03/31/2024 09:20:27 With:Peter AMOR, RADHA Hagan, URO Address: When: Unknown [facility] [place] [facility] 04-10-2024 Note Patient Education Oncology Prostate [...] likelihood that the cancer will spread. ? Lenny 6 or lower: This indicates that the cancer cells look similar to normal prostate cells (well differentiated). ? Lenny 7: This indicates that the cancer cells look somewhat similar to normal prostate cells (moderately differentiated). ? Justice 8, 9, or 10: This indicates that [...] the prostate gla (more content not included)... [facility] 02-27-2024 Hospital Discharge instructions Patient Education [...] discomfort near your rectum, especially while sitting. Black Diamond-colored urine due to small amounts of blood in your urine. A burning feeling while urinating. Blood in your stool (feces) or bleeding from your rectum. Blood in your semen. Follow these instructions at home: Medicines Take dyon-qlj-fnmxysv and prescription medicines only as told by [...] provider. Document Revised: 01/16/2022 Document Reviewed: 01/16/2022 [employer] Patient Education 2022 [employer]. 02/27/2024 12:02:56 Transrectal Ultrasound-Guided Prostate Biopsy [...] including vitamins, herbs, eye drops, creams, and okmq-qii-nyyernq medicines. Any problems you or family members [...] provider tells you to take them. Taking smeq-kdf-lmedujp medicines, vitamins, herbs, and supplements. General instructions [...] provider. Document Revised: 01/16/2022 Document Reviewed: 01/16/2022 [employer] Patient Education 2022 [employer]. 02/27/2024 11:47:00 Prostate Cancer Prostate Cancer [...] the likelihood that the cancer will spread. Justice 6 or lower: This indicates that the cancer cells look similar to normal prostate cells (well differentiated). Lenny 7: This indicates that the cancer cells look somewhat similar to normal prostate cells (moderately differentiated). Justice 8, 9, or 10: This indicates that [...] stress of having cancer. General instructions Take cxtl-iyy-mwsxwij and prescription medicines only as told by your health care provider. If you have to go to the hospital, notify your cancer specialist (oncologist). Keep all follow-up visits. This is important. Where to find more information [place] [employer]: www.cancer.org [place] [employer] Oncology: www.cancer.net National Cancer [place]: www.cancer.gov Contact a health care provider if: [...] provider. Document Revised: 10/19/2021 Document Reviewed: 10/19/2021 [employer]romovie Patient Education 2022 [employer] Follow Up Care 02/08/2024 12:41:54 With:Peter AMOR, RADHA Hagan, URO Address: When: Unknown [facility] [place] 02-27-2024 Note Patient Education Oncology Transrectal Ultrasound-Guided [...] near your rectum, especially while sitting. ? Black Diamond-colored urine due to small amounts of blood in your urine. ? A burning feeling while urinating. ? Blood in your stool (feces) or bleeding from your rectum. ? Blood in your semen. Follow these instructions at home: Medicines ? Take kllt-cuw-tkmrxzg and prescription medicines only as told by [...] provider. Document Revised: 01/16/2022 Document Reviewed: 01/16/2022 [employer]ovie Patient Education ? 2022 [employer]. Transrectal Ultrasound-Guided Prostate Biopsy A transrectal [...] including vitamins, herbs, eye drops, creams, and vbkh-mnk-uhsueaf medicines. ? Any problems you or family [...] ? Taking medici (more content not included)... 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 Labs: 12/20/2023 (more content not included)... [facility] 02-26-2024 Note Patient here for 6 [...] All other systems reviewed and are negative. [facility] Evaluation + Plan note No data available for this section [facility] Evaluation note No assessment inform ation available [facility] Work Phone: Hospital Discharge instructions No data available for this section [facility] Progress note No data available for this section [facility] Summary Purpose Family History No Family [...] SCARLET Grant Primary Care Provider Active Start: May 12, 2024 End: May 12, 2024 Ale Green MD Attending Provider Active Start : May 12, 2024 End: May 12, 2024 (unrecognized sect ion and content) No Status Records FoundNo Status Records FoundNo Status Records FoundNo Status Records FoundNo Status Records Found INFORMATION SOURCE (unrecogn ized section and content) DATE CREATED AUTHOR 10/29/2022 [facility] DATE CREATED AUTHOR AUTHOR'S ORGANIZ ATION 05/13/2024 [facility] DATE CREATED AUTHOR AUTHOR'S ORGANIZ ATION 12/09/2024 [facility] DATE CREATED AUTHOR AUTHOR'S ORGANIZ ATION 12/13/2024 [facility] DATE CREATED AUTHOR AUTHOR'S ORGANIZ ATION 12/24/2024 [facility] Goals (unrecognized section and content) Goals [...] BE BASED ON THE PRIMARY CLINICAL RECORDS. [facility] provides no warranty or guarantee of the accuracy or completeness of information in this document.
--- NOTE | 2025-01-01 10:08 | PC.NURSE ---
Nursing Note Cardiac Stress Test Reviewed: Medication, allergies and patient history reviewed. Stress Test: [x ] Patient tolerated stress test well. [ ] Patient unable to tolerate walking on treadmill. Switched to Lexiscan stress test. [ x] No chest pain noted per patient [ ] Chest pain that resolved prior to leaving stress lab. [ ] No dyspnea noted. [x ] Dyspnea that resolved prior to leaving stress lab. [ x] Patient left stress lab asymptomatic and hemodynamically stable. [ ] Patient taken to the Emergency Room due to non-resolving symptoms following stress test. [x ] Patient achieved target heart rate. [ ] Patient unable to achieve target heart rate. [ ] Aminophylline administered as reversal agent to Lexiscan (Regadenoson). [ ] Nitro administered. Nursing Comments:Pt had Cardio Lite test done. No CP but had dyspnea which he states he has with any activity like riding his bike or walking at home. States nothing out of the ordinary. Pt had no symptoms at end of test and ambulated to cafeteria for breakfast prior to second set of images.
--- NOTE | 2025-01-01 10:31 | PM.STRESS ---
Stress Test Stress Test Allergies Allergy/AdvReac Type Severity Reaction Status Date / Time Penicillins Allergy Rash Verified 12/02/24 19:02 Requesting physician: ABBE [facility] Procedure: Treadmill nuclear stress test with Cardiolite injection General Information: Reason for Stress Test: [Chest pain] Cardiac History and Risk Factors: [Age, hypertension] Resting 12 - Lead Electrocardiogram: Marked sinus bradycardia Left axis deviation Right bundle branch block Abnormal resting EKG Stress Test: Protocol: [Bubba protocol] Exercise Capacity: [Good] Blood Pressure Response: [Resting hypertension, appropriate response] Rhythm: [Sinus] ST - Response: [T wave inversions in V1 through V3 consistent with right bundle branch block] Patient Response: [Shortness of breath, no significant chest pain] Interpretation: 1. No ischemic EKG changes seen on treadmill exercise stress test 2. Normal heart rate and blood pressure response to exercise 3. Resting hypertension 4. Lopez treadmill score is +5.5. Estimated 1 year mortality: 0.3 to 0.9%. Risk category: Low risk. Angiography: Usually not indicated 5. Nuclear images are to be read, interpreted, and reported separately
== END 2025-01-01 07:56 | disposition home or self-care (01) ==
LOC: NM 07:55
PROVIDERS: PCP Nurse Practitioner Family; Visit Provider Nurse Practitioner Family
DX: R07.9 Chest pain, unspecified (principal)
CPT/HCPCS: 78452; 93017; A9500

== ENCOUNTER 2025-07-13 12:25 | Outpatient (OUT) | payer MEDICARE, SELFPAY ==
--- OUTSIDE RECORDS SUMMARY | 2025-07-13 12:32 | XMS_ITS | CCD ---
Author Organization [facility] Care Team Providers Care Construction Administrator Name Role Phone TATIANA LANZA Primary Care Physician TATIANA LANZA Primary Care Unavailable HALEIGH ., DR SNELL Admitting Unavailable HOY ., DR SNELL Attending Unavailable HOFaisal ., DR SNELL Consulting Unavailable HAY ., DR ABRAMS Consulting Unavailable NALINI CHIRINOS Consulting Unavailable MICHAEL PRADO Consulting Unavailable TATIANA LANZA Admitting Unavailable TATIANA LANZA Attending Unavailable TATIANA LANZA Primary Care Unavailable TATIANA LANZA Consulting Unavailable MD Ale Green Attending Provider SCARLET Lanza Primary Care Provider Erine Ale M Admitting Unavailable Lue, Ale M Attending Unavailable Tatiana Lanza Primary Care Unavailable Lue, Ale M Admitting Unavailable Lue, Ale M Attending Unavailable Tatiana Lanza Primary Care Unavailable Lue, Ale M Attending Unavailable Tatiana Lanza Primary Care Unavailable Lue, Ale M Admitting Unavailable Lue, Ale M. Attending Unavailable Lue, Ale M. Attending Unavailable Lue, Ale M. Attending Unavailable Lue, Ale M. Attending Unavailable Lue, Ale M. Attending Unavailable Unavailable Primary Care Provider UnavailFRANKIE Bailon Attending Unavailable SUBHA WHITTINGTON Attending Unavailable ABBE KATZ Attending Unavailable ABBE KATZ Attending Unavailable OVIDIO GARCIA Attending Unavailable Allergies Allergy ClassificationReported Allergen(s)Allergy TypeDate of OnsetReaction(s) Facility (9 sources)Penicillins; 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: [penicillins]Drug -[id number] Pharyngeal swelling (finding)[facility] (1 source)PenicillinDrug AllergyKind[facility] Repository Medications Current Medications MedicationDrug Class(es)DatesSig (Normalized)Sig (Original)amLODIPine 5 mg oral tablet (3 sources)Dihydropyridine Calcium Channel BlockerStart: 02-03-2025 End: 42-14-7423qnaf 1 tablet by mouth once dailyamLODIPine 5 mg Tab 5 mg = 1 tab(s), Oral, Daily, # 90 tab(s), Refills(s) 0 Start Date: 03/18/25 Status: Ordered Quantity: 90.0 Unit: tab(s) Repeat number: 1Start: 08-46-0019umRMFOPmjk 5 mg Tab Refills(s) 0 Start Date: 03/17/20 Status: Orderedapixaban 5 mg oral tablet (5 sources)Factor Xa InhibitorStart: 37-85-1957Xzmpbxw 5 MG tablet 12/08/2024 ActiveStart: 31-54-9619Ugzdptl 5 mg oral tablet 10 mg = 2 tab(s), Refills(s) 0 Start Date: 02/27/24 Status: Ordered Repeat number: 1aspirin 81 mg chewable tablet (1 source)Platelet Aggregation Inhibitor, Nonsteroidal Anti-inflammatory Drug Start: 12-37-8319kcjc 1 tablet by mouth once dailyaspirin 81 mg Chew Tab 81 mg = 1 tab(s), Oral, Daily, # 30 tab(s), Refills(s) 0 Start Date: 08/27/19tatus: Orderedatorvastatin 40 mg oral tablet (1 source)HMG-CoA Reductase InhibitorStart: 11-30-4181lmhh 1 tablet by mouth once dailyatorvastatin 40 mg Tab 40 mg = 1 tab(s), Oral, Daily, Refills(s) 0 Start Date: 10/28/20 Status: Orderedcarvedilol 6.25 mg oral tablet (3 sources)alpha-Adrenergic Elana, beta-Adrenergic BlockerStart: 12-10-2024 take 1 tablet by mouth twice dailycarvedilol 6.25 mg Tab 6.25 mg = 1 tab(s), Oral, BID, # 180 tab(s), Refills(s) 0 Start Date: 12/10/24Status: Ordered Quantity: 180.0 Unit: tab(s) Repeat number: 1Start: 68-87-1809zcbl 0.5 tablet by mouth in the morningcarvedilol (Coreg) 6.25 MG tablet Take 0.5 tablets by mouth in the morning and 0.5 tablets in the evening. 12/03/2024 Activeciprofloxacin 500 mg oral tablet (1 source)Quinolone AntimicrobialStart: 02-27-2024 End: 40-24-6249nmfm 1 tablet by mouth every twelve hoursCipro 500 mg Tab 500 mg = 1 tab(s), Oral, q12hr, Start day prior to procedure., X 3 day(s), # 6 tab(s), Refills(s) 0, Pharmacy: [facility]/pharmacy #[id number], 170, cm, 02/27/24 11:19:00 EDT, Height/Length Dosing, 64, kg, 02/27/24 11:19:00 EDT, Weight Dosing Start Date: 02/27/24 Stop Date: 03/01/24 Status: Kldozpg71 hr dilTIAZem hydrochloride 120 mg extended release oral capsule (1 source)Calcium Channel BlockerStart: 43-89-2156admALNXzp CD (Cardizem CD) 120 MG 24 hr capsule 11/24/2024 ActiveDilTIAZem (Eqv-Cardizem CD) 120 mg/24 hours oral capsule, extended release (3 sources)Start: 37-23-6985YifPJSLbz (Eqv-Cardizem CD) 120 mg/24 hours oral capsule, extended release 120 mg = 1 cap(s), Refills(s) 0 Start Date: 02/27/24 Status: Orderedferrous fumarate 325 mg oral tablet (2 sources)Start: 49-46-0523bmml 1 tablet by mouth once dailyferrous fumarate 325 mg oral tablet 325 mg = 1 tab(s), Oral, Daily, # 90 tab(s), Refills(s) 0 StartDate: 12/10/24 Status: Ordered Quantity: 90.0 Unit: tab(s) Repeat number: 1 ferrous sulfate 325 mg oral tablet (1 source)ferrous sulfate 325 (65 Fe) MG tablet Take by mouth in the morning. Take with meals. ActiveGarlic preparation (5 sources)Non-Standardized Food Allergenic ExtractStart: 11-41-9689htzp 1000 mg by mouth once dailygarlic 1,000 mg, Oral, Daily, Refill(s) 0 Start Date: 08/27/19 Status: Ordered Repeat number: 1Start: 03-73-5520ddmi 1000 mg by mouth once dailygarlic 1,000 mg, Oral, Daily, Refill(s) 0 Start Date: 08/27/19 Status: OrderedGenicin Rashmi-S oral tablet (1 source)Start: 43-13-6150tgbb 1 tablet by mouth once dailyGenicin Rashmi-S oral tablet tab(s), Oral, Daily, Refill(s) 0 Start Date: 12/10/24 Status: Ordered Repea t number: 124 hr isosorbide mononitrate 30 mg extended release oral tablet (3 sources)Nitrate VasodilatorStart: 55-17-5030ytbt 1 tablet by mouth once daily in the morningisosorbide mononitrate 30 mg ER Tab 30 mg = 1 tab(s), Oral, qAM, # 90 tab(s), Refills(s) 0 Start Date: 12/10/24 Status: Ordered Quantity: 90.0 Unit: tab(s) Repeat number: 1Start: 33-81-2098lgda 1 tablet by mouth every twenty-four hours in the morningisosorbide mononitrate ER (Imdur) 30 MG 24 hr tablet Take 1 tablet by mouth in the morning. 12/03/2024 Activelosartan potassium 100 mg oral tablet (6 sources)Angiotensin 2 Receptor BlockerStart: 10-69-1198hkuryoad (Cozaar) 100 MG tablet 05/09/2025 ActiveStart: 02-56-9477dejlfyvg 100 mg Tab 100 mg = 1 tab(s), Refills(s) 0 Start Date: 02/27/24 Status: Ordered Repeat number: 1 meclizine hydrochloride 12.5 mg oral tablet (1 source)AntiemeticStart: 16-93-4684wvqehdrkp (Antivert) 12.5 MG tablet 12/03/2024 ActiveMisc Medication (1 source)Start: 74-92-2570Iqgy Medication Start Date: 08/27/19 Status: Ordered Multi Vitamin+ (1 source)Start: 66-49-5910Auliq Vitamin+ Oral, Daily, Refill(s) 0 Start Date: 08/27/19 Status: OrderedMultiple Vitamin (Multi-Vitamin) tablet (1 source)take 1 tablet by mouth in the morningMultiple Vitamin (Multi-Vitamin) tablet Take 1 tablet by mouth in the morning. ActiveMultivitamin preparation (5 sources)Start: 78-88-7964vlaixyydgqsv Refill(s) 0 Start Date: 02/27/24 Status: Ordered Repeat number: 1Start: 92-76-6067diddwrewtsll Refill(s) 0 Start Date: 02/27/24 Status: Orderedrivaroxaban 20 mg oral tablet (2 sources)Factor Xa InhibitorStart: 04-27-2025 End: 48-10-4261nqzujcxhbrh (Xarelto) 20 MG tablet Take 20 mg by mouth 04/27/2025 04/27/2026 ActiveStart: 73-33-2195cnna 1 mg by mouth once daily in the evening Xarelto 20 mg oral tablet mg tab(s), Oral, qPM, Refills(s) 0 Start Date: 03/18/25 Status: Ordered Repeat number: 1terazosin 5 mg oral capsule (7 sources)alpha-Adrenergic BlockerStart: 89-48-8066ecqwmpggq (Hytrin) 5 MG capsule 03/21/2025 ActiveStart: 70-72-5038kwyq 1 capsule by mouth once daily at bedtimeterazosin 5 mg Cap 5 mg = 1 cap(s), Oral, Once a day (at bedtime), # 90 cap(s), Refills(s) 0 Start Date: 08/27/19 Status: Ordered Quantity: 90.0 Unit: cap(s) Repeat number: 1 Problems Active Problems Problem ClassificationProblemDateDocumented DateEpisodic/ChronicAortic; peripheral; and visceral artery aneurysms (6 sources)Abdominal aortic nzmpixeq61-53-8990GzemhvaYaiwjnff of urinary tract (6 sources)History of calculus of efjaaq77-69-7294WypdqnuoMectlg of prostate (10 sources)Malignant tumor of prostate; 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: [Malignant neoplasm of prostate]Onset: 313508-71-2658HdclnkoBmnrre of prostate (1 source)Personal history of malignant neoplasm of prostate; 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: [PERSONAL HX MALIG NEOPLASM PROSTATE]Onset: 14-93-3038TtgyppelHhadojt dysrhythmias (6 sources)Unspecified atrial fibrillation; 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: [Atrial fibrillation] Onset: 285160-11-9873WousjgoPulkgvp kidney disease (1 source)Chronic kidney disease stage 3A ; 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: [Stage 3a chronic kidney disease]Onset: 169816-72-8788FjqqqieAsnoxdea atherosclerosis and other heart disease (3 sources)Coronary arteriosclerosis; 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: [Atherosclerotic heart disease of [place] coronary artery with other forms of angina pectoris]Onset: 366067-91-7994DynxdggLiigyrho of white blood cells (1 source)Elevated white blood cell count, unspecified; 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: [ELEVATED WHITE BLOOD CELL COUNT UNS]Onset: 86-13-9314AvnsgteVnhltgncs of lipid metabolism (2 sources)Hyperlipidemia, unspecified; 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: [Pure hypercholesterolemia]Onset: 606882-19-8027ChcmruvUvtgygxxnimbcz and diverticulitis (6 sources)Diverticulosis of sigmoid -62-9187NtoilzjZvlvnnrpo hypertension (8 sources)Essential (primary) hypertension; 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: [Hypertensive disorder]Onset: 13-51-1587BqqvykzYcvxkwzutsfiy symptoms and ill-defined conditions (20 sources)Radu hematuria; 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: [Incomplete emptying of bladder] Onset: 443178-00-9016YgkagnafGulruiuixzk of prostate (8 sources)Benign prostatic hypertrophy with outflow obstruction; 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: [Benign prostatic hyperplasia without lower urinary tract symptoms]Onset: 921058-06-1369WoyzigfQtpqdtgrjodv with complications and secondary hypertension (2 sources)Hypertensive heart disease without heart failure; 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: [Hypertensive heart disease withoutheart failure]Onset: 25-12-7832CfnmmzuEbcim aftercare (1 source)detention (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; 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: [CORRECTION 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 ASPIRIN]Onset: 74-20-6536HucedtouCmisy aftercare (1 source)Other computer terminal operator (current) drug therapy; 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: [OTH SUPERVISOR DECORATING CURRENT DRUG THERAPY]Onset: 25-78-6517AwawglwgRdfci aftercare (3 sources)Long-term current use of anticoagulant; 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: [detention (current) use of anticoagulants]Onset: 60-48-9012JnobnmcqQnuxm and unspecified benign neoplasm (6 sources)Pseudopolyposis of bwiaq29-57-7132WcxcvtaeGqqmy lower respiratory disease (1 source)Other nonspecific abnormal finding of lung field; 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: [OTH NONSPECIFIC ABN FIND LNG FIELD]Onset: 00-09-8383ApfcilnwCyifg lower respiratory disease (1 source)Shortness of breath; 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: [SHORTNESS OF BREATH]Onset: 52-74-3705CzlqvmfiXwdjq screening for suspected conditions (not mental disorders or infectious disease) (13 sources)Magnetic resonance imaging of abdomen abnormal; 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: [Raised prostate specific antigen]Onset: 714549-93-2843IeoeothlXmpsg skin disorders (1 source)Seborrheic keratosis; 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: [Other seborrheic keratosis] 44-29-8283VkoacraxOughtvrnhr and visceral atherosclerosis (1 source)Atherosclerosis of aorta; 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: [Atherosclerosis of aorta] Onset: 26-51-1032ZvyfwbhMdxdtmsjq and history of mental health and substance abuse codes (6 sources)Zd--15ruoksx76-73-5438FbcokuvtLundayexn-dktxybf disorders (2 sources)Nicotine dependence, chewing tobacco, uncomplicated; 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: [Nicotine dependence]Onset: 948567-75-4038OhahwirCmbrhbetagyl (6 sources)Drug therapy uabanpm25-80-8707Ipeczqtcvdxq (1 source)ALCOHOL USE UNSPEC UNCOMPLICATED; 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: [ALCOHOL USE UNSPEC UNCOMPLICATED]Onset: 68-62-6196Ybsqvvhzzmhx (1 source)CONTACT W/AND (SUSP) EXPOS COVID-19; 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: [CONTACT W/AND (SUSP) EXPOS COVID-19]Onset: 25-18-3656Jcpasacanygy (2 sources)Asymptomatic microscopic asnghjhuh61-17-9257 Past or Other Problems Problem ClassificationProblemDateDocumented DateEpisodic/ChronicCardiac dysrhythmias (5 sources)Palpitations; 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: [Bradycardia, unspecified]Onset: 36-90-3467Buxpltxk Results Test NameValueInterpretationReference RangeFacilityOffice Visiton 06-09-2025 Follow-up [id number] Nick Doyle 1945 Date Provider Department Center 06/09/2025 OVIDIO XIONG HOLLY [facility] Family History Problem Relation Age of Onset Heart attack Father Heart attack Brother Family Status - Relation Status Age at Mother Father Brother Level of Service:45625 UT OFFICE/OUTPATIENT ESTABLISHED LOW MDM 20 MIN Reason for Visit and Comments: Follow-up [070583] - Patient is here today for a 4 month follow up appointment. Patient denies chest pain, SOB/MICHAEL, palpitations/racing heart, fatigue, leg swelling Atrial Fibrillation [80] Hypertension [756091] Coronary Artery Disease [187] Hyperlipidemia [182] Dizziness [326529] - Dizziness/lightheaded with position changesNormalUniversity of Uvalde Memorial HospitalUrology Office/Clinic Noteon 57-22-6156Ykxggeb Office/Clinic NoteUrology Office/Clinic Note Chief Complaint discuss results HPI Staff Pt is a 79 year old male here to discuss results of decipher Dx: Prostate cancer, asymptomatic microhematuria and anticoagulated Pt. denies having incontinence Pt. denies having pain with urination Pt. denies having gross hematuria Pt. denies having abd pain Pt. denies having flank pain History of Present Illness Tests reviewed: UA, Decipher I have reviewed the previous health record [...] Physical Exam Vitals & Measurements T: 37 ???C(Oral) HR: 68(Peripheral) RR: 16 BP: 106/70 HT: 67 in HT: 170 cm WT: 135.364 lb WT: 61.4 kg BMI: 21.25 General Appearance: alert, no distress, well nourished, well developed adult. Assessment/Plan 79 yo with hx of prostate cancer, recently upstaged to unfavorable intermediate risk prostate cancer while on active surveillance, here to discuss Decipher results. 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 Hematuria workup 2019 negative. Pt is accompanied by his . ABBE 16 (19), not a priority. 1. Prostate cancer (C61: Malignant neoplasm of [...] insufficient carcinoma present TRUS/bx 09/30/19 - G6 (3+3) x 3 cores. Highest percentage of core [...] a PET scan and they were never advisedto f/u with an oncologist. MRI prostate [place]24 [facility] [place] prostate volume 118 mL. No MRI evidence of clinically significant prostate cancer. BPH changes. Prominent left perirectal lymph node measuring 5 mm in short axis. Findingis nonspecific. Correlation with colonoscopy is suggested. S/p TRUS/bx 03/26/24 - cT1c disease, [place] 7 (4+3), Grade group 3 prostate cancer in 2/24 cores, initial PSA of 11.5. Upstaged to unfavorable intermediate risk disease. ISSAC ~severely enlarged prostate, left higher than right without firm nodules. MSKCC nomogram which estimates his risk of organ confined disease to be 48%, extraprostatic extension 49%, lymph node metastasis 6%, and seminal vesical invasion 4%. PSMA PET scan 05/12/24 [facility] [place] Neg for mets. Disease localized to prostate. Decipher - 0.56, intermediate risk. Reviewed Decipher results and disease hx with pt and . Since he is intermediate risk, tx recommendation is indeterminate, especially given age. Given his advanced age of 79 yo, not a good surgical candidate. Pt remains active, walks or mows lawn daily. Would take years for prostate cancer to pro ann marie but if he does wait till then/when he becomes symptomatic, he will have limited treatment options. He and his verbalize their understanding and feel they will wait for symptomatic development. Has had some cardiac issues, undergoing workup. Again discussed risks>benefits of treatment if other comorbidities are limiting his life to 5-10 years. Follow up PRN. Pt understands and agrees with plan. 2. BPH with urinary obstruction (N40.1: Benign prostatic hyperplasia with lower urinary tract symptoms) PVR (cc): 09/10/19 - 120 UA neg. IPSS 7 (10). Taking Terazosin 5 mg qd. -Cont sx monitoring and meds. Declines changes at this time 3. Anticoagulated (Z79.01: detention (current) use of anticoagulants) Eliquis. Hx of afib. Elevated risk of periop complications. Follow-up With When Contact Information Ale Green MD, URL, URO Additional Instructions: PRN Patient Education Prostate Cancer I, Ser (more content not included)...German HospitalComment on above:Result Comment: Electronically Signed By: Ale Green MD\.br\Date and Time Signed: 03/18/25 13:27EDT\.br\Electronically Co-Signed By: Anny Alonso\.br\Date and Time Co-Signed: 03/18/25 12:44 [id number] *Cut carvedilol in half to 3.125mg twice daily *We will start amlodipine 5mg daily to help with blood pressure control *Check blood pressure 2 hours after morning medications and write down blood pressure and heart rate readings. Bring in readings to your next appt.[facility] CenterOffice Visiton 42-63-9116Uzfdxj-up visit [id number] Nick Doyle 1945 M Date Provider Department Center 02/03/2025 ABBE CONTRERAS Family History Problem Relation Age of Onset Heart attack Father Heart attack Brother Family Status - Relation Status Age at Mother Father Brother Level of Service:64080 UT OFFICE/OUTPATIENT ESTABLISHED MOD MDM 30 MIN Reason for Visit and Comments: Atrial Fibrillation [80] Hypertension [219655][facility]36on From: Abbe Katz CNP Sent: 01/06/2025 11:42 AM EDT To: Nesha Bhatia MA Please let him know his stress test was negative. We can discuss a heart monitor at his visit on the . Thanks Spoke to , advised of Irma's findings. verbalized understanding and states she will relay the message,[facility] Orders Onlyon 23-80-7761Tkkdcj [id number] Nick Doyle 1945 M Date Provider Department Center 01/06/2025 [id number], HISTORICAL KIRAN [facility] Family History Problem Relation Age of Onset Heart attack Father Heart attack Brother Family Status - Relation Status Age at Mother Father Brother DeceasedNormalUniMarietta Osteopathic ClinicOrders Onlyon 15-45-6946Vpwshh [id number] Nick Doyle 1945 M Date Provider Department Center 12/31/2024 [id number], HISTORICAL KIRAN [facility] Family History Problem Relation Age of Onset Heart attack Father Heart attack Brother Family Status - Relation Status Age at Mother Father Brother DeceasedNormalUSt. Francis HospitalOffice Visiton 53-81-7068Vqhbxg-up [id number] Nick Doyle 1945 M Date Provider Department Center 12/23/2024 ABBE [facility]ERAS [facility] Family History Problem Relation Age of Onset Heart attack Father Heart attack Brother Family Status - Relation Status Age at Mother Father Brother Level of Service:02697 UT OFFICE/OUTPATIENT ESTABLISHED MOD MDM 30 MIN Reason for Visit and Comments: Atrial Fibrillation [80] Hypertension [760800][facility] CenterUrology Office/Clinic Noteon 52-98-7353Osncyuy Office/Clinic NoteUrology Office/Clinic Note Chief Complaint PET scan HPI [...] risk prostate cancer while on active surveillance MENOMINEE, does wear hearing aids. Pt is accompanied by his , who also serves as historian, and daughter today. ABBE 19 (18) 1. Prostate cancer (C61: Malignant neoplasm of prostate) PSA: 15 - 5.49 05/15/16 - 6.00 & 22% 11/02/17 - 6.83 & 23% 03/05/19 - 9.72 [...] a PET scan and they were never advisedto f/u with an oncologist. MRI prostate 03/11/24 [facility] [place] prostate volume 118 mL. No MRI evidence of clinically significant prostate cancer. BPH changes. Prominent left perirectal lymph node measuring 5 mm in short axis. Findingis nonspecific. Correlation with colonoscopy is suggested. S/p TRUS/bx 03/26/24 - cT1c disease, [place] 7 (4+3), Grade group 3 prostate cancer in 2/24 cores, initial PSA of 11.5. Upstaged to unfavorable intermediate risk disease. ISSAC ~severely enlarged prostate, left higher than right without firm nodules. MSKCC nomogram which estimates his risk of organ confined disease to be 48%, extraprostatic extension 49%, lymph node metastasis 6%, and seminal vesical invasion 4%. PSMA PET scan 05/12/24 [facility] [place] Neg for mets. Disease localized to [...] annual routine UA screening 4. Anticoagulated (Z79.01: detention (current) use of anticoagulants) Eliquis. hx of afib. Elevated risk of periop complications. [1] Follow-up With When Contact Information Ale Green MD, URL, URO [address] [place] [address] [phone] Add (more content not included)...German HospitalComment on above:Result Comment: Electronically Signed By: Ale Green MD\.br\Date and Time Signed: 12/10/24 14:10EDT\.br\Electronically Co-Signed By: Ryanne Mei\.br\Date and Time Co-Signed: 12/10/24 13:56 EDTPatient Letter FTMCon 75-78-2155Irpimxn Letter FTPatient Letter FT November 05, 2024 NICK DOYLE [address] [place] [address] : 1945 Dear Vivek, I am corresponding with you by certified mail because you have a medical condition known as Historyof Prostate Cancer. This requires routine follow up [...] Dr. Ale Green MD [facility] [address] [place], [place] [address]JvsgruKgudhjGerman HospitalProvider Letteron 09-11-2024 Provider LetterProvider Letter September 11, 2024 NICK DOYLE [address] [place] [address] : 1945 Dear Mr. Doyle , We have been trying to reach you with no success. It is important that you return our call regarding your diagnosis from our office upon receiving this letter. Also, at the time of your call, please provide us with your current information. Thank you for your prompt attention to this matter. Sincerely, [facility] [address] [place] [address], [address] [place] [address] WmfwilSiaviyGerman HospitalOffice Visiton 09-05-2024 Follow-up [id number] Nick Doyle 1945 M Date Provider Department Center 09/05/2024 [id number] CHAN Family History Problem Relation Age of Onset Heart attack Father Heart attack Brother Family Status - Relation Status Age at Father Brother Level of Service:29975 UT OFFICE/OUTPATIENT ESTABLISHED LOW MDM 20 MIN Reason for Visit and Comments: Atrial Fibrillation [80] - Denies palpitations, lightheadedness/syncope, and bleeding on Eliquis. Coronary Artery Disease [187] - Denies chest pain and SOB Doing very well. Hypertension [401199]NormalRegional Medical CenterPET psma initial tx sb-mton 76-53-6067EIY psma initial tx sb-[facility] [address] [place] [address] [place] [address] Nuclear Medicine Report Signed Patient: Nick Doyle MR#: [id number] : 1945 Acct:[id number] Age/Sex: 79 / M ADM Date: 05/12/24 Loc: Room: Type: [facility] Attending Dr: Ale Green MD Copies to: [...] disease. Impression dictated by: Stuart Diaz Jr., D.OAmbreen05/12/2024 3:00 PM Dictation Location: [place] [address] Transcribed By: [facility] 05/12/24 1500 Dictated By: Stuart Diaz Jr, DO 05/12/24 1447 Signed By: 05/12/[address] [place] [address] Physician GroupAmbulatory Visit Summaryon 74-86-2869Vzhixnoqho Visit SummaryAmbulatory Visit Summary VIVEK, NICK Johns :1945 Visit Date:04/10/2024 Ambulatory Visit Instructions Your [...] Follow Up with Peter AMOR, Ale Patterson, RADHA, URO When: Where: Medications What How Much When Instructions Unchanged apixaban (Eliquis 5 mg oral tablet) 2 Tablets Contact prescribing physician if questions or concerns Unchanged diltiazem (DilTIAZem (Eqv-Cardizem CD) 120 mg/ 24 hours oral capsule, extended release) 1Capsules Contact prescribing physician if questions or concerns [...] such as a bone scan, CT scan, PETscan, or MRI. Stages of prostate cancer The stages of prostate cancer are as follows: ? Stage 1 (I). At this stage, the cancer is found in the prostate only. The cancer is not visible on imaging tests, and it is us (more content not included)... NormalAnson Community Hospitaler [facility] InstituteUrology Office/Clinic Noteon 08-82-1610Uarmplo Office/Clinic NoteUrology Office/Clinic Note Chief Complaint path HPI Staff [...] risk prostate cancer while on active surveillance MENOMINEE, does wear hearing aids. Pt is accompanied by his today who also serves as historian. ABBE 18 Portions of this record may have been created with voice recognition artificial intelligence software, specifically [employer], [employer] and or [employer]. Substitutions may have occurred due to the [...] a PET scan and they were never advisedto f/u with an oncologist. MRI of prostate 03[place]11/24 [facility] [place] 118 mL. Prominent left [...] biopsy results on 03/26/24. He has cT1c disease,[place] 7 (4+3), Grade group 3 prostate cancer in 2/24 cores, initial PSA of 11.5. I explained the D'Thomas criteria for risk stratification of prostate cancer which indicates that he has upstaged to u nfavorable intermediate risk disease. I educated him on the national comprehensive cancer network guidelines on the treatment of prostate cancer which indicates his options include: Watchful waiting,active surveillance, surgery, and radiation therapy. I discussed the advantages of each of his optio ns at length. Active surveillance involves monitoring the disease with the intention of curative intervention in the future if more concerning findings are seen. This involves PSAs every 6-12 months, rectal exams every 12 months, confirmatory prostate biopsy within 1-2 years of diagnosis if MRI used (6-12 monthsif no MRI prostate) and MP MRI pros (more content not included)...German HospitalComment on above:Result Comment: Electronically Signed By: Ale Green MD\.br\Date and Time Signed: 04/10/24 16:54EDT\.br\Electronically Co- Signed By: Johanna Salcido\.br\Date and Time Co-Signed: 04/10/24 15:46 EDTL on 03-26-2024 Specimen: [id number] Received: 03/28/24 Status: [facility] Num: [id number] Spec Type: Surgical Subm Dr: Ale Green [...] [facility]) Procedures: , Gross/Micro L4/12, PIN Cocktail/ Age/ Patient Sex Location Account Attending Physician Nick Doyle 78/M [place] [id number] Ale Green MD SPEC NUM: [id number] RECD: 03/28/24 STATUS: [place] [facility]T NUM: [id number] DOMINIC: 03/26/24-[address]: Ale Green MD ENTERED: 03/28/[address]: Margarita Aguilar SPEC TYPE: Surgical DEPT: ANGELITA COUCH ENTERED BY: [id number] RECV BY: [id number] ORDERED: HE/24, Gross/Micro L4/12, PIN Cocktail/6 ORDERED: HE/24, Gross/Micro L4/12, PIN Cocktail/6, USS/18 Supplemental Report Addendum 1 Entered: 12/30/24-4017 Supplemental for findings of 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 [employer] Prostate: -DECIPHER GENOMIC SCORE: 0.56 -Decipher genomic risk group is: Intermediate risk -Predicted risk of metastasis with standard therapy at 10-year is: 5.8% Specimen: [id number] Received: 03/28/24 Status: [place] Num: [id number] Spec Type: Surgical Subm Dr: Ale Green [...] Biopsy (RIGHT [facility]) Procedures: , Gross/Micro L4/, PIN Cocktail/6 Patient: Nick Doyle [id number] (Continued) Specimen: [id number] Received: 03/28/24 (Continued) Supplemental Report (Continued) Signed (signature on file) Jack Johnson MD 04/03/242005 Specimen: [id number] Received: 03/28/24 Status: [place] Num: [id number] Spec Type: Surgical Subm Dr: Ale Green [...] MEDIAL) Procedures: /, Gross/Micro L4/12, PIN Cocktail/6 Patient: Nick Doyle [id number] (Continued) Specimen: [id number] Received: 03/28/24 (Continued) Supplemental Report (Continued) Addendum Signed (signature on file) Jack Johnson MD 12/30/24 6253 Pathological Diagnosis Prostate Case Summary Result Summary Cores Involved [place] Group [place] Score Perineural Invasion (PNI) Extraprostatic Extension (EPE) Malignant at least 2 of 26 G3 4+3 not identified not identified Positive Core Summary Lenny Group Number of Cores I 0 of 26 II 1 of 26 III 1 of (more content not included)...NormalThe [facility] Physician GroupISTAT XRay CREon 22-22-5853NQGTD GFR50.810NoWilson Medical Center Physician GroupComment on above:Result Comment: PERFORMED BY: [place] [id number] PATHOLOGIST TRANSFERRER ENA CASTRO M.D.Performed By: #### ISCRE #### [address] prostate wo/w conon 45-21-5584XE prostate wo/w con [facility] [place] [address] MRI Report Signed Patient: Nick Doyle MR#: [id number] : 1945 Acct:[id number] Age/Sex: 78 / M ADM Date: 03/11/24 Loc: Room: Type: [facility] Attending Dr: Ale Green MD Copies to: [...] suggested. Impression dictated by: Stuart Diaz Jr., Richa03/11/2024 11:34 AM Dictation Location: [place] [address] Transcribed By: [facility] 03/11/24 1134 Dictated By: Stuart Diaz Jr, DO 03/11/24 1126 Signed By: 03/11/24 1134[facility] Physician GroupNo Panel InformationOrdered By: Ale Green on 75-69-4304Dvmrzbl Estimated GFR (eGFR)50.810[facility] - AkronWhole blood creatinine measurementOrdered By: Ale Green on 09-24-7473Vcaeqkuqpu [Mass/Vol]1.4 mg/dLHigh0.6-1.3FAdena Health SystemComment on above:ER/ESD physician is notified/shown all ISTAT results.Critical values may be confirmed by laboratorytesting ifdeemed necessary by ER attending doctor.Result Comment: ER/ESD physician is notified/shown all ISTAT results. Critical values may be confirmed by laboratory testing if deemed necessary by ER attending doctor.Performed By: #### ISCRE #### [facility] [address] [place] [address] USABNPon 36-01-8060Zocqfgyagms peptide B (Bld) [Mass/Vol] 368.0 pg/mLNormal<=1,800.0The [facility] MemorialComment on above:Performed By: #### HSTROPN, BMP, BNP #### [facility] [address] [address] [address] Alo JohnsonBAPTIST HEALTH CORBIN AUTO DIFFon 73-84-3687JKTF #0.0 103/ulNormal0.0-0.1The [facility] MemorialComment on above:Performed By: #### CBC #### [facility] [address] [place] [address] Dr. Alo JohnsonBasophils/100 WBC (Bld)0.3 %Normal0.2-2.0[facility] Comment on above:Performed By: #### CBC #### [facility] [address] [place] [address] Dr. Alo Quinones #0.7 103/ulNormal0.0-0.7The [facility] MemorialComment on above: Performed By: #### CBC #### [facility] [address] [place] [address] Dr. Alo Goldbergosinophils/100 WBC (Bld)6.3 %Normal0.9-7.0[facility] Comment on above:Performed By: #### CBC #### [facility] [address] [place] [address] Dr. Alo Goldbergrythrocyte distribution width (RBC) [Ratio]12.4 %Unzmzt88.0-15.0 The [facility] MemorialComment on above:Performed By: #### CBC #### [facility] [address] [place] [address] Dr. Alo JohnsonHematocrit (Bld) [Volume fraction]42.7 %Qlpzrj34.0-54.0[facility] DaytonComment on above:Performed By: #### CBC #### [facility] [address] [place] [address] Dr. Alo JohnsonHemoglobin (Bld) [Mass/Vol]14.5 g/tXVsiqdb17.0-18.0The [facility] MemorialComment on above:Performed By: #### CBC #### [facility] [address] [place] [address] Dr. Alo Calvert #0.03 10e3/ulNormal0.00-0.03The [facility] MemorialComment on above:Performed By: #### CBC #### [facility] [address] [place] [address] Dr. Alo Calvert %0.3 %Normal0.0-0.5The [facility] MemorialComment on above: Performed By: #### CBC #### [facility] [address] [place] [address] Dr. Alo Damon #4.8 103/ulCritically high1.2-3.8The [facility] Comment on above:Performed By: #### CBC #### [facility] [address] [place] [address] Dr. Alo Henriquezhocytes/100 WBC (Bld)41.8 %Kkhduv99.5-60.0The [facility] MemorialComment on above:Performed By: #### CBC #### [facility] [address] [place] [address] Dr. Alo ThompsonUAL DIFF REQNONormalThe [facility] MemorialComment on above: Performed By: #### CBC #### [facility] [address] [place] [address] Dr. Alo Buchanan (RBC) [Entitic mass]32.6 fiEbdapn89.9-34.0The [facility] MemorialComment on above:Performed By: #### CBC #### [facility] [address] [place] [address] Dr. Alo Yoo (RBC) [Mass/Vol]34.0 g/oHUeiwiv65.9-35.2The [facility] MemorialComment on above:Performed By: #### CBC #### [facility] [address] [place] [address] Dr. Alo Yoo (RBC) [Entitic vol]96.0 fLCritically high80.0-94.0The [facility] MemorialComment on above:Performed By: #### CBC #### [facility] [address] [place] [address] Dr. Alo Ragsdale #0.8 103/ulNormal0.3-0.8The [facility] MemorialComment on above:Performed By: #### CBC #### [facility] [address] [place] [address] Dr. Alo Ridleyocytes/100 WBC (Bld)7.1 %Normal1.7-12.0The [facility] Comment on above:Performed By: #### CBC #### [facility] [address] [place] [address] Dr. Alo Naqvi #5.1 103/ulNormal1.4-6.5The [facility] MemorialComment on above:Performed By: #### CBC #### [facility] [address] [place] [address] Dr. Alo Weiutrophils/100 WBC (Bld)44.2 %Nynzvd97.0-75.0The [facility] MemorialComment on above:Performed By: #### CBC #### [facility] [address] [place] [address] Dr. Alo Alemanlet mean volume (Bld) [Entitic vol]8.7 fLCritically low 9.5-13.5The [facility] MemorialComment on above:Performed By: #### CBC #### [facility] [address] [place] [address] Dr. Alo JohnsonPLT236 103/duFuxajy726-692Crs [facility] MemorialComment on above: Performed By: #### CBC #### [facility] [address] [place] [address] Dr. Alo JohnsonRBC4.45 106/ulCritically low4.70-6.10The [facility] MemorialComment on above:Performed By: #### CBC #### [facility] [address] [place] [address] Dr. Alo JohnsonWBC11.5 103/ulCritically high4.0-11.0The [facility] MemorialComment on above:Performed By: #### CBC #### [facility] [address] [place] [address] Dr. Alo Gibson BLOODon 34-54-4688Zfrthlzqhnf examination of blood, cultureCulture Observations: NO GROWTH AT 5 DAYS. Isolate 1 BC_BA_NANormalThe [facility] MemorialComment on above:Performed By: #### INSULIN #### [facility] [address] [address] [address] Alo JohnsonMicroscopic examination of blood, cultureCulture Observations: NO GROWTH AT 5 DAYS. Isolate 1 BC_BA_NANormalKindred Hospital DaytonComment on above:Performed By: #### INSULIN #### [facility] [address] [address] [address] Alo JohnsonCovid-19 PCR ([facility])on 85-98-1744GMRG-CoV-2 (COVID-19) RNA ANGELICA+probe Ql (Unsp spec)Not detectedNormalNOT DETECTEDKindred Hospital Dayton Comment on above:Result Comment: When diagnostic testing is negative, the [...] for this test is supported by the Paint Booth Operator of Health and Human Service's declaration that circumstances exist to justify the emergency use of in vitro diagnostics for the detection and/or diagnosis of the virus that causes COVID-19. This EUA will remain in effect for the duration of the COVID-19 declaration justifying emergency of IVDs, unless it is terminated or revoked by the FDA (after which the test may no longer be used).Performed By: #### INSULIN #### [facility] [address] [place] [address] Dr. Prajapati ChangECHOCARDIO M/2D COMPLETEon 43-39-6365CUOENGKVVF M/2D COMPLETE Patient: NICK DOYLE Exam Date: 10/24/2022 : 1945 Gender:M Ordering : MICHAEL PRADO Admission #: [id number] Family : DR ALIS RICARDO . Order #: [id number] CLICK HERE TO VIEW EXAM ECHOCARDIOGRAM REPORT [...] by: Marcellus Mei M.D. on 10/24/2022 at 15:33[facility] CampusETHANOL (BLD ALC)on 02-51-1682NZT NOTENOTE: 80 mg/dl is the legal limit for a blood alcohol levelTrinity Health System West CampusComment on above:Performed By: #### INSULIN #### [facility] [address] [place] [address] Dr. Prajapati ChangEthanol [Mass/Vol]mg/dLNoBrecksville VA / Crille HospitalComment on above:Performed By: #### INSULIN #### [facility] [address] [place] [address] Dr. Prajapati ChangLACTATE/LACTIC ACIDon 17-86-8092Mlsmubt [Moles/Vol]1.3 mmol/L Normal0.4-2.0The [facility] MemorialComment on above:Performed By: #### LACT #### [facility] [address] [place] [address] Dr. Alo HillsF CHEM 8 (BAS METB)on 05-63-5608Vysyw gap [Moles/Vol]14.9 mmol/LNormalThe [facility] MemorialComment on above:Performed By: #### HSTROPN, BMP, BNP #### [facility] [address] [address] [address] Alo JohnsonCalcium [Mass/Vol]10.0 mg/dLNormal8.5-10.1[facility] Comment on above:Performed By: #### HSTROPN, BMP, BNP #### [facility] [address] [place] [address] Dr. Alo JohnsonChloride [Moles/Vol]103 mmol/LBxwkil12-866Jsf [facility] Comment on above:Performed By: #### HSTROPN, BMP, BNP #### [facility] [address] [place] [address] Dr. Alo JohnsonCO2 [Moles/Vol]26.2 mmol/ZQenhnu81.0-32.0[facility] Comment on above:Performed By: #### HSTROPN, BMP, BNP #### [facility] [address] [place] [address] Dr. Alo JohnsonCreatinine [Mass/Vol]1.10 mg/dLNormal0.70-1.30The [facility] MemorialComment on above:Performed By: #### HSTROPN, BMP, BNP #### [facility] [address] [place] [address] Dr. Prajapati ChangEGFR-AF CONGOLESE>60Normal>=60The [facility] MemorialComment on above:Performed By: #### HSTROPN, BMP, BNP #### [facility] [address] [place] [address] Dr. Alo GoldbergGFR-NON AF CONGOLESE>60Normal>=60The [facility] MemorialComment on above:Performed By: #### HSTROPN, BMP, BNP #### [facility] [address] [address] [address] Alo JohnsonGlucose [Mass/Vol]135 mg/dLCritically kktz24-088Hav [facility] MemorialComment on above:Performed By: #### HSTROPN, BMP, BNP #### [facility] [address] [address] [address] Alo JohnsonPotassium [Moles/Vol]4.1 mmol/LNormal3.5-5.1The [facility] Comment on above:Performed By: #### HSTROPN, BMP, BNP #### [facility] [address] [address] [address] Alo JohnsonSodium [Moles/Vol]140 mmol/SCckhfr444-495Yjv [facility] Comment on above:Performed By: #### HSTROPN, BMP, BNP #### [facility] [address] [place] [address] Dr. Alo JohnsonUrea nitrogen [Mass/Vol]21.0 mg/dLCritically high7.0-18.0The [facility] MemorialComment on above:Performed By: #### HSTROPN, BMP, BNP #### [facility] [address] [address] [address] Alo Clement nitrogen/Creatinine [Mass ratio]19.1 mg/mgNormalThe [facility] MemorialComment on above:Performed By: #### HSTROPN, BMP, BNP #### [facility] [address] [place] [address] Dr. Alo Underwood, HIGH SENSITIVITYon 47-60-6026DELANQ19.8 pg/mLNormal 4.0-76.1[facility] DaytonComment on above:Result Comment: CUT-OFF POINTS HAVE BEEN ESTABLISHED BASED ON THE FOURTH UNIVERSAL DEFINITIONS OF MYOCARDIAL INFARCTION. THE UPPER REFERENCE LIMIT (URL) OF TROPONIN, DEFINED THE 99TH PERCENTILE OF cTnI DISTRIBUTION IN A REFERENCE POPULATION, HAS BEEN CONFIRMED THE DECISION THRESHOLD FOR WI DIAGNOSIS.Performed By: #### A1C #### [facility] [address] [place] [address] Dr. Alo JohnsonHSTROP14.1 pg/mLNormal4.0-76.1[facility] on above:Result Comment: CUT-OFF POINTS HAVE BEEN ESTABLISHED BASED ON THE FOURTH UNIVERSAL DEFINITIONS OF MYOCARDIAL INFARCTION. THE UPPER REFERENCE LIMIT (URL) OF TROPONIN, DEFINED THE 99TH PERCENTILE OF cTnI DISTRIBUTION IN A REFERENCE POPULATION, HAS BEEN CONFIRMED THE DECISION THRESHOLD FOR WI DIAGNOSIS.Performed By: #### HSTROPN, BMP, BNP #### [facility] [address] [address] [address] Alo ClaudioHojes 05-44-8333AXS8.366 uIU/mLNormal0.358-3.740The [facility] MemorialComment on above:Performed By: #### INSULIN #### [facility] [address] [place] [address] Dr. Alo JohnsonXR CHEST 1 Von 39-10-4597FF CHEST 1 VCXR HISTORY: Chest heaviness. COMPARISON: None. TECHNIQUE: 1 [...] Electronically authenticated by: NALINI CHIRINOS Date: 2022-10-24 01:01[facility] CampusINSULINon 28-54-4466Unienlh6.5 uIU/mLNormal2.6-24.9The [facility] MemorialComment on above:Performed By: #### INSULIN #### [facility] [address] [place] [address] Dr. Alo Saleem, FREE AND TOTAL RATIOon 10-17-2022% Free PSA21.9 %NormalThe [facility] on above:Result Comment: The table below lists the probability [...] free PSA for any other population of men.Performed By: #### INSULIN #### [facility] [address] [place] [address] Dr. Alo Valenzuela specific Ag [Mass/Vol]10.6 ng/mLCritically high0.0-4.0 The [facility] MemorialComment on above:Result Comment: Spotsi ECLIA methodology. . According to the [employer], Serum PSA should decrease and [...] of the presence or absence of malignant disease.Performed By: #### INSULIN #### [facility] [address] [place] [address] Dr. Alo Saleem, Free2.32 ng/mLNormalN/AThe [facility] MemorialComment on above:Result Comment: Javier ECLIA methodology.Performed By: #### INSULIN #### [facility] [address] [place] [address] Dr. Alo Mora AUTO DIFFon 92-52-5582VUXC #0.0 103/ulNormal0.0-0.1The [facility] MemorialComment on above:Performed By: #### INSULIN #### [facility] [address] [place] [address] Dr. Aol JohnsonBasophils/100 WBC (Bld)0.4 %Normal0.2-2.0The [facility] Comment on above:Performed By: #### INSULIN #### [facility] [address] [place] [address] Dr. Alo Quinones #0.6 103/ulNormal0.0-0.7The [facility] MemorialComment on above: Performed By: #### INSULIN #### [facility] [address] [address] [address] Alo Goldbergosinophils/100 WBC (Bld)5.8 %Normal0.9-7.0The [facility] Comment on above:Performed By: #### INSULIN #### [facility] [address] [place] [address] Dr. Alo Goldbergrythrocyte distribution width (RBC) [Ratio]12.6 %Nqvnvt61.0-15.0 The [facility] MemorialComment on above:Performed By: #### INSULIN #### [facility] [address] [place] [address] Dr. Alo JohnsonHematocrit (Bld) [Volume fraction]42.8 %Uftufm58.0-54.0The [facility] MemorialComment on above:Performed By: #### INSULIN #### [facility] [address] [place] [address] Dr. Alo JohnsonHemoglobin (Bld) [Mass/Vol]15.1 g/oLKtzrci68.0-18.0The [facility] MemorialComment on above:Performed By: #### INSULIN #### [facility] [address] [place] [address] Dr. Alo JohnsonIG #0.02 10e3/ulNormal0.00-0.03The [facility] MemorialComment on above:Performed By: #### INSULIN #### [facility] [address] [place] [address] Dr. Alo JohnsonIG %0.2 %Normal0.0-0.5The [facility] MemorialComment on above: Performed By: #### INSULIN #### [facility] [address] [place] [address] Dr. Alo SimonMPH #3.4 103/ulNormal1.2-3.8The [facility] MemorialComment on above:Performed By: #### INSULIN #### [facility] [address] [place] [address] Dr. Alo Simonmphocytes/100 WBC (Bld)36.5 %Yzsxef30.5-60.0The [facility] MemorialComment on above:Performed By: #### INSULIN #### [facility] [address] [address] [address] Alo Angela DIFF REQNONormalThe [facility] MemorialComment on above: Performed By: #### INSULIN #### [facility] [address] [address] [address] Alo Yoo (RBC) [Entitic mass]33.3 jtUwqygf09.9-34.0The [facility] HospitalComment on above:Performed By: #### INSULIN #### [facility] [address] [address] [address] Alo Yoo (RBC) [Mass/Vol]35.3 g/dLCritically high29.9-35.2The [facility] MemorialComment on above:Performed By: #### INSULIN #### [facility] [address] [place] [address] Dr. Alo Yoo (RBC) [Entitic vol]94.3 fLCritically high80.0-94.0The [facility] MemorialComment on above:Performed By: #### INSULIN #### [facility] [address] [address] [address] Alo Ragsdale #0.6 103/ulNormal0.3-0.8The [facility] MemorialComment on above:Performed By: #### INSULIN #### [facility] [address] [address] [address] Alo Ridleyocytes/100 WBC (Bld)5.9 %Normal1.7-12.0The [facility] Comment on above:Performed By: #### INSULIN #### [facility] [address] [address] [address] Alo Naqvi #4.8 103/ulNormal1.4-6.5The [facility] MemorialComment on above:Performed By: #### INSULIN #### [facility] [address] [address] [address] Alo Weiutrophils/100 WBC (Bld)51.2 %Yiexne65.0-75.0The [facility] MemorialComment on above:Performed By: #### INSULIN #### [facility] [address] [address] [address] Alo JohnsonPlatelet mean volume (Bld) [Entitic vol]9.0 fLCritically low 9.5-13.5The [facility] MemorialComment on above:Performed By: #### INSULIN #### [facility] [address] [address] [address] Alo JohnsonPLT240 103/nsClczce569-640Wsw [facility] MemorialCommymichigan medical center sault on above: Performed By: #### INSULIN #### [facility] [address] [place] [address] Dr. Alo JohnsonRBC4.54 106/ulCritically low4.70-6.10The [facility] MemorialCommymichigan medical center sault on above:Performed By: #### INSULIN #### [facility] [address] [place] [address] Dr. Alo JohnsonWBC9.4 103/ulNormal4.0-11.0The [facility] on above: Performed By: #### INSULIN #### [facility] [address] [place] [address] Dr. Alo JohnsonGLYCOHEMOGLOBIN A1Con 19-95-8785ZSJ RECOMMENDATIONSEE BELOWNormal [facility] DaytonCommymichigan medical center sault on above:Result Comment: ADA RECOMMENDED LIMIT 4.0 - 6.0 ADA THERAPEUTIC TARGET < 7.0 ACTION SUGGESTED > 7.0Performed By: #### A1C #### [facility] [address] [place] [address] Dr. Alo JohnsonGlucose [Mass/Vol]111 mg/dLNormalThe [facility] MemorialCommymichigan medical center sault on above:Performed By: #### A1C #### [facility] [address] [place] [address] Dr. Alo JohnsonHbA1c (Bld) [Mass fraction]5.5 %Normal4.5-6.2The [facility] on above:Performed By: #### A1C #### [facility] [address] [place] [address] Dr. Yilan ChangLIPID PROFILEon 76-66-4433EHNH-HDL RATIO NORMSEE [facility] Hospital [facility] CantonCommymichigan medical center sault on above:Result Comment: 3.3 - 4.4 LOW RISK 4.4 - 7.1 AVERAGE RISK 7.1 - 11.0 MODERATE RISK >11.0 HIGH RISKPerformed By: #### CMP, LIPID, URIC #### [facility] [address] [place] [address] Dr. Alo JohnsonCholesterol [Mass/Vol]229 mg/dLCritically high<=200[facility] on above:Performed By: #### CMP, LIPID, URIC #### [facility] [address] [place] [address] Dr. Alo JohnsonCholesterol in HDL [Mass/Vol]48 mg/oLEhjfig24-08EnxPomerene Hospital on above:Performed By: #### CMP, LIPID, URIC #### [facility] [address] [place] [address] Dr. Alo Mineresterol in LDL [Mass/Vol]152.8 mg/dLMercy Health Willard Hospital on above:Performed By: #### CMP, LIPID, URIC #### [facility] [address] [place] [address] Dr. Alo Leung.total/Cholesterol in HDL [Mass ratio]4.8 {ratio} NormalPomerene Hospital on above:Performed By: #### CMP, LIPID, URIC #### [facility] [address] [place] [address] Dr. Alo Kaplan NORMAL> or = 60 mg/dl - LOW CARDIOVASCULAR RISK <40 mg/dl - HIGH CARDIOVASCULAR RISKTrinity Health System West CampusCommymichigan medical center sault on above:Performed By: #### CMP, LIPID, URIC #### [facility] [address] [place] [address] Dr. Alo Gordon CALC NORMALSEE [facility] Hospital - CantonCommymichigan medical center sault on above:Result Comment: <100 mg/dl OPTIMAL 100 - 129 mg/dl NEAR OR ABOVE OPTIMAL 130 - 159 mg/dl BORDERLINE HIGH 160 - 189 mg/dl HIGH >190 mg/dl VERY HIGH Performed By: #### CMP, LIPID, URIC #### [facility] [address] [address] [address] Alo JohnsonTriglyceride [Mass/Vol]141 mg/dLNormal<=150The [facility] Comment on above:Performed By: #### CMP, LIPID, URIC #### [facility] [address] [place] [address] Dr. Alo JohnsonVLDL CALC28.2 mg/dLNormalThe [facility] MemorialComment on above: Performed By: #### CMP, LIPID, URIC #### [facility] [address] [place] [address] Dr. Alo JohnsonPROLeanne 14(COMP METB)on 90-19-6123Uwnxmkn [Mass/Vol]4.0 g/dLNormal 3.4-5.0The [facility] MemorialComment on above:Performed By: #### CMP, LIPID, URIC #### [facility] [address] [place] [address] Dr. Alo JohnsonAlbumin/Globulin [Mass ratio]1.4 {ratio}NormalThe [facility] MemorialComment on above:Performed By: #### CMP, LIPID, URIC #### [facility] [address] [place] [address] Dr. Alo Burroughs [Catalytic activity/Vol]63 U/WBhdfxq63-529Whh [facility] MemorialComment on above:Performed By: #### CMP, LIPID, URIC #### [facility] [address] [place] [address] Dr. Alo Rosa [Catalytic activity/Vol]21 U/QUwnzqp53-89Rgj [facility] MemorialComment on above:Performed By: #### CMP, LIPID, URIC #### [facility] [address] [place] [address] Dr. Alo Monroy gap [Moles/Vol]13.6 mmol/LNormalThe [facility] Comment on above:Performed By: #### CMP, LIPID, URIC #### [facility] [address] [place] [address] Dr. Alo Briggs [Catalytic activity/Vol]22 U/MCkmqsu63-24Vim [facility] MemorialComment on above:Performed By: #### CMP, LIPID, URIC #### [facility] [address] [place] [address] Dr. Alo JohnsonBilirubin [Mass/Vol]0.7 mg/dLNormal0.2-1.0[facility] Comment on above:Performed By: #### CMP, LIPID, URIC #### [facility] [address] [place] [address] Dr. Alo JohnsonCalcium [Mass/Vol]9.4 mg/dLNormal8.5-10.1The [facility] Comment on above:Performed By: #### CMP, LIPID, URIC #### [facility] [address] [place] [address] Dr. Alo JohnsonChloride [Moles/Vol]104 mmol/JSokjri76-574Blu [facility] Comment on above:Performed By: #### CMP, LIPID, URIC #### [facility] [address] [place] [address] Dr. Alo JohnsonCO2 [Moles/Vol]25.4 mmol/ZMfxlcw34.0-32.0The [facility] Comment on above:Performed By: #### CMP, LIPID, URIC #### [facility] [address] [place] [address] Dr. Alo JohnsonCreatinine [Mass/Vol]1.08 mg/dLNormal0.70-1.30The [facility] MemorialComment on above:Performed By: #### CMP, LIPID, URIC #### [facility] [address] [place] [address] Dr. Alo GoldbergGFR-AF CONGOLESE>60Normal>=60The [facility] MemorialComment on above:Performed By: #### CMP, LIPID, URIC #### [facility] [address] [place] [address] Dr. Alo GoldbergGFR-NON AF CONGOLESE>60Normal>=60The [facility] MemorialComment on above:Performed By: #### CMP, LIPID, URIC #### [facility] [address] [place], [place] [address] Dr. Aol JohnsonGlobulin (S) [Mass/Vol]2.9 g/dLNormHolmes County Joel Pomerene Memorial HospitalComment on above:Performed By: #### CMP, LIPID, URIC #### [facility] [address] [place] [address] Dr. Alo JohnsonGlucose [Mass/Vol]106 mg/xZIknvem84-969Hke [facility] Comment on above:Performed By: #### CMP, LIPID, URIC #### [facility] [address] [place] [address] Dr. Alo JohnsonPotassium [Moles/Vol]4.0 mmol/LNormal3.5-5.1The [facility] Comment on above:Performed By: #### CMP, LIPID, URIC #### [facility] [address] [place] [address] Dr. Alo JohnsonProtein [Mass/Vol]6.9 g/dLNormal6.4-8.2The [facility] Comment on above:Performed By: #### CMP, LIPID, URIC #### [facility] [address] [place] [address] Dr. Alo JohnsonSodium [Moles/Vol]139 mmol/WNjftay253-738Sla [facility] Comment on above:Performed By: #### CMP, LIPID, URIC #### [facility] [address] [place] [address] Dr. Alo JohnsonUrea nitrogen [Mass/Vol]16.0 mg/dLNormal7.0-18.0The [facility] MemorialComment on above:Performed By: #### CMP, LIPID, URIC #### [facility] [address] [place] [address] Dr. Alo JohnsonUrea nitrogen/Creatinine [Mass ratio]14.8 mg/mgNoBrecksville VA / Crille HospitalComment on above:Performed By: #### CMP, LIPID, URIC #### [facility] [address] [place] [address] Dr. Alo JohnsonURIC ACID SERUMon 54-97-1852Pcgwh [Mass/Vol]6.5 mg/dLNormal 3.5-7.2The [facility] MemorialComment on above:Performed By: #### CMP, LIPID, URIC #### [facility] [address] [address] [address] Alo Johnson Vital Signs Date TimeVital SignValuePerforming EfxfqplnyFidrmgvj43-05-2922 15:15-0400Blood Pressure LocationKathy Lue [facility]09-05-2024 15:15-0400Diastolic blood fidaycjd38 mm[Hg]Ale Lue [facility]09-05-2024 15:15-0400Heart rate76 /minKathy Lue [facility]09-05-2024 15:15-0400Systolic blood wweshmun410 mm[Hg]Ale Lue [facility]07-24-2024 10:55-0400Blood Pressure LocationKathy Lue [facility]07-24-2024 10:55-0400Body yicfceskjev71.6 [degF]Ale Lue [facility]07-24-2024 10:55-0400Diastolic blood yepidwcb67 mm[Hg]Ale Lue [facility]07-24-2024 10:55-0400Heart rate56 /minKathy Lue [facility]07-24-2024 10:55-0400Respiratory rate16 /minKathy Lue [facility] [address]24-2024 10:55-0400Systolic blood yacorozu539 mm[Hg]Ale Green [facility]10-27-2022 15:00-0400Diastolic blood usllhtdu19 mm[Hg]Vianca Cui [address] [place], [place] [address]10-27-2022 15:00-0400Mean blood mm[Hg]Vianca Cui [address] [place], [place] [address]10-27-2022 15:00-0400 Systolic blood qvmsrxur272 mm[Hg]Vianca Cui [address]10-27-2022 14:30-0400Blood Pressure LocationMohamestela Cui [address]10-27-2022 14:30-0400 Diastolic blood ctqzehko26 mm[Hg]Vianca Cui [address]10-27-2022 14:30-0400Heart rate86 /minMohamestela Cui [address] [place], [place] [address]10-27-2022 14:30-5299PsZ8% (BldA) [Mass fraction]97 %Vianca See [address] [place], [place] [address]10-27-2022 14:30-0400 Systolic blood pvylrzeh290 mm[Hg]Vianca Cui [address] [place] [address] Encounters Encounter DateEncounter TypeCare ProviderFacilityStart: 06-09-2025 End: 91-66-1314evmfvsjzlbIAWYSCCI Hospital Limatart: 05-27-2025 End: 14-13-9372Ufvntvann Jimenez MD Work Phone: NOUS [facility]ermatologyStart: 05-27-2025 End: 14-84-1138Cwikcjann Jimenez MD Work Phone: noMS [facility] DermatologyStart: 05-27-2025 End: 84-56-6948Wxtseb outpatient new 20 minutesEmmillicent Jimenez MD Work Phone: noMS [facility]eno DermatologyComment on above:Seborrheic keratosis (Primary Dx)Start: 05-27-2025 End: 19-36-0926cvyfydeycqTMSJD A PETITTINot AvailableStart: 03-18-2025 End: 47-43-6832ahakirjhlcOvnjc M. LueFacility:EU [place]vueStart: 03-18-2025 End: 33-06-6165Xsvacdz encounter procedureAle Green [facility] start: 02-04-2025 End: 56-23-6130nocizwxrxrYkbas M. LueFacility:EU [place]vueStart: 02-04-2025 End: 15-21-0667Wrowwax encounter procedurelAe Green [facility] start: 02-03-2025 End: 44-83-2146qeuiyfjbxaQAMIYKYGreen Cross Hospitaltart: 12-23-2024 End: 31-69-3097gwgkawzrmwALXURADGerman Hospitaltart: 12-10-2024 End: 04-34-3934tfrkzvppcmIglbv M. LueFacility:EU [place]vueStart: 12-02-2024 End: 24-43-9266Qnfmxncax department patient visitProMedica Hospital Ambulatory PPGStart: 09-05-2024 End: 42-00-0874uvnywgplmgJISLXUC Medical Centertart: 05-12-2024 End: 81-10-3309Sagvret encounter procedureSCARLET Lanza Work Phone: [facility] Work Phone: Start: 05-12-2024 End: 73-61-3081vjsnewputlLF-C Tatiana Lanza Work Phone: [facility] Work Phone: Start: 04-10-2024 End: 24-81-9700vgoppavnejZjumw M. LueFacility:EU Yohannesmohawk valley psychiatric centerYakovtart: 04-10-2024 End: 66-53-0541Vlgewml encounter procedureKatpadmini Green [facility] Start: 03-26-2024 End: 90-91-3358mxiohpfgafMizgq M. LueFacility:EU [place]Start: 03-26-2024 End: 36-99-8401agzvervwusDI-C Tatiana Lanza Work Phone: [facility] Work Phone: Start: 03-26-2024 End: 23-37-3306Erpeauts ReferredNP-C Tatiana Lanza Work Phone: [facility]-LAB Path Spec [place] HospStart: 03-26-2024 End: 17-99-4107Eww-SiteAle Green [facility] Start: 90-71-3758Idu-patient / Ugz-szklgDC-B Tatiana Lanza Work Phone: [facility] Work Phone: Start: 03-11-2024 End: 86-98-1317Emgzikw encounter procedureNP-C Tatiana Lanza Work Phone: [facility]-MRI Main [place] Work Phone: Start: 03-11-2024 End: 69-90-8049ztvqnkgxhdPR-C Tatiana Lanza Work Phone: [facility] Work Phone: Start: 02-27-2024 End: 66-36-1984Hitpgav encounter procedureAle Green [facility] start: 10-24-2022 End: 28-26-0711wdnlerukvrJUIFGR CRAMERFacility:V4Xxnlh: 10-16-2022 End: 47-41-6918pfwswpnehhECZFEC CRAMERFacility:B5Mrvfo: 06-01-2022 End: 12-58-5766Buqletb encounter procedureMotroy Cui [facility] Procedures DateProcedureProcedure DetailPerforming ClinicianStart: 47-09-4684Igsifmgw emission tomographyNP-C Tatiana Lanza Work Phone: Start: 93-27-4984UT prostate wo/w conNP-C Tatiana Lanza Work Phone: Start: 17-64-0623BKF screeningPAKERVIN LANZAComment on above:Performed By: #### INSULIN #### [facility] [address] [place] [address] Dr. Alo JohnsonStart: 83-60-4016OshdvdzchllVflxotx See Start: 86-58-4622Rsoyprichhb biopsy of prostate using ultrasound guidanceMohamed See Comment on above:and CystoStart: 71-05-3330Kwqyor of ankleMohamed See Comment on above:due to fxDecompression of median nerve Mohamed See TonsillectomyMohamed See Comment on above:as a child Plan of Treatment DateCare ActivityDetailAuthorStart: 05-27-2025 End: 71-79-2699Qpbmjup encounter ozifhvxcv85/22/2025 11:35 AM EDT Office Visit [facility] [place] [facility] [address] [id number] Frankie Jimenez MD [address] [place] [address] ArrivedNOMN Passaic DermatologyComment on above:ArrivedStart: 23-53-8155Jskxrobel vaccinationInfluenza Vaccine (#1)[facility] HealthcareStart: 13-45-2506Ljzaquxfgcqq Vaccine: 65+ Years (2 of 2 - PCV20 or PCV21)Pneumococcal Vaccine: 65+ Years (2 of 2 - PCV20 or PCV21)[facility] Immunizations Immunization DateImmunizationNotesCare UfblgmciIvykzlif40-86-4506yxyecptvv virus vaccine, unspecified formulationEmmillicent Jimenez MD Work Phone: [facility] Payers DatePayer CategoryPayerPolicy [id number] MEDICARE ADVANTAGE [id number] 2024Medicare [id number]-[id number] Health Insurance [id number] [id number] 2.16.840.1.607941.3.57[id number] 2.16.840.1.318580.3.57[id number] 2.16.840.1.298088.3.57[id number] 2.16.840.1.232310.3.57[id number] 2.16.840.1.457769.3.57[id number] 2.16.840.1.647857.3.57[id number] 2.16.840.1.988869.3.57[id number] 2.16.840.1.774977.3.57[id number] 2.16.840.1.598991.3.579.2.1259Private Health InsuranceFirelands Regional Medical Center [id number] 2.840.1.2[id number] 2.840.1.702963.3.579.2.531 [id number] 2.16840.1.740375.3.579.2.531 Social History DateTypeDetailFacilityStart: 10-28-2020 End: 62-67-4204Jqzsgqt smoking statusEx-smoker (finding)[facility] HospitalComment on above:pt quit smoking in 1986Start: 26-59-5604Wvk Assigned At [facility] Systemtart: 28-26-7989Jdl [facility]igned At [facility]tart: 98-36-0512Ykvnxww smoking statusNever [facility] Centeromment on above:pt quit smoking in 1985Sexual OrientationExec[facility] of [facility] start: 78-45-3541ZcnMmne (finding)Doctors HospitalTobacco smoking status NHISTobacco smoking consumption unknownNOMS HealthcareStart: 95-55-0732Fzv assigned at [facility] rockinghamNot on fileNOMN Healthcare History of tobacco useCurrent smokerNOMS HealthcareHistory of tobacco use Cigarette SmokerNOMS HealthcareStart: 90-21-5772Tnwaesp use and exposureUser of smokeless tobaccoNOMS HealthcareHistory of tobacco useChews TobaccoNOMS HealthcareStart: 64-11-5383Nhmqcnu of Social functionNOMS Healthcare Functional Status IxbhUkwoikrfcoIicwkaKehcxcmv77-40-3433Xxipjglkqv StatusN/AExec[facility]07-24-2024Functional StatusN/AExec[facility]10-27-2022Functional StatusNo [facility] Clinical Notes 02-27-2024 to 06-09-2025 Note Date & TotiSlhuMedoeicj42-61-7033 NoteUT Electrophysiology Consult Note Reason for visit: Afib 06/09/25 patient had a stress test on 01/05/2025 that was normal and an echocardiogram that was done on 12/03/2024 revealed normal EF with moderate mitral annular calcification with no evidence of valvular dysfunction. She was seen last by Irma Katz and due to bradycardia the Coreg dose was reduced to 3.125 twice daily and started on amlodipine 5 mg once daily. Review of Systems Constitutional: Negative. 08/07/22: He is here for 3-month follow-up [...] regarding A-fib and ablation 01/[address] garcia HPI: Nick Doyle is a 80 y.o. 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 EKG 10/24/2022 shows sinus [...] Procedure Laterality Date ANKLE SURGERY TONSILLECTOMY SH: [employer] Drivers of Health Tobacco Use: High Risk (06/09/2025) Patient History Smoking Tobacco Use: Former Smokeless Tobacco Use: Current Passive Exposure: Not on file Alcohol Use: Not on file Financial Resource Strain: Not on file Food Insecurity: Not on file Transportation Needs: Not on file Physical Activity: Not on file Stress: Not on file Social Connections: Not on file Intimate Partner Violence: Unknown (09/27/2023) [place] [facility] [employer] [place] Fear of Current or Ex-Partner: Not on file Emotionally Abused: Not on file Physically Abused: Not on file Sexually Abused: Not on file Physically or Sexually Abused: Not on file Depression: Not on file Housing Stability: Not on file Utilities: Not on file Health Literacy: Not on file Allergies: Allergies Allergen Reactions Penicillins Weight: 61.7kg Visit Vitals BP 109/55 (BP Location: Right arm, Patient Position: Sitting) Pulse 56 Ht 1.676 m (5' 6 ) Wt 61.7 kg (136 lb) SpO2 95% BMI 21.95 kg/m??? Smoking Status Former BSA 1.69 m??? Meds: Current Outpatient Medications on File Prior to Visit Medication Sig Dispense Refill amLODIPine (Norvasc) 5 mg tablet Take 1 tablet (5 mg) by mouth in the morning. 90 tablet 3 carvedilol (Coreg) 6.25 mg tablet Take 0.5 tablets by mouth Twice daily at 6am and 6pm. ferrous sulfate 325 (65 Fe) MG tablet Take by mouth with breakfast. isosorbide mononitrate ER (Imdur) 30 mg 24 hr tablet Take 1 tablet by mouth in the morning. losartan (Cozaar) 100 mg tablet Take 100 mg by mouth in the morning. multivitamin tablet Take 1 tablet by mouth in the morning. rivaroxaban (Xarelto) 20 mg tablet Take 1 tablet (20 mg) by mouth daily with evening meal. Take with food. 90 tablet 3 terazosin (Hytrin) 5 mg capsule TAKE 1 CAPSULE BY MOUTH EVERYDAY AT BEDTIME No current facility-administered medications on file prior [...] Lids and Conjunctivae: non-injected, no xanthelasma ENMT Ears (more content not included)...[facility] History of Present illness Narrative* Frankie Jimenez MD - 05/27/2025 11:35 AM EDT Lesions: Location: right sikh Duration: years Quality: itchy, denies pain, denies bleeding Modifying factors: aggravated by picking Associated symptoms: change in shape Treatments: none New patient All pertinent medical history, medications, and allergies were reviewed. General Exam: alert, oriented to person, place, and time, normal affect, well appearing Accompanied by spouse A focused exam completed based on patient reported problems, see below: Skin Exam 1. SEBORRHEIC KERATOSIS Right [place] Stuck on verrucous, irving-brown papules and plaques. Patient was counseled regarding these benign growths. Removal is normally not necessary, but they may be removed if they are symptomatic or for cosmetic reasons. Next Visit: prn for any new/changing lesions, rec pt schedule FBSE documented in this encounterMid Missouri Mental Health CenterBtgucmords29-45-0383 Hospital Discharge instructions Patient Education 03/18/2025 12:13:45 Prostate Cancer Prostate Cancer The prostate is [...] such as a bone scan, CT scan, PETscan, or MRI. Stages of prostate cancer The [...] under a microscope. This is called the [place] score and the total score can range from 6 10, indicating how likely it is that the cancer will spread (metastasize) to other parts of the body. The higher the score, the greater thelikelihood that the cancer will spread. [place] 6 or lower: This indicates that the [...] you need help quitting, ask your health careprovider. Eat a healthy diet. To do this: [...] prostate cancer. Meeting with a support group mayhelp you learn to manage the stress of having cancer. General instructions Take hbsw-eje-irodhok and prescription medicines only as told by your health care provider. If you have to go to the hospital, notify your cancer specialist (oncologist). Keep all follow-up visits. This is important. Where to find more information [place] [employer]: www.cancer.org [place] [employer] Clinical Oncology: www.cancer.net National Cancer [place]: www.cancer.gov Contact a health care provider if: [...] prostate cancer. Meeting with a support group mayhelp you learn to manage the stress of having cancer. This information is not intended to replace advice given to you by your health care provider. Make sure you discuss any questions you have with your health care provider. Document Revised: 10/19/2021 Document Reviewed: 10/19/2021 [employer] Patient Education 2023 [employer]. Follow Up Care 02/04/2025 08:47:29 With:Peter AMOR, RADHA Hagan, URO Address: When: Unknown [facility] 08-13-2025 NotePatient Education Oncology Prostate Cancer The prostate is [...] more likely to develop this condition if: ??? You are 65 years of age or older. ??? You have a family history of prostate cancer. ??? You have a family history of breast and ovarian cancer. ??? You have genes that are passed from parent to child (inherited), such as BRCA1 and BRCA2. ??? You have Black syndrome. men and men of descent are diagnosed with prostate cancer at higher rates than other men. The reasons for this are not well understood and are likely due to a combination of genetic and environmental factors. What are the signs or symptoms? Symptoms of this condition include: ??? Problems with urination. This may include: ? A weak or interrupted flow of urine. ? Trouble starting or stopping urination. ? Trouble emptying the bladder all the way. ? The need to urinate more often, especially at night. ??? Blood in urine or semen. ??? Persistent pain or discomfort in the lower back, lower abdomen, or hips. ??? Trouble getting an erection. ??? Weakness or numbness in the legs or feet. How is this diagnosed? This condition can be diagnosed with: ??? A digital rectal exam. For this exam, a health care provider inserts a gloved finger into the rectum to feel the prostate gland. ??? A blood test called a prostate-specific antigen (PSA) test. ??? A procedure in which a sample of tissue is taken from the prostate and checked under a microscope (prostate biopsy). ??? An imaging test called transrectal ultrasonography. Once the condition is diagnosed, tests will be done to determine how far the cancer has spread. This is called staging the cancer. Staging may involve imaging tests, such as a bone scan, CT scan, PETscan, or MRI. Stages of prostate cancer The stages of prostate cancer are as follows: ??? Stage 1 (I). At this stage, the cancer is found in the prostate only. The cancer is not visibleon imaging tests, and it is usually found by accident, such as during prostate surgery. ??? Stage 2 (II). At this stage, the cancer is more advanced than it is in stage 1, but the cancer has not spread outside the prostate. ??? Stage 3 (III). At this stage, the cancer has spread beyond the outer layer of the prostate to nearby tissues. The cancer may be found in the seminal vesicles, which are near the bladder and the prostate. ??? Stage 4 (IV). At this stage, the [...] body. The higher the score, the greater thelikelihood that the cancer will spread. ??? Lenny 6 or lower: This indicates that the cancer cells look similar to normal prostate cells (well differentiated). ??? Lenny 7: This indicates that the cancer cells look somewhat similar to normal prostate cells (moderately differentiated). ??? Lenny 8, 9, or 10: This indicates that the cancer cells look very different than normal prostate cells (poorly differentiated). How is this treated? Treatment for this condition depends on several factors, including the stage of the cancer, your age, personal preferences, and your overall health. Talk with your health care provider about treatment options that are recommended for you. Common treatments include: ??? Observation for early stage prostate cancer (active surveillance). This involves having exams, blood tests, and in some cases, more biopsies. For some men, this is the only treatment needed. ??? Surgery. Types of surgeries include: ? Open [...] surgery to freeze and destroy cancer cells. ??? Radiation treatment. Types of radiation treatment include: ? External beam radiation. This type aims beams of radiation from outside the body at the prostate to destroy cancerous cells. ? Brachytherapy. This type uses radioactive needles, seeds, wires, o (more content not included)...[facility]07-01-2025 NoteCardiovascular Medicine [facility] SUBJECTIVE Chief Complaint Patient presents with Atrial Fibrillation Hypertension Nick Doyle is a 79 y.o. male here for follow-up. Pt is M[place]OM[place]. His Chandrika accompanied him today. HPI PMHx: PAF, HTN, former smoker 02/03/2025 After his last visit, we proceeded with a stress test to further assess his chest pain. His stress test was negative for ischemia. He denies any further c/o chest pain. He also denies c/o dyspnea, orthopnea, PND, LE edema, dizziness/LH, palpitations, syncope. HR remains low today at 45. His previous holter monitor noted average HR in the 50s. 12/23/2024 Since last seen he was recently at [facility] for c/o chest pain. He notes the chest pain started when he woke up. Was midsternal/left sided. [place] like a weight on his chest. He felt like his heart was beating slower. Denied any dyspnea, palpitations, dizziness, nausea. His troponin, [...] pressure, shortness of breath, MICHAEL, lightheadedness, palpitations He would like to remain conservative in management [...] regarding A-fib and ablation 01/[address] garcia HPI: Nick Doyle is a 78 y.o. 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 Stage 3a chronic kidney disease (CMS/HCC) Past Medical History: Diagnosis Date Abnormal ECG Arrhythmia Atrial fibrillation (CMS/HCC) Hypertension Family History Problem Relation Name Age of Onset Heart attack Father Heart attack Brother Social History Tobacco Use Smoking status: Former Types: Cigarettes Smokeless tobacco: Current Substance Use Topics Alcohol use: Yes Comment: occasional Drug use: Never Allergies Allergen Reactions Penicillins OBJECTIVE Visit Vitals BP 145/57 (BP Location: Right arm, Patient Position: Sitting) Pulse (!) 45 Ht 1.676 m (5' 6 ) Wt 62.6 kg (138 lb) SpO2 95% BMI 22.27 kg/m??? Smoking Status Former BSA 1.71 m??? Medications: Current Outpatient Medications: carvedilol (Coreg) 6.25 mg tablet, Take 0.5 tablets by mouth Twice daily at 6am and 6pm., Disp: , Rfl: ferrous sulfate 325 (65 Fe) MG tablet, Take by mouth with breakfast., Disp: , Rfl: isosorbide mononitrate ER (Imdur) 30 mg 24 hr tablet, Take 1 tablet by mouth in the morning., Disp: , Rfl: losartan (Cozaar) 100 mg tablet, Take 100 mg by mouth in the morning., Disp: , Rfl: multivitamin tablet, Take 1 tablet by mouth in the morning., Disp: , Rfl: rivaroxaban (Xarelto) 20 mg tablet, Take 1 tablet (20 mg) by mouth daily with evening meal. Take with food., Disp: 90 tablet, Rfl: 3 terazosin (Hytrin) 5 mg capsule, TAKE 1 CAPSULE BY MOUTH EVERYDAY AT BEDTIME, Disp: , Rfl: amLODIPine (Norvasc) 5 mg tablet, Take 1 tablet (5 mg) by mouth in the morning., Disp: 90 tablet, Rfl: 3 Physi (more content not included)...[facility] 02-03-2025 NotePatient is here today for a follow up stress test. Patient states he has been feeling pretty good. Patient denies chest pain, leg swelling, MICHAEL, SOB or palpitations. Patient complains of dizziness when he gets up to fast. Review of Systems Neurological: Positive for dizziness.[facility] 01-06-2025 NotePlease let him know his stress test was negative. We can discuss a heart monitor at his visit on the . Thanks![facility]05-20-2025 NotePatient is here today for a follow up hospital admission at [facility]. Patient states he was admitted to the [...] at this time. Review of Systems Constitutional: Negative.[facility]05-20-2025 Note Cardiovascular Medicine [facility] SUBJECTIVE Chief Complaint Patient presents with Atrial Fibrillation Hypertension Nick Doyle is a 79 y.o. male here for follow-up. Pt is MENOM[place]EE. His Chandrika accompanied him today. HPI PMHx: PAF, HTN, former smoker 12/23/2024 Since last seen he was recently at [facility] for c/o chest pain. He notes the chest pain started when he woke up. Was midsternal/left sided. [place] like a weight on his chest. He [...] regarding A-fib and ablation 01/[address] garcia HPI: Nick Doyle is a 78 y.o. 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 EKG 10/24/2022 shows sinus rhythm with right bundle branch block and poor R wave progression 10/23/2022 shows what appears to be atrial flutter/atrial fibrillation with rapid ventricular rate with underlying right bundle branch block Patient Active Problem List Diagnosis Atrial fibrillation (CMS/HCC) Hypertension Coronary artery disease of [place] artery of [place] heart with stable angina pectoris Pure hypercholesterolemia [...] rhythm. Bradycardia p (more content not included)... [facility]05-07[facility]2025 NotePatient Education Oncology Prostate Cancer Screening Prostate cancer screening is testing that is done to check for the presence of prostate cancer in men. The prostate gland is a walnut-sized gland that is located below the bladder and in front of therectum in males. The function of the prostate is to add fluid to semen during ejaculation. Prostatecancer is one of the most common types [...] is a blood test called the prostate-specific antigen(PSA) test. PSA is a protein that is [...] prostate gland for testing (biopsy). This is theonly way to know for certain if you [...] Where to find more information ??? The [place] [employer]: www.cancer.org ??? [place] [employer]: www.auanet.org Contact a health care [...] men. The prostate gland (more content not included)...[facility]01-31-2025 NoteUT Cardiology - [facility] Subjective Nick Doyle is a 79 y.o. year old male patient being seen for Atrial Fibrillation , Coronary Artery Disease , and Hypertension Patient Active Problem List Diagnosis Atrial fibrillation (CMS/HCC) Hypertension Coronary artery disease of [place] artery of [place] heart with stable angina pectoris (CMS/HCC) HPI [...] year or sooner if needed Subha Whittington MD,FACCUniMarietta Osteopathic [facility]09-05-[facility]24 Hospital Discharge instructions Patient Education 04/10/2024 15:41:35 [...] such as a bone scan, CT scan, PETscan, or MRI. Stages of prostate cancer The [...] body. The higher the score, the greater thelikelihood that the cancer will spread. Lenny 6 or lower: This indicates that the cancer cells look similar to normal prostate cells (well differentiated). [place] 7: This indicates that the cancer cells [...] you need help quitting, ask your health careprovider. Eat a healthy diet. To do this: [...] prostate cancer. Meeting with a support group mayhelp you learn to manage the stress of having cancer. General instructions Take mbea-hmq-jpbnhfp and prescription medicines only as told by your health care provider. If you have to go to the hospital, notify your cancer specialist (oncologist). Keep all follow-up visits. This is important. Where to find more information [place] [employer]: www.cancer.org [place] Society of Clinical Oncology: www.cancer.net National Cancer [place]: www.cancer.gov Contact a health care provider if: [...] prostate cancer. Meeting with a support group mayhelp you learn to manage the stress of having cancer. This information is not intended to replace advice given to you by your health care provider. Make sure you discuss any questions you have with your health care provider. Document Revised: 10/19/2021 Document Reviewed: 10/19/2021 [employer] Patient Education 2023 [employer]. Follow Up Care 03/31/2024 09:20:27 With:Peter AMOR, RADHA Hagan, URO Address: When: Unknown [facility] 09-05-2024 NotePatient Education Oncology Prostate Cancer The prostate is [...] from the prostate and checked under a microscope(prostate biopsy). ? An imaging test called transrectal ultrasonography. Once the condition is diagnosed, tests will be done to determine how far the cancer has spread. This is called staging the cancer. Staging may involve imaging tests, such as a bone scan, CT scan, PETscan, or MRI. Stages of prostate cancer The [...] under a microscope. This is called the [place] score and the total score can range from 6?10, indicating how likely it is that the cancer will spread (metastasize) to other parts of the body. The higher the score, the greater thelikelihood that the cancer will spread. ? [place] 6 or lower: This indicates that the cancer cells look similar to normal prostate cells (well differentiated). ? Lenny 7: This indicates that the cancer cells look somewhat similar to normal prostate cells (moderately differentiated). ? [place] 8, 9, or 10: This indicates that [...] seeds, wires, or tubes that are implanted intothe prostate gla (more content not included)...[facility]07-24-2024 Hospital Discharge instructions Patient Education 02/27/2024 12:02:57 [...] discomfort near your rectum, especially while sitting. [place]-colored urine due to small amounts of blood in your urine. A burning feeling while urinating. Blood in your stool (feces) or bleeding from your rectum. Blood in your semen. Follow these instructions at home: Medicines Take mguv-tsa-umxdthm and prescription medicines only as told by your health care provider. If you were given a sedative during your procedure, it can affect you for several hours. Do not drive or operate machinery until your health care provider says that it is safe. If you were prescribed an antibiotic medicine, take it as told by your health care provider. Do notstop using the antibiotic even if you start [...] pain and discomfort around your rectum, especially whilesitting. You may have blood in your urine [...] provider. Document Revised: 01/16/2022 Document Reviewed: 01/16/2022 [employer] Patient Education 2022 [employer] 02/27/2024 12:02:56 Transrectal Ultrasound-Guided Prostate Biopsy Transrectal Ultrasound-Guided Prostate Biopsy A transrectal ultrasound-guided prostate biopsy is a procedure to remove samples of prostate tissuefor testing. The prostate is a walnut-sized gland that is located below the bladder and in front ofthe rectum. During this procedure, a small device (probe) is lubricated and put inside the rectum. The probe sends out sound waves that make a picture of the prostate and surrounding tissues (transrectal ultrasound). The images are used to help guide the process of removing the samples. The samplesare taken to a lab to be checked [...] including vitamins, herbs, eye drops, creams, and sjjh-zjh-jvzxnyf medicines. Any problems you or family members [...] provider tells you to take them. Taking hcas-vyc-dxhmprf medicines, vitamins, herbs, and supplements. General instructions [...] blood oxygen level will be monitored until youleave the hospital or clinic. You may have [...] hospital or clinic, and follow up with yourhealth care provider for your results. This information is not intended to replace advice given to you by your health care provider. Make sure you discuss any questions you have with your health care provider. Document Revised: 01/16/2022 Document Reviewed: 01/16/2022 [employer] Patient Education 2022 [employer]. 02/27/2024 11:47:00 Prostate Cancer Prostate Cancer The [...] such as a bone scan, CT scan, PETscan, or MRI. Stages of prostate cancer The [...] under a microscope. This is called the [place] score and the total score can range from 6 10, indicating how likely it is that the cancer will spread (metastasize) to other parts of the body. The higher the score, the greater thelikelihood that the cancer will spread. Lenny 6 [...] you need help quitting, ask your health careprovider. Eat a healthy diet. To do this: [...] prostate cancer. Meeting with a support group mayhelp you learn to manage the stress of having cancer. General instructions Take sbto-fko-bvstqpz and prescription medicines only as told by your health care provider. If you have to go to the hospital, notify your cancer specialist (oncologist). Keep all follow-up visits. This is important. Where to find more information [place] [employer]: www.cancer.org [place] Society of Clinical Oncology: www.cancer.net National Cancer [place]: www.cancer.gov Contact a health care provider if: [...] prostate cancer. Meeting with a support group mayhelp you learn to manage the stress of having cancer. This information is not intended to replace advice given to you by your health care provider. Make sure you discuss any questions you have with your health care provider. Document Revised: 10/19/2021 Document Reviewed: 10/19/2021 [employer] Patient Education 2022 [employer]. Follow Up Care 02/08/2024 12:41:54 With:Peter AMOR, Ale Patterson, URL, URO Address: When: Unknown [facility] evaluation + Plan note No data available for this section [facility] Future Appointments Appointment Date:03/18/2025 11:15:00 AM Scheduled Provider:Ale Green MD Location:[facility] Appointment Type:URO Office Visit [facility] evaluation noteNo assessment information available [facility] Work Phone: evaluuqyti note* Diagnosis Seborrheic keratosis- Primary [facility] No data available for this section [facility] No data available for this section [facility] Purpose Family History No Family [...] Team Status: Active Member Role Status Dates THANG GrantC Primary Care Provider Active Team Status: Inactive Member Role Status Dates Ale Green MD Attending Provider Active Start : March 11, 2024 End: March 11[facility] Care ProviderActiveStart: March 11, 2024 End: March 11, 2024 Team Status: Inactive Member Role Status Dates SCARLET Grant Primary Care Provider Active Start: March 26, 2024 End: March 26, 2024Ale Green MDAttunc [facility] [place] ProviderActiveStart: March 26, 2024 End: March 26, 2024 Team Status: Active Member Role Status Dates SCARLET Grant Primary Care Provider Active Start: March 12, 2024 Jonny Jefferson DOClarashell ProviderActiveStart: March 12, 2024 Team Status: Inactive Member Role Status Dates Tatiana Lanza NP-C Primary Care Provider Active Start: May 12, 2024 End: May 12, 2024Ale Green GEORGEttshell ProviderActiveStart: May 12, 2024 End: May 12, 2024 (unrecognized sect ion and content) No Status Records FoundNo Status Records FoundNo Status Records FoundNo Status Records FoundNo Status Records FoundNo Status Records Found INFORMATION SOURCE (unrecogn ized section and content) DATE CREATED AUTHOR 10/29/2022 [facility] DATE CREATED AUTHOR AUTHOR'S ORGANIZ ATION 12/09/2024 [facility] DATE CREATED AUTHOR AUTHOR'S ORGANIZ ATION 01/02/2025 [facility] DATE CREATED AUTHOR AUTHOR'S ORGANIZ ATION 03/20/2025 [facility] DATE CREATED AUTHOR AUTHOR'S ORGANIZ ATION 05/28/2025 [facility] DATE CREATED AUTHOR AUTHOR'S ORGANIZ ATION 06/10/2025 [facility] Goals (unrecognized section and content) Goals may [...] BE BASED ON THE PRIMARY CLINICAL RECORDS. [facility] [employer] provides no warranty or guarantee of the accuracy or completeness of information in this document.
[2025-07-13 13:29] LABS: Anion Gap 8.6; Blood Urea Nitrogen 15.0 mg/dL (7.0-18.0); Calcium 9.2 mg/dL (8.5-10.1); Carbon Dioxide 31.5 mmol/L (21.0-32.0); Chloride 106 mmol/L (98-107); Estimated GFR (African America 58 (>=60 mL/min/1.73m^2); Estimated GFR (Non-African Ame 48 (>=60 mL/min/1.73m^2); Glucose 130 mg/dL (74-106); Potassium 4.1 mmol/L (3.5-5.1); Sodium 142 mmol/L (136-145)
== END 2025-07-13 12:26 | disposition home or self-care (01) ==
LOC: LAB 12:25
PROVIDERS: PCP Nurse Practitioner Family; Visit Provider Nurse Practitioner Family
DX: I10 Essential (primary) hypertension (principal)
CPT/HCPCS: 36415; 80048